=== PATIENT | male | born 1980 | race Caucasian/White ===

== ENCOUNTER 2018-05-22 15:37 | Outpatient (REF) | payer MEDICAID, SELFPAY ==
[2018-05-26 09:37] LABS: Hepatitis C Ab w Rflx HCV PCR Reactive (NEGAT)
[2018-05-26 11:26] LABS: Hepatitis B Surface Ag Negative (NEGAT)
[2018-05-26 11:28] LABS: HBs Antibody, Quant 17.9 mIU/mL; Hepatitis B Surface Ab Positive
[2018-05-26 11:29] LABS: HIV-1/2 Ag & Ab Screen Negative (NEGAT)
[2018-05-26 12:11] LABS: Syphilis Serology (RPR) Negative (Negative)
== END 2018-05-22 15:57 ==
LOC: NCHCN 15:37
PROVIDERS: PCP Internal Medicine; Visit Provider Internal Medicine
DX: Z11.3 Encounter for screening for infections with a predominantly sexual mode of transmission (principal); Z11.4 Encounter for screening for human immunodeficiency virus [HIV]; Z11.59 Encounter for screening for other viral diseases
CPT/HCPCS: 86706; 86803; 87340; 87389; 86592; 87522

== ENCOUNTER 2018-05-28 15:45 | Outpatient (REF) | payer MEDICAID, SELFPAY ==
[2018-05-28 21:27] LABS: Absolute Basophil Count 0.03 k/cumm (0.0-0.2); Absolute Eosinophil Count 0.23 k/cumm (0.0-0.7); Absolute Lymphocyte Count 2.83 k/cumm (1.2-3.4); Absolute Monocyte Count 0.58 k/cumm (0.11-0.7); Absolute Neutrophil Count 3.05 k/cumm (1.2-6.7); Basophils % 0.4; Eosinophils % 3.4; HCT 45.1 % (40.0-50.0); HGB 15.7 g/dL (13.5-17.5); Lymphocytes % 42.1; Mean Corp. HGB Concentration 34.8 g/dL (32.0-36.0); Mean Corpuscular Hemoglobin 32.4 pg (27.0-33.0); Mean Corpuscular Volume 93.2 fL (80-95); Mean Platelet Volume 12.6 fL (8.0-11.0); Monocytes % 8.6; Neutrophils % 45.5; Platelet Count 242 x1000/uL (130-400); RBC 4.84 m/cumm (4.50-6.00); RBC Distribution Width 12.4 % (11.8-14.1); White Blood Cell Count 6.72 k/cumm (4.4-10.8)
[2018-05-28 21:36] LABS: ALT 37 U/L (12-78); AST 26 U/L (15-37); Albumin 4.2 g/dL (3.4-5.0); Alkaline Phosphatase 53 U/L (46-116); Anion Gap 12.2 mmol/L (3-11); BUN 10 mg/dL (7-18); Bilirubin, Total 0.3 mg/dL (0.2-1.0); CO2 27.8 mmol/L (21.0-32.0); Calcium 9.8 mg/dL (8.5-10.1); Chloride 93 mmol/L (98-107); Glucose 71 mg/dL (70-100); Potassium 3.8 mmol/L (3.5-5.1); Sodium 133 mmol/L (136-145); Total Protein 7.6 g/dL (6.4-8.2)
[2018-05-30 18:52] LABS: HCV Genotype 1a (Undetected)
== END 2018-05-28 16:05 ==
LOC: NCHCN 15:45
PROVIDERS: PCP Internal Medicine; Visit Provider Internal Medicine
DX: I10 Essential (primary) hypertension (principal); B19.20 Unspecified viral hepatitis C without hepatic coma
CPT/HCPCS: 80053; 85025; 87521

== ENCOUNTER 2018-05-30 14:03 | Outpatient (REF) | payer MEDICAID, SELFPAY ==
[2018-06-02 15:02] LABS: Chlamydia Result Negative; GC Result Negative; Specimen Description URINE
== END 2018-05-30 14:23 ==
LOC: NCHCN 14:03
PROVIDERS: PCP Internal Medicine; Visit Provider Internal Medicine
DX: Z11.3 Encounter for screening for infections with a predominantly sexual mode of transmission (principal)
CPT/HCPCS: 87491; 87591

== ENCOUNTER 2018-06-13 13:34 | Outpatient (REF) | payer MEDICAID, SELFPAY ==
[2018-06-16 11:20] LABS: Hep B Core Antibody Negative (NEGAT)
== END 2018-06-13 13:54 ==
LOC: NCHCN 13:34
PROVIDERS: PCP Internal Medicine; Visit Provider Internal Medicine
DX: B19.20 Unspecified viral hepatitis C without hepatic coma (principal)
CPT/HCPCS: 86704

== ENCOUNTER 2018-06-17 16:06 | Outpatient (REF) | payer MEDICAID, SELFPAY | END 2018-06-17 16:26 | LOC: NCHCN 16:06 | PROVIDERS: PCP Internal Medicine; Visit Provider Family Medicine | DX: B19.20 Unspecified viral hepatitis C without hepatic coma (principal) | CPT/HCPCS: 87522 ==

== ENCOUNTER 2018-08-29 15:51 | Outpatient (REF) | payer MEDICAID, SELFPAY ==
[2018-08-29 21:01] LABS: Abs Immature Grans 0.01 k/cumm (0.0-0.09); Absolute Basophil Count 0.02 k/cumm (0.0-0.2); Absolute Eosinophil Count 0.33 k/cumm (0.0-0.7); Absolute Lymphocyte Count 2.65 k/cumm (1.2-3.4); Absolute Monocyte Count 0.49 k/cumm (0.11-0.7); Basophils % 0.3; HCT 41.3 % (40.0-50.0); HGB 13.8 g/dL (13.5-17.5); Immature Grans % 0.2; Lymphocytes % 40.2; Mean Corp. HGB Concentration 33.4 g/dL (32.0-36.0); Mean Corpuscular Hemoglobin 32.3 pg (27.0-33.0); Mean Corpuscular Volume 96.7 fL (80-95); Mean Platelet Volume 13.2 fL (8.0-11.0); Monocytes % 7.4; Neutrophils % 46.9; Platelet Count 160 x1000/uL (130-400); RBC 4.27 m/cumm (4.50-6.00); RBC Distribution Width 12.2 % (11.8-14.1)
[2018-09-01 09:33] LABS: ALT 20 U/L (12-78); AST 16 U/L (15-37); Albumin 3.7 g/dL (3.4-5.0); Alkaline Phosphatase 47 U/L (46-116); Anion Gap 6.5 mmol/L (3-11); BUN 16 mg/dL (7-18); Bilirubin, Total 0.1 mg/dL (0.2-1.0); CO2 28.5 mmol/L (21.0-32.0); CREATININE 0.96 mg/dL (0.70-1.30); Calcium 9.2 mg/dL (8.5-10.1); Chloride 104 mmol/L (98-107); Glucose 108 mg/dL (70-100); Potassium 4.7 mmol/L (3.5-5.1); Sodium 139 mmol/L (136-145)
[2018-09-02 14:38] LABS: HCV RNA Detection Quantitative Detected (UNDECT)
== END 2018-08-29 16:11 ==
LOC: NCHCN 15:51
PROVIDERS: PCP Internal Medicine; Visit Provider Family Medicine
DX: B19.20 Unspecified viral hepatitis C without hepatic coma (principal)
CPT/HCPCS: 80053; 85025; 87522

== ENCOUNTER 2018-09-22 15:00 | Outpatient (REF) | payer MEDICAID, SELFPAY ==
[2018-09-22 22:16] LABS: ALT 26 U/L (12-78); AST 22 U/L (15-37); Alkaline Phosphatase 51 U/L (46-116); Anion Gap 6.3 mmol/L (3-11); BUN 14 mg/dL (7-18); Bilirubin, Total 0.1 mg/dL (0.2-1.0); CO2 31.7 mmol/L (21.0-32.0); CREATININE 0.94 mg/dL (0.70-1.30); Calcium 9.3 mg/dL (8.5-10.1); Chloride 105 mmol/L (98-107); Glucose 77 mg/dL (70-100); Potassium 4.9 mmol/L (3.5-5.1); Sodium 143 mmol/L (136-145)
[2018-09-24 15:17] LABS: HCV RNA Detection Quantitative Undetected IU/mL (UNDECT)
== END 2018-09-22 15:20 ==
LOC: NCHCN 15:00
PROVIDERS: PCP Internal Medicine; Visit Provider Internal Medicine
DX: F11.20 Opioid dependence, uncomplicated (principal); F41.8 Other specified anxiety disorders; I10 Essential (primary) hypertension; B19.20 Unspecified viral hepatitis C without hepatic coma
CPT/HCPCS: 80053; 87522

== ENCOUNTER 2019-01-19 13:28 | Outpatient (REF) | payer MEDICAID, SELFPAY ==
[2019-01-24 07:06] LABS: Amphetamine 1515 ng/mL (Cutoff: 25); Amphetamines Interpretation Positive.; MDA (Ecstasy Metabolite) Negative ng/mL (Cutoff: 25); MDMA (Ecstasy) Negative ng/mL (Cutoff: 25); Methamphetamine 13966 ng/mL (Cutoff: 25); Phentermine Negative ng/mL (Cutoff: 25); Pseudoephedrine/Ephedrine Negative ng/mL (Cutoff: 25)
== END 2019-01-19 13:48 ==
LOC: NCHCN 13:28
PROVIDERS: PCP Internal Medicine; Visit Provider Internal Medicine
DX: F11.20 Opioid dependence, uncomplicated (principal)
CPT/HCPCS: 80324

== ENCOUNTER 2019-05-14 15:48 | Outpatient (REF) | payer MEDICAID, SELFPAY ==
[2019-05-18 16:34] LABS: 2-OH-Ethyl-Flurazepam Negative ng/mL (Cutoff: 100); 7-NH-Clonazepam Negative ng/mL (Cutoff: 100); 7-NH-Flunitrazepam Negative ng/mL (Cutoff: 50); Alpha OH-Alprazolam Negative ng/mL (Cutoff: 100); Alpha-OH-Triazolam Negative ng/mL (Cutoff: 100); Benzodiazepines Interpretation Negative.; Lorazepam Negative ng/mL (Cutoff: 100); Temazepam Negative ng/mL (Cutoff: 100)
[2019-05-19 05:13] LABS: Carboxy-THC Interpretation Positive.; Delta-9 CarboxyThc by LC-MS/MS 550 ng/mL (Cutoff:<3)
[2019-05-19 11:40] LABS: Amphetamine 9286 ng/mL (Cutoff: 25); Amphetamines Interpretation Positive.; MDA (Ecstasy Metabolite) Negative ng/mL (Cutoff: 25); MDMA (Ecstasy) Negative ng/mL (Cutoff: 25); Phentermine Negative ng/mL (Cutoff: 25); Pseudoephedrine/Ephedrine Negative ng/mL (Cutoff: 25)
[2019-05-23 20:26] LABS: Buprenorphine 289.4 ng/mL; Norbuprenorphine 657.1 ng/mL
== END 2019-05-14 16:08 ==
LOC: NCHCN 15:48
PROVIDERS: PCP Internal Medicine; Visit Provider Internal Medicine
DX: F11.20 Opioid dependence, uncomplicated (principal); F15.10 Other stimulant abuse, uncomplicated; F41.8 Other specified anxiety disorders; L98.8 Other specified disorders of the skin and subcutaneous tissue
CPT/HCPCS: 80307; 80324; 80349; 80346

== ENCOUNTER 2020-03-01 17:15 | Outpatient (REF) | payer MEDICAID, SELFPAY ==
[2020-03-05 04:11] LABS: Benzoylecgonine 1305 ng/mL (Cutoff: 50); Cocaine Negative ng/mL (Cutoff: 50); Cocaine Interpretation Positive.
[2020-03-05 13:50] LABS: Amphetamine 8281 ng/mL (Cutoff: 25); Amphetamines Interpretation Positive.; MDA (Ecstasy Metabolite) Negative ng/mL (Cutoff: 25); MDMA (Ecstasy) Negative ng/mL (Cutoff: 25); Phentermine Negative ng/mL (Cutoff: 25); Pseudoephedrine/Ephedrine Negative ng/mL (Cutoff: 25)
== END 2020-03-01 17:35 ==
LOC: NCHCN 17:15
PROVIDERS: PCP Internal Medicine; Visit Provider Internal Medicine
DX: K21.9 Gastro-esophageal reflux disease without esophagitis (principal); F41.8 Other specified anxiety disorders; F11.20 Opioid dependence, uncomplicated
CPT/HCPCS: 80324; 80353

== ENCOUNTER 2020-07-11 16:46 | Outpatient (REF) | payer MEDICAID, SELFPAY ==
[2020-07-15 11:49] LABS: Amphetamine 3923 ng/mL (Cutoff: 25); Amphetamines Interpretation Positive.; MDA (Ecstasy Metabolite) Negative ng/mL (Cutoff: 25); MDMA (Ecstasy) Negative ng/mL (Cutoff: 25); Phentermine Negative ng/mL (Cutoff: 25); Pseudoephedrine/Ephedrine Negative ng/mL (Cutoff: 25)
== END 2020-07-11 17:06 ==
LOC: NCHCN 16:46
PROVIDERS: PCP Internal Medicine; Visit Provider Internal Medicine
DX: F11.20 Opioid dependence, uncomplicated (principal); F15.10 Other stimulant abuse, uncomplicated
CPT/HCPCS: 80324

== ENCOUNTER 2020-11-10 16:08 | Outpatient (REF) | payer MEDICAID, SELFPAY ==
[2020-11-15 16:38] LABS: EDDP-by GC-MS Negative ng/mL (Cutoff: 100); Methadone Interpretation Negative.; Methadone-by GC-MS Negative ng/mL (Cutoff: 100)
[2020-11-16 23:45] LABS: Amphetamine 9457 ng/mL (Cutoff: 25); Amphetamines Interpretation Positive.; MDA (Ecstasy Metabolite) Negative ng/mL (Cutoff: 25); MDMA (Ecstasy) Negative ng/mL (Cutoff: 25); Phentermine Negative ng/mL (Cutoff: 25); Pseudoephedrine/Ephedrine Negative ng/mL (Cutoff: 25)
== END 2020-11-10 16:09 | disposition home or self-care (01) ==
LOC: NCHCN 16:08
PROVIDERS: PCP Internal Medicine; Visit Provider Internal Medicine
DX: F90.0 Attention-deficit hyperactivity disorder, predominantly inattentive type (principal); F41.8 Other specified anxiety disorders; F11.20 Opioid dependence, uncomplicated
CPT/HCPCS: 80324; 80358

== ENCOUNTER 2021-02-14 16:19 | Outpatient (REF) | payer MEDICAID, SELFPAY ==
[2021-02-14 21:56] LABS: HCT 43.1 % (40.0-50.0); MCHC 32.5 % (32.0-36.0); MCV 95.4 fL (80-95); MPV 12.7 fL (8.0-11.0); Platelet Count 202 10^3/uL (130-400); RBC 4.52 10^6/uL (4.36-5.78); RDW 11.9 % (11.8-14.1); RDW-SD 42.1 fL; WBC 4.36 10^3/uL (4.4-10.8)
[2021-02-14 21:59] LABS: ESR 5 mm/hr (0-15)
[2021-02-15 16:19] LABS: Rheumatoid Factor <8.6 IU/mL (<12.0)
[2021-02-16 09:22] LABS: Cyclic Citrullinated Peptide <2.5 U/mL (<5.0)
[2021-02-16 10:21] LABS: Lyme Ab w Rflx to Lyme Confirm Negative (Negative)
[2021-02-18 12:45] LABS: Amphetamine 24781 ng/mL (Cutoff: 25); Amphetamines Interpretation Positive.; MDA (Ecstasy Metabolite) Negative ng/mL (Cutoff: 25); MDMA (Ecstasy) Negative ng/mL (Cutoff: 25); Phentermine Negative ng/mL (Cutoff: 25); Pseudoephedrine/Ephedrine Negative ng/mL (Cutoff: 25)
== END 2021-02-14 16:20 | disposition home or self-care (01) ==
LOC: NCHCN 16:19
PROVIDERS: PCP Internal Medicine; Visit Provider Internal Medicine
DX: M25.551 Pain in right hip (principal); F11.20 Opioid dependence, uncomplicated; M25.552 Pain in left hip; M25.59 Pain in other specified joint; S80.862A Insect bite (nonvenomous), left lower leg, initial encounter; M25.48 Effusion, other site; Z82.61 Family history of arthritis
CPT/HCPCS: 80324; 85027; 85652; 86200; 86431; 86618

== ENCOUNTER 2021-05-02 16:02 | Outpatient (REF) | payer MEDICAID, SELFPAY ==
[2021-05-02 22:18] LABS: *AMPHETAMINES SCREEN URINE Positive (Negative); *BARBITURATES SCREEN URINE Negative (Negative); *BENZODIAZEPINES SCREEN URINE Negative (Negative); Cannabinoids THC Positive (Negative); Cocaine Screen,Urine Negative (Negative); METHADONE URINE SCREEN Negative (Negative); OPIATES URINE SCREEN Negative (Negative); Tricyclic Antidepressants Negative (Negative)
== END 2021-05-02 16:03 | disposition home or self-care (01) ==
LOC: NCHCN 16:02
PROVIDERS: PCP Internal Medicine; Visit Provider Internal Medicine
DX: F90.0 Attention-deficit hyperactivity disorder, predominantly inattentive type (principal); F11.20 Opioid dependence, uncomplicated; F15.21 Other stimulant dependence, in remission
CPT/HCPCS: 80307

== ENCOUNTER 2022-10-30 15:24 | Outpatient (REF) | payer MEDICAID, SELFPAY ==
[2022-10-30 20:27] LABS: HCT 42.8 % (40.0-50.0); HGB 14.3 g/dL (13.5-17.5); MCH 30.4 pg (27.0-33.0); MCHC 33.4 % (32.0-36.0); MCV 91 fL (80-95); MPV 12.9 fL (8.0-11.0); Platelet Count 185 10^3/uL (130-400); RDW 11.9 % (11.8-14.1); RDW-SD 40.2 fL; WBC 4.99 10^3/uL (4.4-10.8)
[2022-10-30 20:54] LABS: ALT 29 U/L (16-63); AST 21 U/L (15-37); Albumin 3.8 g/dL (3.4-5.0); Alkaline Phosphatase 55 U/L (46-116); Anion Gap 6.2 mmol/L (3-11); BUN 18 mg/dL (7-18); Bilirubin, Total 0.3 mg/dL (0.2-1.0); CO2 31.8 mmol/L (21.0-32.0); CREATININE 0.9 mg/dL (0.70-1.30); Calcium 9.3 mg/dL (8.5-10.1); Chloride 103 mmol/L (98-107); Estimated GFR 110.73 (mL/min/1.73m2); Glucose 86 mg/dL (74-106); Potassium 4.4 mmol/L (3.5-5.1); Sodium 141 mmol/L (136-145)
[2022-11-02 13:09] LABS: Buprenorphine 305.8 ng/mL (Cutoff: 5.0); Norbuprenorphine 368.5 ng/mL (Cutoff: 2.5)
[2022-11-03 14:09] LABS: Carboxy-THC Interpretation Positive.; Delta-8 CarboxyThc by LC-MS/MS Not Detected ng/mL (Cutoff: 5); Delta-9 CarboxyThc by LC-MS/MS 251 ng/mL (Cutoff: 5)
[2022-11-04 04:21] LABS: Amphetamine 16830 ng/mL (Cutoff: 25); Amphetamines Interpretation Positive.; MDA (Ecstasy Metabolite) Negative ng/mL (Cutoff: 25); MDMA (Ecstasy) Negative ng/mL (Cutoff: 25); Phentermine Negative ng/mL (Cutoff: 25); Pseudoephedrine/Ephedrine Negative ng/mL (Cutoff: 25)
== END 2022-10-30 15:25 | disposition home or self-care (01) ==
LOC: NCHCN 15:24
PROVIDERS: PCP Internal Medicine; Visit Provider Internal Medicine
DX: R55 Syncope and collapse (principal); F11.20 Opioid dependence, uncomplicated; F32.A Depression, unspecified; F90.0 Attention-deficit hyperactivity disorder, predominantly inattentive type
CPT/HCPCS: 80053; 80324; 80348; 80349; 85027

== ENCOUNTER 2023-05-07 17:04 | Outpatient (REF) | payer MEDICAID, SELFPAY ==
[2023-05-12 03:29] LABS: Amphetamine 11027 ng/mL (Cutoff: 25); Amphetamines Interpretation Positive.; MDA (Ecstasy Metabolite) Negative ng/mL (Cutoff: 25); MDMA (Ecstasy) Negative ng/mL (Cutoff: 25); Phentermine Negative ng/mL (Cutoff: 25); Pseudoephedrine/Ephedrine Negative ng/mL (Cutoff: 25)
[2023-05-13 10:43] LABS: 2-OH-Ethyl-Flurazepam Negative ng/mL (Cutoff: 10); 7-NH-Clonazepam Negative ng/mL (Cutoff: 10); 7-NH-Flunitrazepam Negative ng/mL (Cutoff: 10); Alpha OH-Alprazolam Negative ng/mL (Cutoff: 10); Alpha-OH Midazolam Negative ng/mL (Cutoff: 10); Alpha-OH-Triazolam Negative ng/mL (Cutoff: 10); Alprazolam Negative ng/mL (Cutoff: 10); Benzodiazepines Interpretation Negative.; Chlordiazepoxide Negative ng/mL (Cutoff: 10); Clobazam Negative ng/mL (Cutoff: 10); Clonazepam Negative ng/mL (Cutoff: 10); Diazepam Negative ng/mL (Cutoff: 10); Flurazepam Negative ng/mL (Cutoff: 10); Lorazepam Negative ng/mL (Cutoff: 10); Midazolam Negative ng/mL (Cutoff: 10); N-Desmethylclobazam Negative ng/mL (Cutoff: 10); Prazepam Negative ng/mL (Cutoff: 10); Temazepam Negative ng/mL (Cutoff: 10); Triazolam Negative ng/mL (Cutoff: 10); Zolpidem Carboxylic acid Negative ng/mL (Cutoff: 10)
== END 2023-05-07 17:05 | disposition home or self-care (01) ==
LOC: NCHCN 17:04
PROVIDERS: PCP Internal Medicine; Visit Provider Internal Medicine
DX: F11.20 Opioid dependence, uncomplicated (principal); F32.89 Other specified depressive episodes; F90.0 Attention-deficit hyperactivity disorder, predominantly inattentive type; Z79.899 Other long term (current) drug therapy
CPT/HCPCS: 80324; 80346

== ENCOUNTER 2024-01-16 16:18 | Outpatient (REF) | payer MEDICAID, SELFPAY ==
[2024-01-20 11:21] LABS: Alcohol Negative mg/dL (Cutoff: 10); Amphetamines Presumptive Positive ng/mL; Barbiturates Negative; Benzodiazepines Negative; Cocaine Presumptive Positive ng/mL; Opiates Presumptive Positive ng/mL; Phencyclidine Negative ng/mL (Cutoff: 25); Tetrahydrocannabinol Presumptive Positive ng/mL (Cutoff: 50)
[2024-01-21 07:17] LABS: Carboxy-THC Interpretation Positive.; Delta-8 CarboxyThc by LC-MS/MS Not Detected ng/mL (Cutoff: 5); Delta-9 CarboxyThc by LC-MS/MS 108 ng/mL (Cutoff: 5)
[2024-01-22 12:04] LABS: Codeine Negative ng/mL (Cutoff: 25); Dihydrocodeine Negative ng/mL (Cutoff: 25); Hydrocodone Negative ng/mL (Cutoff: 25); Hydromorphone Negative ng/mL (Cutoff: 25); Morphine Negative ng/mL (Cutoff: 25); Naloxone 573 ng/mL (Cutoff: 25); Norhydrocodone Negative ng/mL (Cutoff: 25); Noroxycodone Negative ng/mL (Cutoff: 25); Noroxymorphone 42 ng/mL (Cutoff: 25); Opiates Interpretation Positive.
[2024-01-23 14:34] LABS: Amphetamine 4145 ng/mL (Cutoff: 25); Amphetamines Interpretation Positive.; MDA (Ecstasy Metabolite) Negative ng/mL (Cutoff: 25); MDMA (Ecstasy) Negative ng/mL (Cutoff: 25); Phentermine Negative ng/mL (Cutoff: 25); Pseudoephedrine/Ephedrine Negative ng/mL (Cutoff: 25)
[2024-01-23 15:11] LABS: Benzoylecgonine >250000 ng/mL (Cutoff: 50); Cocaine 34013 ng/mL (Cutoff: 50); Cocaine Interpretation Positive.
== END 2024-01-16 16:19 | disposition home or self-care (01) ==
LOC: NCHCN 16:18
PROVIDERS: PCP Internal Medicine; Visit Provider Family Medicine
DX: F11.20 Opioid dependence, uncomplicated (principal); R82.5 Elevated urine levels of drugs, medicaments and biological substances
CPT/HCPCS: 80307; 80324; 80349; 80361; 80362; 80365; 80353

== ENCOUNTER 2024-04-26 04:00 | Emergency (ER) | payer MEDICAID, SELFPAY ==
[2024-04-26] VITALS (15 sets, daily range): BP systolic 99–169; BP diastolic 64–133; PULSE 58–149; RESP 12–24; O2SAT 83–100
[2024-04-26] MEDS: Lactated Ringers 1,000 ML 1000 ML IV (04:00)
[2024-04-26] MEDS: Etomidate 20 MG/10 ML VIAL (04:05)
[2024-04-26] MEDS: ceFAZolin 2 GM/50 ML BAG 400 GM (04:07)
[2024-04-26] MEDS: TRANEXAMIC ACID/SOD. CHL. 1,000 MG/100 ML BAG 12.5 MG (04:17)
[2024-04-26 04:18] LABS: Abs Immature Grans 0.06 10^3/uL (0.0-0.06); Absolute Basophil Count 0.06 10^3/uL (0.0-0.2); Absolute Eosinophil Count 0.65 10^3/uL (0.0-0.7); Absolute Lymphocyte Count 2.69 10^3/uL (1.2-3.4); Absolute Monocyte Count 0.69 10^3/uL (0.1-0.8); Basophils % 0.5 %; Eosinophils % 5.2 %; HCT 35.5 % (40.0-50.0); HGB 11.4 g/dL (13.5-17.5); Immature Grans % 0.5 %; Lactate 2.3 mmol/L (0.6-1.4); Lymphocytes % 21.4 %; MCH 29.5 pg (27.0-33.0); MCHC 32.1 % (32.0-36.0); MCV 92 fL (80-95); MPV 11.7 fL (8.0-11.0); Monocytes % 5.5 %; Neutrophils % 66.9 %; Platelet Count 213 10^3/uL (130-400); RBC 3.87 10^6/uL (4.36-5.78); RDW 13.2 % (11.8-14.1); RDW-SD 44.4 fL; WBC 12.55 10^3/uL (4.4-10.8)
[2024-04-26] MEDS: PROPOFOL 1,000 MG/100 ML BTL 20 MG (04:18)
[2024-04-26 04:36] LABS: Prothrombin Time 9.8 sec (9.1-11.1)
[2024-04-26] MEDS: Normal Saline - Diluent 50 ML VIAL IJ (04:40)
[2024-04-26] MEDS: Omnipaque 350 MG/ML 100 ML BTL IJ (04:41)
[2024-04-26 04:42] LABS: ALT 13 U/L (16-63); AST 27 U/L (15-37); Albumin 2.5 g/dL (3.4-5.0); Alkaline Phosphatase 47 U/L (46-116); Anion Gap 5.9 mmol/L (3-11); BUN 16 mg/dL (7-18); Bilirubin, Total 0.43 mg/dL (0.2-1.0); CO2 26.1 mmol/L (21.0-32.0); CREATININE 0.9 mg/dL (0.70-1.30); Calcium 8.4 mg/dL (8.5-10.1); Chloride 107 mmol/L (98-107); Estimated GFR 110.04 (mL/min/1.73m2); Glucose 128 mg/dL (74-106); Magnesium 2.1 mg/dL (1.8-2.4); Potassium 4.5 mmol/L (3.5-5.1); Sodium 139 mmol/L (136-145); Total Protein 5.6 g/dL (6.4-8.2); Troponin I 8 ng/L (<or=76)
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
[2024-04-26 04:50] LABS: ALT 11 U/L (16-63); AST 30 U/L (15-37); Albumin 2.5 g/dL (3.4-5.0); Alkaline Phosphatase 46 U/L (46-116); Anion Gap 6.5 mmol/L (3-11); BUN 15 mg/dL (7-18); Bilirubin, Total 0.46 mg/dL (0.2-1.0); CO2 27.5 mmol/L (21.0-32.0); CREATININE 0.9 mg/dL (0.70-1.30); Calcium 8.5 mg/dL (8.5-10.1); Chloride 106 mmol/L (98-107); Estimated GFR 110.04 (mL/min/1.73m2); Glucose 127 mg/dL (74-106); Potassium 4.6 mmol/L (3.5-5.1); Sodium 140 mmol/L (136-145); Total Protein 5.6 g/dL (6.4-8.2)
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
--- OUTSIDE RECORDS SUMMARY | 2024-04-26 04:55 | XMS_ITS | Clinical Summary ---
Author Organization [facility] [address] Care Team Providers Care Geriatric Social Work Professor Name Role Phone Elfego Davidson MD Primary Care Provider Allergies Active Allergy Reactions Criticality Noted Date Comments Penicillin V Encounters Date Type Department Care Team Description 04/26/2024 [place] [id number] 02/06/2024 Transcribe Orders eDH Incoming Referrals [phone] Holli Lucero MD Depression, unspecified depression type from Last 3 Months Social History Tobacco Use Types Packs/Day Years Used Date Smoking Tobacco: Never Assessed Sex and Gender Information Value Date Recorded Sex Assigned at Not on file Gender Identity Not on file Sexual Orientation Not on file Plan of Treatment Health Maintenance Due Date Last Done Comments HIV screen 2000 Hepatitis C Screening 2000 Lipid Screening 2000 Hepatitis B vaccine (0-59 yrs) (1) 2001 Tetanus/Diphtheria/Pertussis Vaccines (1 - Tdap) 07/27 Covid-19 Vaccine (1 - season) 2024 Influenza (Flu) vaccine (1 o f 1 - Influenza standard series) 03/22/2024 Care Teams Geriatric Social Work Professor Relationship Specialty Start Date End Date Elfego Davidson MD [address] [address] PCP - General Internal Medicine 05/18/19
--- OUTSIDE RECORDS SUMMARY | 2024-04-26 04:55 | XMS_ITS | Encounter Summary ---
[place] [address] Care Team Providers Care C.O.D. Clerk Name Role Phone Elfego Davidson MD Primary Care Provider [phone] Encounter Details Date Type Department Care Team (Late st Contact Info) Description 04/26/2024 Emergency [place] [id number] Social History Tobacco Use Types Packs/Day Years Used Date Smoking Tobacco: Never Assessed Sex and Gender Information Value Date Recorded Sex Assigned at Not on file Gender Identity Not on file Sexual Orientation Not on file documented as of this encounter Plan of Treatment Not on file documented as of this encounter Visit Diagnoses Not on filedocumented in this encounter Care Teams C.O.D. Clerk Relationship Specialty Start Date End Date Elfego Davidson MD [address] [place] [address] PCP - General Internal Medicine 05/18/19 documented as of this encounter
--- OUTSIDE RECORDS SUMMARY | 2024-04-26 04:55 | XMS_ITS | Encounter Summary ---
[place] [address] Care Team Providers Care Chief Growth Officer Name Role Phone Elfego Davidson MD Primary Care Provider [phone] Reason for Referral * Psychiatric (Routine) - Closed Specialty Diagnoses / Procedures Referred By Contac t Referred To Contact Psychiatry Diagnoses Depression, unspecified depression type Procedures Profoundly depressed and has not responded to meds thus far. ECT helpful? Other treatment options Holli Lucero MD [address] [place] [address] [facility] [place] [address] Referral ID Status Reason Start Date Expiration Date V isits Requested Visits Authorized [id number] Closed Consult, Test & Treat PCP Updated and/or Approved 01/16/2024 07/17/2024 6 6 Encounter Details Date Type Department Care Team (Latest Contact Info) Description 02/06/2024 Transcribe Orders eDH Incoming Referrals [phone] Holli Lucero MD [address] [place] [address] Depression, unspecified depression type Social History Tobacco Use Types Packs/Day Years Used Date Smoking Tobacco: Never Assessed Sex and Gender Information Value Date Recorded Sex Assigned at Not on file Gender Identity Not on file Sexual Orientation Not on file documented as of this encounter Plan of Treatment Scheduled Referrals Name Type Priority Associated Diagnoses Orde r Schedule Referral to Adult Psychiatry Outpatient Referral Routine Depression, unspecified depression type Ordered: 02/06/2024 documented as of this encounter Visit Diagnoses Diagnosis Depression, unspecified depression type documented in this encounter Care Teams Chief Growth Officer Relationship Specialty Start Date End Date Elfego Davidson MD [address] [place] [address] PCP - General Internal Medicine 05/18/19 documented as of this encounter
[2024-04-26] MEDS: fentaNYL 100 MCG/2 ML VIAL (05:02)
[2024-04-26 05:03] LABS: ETHANOL BLOOD < 3.0 mg/dL (<10)
[2024-04-26 05:24] LABS: Lipase 45 U/L (16-77)
[2024-04-26] MEDS: Normal Saline 100 ML (05:35)
[2024-04-26] MEDS: fentaNYL 1,000 MCG/20 ML VIAL 1000 MCG (05:35)
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
--- NOTE | 2024-04-26 06:55 | NUR.NOTE ---
Nursing Note: See paper chart for trauma documentation.
--- NOTE | 2024-04-26 07:32 | NUR.NOTE ---
Accessed Pt chart to print discharge summary for [facility]. Surgical note was not complete at this time, I will check back this afternoon.
--- NOTE | 2024-04-26 13:39 | NUR.NOTE ---
Accessed Pt chart to see if Dr Slaughter's note was completed. It is not at this time. When the note from Dr Slaughter is complete, it needs to be faxed to [phone]
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
== END 2024-04-26 06:00 | disposition short-term general hospital (02) ==
PROVIDERS: Emergency Provider Student in an Organized Health Care Education/Training Program; PCP Family Medicine
DX: R57.8 Other shock; S24.102A Unspecified injury at T2-T6 level of thoracic spinal cord, initial encounter; S22.029 Unspecified fracture of second thoracic vertebra; J93.9 Pneumothorax, unspecified; J94.2 Hemothorax; X95.9XXA Assault by unspecified firearm discharge, initial encounter; Z23 Encounter for immunization; S21.132A Puncture wound without foreign body of left front wall of thorax without penetration into thoracic cavity, initial encounter
CPT/HCPCS: 31500; 32551; 51702; 74177; 76604; 76705; 76857; 80053; 83690; 86850; 86900; 86901; 86920; 90471; 90715; 96361; 96374; 96376; 99291; 71045; 71260; 80320; 83605; 83735; 84484; 85025; 85610; 85730; J0690; J2704; J3010; J3490; P9016

== ENCOUNTER 2024-09-01 17:05 | Outpatient (REF) | payer MEDICAID, SELFPAY ==
--- OUTSIDE RECORDS SUMMARY | 2024-09-01 17:07 | XMS_ITS | Clinical Summary ---
Author Organization [facility] Address [address] [place] [address] Care Team Providers Care Video Game Repair Technician Name Role Phone Elfego Davidson MD Primary Care Provider [phone] Social History Tobacco Use Types Packs/Day Years Used Date Smoking Tobacco: Never Assessed Interpersonal Safety Answer Date Record ed Physically Hurt Never 02/21/2020 Verbally Threaten Not on file 02/21/2020 Sex and Gender Information Value Date Recorded Sex Assigned at Not on file Legal Sex Male 18:41 EST Gender Identity Not on file Sexual Orientation Not on file Plan of Treatment Health Maintenance Due Date Last Done Comments Hepatitis B Vaccine (1 of 3 - 19+ 3-dose series) 07/27 COVID-19 Vaccine (2023- season) 2024 Hepatitis C Screen Completed 06/02/2007 Procedures Procedure Name Priority Date/Time Associated Diagnosis Comments HEPATITIS C AB W REFLEX TO HCV RNA BY PCR Routine 06/02/2007 20:00 EST from Last 3 Months or Most Recently Relevant to Health Maintenance Results * HEPATITIS C ANTIBODY (06/02/2007 20:00 EST) Hepatitis C Ab Neg [facility] 06/02/2007 20:0 0 EST 06/03/2007 18:17 EST Nolberto Nino MD CHEMISTRY & BLOOD GAS ORDERABLES Final Result [facility] [address] [place] [address] from Last 3 Months or Most Recently Relevant to Health Maintenance Insurance MEDICAID [place] Care Teams Video Game Repair Technician Relationship Specialty Start Date End Date Elfego Davidson MD [address] [place] [address] PCP - General 11/05/12
--- OUTSIDE RECORDS SUMMARY | 2024-09-01 17:07 | XMS_ITS | Continuity of Care Document ---
Author Organization [facility] Address Unknown Care Team Providers Care Car Wash Attendant Name Role Phone Elfego Davidson Primary Care Physician Unavail able Encounter [facility] [id number] Date(s): 08/18/24 - 08/18/24 [facility] [address], [place] [address] Discharge Disposition: Other Allergies, Adverse Reactions, Alerts No Known Allergies Assessment and Plan Future Appointments Immunizations Given and Recorded Vaccine Date Status Refusal Reason SARS-COV-2 (COVID-19) vaccine, unspecifi 07/22/22 Recorded Medications acetaminophen 325 mg oral tablet 650 mg = 2 tab(s), Oral, q4hr, PRN PRN Pain, 0 Refill(s) Start Date: 08/18/24 Status: Ordered apixaban 5 mg oral tablet 5 mg = 1 tab(s), Oral, BID, # 60 tab(s), 0 Refill(s), Pharmacy: [facility], 1 tab(s) Oral BID, 180, cm, 08/14/24 13:36:00 EST, Height, 103.8, kg, 07/24/24 14:38:00 EST, Weight Dosing Start Date: 08/18/24 Status: Ordered baclofen 10 mg oral tablet 15 mg = 1.5 tab(s), Oral, TID, # 135 tab(s), 0 Refill(s), Pharmacy: [facility], 1.5 tab(s) Oral TID, 180, cm, 08/14/24 13:36:00 EST, Height, 103.8, kg, 07/24/24 14:38:00 EST, Weight Dosing Start Date: 08/18/24 Status: Ordered bisacodyl 10 mg rectal suppository 10 mg = 1 supp, Rectal, qPM, 0 Refill(s) Start Date: 08/18/24 Status: Ordered buprenorphine-naloxone 8 mg-2 mg sublingual film Sublingual, TID, 0 Refill(s) Start Date: 08/18/24 Status: Ordered Colace 100 mg oral capsule 100 mg = 1 cap(s), Oral, BID, 0 Refill(s) Start Date: 08/18/24 Status: Ordered Cymbalta 60 mg oral delayed release capsule 120 mg = 2 cap(s), Oral, Daily, # 60 cap(s), 0 Refill(s), Pharmacy: [facility], 2 cap(s) OralDaily, 180, cm, 08/14/24 13:36:00 EST, Height, 103.8, kg, 07/24/24 14:38:00 EST, Weight Dosing Start Date: 08/18/24 Status: Ordered hydrOXYzine hydrochloride 25 mg oral tablet 25 mg = 1 tab(s), Oral, TID, PRN PRN Anxiety, # 90 tab(s), 0 Refill(s), Pharmacy: [facility],1 tab(s) Oral TID,PRN:Anxiety, 180, cm, 08/14/24 13:36:00 EST, Height, 103.8, kg, 07/24/24 14:38:00EST, Weight Dosing Start Date: 08/18/24 Status: Ordered Lasix 20 mg oral tablet = 1 cap(s), Oral, Daily, PRN PRN Edema, 1-2 tabs daily prn as needed for worsening edema/weight gain >2kg, # 20 tab(s), 0 Refill(s), Pharmacy: [facility], 1 cap(s) Oral Daily,PRN:Edema,Instr:1-2 tabs daily prn as needed for worsening edema/weight gain >2kg, 180, cm, 08/14/24 13:36:00 EST, Height, 103.8, kg, 07/24/24 14:38:00 EST, Weight Dosing Start Date: 08/18/24 Status: Ordered Lyrica 100 mg oral capsule 100 mg, Oral, TID, # 90 cap(s), 0 Refill(s), Pharmacy: [facility], 100 mg Oral TID, 180, cm, 08/14/24 13:36:00 EST, Height, 103.8, kg, 07/24/24 14:38:00 EST, Weight Dosing Start Date: 08/18/24 Status: Ordered melatonin 3 mg oral tablet 6 mg = 2 tab(s), Oral, HS, 0 Refill(s) Start Date: 08/18/24 Status: Ordered Metamucil 3.4 gm = 1 packet(s), Oral, Daily, 0 Refill(s) Start Date: 08/18/24 Status: Ordered MiraLax 17 gm = 1 packet(s), Oral, Daily, PRN PRN Constipation, 0 Refill(s) Start Date: 08/18/24 Status: Ordered mirtazapine 15 mg oral tablet 15 mg = 1 tab(s), Oral, HS, # 30 tab(s), 0 Refill(s), Pharmacy: [facility], 1 tab(s) Oral HS,180, cm, 08/14/24 13:36:00 EST, Height, 103.8, kg, 07/24/24 14:38:00 EST, Weight Dosing Start Date: 08/18/24 Status: Ordered nitroglycerin 2% transdermal ointment = 1 in, Topical, Daily, PRN PRN Other (see comment), for autonomic dysreflexia, apply 1 inch ribbonto shoulder if persistent BPs >150 associaed with HUBER flushing and sweating. Check BPs q5min. Wipe off as BP normalizes to <150, # 3 gm, 1 Refill(s), Pharmacy: [facility], 1 in Topical Daily,PRN:Other (see comment),Instr:for autonomic dysreflexia, apply 1 inch ribbon to shoulder if persistent BPs >150 associaed with HUBER flushing and sweating. Check BPs q5min. Wipe off as BP normalizes to <150, 180, cm, 08/14/24 13:36:00 EST, Height, 103.8, kg, 07/24/24 14:38:00 EST, Weight Dosing Start Date: 08/18/24 Status: Ordered senna 8.6 mg oral tablet 34.4 mg = 4 tab(s), Oral, Daily, 0 Refill(s) Start Date: 08/18/24 Status: Ordered Vitamin D2 1.25 mg (50,000 intl units) oral capsule 50,000 IntUnit = 1 cap(s), Oral, qWeek, # 4 cap(s), 0 Refill(s), Pharmacy: [facility] #[facility], 1 cap(s) Oral qWeek, 180, cm, 08/14/24 13:36:00 EST, Height, 103.8, kg, 07/24/24 14:38:00 EST, Weight Dosing Start Date: 08/18/24 Status: Ordered Problem List Condition Confirmation Course Effective Dates Status Health St [facility] Informant Substance abuse Confirmed Active Social History Social History Type Response Tobacco Former tobacco user Tobacco Use:. Sex Sex Representation Male (finding) Patient Care team information Care Team Personnel Name: Elfego Davidson Position: [facility] No Access Member Role: Informed Provider Care Team Related Persons Name: LIZ SUN Name: BRIT NGUYEN Insurance Providers Guarantor name: KIERAN CARUSO Health Plan Information #: 1 Payer: [place]ICA[place] Member Number: [id number] Policy Number: NA Health Plan Information #: 2 Payer: [place]ICA[place] Member Number: [id number] Policy Number: NA
--- OUTSIDE RECORDS SUMMARY | 2024-09-01 17:07 | XMS_ITS | Encounter Summary ---
Author Organization [facility] Address [address] [place] [address] Care Team Providers Care Wallpaper Printer Name Role Phone Unavailable Primary Care Provider Unavailabl e Encounter Details Date Type Department Care Team (Late st Contact Info) Description 06/02/2007 Results Only [facility] Psychiatry [address] [place] [address] Nolberto Nino MD Social History Tobacco Use Types Packs/Day Years Used Date Smoking Tobacco: Never Assessed Sex and Gender Information Value Date Recorded Sex Assigned at Not on file Legal Sex Male 18:41 EST Gender Identity Not on file Sexual Orientation Not on file documented as of this encounter Plan of Treatment Not on file documented as of this encounter Procedures Procedure Name Priority Date/Time Associated Diagnosis Comments HEPATITIS C AB W REFLEX TO HCV RNA BY PCR Routine 06/02/2007 20:00 EST HEPATITIS B SURFACE ANTIGEN Routine 06/02/2007 20:00 EST COMPLETE BLOOD COUNT AND DIFFERENTIAL Routine 06/02/2007 20:00 EST HIV 1/2 ANTIGEN AND ANTIBODY, 4TH GENERATION Routine 06/02/2007 20:00 EST COMPREHENSIVE METABOLIC PANEL (CMP) Routine 06/02/2007 20:00 EST documented in this encounter Results * HIV ANTIBODY (06/02/2007 20:00 EST) HIV 1/2 Antibody NONREACT. NR [facility] 06/02/2007 20:0 0 EST 06/03/2007 18:17 EST us Nolberto Nino MD IMMUNOLOGY AND SEROLOGY ORDERABL ES Final Result Performing Organization Address [facility] de Phone Number [facility] [address] [place] [address] * HEPATITIS C ANTIBODY (06/02/2007 20:00 EST) [facility] Hepatitis C Ab Neg [facility] 06/02/2007 20:0 0 EST 06/03/2007 18:17 EST Nolberto Nino MD CHEMISTRY & BLOOD GAS ORDERABLES Final Result Performing Organization Address [facility] de Phone Number [facility] [address] [place] [address] * HEPATITIS B SURFACE ANTIGEN (06/02/2007 20:00 EST) [facility] Hepatitis B Surface Ag Neg [facility] 06/02/2007 20:0 0 EST 06/03/2007 18:17 EST Nolberto Nino MD CHEMISTRY & BLOOD GAS ORDERABLES Final Result Performing Organization Address [facility] de Phone Number [facility] [address] [place] [address] * (ABNORMAL) COMPREHENSIVE METABOLIC PANEL (06/02/2007 20:00 EST) [facility] Potassium 4.4 3.5 - 5.0 mEq/L [facility] Comment:Slightly lipemic Sodium 140 136 - 145 mEq/L [facility] Comment:Slightly lipemic Chloride 100 96 - 110 mEq/L [facility] Comment:Slightly lipemic CO2 31 24 - 32 mEq/L [facility] Comment:Slightly lipemic Total Alkaline Phosphatase 54 38 - 126 U/L [facility] Comment:Slightly lipemic Bilirubin, Total <0.5 0.2 - 1.3 mg/dl [facility] Comment:Slightly lipemic AST 52(H) 15 - 46 U/L [facility] Comment:Slightly lipemic ALT 70 21 - 72 U/L [facility] Comment:Slightly lipemic Albumin 4.5 3.4 - 4.9 g/dl [facility] Comment:Slightly lipemic Total Protein 7.4 6.5 - 8.3 g/dl [facility] Comment:Slightly lipemic Creatinine 1.12 0.7 - 1.5 mg/dl [facility] Comment:Slightly lipemic GFR, Calculated >60 ml/min/1.7 3m2 [facility] Comment:Slightly lipemic BUN 20 10 - 26 mg/dl [facility] Comment:Slightly lipemic Calcium 9.9 8.5 - 10.5 mg/dl [facility] Comment:Slightly lipemic Calculated Calcium 9.8 8.5 - 10.5 mg/dl [facility] Comment:Slightly lipemic Glucose, Serum 61(L) 70 - 100 mg/dl [facility] Comment:Slightly lipemic Fasting? Unknown [facility] 06/02/2007 20:0 0 EST 06/03/2007 18:17 EST Nolberto Nino MD CHEMISTRY & BLOOD GAS ORDERABLES Final Result Performing Organization Address City/State/[facility] Co de Phone Number [facility] [address] [place] [address] * (ABNORMAL) HEMAGRAM AND DIFFERENTIAL (06/02/2007 20:00 EST) WBC 6.08 4.0 - 10.4 K/cmm [facility] RBC 4.45 4.36 - 5.78 M/cmm [facility] Hemoglobin 14.5 13.8 - 17.3 gm/dl [facility] HCT 42.1 39.5 - 50.2 % [facility] MCV 94 81 - 95 fl [facility] MCH 32.6 27.6 - 33.0 pg [facility] MCHC 34.5 32.8 - 36.4 gm/dl [facility] PLT 147 141 - 320 K/cmm [facility] RDW-CV 13.3 11.8 - 14.1 % [facility] % Neutrophils 39.4(L) 45.5 - 79.7 % [facility] % Lymphocytes 43.4 15.0 - 46.8 % [facility] % Monocytes 13.8(H) 1.8 - 12.0 % [facility] % Eosinophils 3.1 0.6 - 6.9 % [facility] % Basophils 0.3 0.2 - 1.4 % [facility] ABS Neutrophils 2.40 2.20 - 8.85 K/cmm [facility] ABS Lymphs 2.64 1.09 - 3.30 K/cmm [facility] ABS Monocytes 0.84(H) 0.1 - 0.8 K/cmm [facility] ABS Eosinophils 0.19 0.03 - 0.61 K/cmm [facility] ABS Basophils 0.02 0.01 - 0.11 K/cmm [facility] Type of Diff: Automated [facility] 06/02/2007 20:0 0 EST 06/03/2007 18:17 EST us Nolberto Nino MD PACKAGES & DNA PROBE ORDERABLES Final Result [facility] [address] [place] [address] documented in this encounter Visit Diagnoses Not on filedocumented in this encounter
--- OUTSIDE RECORDS SUMMARY | 2024-09-01 17:07 | XMS_ITS | Encounter Summary ---
Author Organization [facility] Address [address] [place] [address] Care Team Providers Care Bending Machine Set Up Operator Name Role Phone Unavailable Primary Care Provider Unavailabl e Encounter Details Date Type Department Care Team (Latest Contact Info) Description 06/03/2007 7:00 EST - 06/03/2007 11:59 EST Hospital Encounter [facility] - Other [address] [place] [address] Nolberto Nino MD Discharge Disposition: Home or Self Care Social History Tobacco Use Types Packs/Day Years Used Date Smoking Tobacco: Never Assessed Sex and Gender Information Value Date Recorded Sex Assigned at Not on file Legal Sex Male 18:41 EST Gender Identity Not on file Sexual Orientation Not on file documented as of this encounter Discharge Disposition Disposition Code Departure Means Destination Home or Self Care documented in this encounter Plan of Treatment Not on file documented as of this encounter Visit Diagnoses Not on filedocumented in this encounter
--- OUTSIDE RECORDS SUMMARY | 2024-09-01 17:07 | XMS_ITS | Referral Summary ---
Author Organization [facility] Address [address] [place] [address] Care Team Providers Care Butter Grader Name Role Phone Elfego Davidson MD Primary Care Provider [phone] Social History Tobacco Use Types Packs/Day Years Used Date Smoking Tobacco: Never Assessed Interpersonal Safety Answer Date Record ed Physically Hurt Never 02/21/2020 Verbally Threaten Not on file 02/21/2020 Sex and Gender Information Value Date Recorded Sex Assigned at Not on file Legal Sex Male 18:41 EST Gender Identity Not on file Sexual Orientation Not on file Plan of Treatment Not on file Procedures Procedure Name Priority Date/Time Associated Diagnosis [...] ORDERABLES Final Result [facility] [address] [place] [address] from Last 3 Months or Most Recently Relevant to Health Maintenance Insurance MEDICAID [employer] [place] Care Teams Butter Grader Relationship Specialty Start Date End Date Elfego Davidson MD [address] [place] [id number] PCP - General 11/05/12
--- OUTSIDE RECORDS SUMMARY | 2024-09-01 17:07 | XMS_ITS | Encounter Summary ---
Author Organization [facility] Address [address] [place] [address] Care Team Providers Care Regulatory Affairs Intern Name Role Phone Unavailable Primary Care Provider Unavailabl e Encounter Details Date Type Department Care Team (Late st Contact Info) Description 04/12/[address] [facility] Laboratory Services - [facility] [address] [place] [address] James Rae MD [address] [place] [address] Social History Tobacco Use Types Packs/Day Years [...] Procedure Name Priority Date/Time Associated Diagnosis Comments SURGICAL PATHOLOGY Routine 04/12/2010 0:00 EDT documented in this encounter Results * SURGICAL PATHOLOGY (04/12/2010 0:00 EDT) Pathology Report: SURGICAL PATHOLOGY REPORT ? Reports generated via electronic interface contain original data; ? however they are lacking the format of the original report. ? Caution should be taken when reading/interpreti ng unformatted reports. ? Name: ? ZULY, KIERAN ? Accession #: ? [id number] ? : ? 1980 (Age: 29) ??M ? Collect Date: ? 04/12/2010 ? Location: ? [facility] ? Receive Date: ? 04/13/2010 ? Provider: JAMES WALKO MD ? Copy to: WILL TEJEDA MD ? Final Pathologic Diagnosis: ? Appendix, appendectomy: ? 1. ??Suppurative appendicitis and serositis. ? 2. ??Resection margin viable. ? Document reviewed and electronically signed by: ? Alban Mesampa, MD ? Report ??Date: 04/17/2010 15:04 ? By the signature above, the attending physician certifies that he/she has ? personally conducted a gross and/or microscopic examination of the described ? specimens and rendered or confirmed the above diagnosis. ? Specimen(s) Received: ? Appendix ? Clinical History: ? Appendicitis ? Gross Description: ? Received in formalin labelled Kieran Carter and appendix is a 6.5 cm in length by 1.0 cm in diameter vermiform appendix received with the proximal margin stapled closed (proximal margin is black inked), and includes a moderate amount of attached mesoappendix, which has numerous alena coursing along the ?? junction of the mesoappendix to the serosa of the appendix. ??The serosa of the ?? appendix is markedly dusky, foreman-brown, and hemorrhagic. ??Sections of the ? appendix reveal a normal caliber lumen with no fecaliths. ??The mucosa is ? diffusely hyperemic, and the wall is also focally moderately hemorrhagic. ??The ?? wall ranges in thickness from 0.1 cm to 0.5 cm and there are no discernible ? perforations. ??A section taken adjacent to the black inked stapled proximal ? margin, one-half of the longitudinally bisected distal tip of the appendix, as ?? well as community health representative cross sections from the distal, middle, and proximal ? appendix are submitted in one cassette. ??(Afshin Sanchez/ivana ? End of Report ? [facility] 04/12/2010 04/13/2010 17: 29 EDT us James Rae MD PATHOLOGY ORDERABLES Final Resul t [facility] [address] [place] [address] documented in this encounter Visit Diagnoses Not on filedocumented in this encounter
--- OUTSIDE RECORDS SUMMARY | 2024-09-01 17:07 | XMS_ITS | Encounter Summary ---
Author Organization [facility] Address [address] [place] [address] Care Team Providers Care Roller Coaster Designer Name Role Phone Unavailable Primary Care Provider Unavailabl e Encounter Details Date Type Department Care Team (Latest Contact Info) Description 10/30/2012 12:57 EDT - 10/30/2012 12:[address] [facility] - [address] [address] Lenin Dutta, [address] [place], [place] [id number] Discharge Disposition: Home or Self Care Social [...]
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
--- OUTSIDE RECORDS SUMMARY | 2024-09-01 17:07 | XMS_ITS | Encounter Summary ---
Author Organization [facility] Address [address] [place] [address] Care Team Providers Care Clearing House Clerk Name Role Phone Elfego Davidson MD Primary Care Provider [phone] Encounter Details Date Type Department Care Team (Late st Contact Info) Description 02/15/2021 Lab Requisition [facility] Pathology & Laboratory Medicine - [facility] [address] [place] [address] Outr Resulting Lab, Provider Social History Tobacco Use Types Packs/Day Years [...] Procedure Name Priority Date/Time Associated Diagnosis Comments CCP ANTIBODIES Routine 02/14/2021 15:13 EDT LYME AB Routine 02/14/2021 15:13 EDT RHEUMATOID FACTOR Routine 02/14/2021 15: 13 EDT documented in this encounter Results * LYME AB (02/14/2021 15:13 EDT) Lyme Ab Negative Negative 02/16/2021 10:16 EDT [facility] Blood VENOUS BLOOD / Unknown 02/14/2021 15:13 EDT 02/15/2021 15:50 EDT us Provider Outr Resulting Lab IMMUNOLOGY AND SEROL OGY ORDERABLES Final Result [facility] [address] [place] [address] * RHEUMATOID FACTOR (02/14/2021 15:13 EDT) Rheumatoid Factor <8.6 <12.0 IU/mL 02/15/2021 16:14 EDT [facility] Blood VENOUS BLOOD / Unknown 02/14/2021 15:13 EDT 02/15/2021 15:50 EDT us Provider Outr Resulting Lab CHEMISTRY & BLOOD GA S ORDERABLES Final Result Performing Organization Address [facility]/ZIP Co de Phone Number [facility] [address] [place] [address] * CCP ANTIBODIES (02/14/2021 15:13 EDT) Pathologist [facility] CCP Antibodies <2.5 <5.0 U/mL 02/16/2021 9:17 EDT [facility] Blood VENOUS BLOOD / Unknown 02/14/2021 15:13 EDT 02/15/2021 15:50 EDT us Provider Outr Resulting Lab IMMUNOLOGY AND SEROL OGY ORDERABLES Final Result Performing Organization Address City/[facility] Co de Phone Number [facility] [address] [place] [address] documented in this encounter Visit Diagnoses Not on filedocumented in this encounter Care Teams Clearing House Clerk Relationship Specialty Start Date End Date Elfego Davidson MD [address] [place] [address] PCP - General 11/05/12 documented as of this encounter
--- OUTSIDE RECORDS SUMMARY | 2024-09-01 17:07 | XMS_ITS | Encounter Summary ---
Author Organization [facility] Address [address] [place] [address] Care Team Providers Care Hydraulic Tester Name Role Phone Unavailable Primary Care Provider Unavailabl e Encounter Details Date Type Department Care Team (Late st Contact Info) Description 10/30/2012 Results Only [facility] [phone] Marisol Morales, [address] [place], [place] [id number] Social History Tobacco Use Types Packs/Day Years [...] Date/Time Associated Diagnosis Comments SURGICAL PATHOLOGY Routine 10/30/2012 8:41 EDT FLOW CYTOMETRY Routine 10/30/2012 0:00 EDT documented in this encounter Results * SURGICAL PATHOLOGY (10/30/2012 8:41 EDT) Pathology Report: SURGICAL PATHOLOGY REPORT Reports generated via electronic interface contain original data; however they are lacking the format of the original report. Caution should be taken when reading/interpretin g unformatted reports. Name: ? KIERAN CARTER ? Accession #: ? [id number] ? : ? 1980 (Age: 32) ??M ? Collect Date: ? 10/30/2012 ? Location: ? [facility] ? Receive Date: ? 10/31/2012 ? Provider: MARISOL MORALES DO Copy to: WILL TEJEDA MD ? Final Pathologic Diagnosis: ? Nasopharynx, mass, biopsy: - Respiratory mucosa with focal squamous metaplasia and associated lymphoid tissue. ??See comment. Comment: ? Deeper sections have been examined. The lymphoid tissue shows a few small germinal centers but is otherwise quiescent appearing. Please refer to the concurrent flow cytometry report ([id number]) which shows no immunophenotypic evidence of a clonal population of lymphocytes. There is no evidence of squamous dysplasia. Clinical correlation is recommended. ??(Dr. Bower)/formerly [facility] Document reviewed and electronically signed by: HERO BLANCA MD Report ??Date: 11/03/2012 16:33 By the signature above, the attending physician certifies that he/she has personally conducted a gross and/or microscopic examination of the described specimens and rendered or confirmed the above diagnosis. Specimen(s) Received: ? Nasopharyngeal mass Clinical History: ? Heavy tobacco usage; R/O lymphoma vs other; clinical diagnosis codes: 381.89, 239.2, 381.3 Gross Description: ? Received in formalin labelled EmmaKennethew and nasopharyngeal mass is a 0.9 x 0.5 x 0.2 cm, foreman-pink to red, focally hyperemic soft tissue fragment. ??The specimen is entirely submitted in one cassette as (1). (Mg Leahy)/[facility] End of Report EVELIO VICK 10/30/2012 8:41 EDT 10/31/2012 8:41 EDT us Marisol Morales DO PATHOLOGY ORDERABLES Fi nal Result [facility] [address] [address] * FLOW CYTOMETRY (10/30/2012 0:00 EDT) Pathology Report: FLOW CYTOMETRY REPORT Reports generated via electronic interface contain original data; however they are lacking the format of the original report. Caution should be taken when reading/interpreting unformatted reports. Name: ? KIERAN CARTER ? Accession #: ? [id number] : ? 1980 (Age: 32) ??M ?Collect Date: ? 10/30/2012 00:00 Location: ? [facility] ? Receive Date: ? 10/31/2012 08:00 Provider: ?MARISOL MORALES DO Copy to: ?WILL TEJEDA MD ? FINAL IMMUNOPHENOTYPIC INTERPRETATION: ? Nasopharyngeal lesion, flow cytometric analysis: ??- No immunophenotypic evidence of a clonal lymphoid population. ??See comment. ? COMMENT: ? The results of flow cytometry show no immunophenotypic evidence of involvement by a clonal lymphoproliferative disorder. ??Selective cell loss may occur and may reduce sensitivity for the detection of large cell lymphoma. ??Flow cytometry is not sensitive for the detection of Hodgkin lymphoma. ??Correlation of these findings with morphologic and clinical data is essential; please refer to surgical pathology report [id number] for morphologic details. ? Document reviewed and electronically signed by: ? ROCKY PUILDO MD Report Date: ??11/03/2012 16:36 By the signature above, the attending physician certifies that he/she has personally conducted an evaluation of the described specimen and rendered or confirmed the above diagnosis. CLINICAL HISTORY: ? The patient is a 32-year-old man with a nasopharyngeal mass. DESCRIPTION: ? The specimen consists of soft tissue from which a single cell suspension is prepared. ??Gating is performed using CD45 fluorescence and side scatter. Cellular viability (assessed by propidium iodide exclusion) is excellent (98%) among cells with CD45 and side scatter properties typical of lymphocytes and excellent (95%) among CD45+ events overall. ??Expression of the following markers is tested: CD2, CD3, CD4, CD5, CD7, CD8, CD10, CD11c, CD14, CD16, CD19, CD20, CD23, CD38, CD45, CD56, CD57, FMC-7, HLA-DR, kappa light chain, lambda light chain. ?? A majority of the lymphoid cells are T-lymphocytes (CD2+CD3+CD5+CD7+) with CD4+ and CD8+ subsets represented. ??The remaining lymphocytes are B-lymphocytes (CD19+CD20+) with both kappa+ and lambda+ subsets represented. ? This test was developed and its performance characteristics determined by the Department of Pathology and Laboratory Medicine, [place], [place] ??It has not been cleared or approved by the U.S. Food and Drug Administration. ?? End of Report ?? [facility] 10/30/2012 10/31/2012 8:0 0 EDT us Marisol Morales DO PATHOLOGY ORDERABLES Fi nal Result Performing Organization Address City/State/[facility] Co de Phone Number [facility] [address] [place] [address] documented in this encounter Visit Diagnoses Not on filedocumented in this encounter
--- OUTSIDE RECORDS SUMMARY | 2024-09-01 17:07 | XMS_ITS | Encounter Summary ---
Author Organization [facility] Address [address] [place] [address] Care Team Providers Care Barking Machine Feeder Name Role Phone Unavailable Primary Care Provider Unavailabl e Encounter Details Date Type Department Care Team (Latest Contact Info) Description 06/02/2007 16:12 EST Hospital Encounter [facility] - Other [address] [place] [address] Al Zaldivar MD [address] [place] [id number] Nolberto Nino MD Discharge Disposition: Home or [...]
== END 2024-09-01 17:06 | disposition home or self-care (01) ==
LOC: NCHCN 17:05
PROVIDERS: PCP Family Medicine; Visit Provider Family Medicine
DX: N39.0 Urinary tract infection, site not specified (principal)
CPT/HCPCS: 87077; 87086; 87186

== ENCOUNTER 2024-09-18 10:05 | Inpatient (IN) | payer MEDICAID, SELFPAY ==
[2024-09-18] VITALS (76 sets, daily range): BP systolic 75–128; BP diastolic 32–95; PULSE 49–114; RESP 10–27; TEMP 35.4–37.7; O2SAT 93–100
--- NOTE | 2024-09-18 09:45 | RT.EKG_ITS ---
APPROVED REPORT Exam: Resting ECG Reason for Exam: Dyspnea Patient Location: E HR:87 bpm ECG Measurements Heart Rate 87 AXIS VA 153 P 26 QRSd 80 QRS 8 QT 340 T 17 QTc 409 Conclusion Sinus rhythm...normal P axis, V-rate 60- 99 I have reviewed and interpreted ECG and agree with software generated interpretation.
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
--- NOTE | 2024-09-18 10:45 | DI.RAD_ITS ---
Exam(s) XR CHEST 2V PA LATERAL EXAM: XR CHEST 2V PA LATERAL CLINICAL HISTORY: sepsis, unable to ambulate TECHNIQUE: 2D digital imaging was performed. Two views. COMPARISON: CR,XR XR PORTABLE CHEST AP from 04/26/[address] CHEST/ABD/PEL W from 04/26/2024 FINDINGS: HEART: Normal size. Aorta: Not dilated. PULMONARY VASCULATURE: Normal. MEDIASTINUM: Unremarkable. LUNGS: The right lung is clear. Left basilar atelectasis adjacent to effusion. PLEURAL SPACE: Small to moderate-sized left pleural effusion. No right pleural effusion. No pneumot horax. BONE:Unremarkable for age. SOFT TISSUES: Unremarkable. IMPRESSION: Small to moderate-sized left pleural effusion. DATA REPOSITORY: RADIATION DOSE DELIVERED:
[2024-09-18 10:49] LABS: Bilirubin Negative (Negative); Blood Large (Negative); Clarity Turbid (Clear); Glucose Negative (Negative); Ketones Negative (Negative); Leukocyte Esterase Moderate (Negative); Nitrite Negative (Negative); Specific Gravity 1.025 (1.005-1.025); Urobilinogen 0.2 mg/dL (Up to 0.2)
[2024-09-18 10:58] LABS: WBC >50 HPF (0-5)
[2024-09-18 10:59] LABS: C & S Indicated? Yes
[2024-09-18] MEDS: cefTRIAXone 2 GM/50 ML BAG IVPB (11:11)
[2024-09-18 11:16] LABS: Abs Immature Grans 0.14 10^3/uL (0.0-0.06); Absolute Lymphocyte Count 1.52 10^3/uL (1.2-3.4); BE (Venous) 6 mmol/L (-2-3); Basophils % 0.4 %; Eosinophils % 0.1 %; HCO3 (Venous) 32 mmol/L (23-28); HGB 13.8 g/dL (13.5-17.5); Immature Grans % 0.7 %; MCH 25.6 pg (27.0-33.0); MCHC 31.4 % (32.0-36.0); MCV 82 fL (80-95); MPV 11.6 fL (8.0-11.0); Monocytes % 6.3 %; Neutrophils % 84.5 %; O2 Sat (Venous) 60 %; Platelet Count 397 10^3/uL (130-400); RBC 5.39 10^6/uL (4.36-5.78); RDW 14.9 % (11.8-14.1); RDW-SD 43.8 fL; TCO2 (Venous) 29 mmol/L (24-29); WBC 18.97 10^3/uL (4.4-10.8); pCO2 (Venous) 59 mmHg (41-51); pH (Venous) 7.34 (7.31-7.41); pO2 (Venous) 36 mmHg
[2024-09-18 11:21] LABS: Absolute Basophil Count 0.08 10^3/uL (0.0-0.2); Absolute Eosinophil Count 0.02 10^3/uL (0.0-0.7); Absolute Neutrophil Count 16.03 10^3/uL (1.2-6.7)
[2024-09-18 11:33] LABS: ESR 36 mm/hr (0-15)
[2024-09-18 11:43] LABS: C-Reactive Protein 5.36 mg/dL (<or=0.5)
[2024-09-18 11:45] LABS: ALT 24 U/L (16-63); AST 13 U/L (15-37); Albumin 3.2 g/dL (3.4-5.0); Alkaline Phosphatase 83 U/L (46-116); BUN 24 mg/dL (7-18); Bilirubin, Total 0.35 mg/dL (0.2-1.0); Calcium 10.4 mg/dL (8.5-10.1); Chloride 101 mmol/L (98-107); Estimated GFR 96.37 (mL/min/1.73m2); Glucose 139 mg/dL (74-106); Potassium 5.3 mmol/L (3.5-5.1); Sodium 141 mmol/L (136-145); Total Protein 7.7 g/dL (6.4-8.2)
[2024-09-18 11:50] LABS: Troponin I 59 ng/L (<or=76)
[2024-09-18] MEDS: Normal Saline 500 ML IV (12:00)
[2024-09-18 12:06] LABS: Lactate 3.1 mmol/L (<or=2.0)
[2024-09-18 12:23] LABS: Troponin I 46 ng/L (<or=76)
[2024-09-18] MEDS: VANCOMYCIN 2,000 MG in Normal Saline 500 ML 250 MG IVPB (12:27)
--- NOTE | 2024-09-18 13:06 | NUR.NOTE ---
Pt arrived by ambulance for report of 12 autonomic dysreflexia events per janitor caretaker. Car Varnisher states pt has been having periods where he turns white, eyes roll in the back of his head, and goes unresponsive. Pt reports SOB just before this event. EMS state he had one of these events with them, went unresponsive and heart rate dropped to the 30s. Car Varnisher indicated pt usually self caths, has recent hx of UTI, and has sores in his sacrum with debridement performed a week ago. On physical exam, unstageable pressure injury present on coccyx with foul odor and serosanguinous drainage. Pt is a quadriplegic below nipple line. Car Varnisher indicates he spends most hours in the day in his wheelchair and does not rotate. Pressure injury education provided. Pt also has more recent ulcer to right lateral foot by 5th toe, and another (healing) injury on left lateral foot. PA placed photograph of sacral wound in chart and sent consult to wound nurse. Clear mepilex placed, but was removed by provider. Will follow up whether they would like a wet to dry dressing. No additional wound care orders at this time. Pt typically self caths. In and out cath for UA and urine culture placed, was pink, cloudy and foul smelling. Pt now has temp sensing blunt in place. Urine cloudy but yellow/straw colored. Pt had one event where he went unresponsive, bradycardic, pale while IV being placed. He did recover, but required oxygen, as he went apneic. He did recover with no medications and did not require CPR/pacing/etc. Pt is hypothermic (cold and dry). Temp sensing blunt indicated initial temp of 35.4. Several warm blankets placed on pt. Reports LBM yesterday, normal. Will limit stimulation for pt in attempt to prevent further events and will continue to monitor. Pt has left US guided 18 g IV. Flowing and drawing. Has received vancomycin, ceftriacone, and a 500 cc bolus of NS. Pt has bilateral edema to feet, has not been taking lasix due to pharmacy/insurance issue. Provider aware. Pt has +3 edema bilaterally. Lee Nelson, BSN, RN Nursing Note:
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
[2024-09-18 14:22] LABS: Troponin I 37 ng/L (<or=76)
[2024-09-18] MEDS: Lactated Ringers 1,000 ML 500 ML IV (16:12)
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
[2024-09-18] MEDS: Normal Saline 1,000 ML 30 ML IV (17:37)
[2024-09-18 19:57] LABS: MRSA PCR Negative (Negative)
[2024-09-18] MEDS: Apixaban 5 MG TAB PO (20:00)
[2024-09-18] MEDS: Baclofen 10 MG TAB 15 MG PO (20:00)
[2024-09-18] MEDS: Pregabalin 100 MG CAP PO (20:00)
[2024-09-18] MEDS: Buprenorphine/Naloxone 8 mg/2 mg FILM 1 EACH SL (20:01)
[2024-09-18 20:33] LABS: Source Nasal/Nares
[2024-09-18 21:05] LABS: COVID-19 PCR Negative (Negative)
--- NOTE | 2024-09-18 21:49 | TELEP.MEDR_ITS ---
Date of service: 09/18/24 Time of Service: 21:49 Telepharmacy Home Med Rec Allergies Allergies: No Known Allergies Allergy (Unverified 09/18/24 10:13) Interview Person Interviewed: Patient by nursing staff, per staff pt cannot be interview by pharmacy at this time but okay to go off of Rx fill hx Quality Quality of Interview/Accuracy of Medication List: Good Sources Sources used to compile medication list: Open-Plug Medication List and Retail Pharmacy Changes made to Home Medication List: ADDITIONS: Abilify 2mg daily DELETIONS: Tamiflu (10 days supply dispensed 09/01) Recommended Changes Attestation: The home medication list is now updated to the best of my knowledge and is ready to be reconciled by the provider. Please contact the TelePharmacy Medication Reconciliation Pharmacist at for any questions.
[2024-09-19] VITALS (13 sets, daily range): BP systolic 81–116; BP diastolic 43–62; PULSE 80–101; RESP 12–20; TEMP 35.8–37.1; O2SAT 91–96
--- NOTE | 2024-09-19 | DI.RAD_ITS ---
Exam(s) XR PORTABLE CHEST AP EXAM: XR PORTABLE CHEST AP CLINICAL HISTORY: SOB TECHNIQUE: 2D digital imaging was performed. COMPARISON: CR XR CHEST 2V PA LATERAL from 09/18/2024 FINDINGS: Exam is limited by overlying monitoring leads. The abdomen partially obscures the lung bases. LUNGS: There is a small left pleural effusion mild basilar atelectasis. The lungs are suboptimally i nflated. The right lung appears clear. HEART: Normal size. AORTA: Normal diameter. BONES: Unremarkable for age. Soft tissues: Unremarkable. IMPRESSION: Small left pleural effusion and adjacent atelectasis versus pneumonia. DATA REPOSITORY: RADIATION DOSE DELIVERED:
--- NOTE | 2024-09-19 08:21 | NUR.NOTE ---
Nursing Note: Manual repeat blood pressure 84/56, patient denies chest pain or discomfort, patent denies any lightheadedness, patient does endorse some shortness of breath. Nurse notfied provided awaiting response
[2024-09-19] MEDS: Normal Saline 500 ML IV (08:56)
[2024-09-19] MEDS: Normal Saline Flush 10 ML SYR IVP ×2 (08:57→19:43)
[2024-09-19] MEDS: Baclofen 10 MG TAB 15 MG PO ×3 (08:59→19:42)
[2024-09-19] MEDS: DULoxetine 30 MG CAP 120 MG PO (08:59)
[2024-09-19 09:00] LABS: Lactate 1.5 mmol/L (<or=2.0)
[2024-09-19] MEDS: Mirtazapine 15 MG TAB PO (09:00)
[2024-09-19] MEDS: Pregabalin 100 MG CAP PO ×3 (09:00→19:42)
[2024-09-19] MEDS: Furosemide 20 MG TAB PO (09:00)
[2024-09-19] MEDS: Apixaban 5 MG TAB PO ×2 (09:01→19:42)
[2024-09-19] MEDS: Buprenorphine/Naloxone 8 mg/2 mg FILM 1 EACH SL ×3 (09:01→19:42)
[2024-09-19] MEDS: Normal Saline 1,000 ML 125 ML IV (09:57)
--- NOTE | 2024-09-19 12:48 | DI.VRAD_ITS ---
PROCEDURE INFORMATION: Exam: XR Chest Exam date and time: 09/19/2024 12:29 PM Age: 44 years old Clinical indication: Shortness of breath TECHNIQUE: Imaging protocol: Radiologic exam of the chest. Views: 1 view. COMPARISON: CR XR CHEST 2V PA LATERAL 09/18/2024 11:36 AM FINDINGS: Lungs: Bilateral apical fibrotic changes. There is a left lower lung zone consolidation. Pleural spaces: Small left pleural effusion. Heart/Mediastinum: Unremarkable. No cardiomegaly. Bones/joints: Mild degenerative disease of bilateral acromioclavicular joints. IMPRESSION: Small left pleural effusion with left lower lung zone consolidation. Dictated and Authenticated by: Franck Mckeon MD. Orderin Maisha Gil MD
[2024-09-19] MEDS: cefTRIAXone 1 GM/50 ML BAG IVPB (13:40)
--- NOTE | 2024-09-19 14:17 | W.PM.PROGNOT ---
Date of Service Date of service: 09/19/24 Time of Service: 14:17 Assessment and Plan Assessment and plan (1) Severe sepsis: Status: Acute Assessment and plan: - meets criteria for severe sepsis with leukocytosis and hypothermia, identified source of infection and apparent metabolic encephalopathy - patient's BP low normal, will hold further IVF for now and monitor - trend LA (2.3 ---> 3.1 ----> 1.5 this AM) - rewarming with arm blankets - treatment of urine as noted below (2) Urinary tract infection: Status: Acute Assessment and plan: - previous started on IV abx with CTX and vanco - MRSA negative, will d/c vanco - follow blood and urine cultures ---> prelim report shows urine growing 100k cfu GNR and < 10k cfu gpc - continue blunt for now (3) SOB (shortness of breath): Status: Acute Assessment and plan: - per CXR, question of LLL consolidation with small effusion. ? CAP - already on CTX, can add azithromycin - MRSA negative in nares as previously noted (4) Paraplegia: Status: Acute Assessment and plan: - supportive care as ordered - continue outpatient medication regimen (5) Sacral decubitus ulcer: Status: Acute Assessment and plan: - noted by ER staff during their survey - i did see photo of wound, appears deep but no evidence of infection - nursing to continue to manage, consider wound care consultation when they are available Subjective Subjective Interval history since last seen: Seen and examined. Patient asleep but much more arousable today and is able to answer questions. Tells me he feels a little SOB like he's not geting enough air. O2 sat reported at 96% on RA. Has been a bit hypotensive but this is how he is at baseline with his autonomic dysfunction. Afebrile. Exam Const Other: asleep, opened eyes to name, nodded to 1-2 questions and fell back asleep. no acute distress Chest Chest: normal inspection of the chest Resp Effort & Inspection: normal respiratory effort Auscultation: no rales, no rhonchi and no wheezes Cardio Rate: regular rate Rhythm: regular rhythm Heart Sounds: S1 normal and S2 normal Other: Blunt in place,urine still seems a bit cloudy, no blood noted Extrem General: no pedal edema Objective Last Vital Signs Temp 35.8 C L 03/01/25 11:36 Pulse 98 H 09/19/24 13:41 Resp 12 09/19/24 11:36 BP 97/56 L 09/19/24 13:41 Pulse Ox 96 09/19/24 11:36 Laboratory Results - last 24 hr 09/18/24 09/18/24 09/18/24 13:55 16:28 20:10 VBG Lactate Troponin I 37 COVID-19 Source Nasal/Nares SARS-CoV-2 (PCR) Negative MRSA (TEM-PCR) Negative 09/19/24 08:52 VBG Lactate 1.5 Troponin I COVID-19 Source SARS-CoV-2 (PCR) MRSA (TEM-PCR) PAWSS Have you Been Recently Intoxicated or Drunk Within the Last 30 days?: No Have you Ever Experienced Previous Episodes of Alcohol Withdrawal?: No Have you ever Experienced Withdrawal Seizures?: No Have you ever Experienced Delirium Tremens(DT)s?: No Have you ever undergone Alcohol Rehabilitation Treatment (i.e, inpt ot outpatient treatment programs)?: No Have you ever Experienced Blackouts?: No Have you ever Combined Alcohol with other Downers within the last 90 days?: No Have you ever Combined Alcohol with any other Substance of Abuse during the last 90 days?: No Positive Blood Alcohol level on Presentation? [PCS.BAL]: No Evidence of Increased Autonomic Activity (i.e. HR>120, tremor, sweating, agitation, nausea)?: No Result: 0 Time Spent with Patient Time Spent with Patient: <25 minutes Time was spent: referring, communicating with other health care transport nurse, indepentently interpreting results and counseling the patient
--- NOTE | 2024-09-19 16:09 | NUR.NOTE ---
Nursing Note: Spoke with family and patient at length covering multiple topics. Provided education on clean technique when performing self catheterization, provided education on wound healing and diet, per patient he is being followed by [facility] wound care clinic in [place] and is followed by [facility]. Patient also expressed wished to complete advanced directives and receive more information about code status decisions. Nurse updated provider and hospital social worker.
[2024-09-19] MEDS: AZITHROMYCIN 500 MG in Normal Saline 250 ML 250 MG IVPB (17:08)
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
[2024-09-20 03:48] VITALS: BP 98/58; PULSE 79; RESP 15; TEMP 36.6; O2SAT 95
[2024-09-20 06:54] LABS: Abs Immature Grans 0.03 10^3/uL (0.0-0.06); Absolute Basophil Count 0.03 10^3/uL (0.0-0.2); Absolute Eosinophil Count 0.29 10^3/uL (0.0-0.7); Absolute Lymphocyte Count 1.86 10^3/uL (1.2-3.4); Absolute Neutrophil Count 4.44 10^3/uL (1.2-6.7); Basophils % 0.4 %; Eosinophils % 3.9 %; HCT 34.5 % (40.0-50.0); Immature Grans % 0.4 %; Lymphocytes % 25.3 %; MCHC 31.9 % (32.0-36.0); MCV 82 fL (80-95); MPV 11.5 fL (8.0-11.0); Monocytes % 9.5 %; Neutrophils % 60.5 %; Platelet Count 240 10^3/uL (130-400); RBC 4.23 10^6/uL (4.36-5.78); RDW 15.1 % (11.8-14.1); RDW-SD 44.7 fL; WBC 7.35 10^3/uL (4.4-10.8)
[2024-09-20 07:06] LABS: Anion Gap 2.3 mmol/L (3-11); BUN 20 mg/dL (7-18); CO2 32.7 mmol/L (21.0-32.0); CREATININE 0.6 mg/dL (0.70-1.30); Calcium 9.4 mg/dL (8.5-10.1); Chloride 103 mmol/L (98-107); Glucose 85 mg/dL (74-106); Magnesium 2.1 mg/dL (1.8-2.4); Potassium 4.1 mmol/L (3.5-5.1); Sodium 138 mmol/L (136-145)
[2024-09-20 07:50] VITALS: BP 104/60; PULSE 81; RESP 18; TEMP 37; O2SAT 92
[2024-09-20] MEDS: DULoxetine 30 MG CAP 120 MG PO (07:54)
[2024-09-20] MEDS: Baclofen 10 MG TAB 15 MG PO (07:54)
[2024-09-20] MEDS: Apixaban 5 MG TAB PO (07:55)
[2024-09-20] MEDS: Furosemide 20 MG TAB PO (07:55)
[2024-09-20] MEDS: Pregabalin 100 MG CAP PO (07:55)
[2024-09-20] MEDS: Buprenorphine/Naloxone 8 mg/2 mg FILM 1 EACH SL (07:56)
[2024-09-20] MEDS: Mirtazapine 15 MG TAB PO (07:56)
[2024-09-20] MEDS: Normal Saline Flush 10 ML SYR IVP (07:59)
[2024-09-20] MEDS: cefTRIAXone 1 GM/50 ML BAG IVPB (10:27)
[2024-09-20 11:07] VITALS: BP 117/69; PULSE 90; RESP 18; TEMP 36.5; O2SAT 96
[2024-09-20 12:13] VITALS: PULSE 82
--- NOTE | 2024-09-20 13:09 | PDOC.CMDIS ---
Date of service: 09/20/24 Time of Service: 13:09 LACE Index Scoring Tool Questions: Length of Stay (in days): 2 Was the patient admitted via the E.D.?: Yes E.D. Visits: 1 Answers: Total Score: 6 Risk of Readmission: Low Risk Care Management Discharge Plan Reason for Hospitalization: Sepsis Discharge Plan: Shawn returned home today with a resumption of HH RN, PT, and the addition of BUNGHOLE BORER. CM coordinated EMS transport home via [facility]. He stated that he has a family caregiver in the home who can garbage pick up man his prescriptions. He will follow up with his PCP and discharge plan of care. He is happy to be going home. Patient/Family Education Needs: Review discharge instructions and limitations, discussion of self care needs including ask me three. Services Needed at Discharge: Home Health Care Services (resume HH RN, PT; add BUNGHOLE BORER) and Transportation ([facility]) SDOH Health Related Social Needs: Health related social needs transportation insecurity (Z59.82), feeling lonely/isolated (Z60.8), education (Z55.6)
--- NOTE | 2024-09-20 13:54 | W.PM.DS.N ---
Date of service: 09/20/24 Time of Service: 10:25 DS: Diagnosis Discharge Diagnosis (1) Severe sepsis: Status: Acute (2) Urinary tract infection: Status: Acute (3) SOB (shortness of breath): Status: Acute (4) Paraplegia: Status: Acute (5) Sacral decubitus ulcer: Status: Acute Discharge Plan Disposition Patient Disposition: Home W/Home Health Services Condition: Good Discharge Details Reason For Visit: Sepsis Admit Date/Time: 09/18/24 16:59 Admit Provider: Jeffery Ferrera Attending Provider: Jeffery Ferrera Primary Care Provider: Holli Lucero Hospital Course Hospital Course: 44 yo M with paraplegia and neurogenic bladder who presented feeling unwell and somnolent. He typically self-catheterizes, but that morning the volume was larger, brown, and sedimented. Initial evaluation was consistent with sepsis from a urinary source. He was started on ceftriaxone and Vancomycin. There was initially some concern of a lung infection as well, but he never had cough or sputum and was not short of breath on the day of discharge. Vancomycin was stopped after MRSA swab negative 09/19. He was given azithromycin but this was not continued at discharge. His urine grew enterobacter resistant to cefazolin and nitrofurantoin. He was given a third dose of ceftriaxone prior to discharge and sent home with 5 more days of TMP/SMX DS. Blood cultures were NGTD at time of discharge. He has a sacral and heel pressure wounds but these did not appear infected. Resumption of home health nursing and PT and addition of social work were recommended at discharge. Home Meds and New Rx's Prescriptions: New sulfamethoxazole-trimethoprim [Bactrim DS] 800-160 mg tablet 1 tab PO BID 5 Days Qty: 10 0RF Rx Instructions: start 09/21 Continued apixaban 5 mg tablet 5 mg PO BID baclofen 10 mg tablet 15 mg PO TID bisacodyl 10 mg suppository 10 mg [place] ONCE docusate sodium 100 mg capsule 100 mg PO DAILY duloxetine 60 mg capsule,delayed release(DR/EC) 120 mg PO BID ergocalciferol (vitamin D2) 1,250 mcg (50,000 unit) capsule 1,250 mcg PO DAILY Patient Comments: per referral take 1 capsule every day by oral route furosemide 20 mg tablet 20 mg PO DAILY hydroxyzine HCl 25 mg tablet 25 mg PO QID PRN melatonin 3 mg capsule 6 mg PO HS PRN mirtazapine 15 mg tablet 15 mg PO DAILY Nitro-Bid 2 % ointment 1 inch transdermal BID PRN Rx Instructions: allow nitrate-free interval of approx. 10-12 hrs per 24-hour period polyethylene glycol 3350 17 gram/dose powder 17 g PO DAILY pregabalin 100 mg capsule 100 mg PO TID psyllium husk (aspartame) 3.4 gram powder in packet 1 packet PO DAILY senna 8.6 mg capsule 34.4 mg PO DAILY buprenorphine-naloxone [Suboxone] 1 EACH film 1 ea Sublingual TID aripiprazole 2 mg tablet 2 mg PO DAILY Patient Comments: TAKE ONE TABLET BY MOUTH EVERY DAY Discharge Instructions Instructions: Urinary tract infection - Discharge instructions Stand Alone Forms: Nursing Discharge Form Referrals: Holli Lucero [Primary Care Provider] - (I have called your PCP office and left voicemail for them to call you back to set up a follow up appointment for within 1 to 2 weeks. ) Activity:: Activity as Tolerated Equipment/Supplies:: No Equipment Needed Diet:: As Tolerated Discharge Orders Discharge Orders: Discharge Order (Routine); Ordered 09/20/24 Ordered By: Nolberto Boss Discharge Data Discharge Date/Time-TO BE ENTERED AT DEPARTURE: 09/20/24 12:01 DS: Summary Time Spent with Patient providing and/or coordinating discharge services: Greater than 30 minutes Status at Discharge Functional status at discharge: wheelchair bound Overall status at discharge: patient is back to baseline Mental Status: mental status grossly normal Speech and Movement: speech and movement normal Mood: congruent mood Affect: normal affect Quality:SDOH Health Related Social Needs: Health related social needs transportation insecurity (Z59.82), feeling lonely/isolated (Z60.8), education (Z55.6) Exam Narrative Exam Narrative: Alert and oriented, NAD. Lungs CTAB, normal effort. CV RRR, no m/g/r. ABD: soft, NT/ND extremities warm, no edema, sores dressed. Psych Mental Status: mental status grossly normal Speech and Movement: speech and movement normal Mood: congruent mood Affect: normal affect DS: Data Vitals/I&O Vitals and I&O: Vital Signs Temperature 36.5 C 09/20/24 11:07 Temperature Source Temporal Artery Scan 09/20/24 11:07 Pulse 82 09/20/24 12:13 Pulse 91 H 09/18/24 16:50 Respiratory Rate 18 09/20/24 11:07 Respiratory Effort Normal 09/18/24 17:39 Respiratory Depth Normal 09/18/24 17:39 Respiratory Pattern Normal 09/18/24 17:39 Blood Pressure 117/69 09/20/24 11:07 Blood Pressure Mean 57 09/18/24 16:46 Blood Pressure Position Sitting 09/18/24 10:15 Pulse Oximetry 96 09/20/24 11:07 Oxygen Delivery Method Room Air 09/20/24 11:07 Oxygen Flow Rate 0 09/20/24 11:07 Pain Level 0 09/19/24 19:43 Comment RN notified of vitals 09/19/24 15:47 Intake & Output 09/19/24 09/20/24 09/20/24 23:59 11:59 23:59 Intake Total 1300 / 2290 280 / 500 220 / 500 Output Total 1350 / 2525 1275 / 1275 Balance -50 / -235 -995 / -775 220 / -775 Intake: IV 1300 / 2290 60 / 60 Oral 220 / 440 220 / 440 Output: Urine 1350 / 2525 1275 / 1275 Other: Urine Color Yellow Pale Urine Appearance Cloudy Cloudy Comment slightly cloudy Data Completed and Pending Labs on day of discharge: Labs from last 24 hours 09/20/24 06:27 WBC 7.35 RBC 4.23 L Hgb 11.0 L D Hct 34.5 L MCV 82 MCH 26.0 L MCHC 31.9 L RDW 15.1 H Plt Count 240 MPV 11.5 H Immature Gran % 0.4 Neutrophils % 60.5 Lymphocytes % 25.3 Monocytes % 9.5 Eosinophils % 3.9 Basophils % 0.4 Nucleated RBC % 0.0 Absolute Neutrophils 4.44 Absolute Lymphocytes 1.86 Absolute Monocytes 0.70 Absolute Eosinophils 0.29 Absolute Basophils 0.03 Sodium 138 Potassium 4.1 D Chloride 103 Carbon Dioxide 32.7 H Anion Gap 2.3 L BUN 20 H Creatinine 0.6 L Est GFR (CKD-EPI 2020) 123.60 Glucose 85 Calcium 9.4 Magnesium 2.1 Preliminary micro results at discharge 09/18/24 10:55 Blood Culture - Preliminary Blood NO GROWTH 48 HOURS 09/18/24 10:55 Blood Culture - Preliminary Blood NO GROWTH 48 HOURS PFSH All Active Problems (Updated 09/20/24 @ 10:55 by Nolberto Boss) SOB (shortness of breath) (Acute) Wound of foot (Acute) Autonomic dysfunction (Acute) Acute UTI (Acute) Sepsis (Acute) Sacral decubitus ulcer (Acute) Paraplegia (Acute) Urinary tract infection (Acute) Severe sepsis (Acute) Hemopneumothorax on left (Acute) Social History (System 04/27/24 @ 08:26 by Lawanda Sanders) Smoking/Tobacco Use Status: Current every day Smoking risk assessment performed?: Yes Alcohol Intake: current Drug use: Current Sobriety Substance use type: IV drugs Housing: house Time Spent with Patient Time Spent with Patient: 45-69 minutes Time was spent: preparing to see the patient(eg.review tests), obtaining and/or reviewing separately otained hiistory, ordering medications,tests, procedures, referring, communicating with other health career technology teacher, indepentently interpreting results, counseling the patient and care coordination
== END 2024-09-20 12:01 | disposition home health service (06) | DRG 871 ==
LOC: ER 16:29 → MS 17:17
PROVIDERS: Admitting Provider Hospitalist; Emergency Provider Physician Assistant; PCP Family Medicine; Responsible Provider Family Medicine; Visit Provider Hospitalist
DX: A41.9 Sepsis, unspecified organism (principal); G93.41 Metabolic encephalopathy; N39.0 Urinary tract infection, site not specified; G82.20 Paraplegia, unspecified; Z16.19 Resistance to other specified beta lactam antibiotics; R65.20 Severe sepsis without septic shock; R06.02 Shortness of breath; G90.89 Other disorders of autonomic nervous system; S24.102S Unspecified injury at T2-T6 level of thoracic spinal cord, sequela; W34.09XS Accidental discharge from other specified firearms, sequela; F17.210 Nicotine dependence, cigarettes, uncomplicated; R68.0 Hypothermia, not associated with low environmental temperature; B96.89 Other specified bacterial agents as the cause of diseases classified elsewhere; L89.159 Pressure ulcer of sacral region, unspecified stage; L89.899 Pressure ulcer of other site, unspecified stage
CPT/HCPCS: 00123; 36415; 36416; 51702; 80048; 80053; 82805; 82962; 85652; 87040; 87077; 87635; 87641; 93005; 96366; 96367; 99285; 71045; 71046; 81003; 81015; 83605; 83735; 84484; 85025; 86140; 87086; 87186; 93010; 99223; 99232; 99239; J0456; J0696; J3370; J3490

== ENCOUNTER 2024-09-25 15:35 | Outpatient (REF) | payer MEDICAID, SELFPAY ==
[2024-09-25 15:57] LABS: Bilirubin Negative (Negative); Blood Negative (Negative); Clarity Clear (Clear); Glucose Negative (Negative); Ketones Negative (Negative); Leukocyte Esterase Trace (Negative); Nitrite Negative (Negative); Urobilinogen 0.2 mg/dL (Up to 0.2)
[2024-09-25 16:05] LABS: Bacteria Negative HPF (Negative); C & S Indicated? C&S Done As Ordered; Casts Negative LPF (Negative); Crystals Negative HPF (Negative); Epithelial Cells Negative HPF (Negative); Mucus Negative (Negative); RBC Negative HPF (0-2); WBC 0-2 HPF (0-5)
== END 2024-09-25 15:36 | disposition home or self-care (01) ==
LOC: LBN 15:35
PROVIDERS: PCP Family Medicine; Visit Provider Family Medicine
DX: N31.9 Neuromuscular dysfunction of bladder, unspecified (principal); N39.0 Urinary tract infection, site not specified; R65.20 Severe sepsis without septic shock
CPT/HCPCS: 81003; 81015; 87086

== ENCOUNTER 2024-10-12 21:52 | Outpatient (REF) | payer MEDICAID, SELFPAY ==
[2024-10-12 22:16] LABS: Bilirubin Negative (Negative); Blood Negative (Negative); Clarity Clear (Clear); Glucose Negative (Negative); Ketones Negative (Negative); Leukocyte Esterase Small (Negative); Nitrite Negative (Negative); Urobilinogen 0.2 mg/dL (Up to 0.2)
[2024-10-12 22:17] LABS: Bacteria Few HPF (Negative); C & S Indicated? C&S Done As Ordered; Casts Negative LPF (Negative); Crystals Negative HPF (Negative); Epithelial Cells Rare HPF (Negative); Mucus Trace (Negative); RBC 0-2 HPF (0-2)
== END 2024-10-12 21:53 | disposition home or self-care (01) ==
LOC: NCHCN 21:52
PROVIDERS: PCP Family Medicine; Visit Provider Family Medicine
DX: N39.0 Urinary tract infection, site not specified (principal); R82.89 Other abnormal findings on cytological and histological examination of urine
CPT/HCPCS: 87077; 81003; 81015; 87086; 87186

== ENCOUNTER 2024-10-14 15:28 | Outpatient (CLI) | payer MEDICAID, SELFPAY ==
[2024-10-14 15:07] LABS: Abs Immature Grans 0.05 10^3/uL (0.0-0.06); Absolute Basophil Count 0.03 10^3/uL (0.0-0.2); Absolute Eosinophil Count 0.27 10^3/uL (0.0-0.7); Absolute Lymphocyte Count 1.82 10^3/uL (1.2-3.4); Absolute Monocyte Count 0.71 10^3/uL (0.1-0.8); Absolute Neutrophil Count 5.82 10^3/uL (1.2-6.7); Basophils % 0.3 %; Eosinophils % 3.1 %; HCT 39.7 % (40.0-50.0); HGB 12.1 g/dL (13.5-17.5); Immature Grans % 0.6 %; Lymphocytes % 20.9 %; MCH 24.9 pg (27.0-33.0); MCHC 30.5 % (32.0-36.0); MCV 82 fL (80-95); MPV 10.9 fL (8.0-11.0); Monocytes % 8.2 %; Neutrophils % 66.9 %; Platelet Count 323 10^3/uL (130-400); RBC 4.86 10^6/uL (4.36-5.78); RDW 14.6 % (11.8-14.1); RDW-SD 43.1 fL
[2024-10-14 15:12] LABS: ESR 76 mm/hr (0-15)
[2024-10-14 15:42] LABS: Anion Gap 6.8 mmol/L (3-11); BUN 21 mg/dL (7-18); C-Reactive Protein 3.39 mg/dL (<or=0.5); CO2 32.2 mmol/L (21.0-32.0); CREATININE 0.9 mg/dL (0.70-1.30); Chloride 102 mmol/L (98-107); Estimated GFR 109.36 (mL/min/1.73m2); Glucose 93 mg/dL (74-106); Potassium 4.3 mmol/L (3.5-5.1); Sodium 141 mmol/L (136-145)
== END 2024-10-14 15:29 | disposition home or self-care (01) ==
LOC: LBO 15:28
PROVIDERS: PCP Family Medicine
DX: L89.153 Pressure ulcer of sacral region, stage 3 (principal); G82.20 Paraplegia, unspecified; S24.102A Unspecified injury at T2-T6 level of thoracic spinal cord, initial encounter
CPT/HCPCS: 36415; 80048; 85652; 85025; 86140

== ENCOUNTER 2024-10-23 13:15 | Outpatient (REF) | payer MEDICAID, SELFPAY ==
[2024-10-23 15:36] LABS: Bilirubin Negative (Negative); Blood Negative (Negative); Clarity Clear (Clear); Glucose Negative (Negative); Ketones Negative (Negative); Leukocyte Esterase Negative (Negative); Nitrite Negative (Negative); Urobilinogen 0.2 mg/dL (Up to 0.2)
== END 2024-10-23 13:16 | disposition home or self-care (01) ==
LOC: NCHCN 13:15
PROVIDERS: PCP Family Medicine; Visit Provider Family Medicine
DX: N39.0 Urinary tract infection, site not specified (principal)
CPT/HCPCS: 81003; 87086

== ENCOUNTER 2024-11-01 13:10 | Outpatient (REF) | payer MEDICAID, SELFPAY ==
[2024-11-01 14:56] LABS: Bilirubin Negative (Negative); Blood Large (Negative); Clarity Cloudy (Clear); Glucose Negative (Negative); Ketones Negative (Negative); Leukocyte Esterase Moderate (Negative); Nitrite Negative (Negative); Specific Gravity 1.025 (1.005-1.025); Urobilinogen 0.2 mg/dL (Up to 0.2)
[2024-11-01 15:09] LABS: C & S Indicated? C&S Done As Ordered; WBC >50 HPF (0-5)
== END 2024-11-01 13:11 | disposition home or self-care (01) ==
LOC: LBN 13:10
PROVIDERS: PCP Family Medicine; Visit Provider Nurse Practitioner
DX: N39.0 Urinary tract infection, site not specified (principal)
CPT/HCPCS: 87077; 81003; 81015; 87086; 87186

== ENCOUNTER 2024-11-06 00:13 | Outpatient (CLI) | payer MEDICAID, SELFPAY ==
--- NOTE | 2024-11-06 | DI.MRI_ITS ---
Exam(s) MR PELVIS WO EXAM: MR PELVIS WO CLINICAL HISTORY: PRESSURE ULCER SACRAL REGION,[id number] TECHNIQUE: Multiplanar multisequence MRI of Pelvis was performed. CONTRAST MATERIAL: None. No IV access was able to be obtained. COMPARISON: CT CT THORACIC LUMBAR SPINE REC from 04/26/[address] CHEST/ABD/PEL W from 04/26/2024 FINDINGS: Bones: There is abnormal edema within the 1st coccygeal segment, consistent with osteomyelitis. The 2nd and 3rd coccygeal segments, which were present on prior CT, are not visualized currently. This could be secondary to previous surgery or completely eroded due to osteomyelitis. Small area of increased cyst signal in the marrow of the left inferior ischium without overlying soft tissue abnormality. There is no fracture or contusion pattern. Bilateral hip joint effusions. The SI joints and symphysi s pubis are well maintained. Musculotendinous structures: Diffuse symmetric bilateral muscle edema and atrophy. Intrapelvic structures demonstrate no significant abnormality. Soft tissues: Posterior decubitus ulcer at the level of the coccyx measuring 6 cm in length by 3.7 cm in depth by 2 cm in with. Some packing material in place. Gas collection seen inferior to the coccy x measuring 2 cm in length by 8 by 16 millimeters in AP and transverse dimensions which communicates with the decubitus ulcer. Soft tissue inflammation extending to the level of the coccyx. No visible drainable fluid collection or abscess. IMPRESSION: Large decubitus ulcer posterior to the coccyx. Abnormal signal in the marrow of the 1st coccygeal s egment is consistent with osteomyelitis. The 2nd and 3rd coccygeal segments are not visible. This c ould be secondary to previous surgical resection or represent erosion secondary to osteomyelitis. DATA REPOSITORY:
== END 2024-11-06 00:33 ==
LOC: DI 00:13
PROVIDERS: PCP Family Medicine
DX: L89.153 Pressure ulcer of sacral region, stage 3 (principal); S24.102A Unspecified injury at T2-T6 level of thoracic spinal cord, initial encounter; G82.20 Paraplegia, unspecified; X58.XXXA Exposure to other specified factors, initial encounter
CPT/HCPCS: 72195

== ENCOUNTER 2024-11-11 16:05 | Outpatient (REF) | payer MEDICAID, SELFPAY ==
[2024-11-11 16:20] LABS: Bilirubin Negative (Negative); Blood Negative (Negative); Clarity Clear (Clear); Glucose Negative (Negative); Ketones Negative (Negative); Leukocyte Esterase Trace (Negative); Nitrite Negative (Negative); Urobilinogen 0.2 mg/dL (Up to 0.2)
[2024-11-11 16:44] LABS: Bacteria Rare HPF (Negative); C & S Indicated? C&S Done As Ordered; Crystals Negative HPF (Negative); Epithelial Cells Rare HPF (Negative); Mucus Negative (Negative); RBC Negative HPF (0-2)
== END 2024-11-11 16:06 | disposition home or self-care (01) ==
LOC: LBN 16:05
PROVIDERS: PCP Family Medicine; Visit Provider Family Medicine
DX: N39.0 Urinary tract infection, site not specified (principal); R65.20 Severe sepsis without septic shock; N31.9 Neuromuscular dysfunction of bladder, unspecified; R82.89 Other abnormal findings on cytological and histological examination of urine
CPT/HCPCS: 81003; 81015; 87086

== ENCOUNTER 2024-11-19 13:32 | Emergency (ER) | payer MEDICAID, SELFPAY ==
[2024-11-19] VITALS (13 sets, daily range): BP systolic 118–157; BP diastolic 76–93; PULSE 73–86; RESP 8–14; TEMP 37; O2SAT 95–99
--- NOTE | 2024-11-19 14:37 | W.ORTHOCONSU ---
Date of service: 11/19/24 Time of Service: 14:37 Assessment and Plan Assessment and plan (1) Sacral decubitus ulcer: Status: Acute Assessment and plan: 44-year-old male paraplegic with worsening of chronic sacral decubitus wound to the emergency room for evaluation concern for osteomyelitis Called by Dr. Casillas to discuss this case. MRI done 2 weeks ago 11/06/24 shows sacral decubitus wound with communication and edema abnormal signal about the end of the coccyx likely consistent with soft tissue and bone infection. Recommend local wound care, antibiotics, and referral to wound care or tertiary care for management of complex wound in this setting. Could consider admission for IV antibiotics if the patient is unwell or septic. I do not typically do any spine or coccyx surgery. Osteomyelitis should be treated medically with antibiotics. The wound should be optimized and cared for by wound care or other specialists like general surgery, vascular surgery, or plastic surgery. PFSH All Active Problems (Updated 11/19/24 @ 15:07 by You Casillas MD) Osteomyelitis of coccyx (Acute) Wound of foot (Acute) Autonomic dysfunction (Acute) Acute UTI (Acute) Sacral decubitus ulcer (Acute) Paraplegia (Acute) Hemopneumothorax on left (Acute) Medical History (Updated 11/19/24 @ 15:07 by You Casillas MD) Severe sepsis Social History (System 04/27/24 @ 08:26 by Lawanda Sanders) Smoking/Tobacco Use Status: Former Tobacco Use Smoking risk assessment performed?: Yes Alcohol Intake: current Drug use: Current Sobriety Substance use type: IV drugs Housing: house Results Last Vital Signs Temp 98.6 F 11/19/24 13:43 Pulse 76 11/19/24 13:43 Resp 8 L 11/19/24 13:43 BP 157/87 H 11/19/24 13:43 Pulse Ox 98 11/19/24 13:43
--- NOTE | 2024-11-19 15:05 | ED.GENADUL_ITS ---
Discharge Plan Disposition Patient Disposition: Home Condition: Stable Discharge Details Clinical Impression: Sacral decubitus ulcer, Osteomyelitis of coccyx Primary Care Provider: Holli Lucero ED Provider: You Casillas Home Meds and New Rx's Prescriptions: Continued apixaban 5 mg tablet 5 mg PO BID baclofen 10 mg tablet 15 mg PO TID bisacodyl 10 mg suppository 10 mg [place] ONCE docusate sodium 100 mg capsule 100 mg PO DAILY duloxetine 60 mg capsule,delayed release(DR/EC) 120 mg PO BID ergocalciferol (vitamin D2) 1,250 mcg (50,000 unit) capsule 1,250 mcg PO .Qweekly Patient Comments: per referral take 1 capsule every day by oral route furosemide 20 mg tablet 20 mg PO DAILY hydroxyzine HCl 25 mg tablet 25 mg PO QID PRN melatonin 3 mg capsule 6 mg PO HS PRN mirtazapine 15 mg tablet 15 mg PO DAILY Nitro-Bid 2 % ointment 1 inch transdermal BID PRN Rx Instructions: allow nitrate-free interval of approx. 10-12 hrs per 24-hour period polyethylene glycol 3350 17 gram/dose powder 17 g PO DAILY pregabalin 100 mg capsule 100 mg PO TID psyllium husk 3.4 gram powder in packet 1 packet PO DAILY senna 8.6 mg capsule 34.4 mg PO DAILY buprenorphine-naloxone [Suboxone] 1 EACH film 1 ea Sublingual TID aripiprazole 2 mg tablet 2 mg PO DAILY Patient Comments: TAKE ONE TABLET BY MOUTH EVERY DAY Discharge Instructions Additional Instructions: Please follow-up with your customer experience specialist at [facility]. Please discuss debridement options with the wound care team. If you would prefer to follow-up with general surgery and [facility], they will be happy to see you for evaluation. Please follow-up with your primary care physician. Return to the emergency department immediately for any worsening or new concerning symptoms. Referrals: [facility] [Provider Group] Holli Lucero [Primary Care Provider] - Discharge Data Discharge Date/Time-TO BE ENTERED AT DEPARTURE: 11/19/24 15:19 HPI General Mode of arrival: ambulatory . Date/Time Provider Initiated Documentation: 11/19/24 14:00 . Limitations to Documentation: no limitations . Information obtained by: patient . HPI Narrative: HISTORY OF PRESENT ILLNESS 44-year-old male with paraplegia and sacral decubitus ulcer presents for osteomyelitis evaluation. Referred by home health due to osteomyelitis diagnosis confirmed by imaging 2-3 weeks ago. Infection originated from a bedsore acquired during a prolonged hospital stay. Under wound clinic care for the ulcer, which prompted imaging. Not on antibiotics for osteomyelitis but intermittently on antibiotics for UTIs. Retains sensation and mobility from nipple line superiorly, including full arm function. Unable to discern pain in tailbone region. No febrile episodes. Care regimen includes home health visits thrice weekly and aide assistance. No history of infections other than bladder infections. Significant edema up to hips is chronic. Wound centrally located, managed by home health and caretakers with daily cleaning twice. Wound has reduced in size. Uses wheelchair for mobility and has undergone debridement once at [facility] where he currently receives wound care. Related Data Home Medications ?Medication ?Instructions ?Recorded ?Confirmed buprenorphine 8 mg-naloxone 2 mg 1 ea sublingual TID 01/10/13 11/19/24 sublingual film (Suboxone) apixaban 5 mg tablet 5 mg PO BID 09/04/24 11/19/24 baclofen 10 mg tablet 15 mg PO TID 09/04/24 11/19/24 bisacodyl 10 mg rectal suppository 10 mg TN ONCE 09/04/24 11/19/24 docusate sodium 100 mg capsule 100 mg PO DAILY 09/04/24 11/19/24 duloxetine 60 mg capsule,delayed 120 mg PO BID 09/04/24 11/19/24 release ergocalciferol (vitamin D2) 1,250 1,250 mcg PO .Qweekly 09/04/24 11/19/24 mcg (50,000 unit) capsule furosemide 20 mg tablet 20 mg PO DAILY 09/04/24 11/19/24 hydroxyzine HCl 25 mg tablet 25 mg PO QID PRN 09/04/24 11/19/24 melatonin 3 mg capsule 6 mg PO HS PRN 09/04/24 11/19/24 mirtazapine 15 mg tablet 15 mg PO DAILY 09/04/24 11/19/24 nitroglycerin 2 % transdermal 1 inch transdermal BID PRN 09/04/24 11/19/24 ointment (Nitro-Bid) polyethylene glycol 3350 17 17 g PO DAILY 09/04/24 11/19/24 gram/dose oral powder pregabalin 100 mg capsule 100 mg PO TID 09/04/24 11/19/24 psyllium husk 3.4 gram oral powder 1 packet PO DAILY 09/04/24 11/19/24 packet sennosides 8.6 mg capsule (senna) 34.4 mg PO DAILY 09/04/24 11/19/24 aripiprazole 2 mg tablet 2 mg PO DAILY 09/18/24 11/19/24 Allergies Allergy/AdvReac Type Severity Reaction Status Date / Time No Known Allergies Allergy Unverified 11/19/24 13:44 General Stated Complaint: Cellulitis ARASELI: 3 Review of Systems All systems reviewed & are unremarkable except as noted in HPI and below Constitutional Constitutional: Denies fever(s) Exam Narrative Exam Narrative: PHYSICAL EXAM General Appearance: Normal. Vital signs: Within normal limits. HEENT: Within normal limits. Respiratory: Lungs clear. Cardiovascular: Heart regular rate and rhythm, no murmurs. Extremities: 2+ pitting edema in bilateral lower extremities. Skin: Warm and dry, no rash. Neurological: Normal. Back: Deep sacral decubitus ulcer with no discharge, clean wound dressings Course Vital Signs Vital signs: Vital Signs Temperature 37.0 C 11/19/24 13:39 Pulse 76 11/19/24 13:39 Respiratory Rate 8 L 11/19/24 13:39 Blood Pressure 157/87 H 11/19/24 13:39 Pulse Oximetry 98 11/19/24 13:39 Temperature 37.0 C 11/19/24 13:43 Temperature Source Temporal Artery Scan 11/19/24 13:43 Pulse 75 11/19/24 14:50 Pulse 81 11/19/24 14:20 Respiratory Rate 14 11/19/24 14:20 Blood Pressure 121/76 11/19/24 14:47 Blood Pressure Mean 89 11/19/24 14:47 Blood Pressure Position Sitting 11/19/24 13:43 Pulse Oximetry 97 11/19/24 14:50 Oxygen Delivery Method Room Air 11/19/24 13:43 Oxygen Flow Rate 0 11/19/24 13:43 Pain Level 0 11/19/24 13:43 Medical Decision Making ASSESSMENT AND PLAN Initial Assessment: 44-year-old male with history of paraplegia and chronic stage IV sacral decubitus ulcer, presenting with concern for osteomyelitis on imaging. Per aptient, wound care team at [facility] managing ulcer, showing significant improvement. ED Course: - MRI of the pelvis 11/06/24 reviewed, as interpreted by radiology: Large decubitus ulcer posterior to the coccyx. Abnormal signal in the marrow of the 1st coccygeal segment is consistent with osteomyelitis. The 2nd and 3rd coccygeal segments are not visible. This could be secondary to previous surgical resection or represent erosion secondary to osteomyelitis. - Consulted orthopedic (Dr. Skinner) - he recommends discussion with general surgery and potential outpatient referral to tertiary care for flap revision. - I consulted and spoke with with general surgeon (Dr. Guaman); discussed ED presentation and prior MRI, he recommends not initiating antibiotics at this time and no need for emergent debridement. He recommends outpatient follow-up. - I spoke with the patient's primary care physician and discussed recommendations from surgery. She does relay concern that patient has been noncompliant with treatment planning and that that the patient has had significant difficulty maintaining appointments. - I had a lengthy conversation with the patient and his caretakers and discussed recommendations. I encouraged him to follow-up with surgical team at [facility] for specialty care not available at [facility]. If he is not able to arrange for care at [facility], I recommended he follow-up with [place] general surgery and wound care team or our general surgical team here at [facility]. Patient verbalized understanding of need for timely follow-up. He was encouraged to return immediately for any worsening or new concerning symptoms including fever. Usual and customary discharge instructions were reviewed. Final Assessment: MRI findings consistent with osteomyelitis. Current wound care regimen showing improvement. No emergent intervention required. Clinical Impression: - Osteomyelitis - Chronic stage IV sacral decubitus ulcer Disposition: - Discharge - Follow-Up: As above This document was written with the assistance of ERIN Villatoro. The patient consented to its use. Quality:[facility] Health Related Social Needs: Health related social needs transportation insecurity (Z59.82), feeling l onely/isolated (Z60.8), education (Z55.6) PFSH All Active Problems (Updated 11/19/24 @ 15:07 by You Casillas MD) Osteomyelitis of coccyx (Acute) Wound of foot (Acute) Autonomic dysfunction (Acute) Acute UTI (Acute) Sacral decubitus ulcer (Acute) Paraplegia (Acute) Hemopneumothorax on left (Acute) Medical History (Updated 11/19/24 @ 15:07 by You Casillas MD) Severe sepsis Social History (System 04/27/24 @ 08:26 by Lawanda Sanders) Smoking/Tobacco Use Status: Former Tobacco Use Smoking risk assessment performed?: Yes Alcohol Intake: current Drug use: Current Sobriety Substance use type: IV drugs Housing: house [facility] Have you Been Recently Intoxicated or Drunk Within the Last 30 days?: No Have you Ever Experienced Previous Episodes of Alcohol Withdrawal?: No Have you ever Experienced Withdrawal Seizures?: No Have you ever Experienced Delirium Tremens(DT)s?: No Have you ever undergone Alcohol Rehabilitation Treatment (i.e, inpt ot outpatient treatment programs)?: No Have you ever Experienced Blackouts?: No Have you ever Combined Alcohol with other Downers within the last 90 days?: No Have you ever Combined Alcohol with any other Substance of Abuse during the last 90 days?: No Result: 0
== END 2024-11-19 15:19 | disposition home or self-care (01) ==
PROVIDERS: Emergency Provider Student in an Organized Health Care Education/Training Program; PCP Family Medicine
DX: L89.154 Pressure ulcer of sacral region, stage 4 (principal); M46.28 Osteomyelitis of vertebra, sacral and sacrococcygeal region; Z79.01 Long term (current) use of anticoagulants; Z87.891 Personal history of nicotine dependence
CPT/HCPCS: 36415; 99283

== ENCOUNTER 2024-12-30 13:46 | Outpatient (REF) | payer MEDICAID, SELFPAY ==
[2024-12-30 14:18] LABS: Bilirubin Negative (Negative); Blood Small (Negative); Clarity Cloudy (Clear); Glucose Negative (Negative); Ketones Negative (Negative); Leukocyte Esterase Moderate (Negative); Nitrite Positive (Negative); Specific Gravity >= 1.030 (1.005-1.025); Urobilinogen 0.2 mg/dL (Up to 0.2); pH 5.5 (5-8)
[2024-12-30 14:32] LABS: Bacteria Moderate HPF (Negative); C & S Indicated? C&S Done As Ordered; Casts 0-2 Hyaline LPF (Negative); Crystals Negative HPF (Negative); Epithelial Cells Few HPF (Negative); Mucus Trace (Negative); WBC >50 HPF (0-5)
[2024-12-31 09:51] LABS: *AMPHETAMINES SCREEN URINE Negative (Negative); *BARBITURATES SCREEN URINE Negative (Negative); *BENZODIAZEPINES SCREEN URINE Negative (Negative); Cannabinoids THC Negative (Negative); Cocaine Screen,Urine Negative (Negative); METHADONE URINE SCREEN Negative (Negative); OPIATES URINE SCREEN Negative (Negative)
[2024-12-31 10:00] LABS: Tricyclic Antidepressants Negative (Negative)
== END 2024-12-30 13:47 | disposition home or self-care (01) ==
LOC: NCHCN 13:46
PROVIDERS: PCP Family Medicine; Visit Provider Family Medicine
DX: N31.9 Neuromuscular dysfunction of bladder, unspecified (principal); N39.0 Urinary tract infection, site not specified; F11.20 Opioid dependence, uncomplicated
CPT/HCPCS: 80307; 87077; 81003; 81015; 87086; 87186

== ENCOUNTER 2025-01-13 19:39 | Outpatient (REF) | payer MEDICAID, SELFPAY ==
[2025-01-13 13:37] LABS: Bilirubin Negative (Negative); Blood Small (Negative); Clarity Cloudy (Clear); Glucose Negative (Negative); Ketones Negative (Negative); Leukocyte Esterase Large (Negative); Nitrite Positive (Negative); Specific Gravity 1.015 (1.005-1.025); Urobilinogen 0.2 mg/dL (Up to 0.2); pH 5.5 (5-8)
[2025-01-13 14:05] LABS: Bacteria Few HPF (Negative); C & S Indicated? C&S Done As Ordered; Casts Negative LPF (Negative); Crystals Moderate Amorphous HPF (Negative); Epithelial Cells Negative HPF (Negative); Mucus Negative (Negative); Other Cells Negative (Negative); RBC 0-2 HPF (0-2); WBC >50 HPF (0-5)
== END 2025-01-13 19:40 | disposition home or self-care (01) ==
LOC: LBN 19:39
PROVIDERS: PCP Family Medicine; Visit Provider Family Medicine
DX: N31.9 Neuromuscular dysfunction of bladder, unspecified (principal)
CPT/HCPCS: 87077; 81003; 81015; 87086; 87186

== ENCOUNTER 2025-02-18 22:00 | Outpatient (REF) | payer MEDICAID, SELFPAY ==
[2025-02-18 21:27] LABS: HCT 36.6 % (40.0-50.0); HGB 11.3 g/dL (13.5-17.5); MCH 24.9 pg (27.0-33.0); MCHC 30.9 % (32.0-36.0); MCV 81 fL (80-95); RBC 4.54 10^6/uL (4.36-5.78); RDW 17.3 % (11.8-14.1); RDW-SD 50.9 fL; WBC 7.29 10^3/uL (4.4-10.8)
[2025-02-18 21:34] LABS: Iron 47 ug/dL (65-175); Total Iron Binding Capacity 324 ug/dL (250-450); Transferrin Sat 15 % (20-55)
[2025-02-18 21:41] LABS: Platelet Count 184 10^3/uL (130-400)
[2025-02-18 21:48] LABS: ALT 23 U/L (16-63); AST 18 U/L (15-37); Albumin 2.8 g/dL (3.4-5.0); Alkaline Phosphatase 67 U/L (46-116); Anion Gap 7.7 mmol/L (3-11); BUN 17 mg/dL (7-18); Bilirubin, Total 0.1 mg/dL (0.2-1.0); CO2 31.3 mmol/L (21.0-32.0); Calcium 8.7 mg/dL (8.5-10.1); Chloride 102 mmol/L (98-107); Estimated GFR 113.32 (mL/min/1.73m2); Ferritin 40 ng/mL (26-388); Glucose 88 mg/dL (74-106); Magnesium 2.2 mg/dL (1.8-2.4); Potassium 4.1 mmol/L (3.5-5.1); Sodium 141 mmol/L (136-145); Total Protein 6.1 g/dL (6.4-8.2)
== END 2025-02-18 22:01 | disposition home or self-care (01) ==
LOC: NCHCN 22:00
PROVIDERS: PCP Family Medicine; Visit Provider Family Medicine
DX: R60.0 Localized edema (principal); R45.1 Restlessness and agitation
CPT/HCPCS: 80053; 85027; 82728; 83540; 83550; 83735

== ENCOUNTER 2025-02-22 16:54 | Outpatient (REF) | payer MEDICAID, SELFPAY ==
[2025-02-22 20:57] LABS: Glucose Negative (Negative)
[2025-02-22 21:23] LABS: RBC 0-2 HPF (0-2)
== END 2025-02-22 16:55 | disposition home or self-care (01) ==
LOC: NCHCN 16:54
PROVIDERS: PCP Family Medicine; Visit Provider Family Medicine
DX: N39.46 Mixed incontinence (principal); N31.9 Neuromuscular dysfunction of bladder, unspecified; S24.102D Unspecified injury at T2-T6 level of thoracic spinal cord, subsequent encounter; X58.XXXD Exposure to other specified factors, subsequent encounter; R82.89 Other abnormal findings on cytological and histological examination of urine
CPT/HCPCS: 81003; 81015; 87086

== ENCOUNTER 2025-03-21 02:56 | Inpatient (IN) | payer MEDICAID, SELFPAY ==
[2025-03-21] VITALS (92 sets, daily range): BP systolic 66–175; BP diastolic 36–140; PULSE 42–144; RESP 4–33; TEMP 35.5–36.8; O2SAT 87–100
--- NOTE | 2025-03-21 02:45 | RT.EKG_ITS ---
APPROVED REPORT Exam: Resting ECG Reason for Exam: [facility] Patient Location: E HR:73 bpm ECG Measurements Heart Rate 73 AXIS LA 167 P 27 QRSd 94 QRS 9 QT 387 T 29 QTc 426 Conclusion Sinus rhythm...normal P axis, V-rate 60- 99 ST elev, probable normal early repol pattern...ST elevation, age<55 Normal [place] There are no significant changes compared to prior EKG performed on 09/18/2024 at 10:10.
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
[2025-03-21 03:49] LABS: BE (Venous) 4 mmol/L (-2-3); HCO3 (Venous) 30 mmol/L (23-28); O2 Sat (Venous) 45 %; TCO2 (Venous) 28 mmol/L (24-29); pCO2 (Venous) 55 mmHg (41-51); pO2 (Venous) 29 mmHg
[2025-03-21 04:01] LABS: Abs Immature Grans 0.04 10^3/uL (0.0-0.06); HCT 34.0 % (40.0-50.0); HGB 10.3 g/dL (13.5-17.5); Immature Grans % 0.8 %; MCH 24.6 pg (27.0-33.0); MCHC 30.3 % (32.0-36.0); MCV 81 fL (80-95); MPV 12.6 fL (8.0-11.0); Platelet Count 208 10^3/uL (130-400); RBC 4.18 10^6/uL (4.36-5.78); RDW 18.0 % (11.8-14.1); RDW-SD 54.3 fL; WBC 5.05 10^3/uL (4.4-10.8)
[2025-03-21 04:09] LABS: ALT 28 U/L (16-63); AST 16 U/L (15-37); Albumin 2.4 g/dL (3.4-5.0); Alkaline Phosphatase 72 U/L (46-116); Anion Gap 7.5 mmol/L (3-11); BUN 34 mg/dL (7-18); Bilirubin, Total 0.1 mg/dL (0.2-1.0); CO2 31.5 mmol/L (21.0-32.0); Calcium 9.2 mg/dL (8.5-10.1); Chloride 105 mmol/L (98-107); Estimated GFR 59.24 (mL/min/1.73m2); Glucose 125 mg/dL (74-106); Magnesium 2.0 mg/dL (1.8-2.4); Potassium 4.1 mmol/L (3.5-5.1); Sodium 144 mmol/L (136-145); Total Protein 6.4 g/dL (6.4-8.2); Troponin I 8 ng/L (<or=76)
[2025-03-21 04:13] LABS: Glucose Negative (Negative)
[2025-03-21 04:17] LABS: C & S Indicated? No; RBC 20-50 HPF (0-2); WBC Negative HPF (0-5)
--- NOTE | 2025-03-21 04:38 | DI.RAD_ITS ---
Exam(s) XR CHEST 1V IN DI DEPT EXAM: XR CHEST 1V IN DI DEPT CLINICAL HISTORY: AMS TECHNIQUE: 2D digital imaging was performed of the chest. One image was obtained. An AP view was obtained. COMPARISON: CR,XR XR PORTABLE CHEST AP from 04/26/2024 CR XR CHEST 2V PA LATERAL from 09/18/2024 CR,XR XR PORTABLE CHEST AP from 09/19/2024 FINDINGS: MEDIASTINUM: Normal. HEART: Normal. PULMONARY VASCULATURE: Normal. LUNGS: Clear. PLEURAL SPACE: There is again seen blunting of the left costophrenic angle suggesting a small pleural effusion. There is no right pleural effusion. No pneumothorax is present. BONE:Within normal limits for the patient's age. OTHER FINDINGS:There is again seen elevation of the left hemidiaphragm. IMPRESSION: 1. Persistent blunting of the left costophrenic angle suggesting a stable left small pleural effusion. 2. No focal consolidation. 3. The preliminary [facility] report was reviewed. DATA REPOSITORY: RADIATION DOSE DELIVERED:
--- NOTE | 2025-03-21 04:38 | DI.CT_ITS ---
Exam(s) CT HEAD CERVICAL SPINE WO EXAM: CT HEAD CERVICAL SPINE WO CLINICAL HISTORY: paraplegic, fell out of bed, altered mental status. TECHNIQUE: Imaging Protocol: Axial computed tomography images with coronal and sagittal reformatted images were created and reviewed COMPARISON: CT CT CHEST/ABD/PEL W from 04/26/2024 FINDINGS: CT Head: Ventricles and Extra axial spaces: Normal in size and morphology for the patient's age. Hemorrhage: None. Cerebral parenchyma: There is normal perez-white matter differentiation. Midline shift: None. Brainstem/Cerebellum: Normal. Calvarium: Normal. Visualized Paranasal sinuses/Mastoids: Small fluid levels are seen in the maxillary sinuses bilaterally. There is also opacification of several ethmoid air cells. There is mild mucosal thickening in the sphenoid sinuses. Soft Tissues: Unremarkable. CT Cervical Spine: Bones: No acute fracture or subluxation. There is reversal of the normal cervical lordosis. This may be due to muscle spasm or patient positioning. Age-appropriate degenerative changes are seen in the cervical spine. There is an old fracture deformity involving the T2 vertebra on the left. This was discussed on the CT scan from 04/26/2024. Soft Tissues: Unremarkable. Lung Apices: No focal infiltrates are present. There is scarring in the left lung apex. IMPRESSION: 1. No acute intracranial process. 2. Multifocal paranasal sinus disease with fluid levels in the maxillary sinuses suggesting active sinusitis. Please correlate clinically. 3. No acute fracture or subluxation in the cervical spine. 4. The preliminary [facility] report was reviewed. RADIATION DOSE DELIVERED: 1,446.96mGy.cm Total DLP DATA REPOSITORY: All CT scans at this facility are submitted to the National Radiology Data Registry (NRDR) Dose Index Registry (DIR) with the [employer] (ACR). RADIATION OPTIMIZATION: All CT scans at this facility use at least one of these dose optimization techniques: automated exposure control; mA and/or kV adjustment per patient size (includes targeted exams where dose is matched to clinical indication); or iterative reconstruction.
--- NOTE | 2025-03-21 05:00 | DI.[facility]_ITS ---
PROCEDURE INFORMATION: Exam: XR Chest Exam date and time: 03/21/2025 4:35 AM Age: 44 years old Clinical indication: Other: AMS TECHNIQUE: Imaging protocol: Radiologic exam of the chest. Views: 1 view. COMPARISON: CR XR PORTABLE CHEST AP 09/19/2024 12:29 PM FINDINGS: Lungs: No focal consolidation seen. Pleural spaces: Possible left pleural effusion. Left costophrenic angle incompletely imaged. Heart/Mediastinum: No cardiomegaly. Diaphragm: Elevated left hemidiaphragm. Bones/joints: No acute abnormality. IMPRESSION: Possible left pleural effusion. Left costophrenic angle incompletely imaged. Dictated and Authenticated by: Therese Nicolas MD. Orderin Alcides Evangelista MD
--- NOTE | 2025-03-21 05:01 | DI.[facility]_ITS ---
PROCEDURE INFORMATION: Exam: CT Head Without Contrast Exam date and time: 03/21/2025 4:22 AM Age: 44 years old Clinical indication: Other: Paraplegic, fell out of bed, altered mental status TECHNIQUE: Imaging protocol: Computed tomography of the head without contrast. COMPARISON: No relevant prior studies available. FINDINGS: Brain: No acute intracranial hemorrhage, mass-effect, midline shift, or extra-axial collection is seen. The perez white matter differentiation appears preserved. Cerebral ventricles: The ventricular system and basilar cisterns appear appropriate in size and configuration. Paranasal sinuses: There is mucoperiosteal thickening and fluid in the paranasal sinuses with an appearance suspicious for active sinusitis. Clinical correlation is recommended. Mastoid air cells: There is partial opacification of the right mastoid air cells. The left mastoid air cells appear clear. Auditory system: The middle ear cavities appear clear. Orbital cavities: The globes and intraorbital structures appear grossly intact. Bones: The bony calvarium appears intact. No depressed skull fracture is seen. Soft tissues: No gross focal scalp hematoma is seen. IMPRESSION: 1. No acute intracranial hemorrhage or depressed skull fracture. 2. Mucoperiosteal thickening and fluid in the paranasal sinuses with an appearance suspicious for active sinusitis. Clinical correlation recommended. 3. Partial opacification of the right mastoid air cells. A mastoid effusion or mastoiditis could have this appearance. Clinical correlation is recommended. PROCEDURE INFORMATION: Exam: CT Cervical Spine Without Contrast Exam date and time: 03/21/2025 4:22 AM Age: 44 years old Clinical indication: Other: Paraplegic, fell out of bed, altered mental status TECHNIQUE: Imaging protocol: Computed tomography of the cervical spine without contrast. COMPARISON: CT CHEST/ABD/PEL W 04/26/2024 4:35 AM FINDINGS: Bones/joints: No acute cervical fracture or gross vertebral malalignment is seen. C2-C3: Disc height preserved. No central canal narrowing or significant neural foraminal narrowing. C3-C4: Mild loss of anterior disc height. Anterior osteophytic ridging. Bilateral uncovertebral hypertrophy. No significant cervical stenosis. Moderate bilateral foraminal narrowing. C4-C5: Disc height preserved. Posterior osteophytic ridging with bilateral uncovertebral hypertrophy. No central canal narrowing. Moderate bilateral foraminal narrowing. C5-C6: Extensive technical artifact partially obscuring this level. Mild loss of disc height. Anterior osteophytes. Posterior osteophytic ridging with bilateral uncovertebral hypertrophy. Mild central canal narrowing. Moderate bilateral foraminal narrowing. C6-C7: Extensive technical artifact partially obscuring this level. Loss of disc height with posterior osteophytic ridging. No central canal narrowing. Mild bilateral foraminal narrowing. C7-T1: Extensive technical artifact partially obscuring this level. Disc height preserved. No central canal narrowing or neural foraminal narrowing. Lungs: There are emphysematous changes at the lung apices and apparent apical scarring on the left. Soft tissues: Within the limits of the exam, no gross soft tissue fluid collection is seen in the neck. IMPRESSION: No acute cervical fracture or malalignment is seen. Dictated and Authenticated by: Romulo Lambert MD. Orderin Alcides Evangelista MD
[2025-03-21 05:22] LABS: Cannabinoids THC Negative (Negative); METHADONE URINE SCREEN Negative (Negative)
[2025-03-21 05:41] LABS: Troponin I 9 ng/L (<or=76)
[2025-03-21] MEDS: Normal Saline 1,000 ML 1000 ML IV (06:30)
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
[2025-03-21 07:14] LABS: Lab Add On Test DONE
[2025-03-21 07:35] LABS: Salicylate < 2.8 mg/dL (<2.8)
[2025-03-21 07:39] LABS: Acetaminophen < 2 ug/mL (10-30)
--- NOTE | 2025-03-21 07:50 | ED.PROG_ITS ---
Date of service: 03/24/25 Time of Service: 07:50 Medical Decision Making This patient was in the emergency department at the start of my shift. In brief this is a 44-year-old male who had removed his catheter and subsequently had bleeding. Given confusion and concern for possible polypharmacy patient was to be hospitalized. He was pulling at his IV site so I ordered soft restraints. Quality:SDOH Health Related Social Needs: Health related social needs transpo insecurity lonely/ isolated education Discharge Plan Disposition Patient Disposition: Admit to [facility] Condition: Poor Discharge Details Clinical Impression: Dislodged Chester catheter, Altered mental status, CANDACE (acute kidney injury) Admit Date/Time: 03/21/25 06:35 Admit Provider: Nolberto Boss Attending Provider: Nolberto Boss Primary Care Provider: Holli Lucero ED Provider: Jean Carlos Mcgrath Restraint Face to Face Time of Face to Face Face to Face: Time of Face to Face: 07:51 Patient's Immediate Situation Requiring Restraints/Seclusion: Harm to Patient (Pulling out IV lines) Patient Response to Restraints: Tolerating without Problems Patient's Medical & Behavioral Condition: Agitation Need for Continuation of Restraints Has Been Assessed: Restraints Continued
[2025-03-21 07:58] LABS: COVID-19 PCR Negative (Negative); RSV PCR Negative (Negative)
[2025-03-21] MEDS: ARIPiprazole 5 MG TAB 10 MG PO (09:41)
[2025-03-21] MEDS: DULoxetine 30 MG CAP 120 MG PO (09:41)
[2025-03-21] MEDS: Senna TAB 2 TAB PO (09:41)
[2025-03-21] MEDS: Baclofen 10 MG TAB 20 MG PO (09:41)
[2025-03-21] MEDS: Buprenorphine/Naloxone 8 mg/2 mg FILM 1 EACH SL ×2 (09:56→16:35)
--- NOTE | 2025-03-21 12:14 | PHA.REVIEW2 ---
Pharmacy Admission Review Admission Clinical Review Admission Pharmacy Review: Seborrhea-like dermatitis with psoriasiform elements (Acute) Encephalopathy acute (Acute) CANDACE (acute kidney injury) (Acute) Altered mental status (Acute) Dislodged Chester catheter (Acute) Paraplegia at T4 level (Acute) Sacral decubitus ulcer (Acute) No Known Allergies Allergy (Unverified 11/19/24 13:44) Resuscitation Status Full Code Height 5 ft 9 in Weight 116.8 kg Pharmacy Admission Review Renal Dosing Renal Dosing: BUN 34 mg/dL (7-18) H 03/21/25 03:45 Creatinine 1.5 mg/dL (0.70-1.30) H 03/21/25 03:45 Medications needing adjustments: Reviewed (CrCl 80.8 mL/min) List of meds needing interventions: Current medications are okay Anticoagulation Anticoagulation: Hgb 10.3 g/dL (13.5-17.5) L 03/21/25 03:45 Hct 34.0 % (40.0-50.0) L 03/21/25 03:45 Plt Count 208 10^3/uL (130-400) 03/21/25 03:45 Creatinine 1.5 mg/dL (0.70-1.30) H 03/21/25 03:45 DVT Prophylaxis: Reviewed (SCDs - takes Eliquis at home, on hold due to fall) Relevant Labs Relevant Labs: Sodium 144 mmol/L (136-145) 03/21/25 03:45 Potassium 4.1 mmol/L (3.5-5.1) 03/21/25 03:45 Chloride 105 mmol/L (98-107) 03/21/25 03:45 Magnesium 2.0 mg/dL (1.8-2.4) 03/21/25 03:45 Electrolytes, C-Reactive P, ESR: Reviewed Cardiac Review Cardiac Review: Troponin I 9 ng/L (<or=76) 03/21/25 05:10 Blood Pressure [Left Arm] 121/97 0945 Blood Pressure 107/61 0901 Blood Pressure 96/61 0846 Blood Pressure 95/55 0831 Blood Pressure 98/50 0826 Blood Pressure 117/56 0746 Blood Pressure 158/104 0731 Blood Pressure 128/96 0716 Blood Pressure 141/77 0701 Blood Pressure 128/77 0645 Blood Pressure 118/80 0631 BP, HR, EF%: Reviewed (HR 107) QTc Review QTc: Reviewed (426 from 03/21/25) IV to PO Switch IV Medications: Reviewed Home Meds Home Med List reviewed: Intervened Relevent Home Meds Not ordered & why?: Eliquis (on hold per H+P), santyl ointment, vitamin D2 (weekly), nitroglycerin ointment (PRN), pregabalin and torsemide Reached out to provider regarding pregabalin and torsemide. Provider is looking into it. Current Meds Current Medication Order Review: Reviewed
[2025-03-21 12:25] LABS: HCT 29.5 % (40.0-50.0); HGB 9.1 g/dL (13.5-17.5); MCH 24.9 pg (27.0-33.0); MCHC 30.8 % (32.0-36.0); MCV 81 fL (80-95); MPV 12.9 fL (8.0-11.0); Platelet Count 183 10^3/uL (130-400); RBC 3.66 10^6/uL (4.36-5.78); RDW 18.0 % (11.8-14.1); RDW-SD 53.1 fL; WBC 4.27 10^3/uL (4.4-10.8)
[2025-03-21 12:28] LABS: Anion Gap 6.0 mmol/L (3-11); BUN 28 mg/dL (7-18); CO2 31.0 mmol/L (21.0-32.0); Calcium 8.7 mg/dL (8.5-10.1); Chloride 108 mmol/L (98-107); Estimated GFR 85.95 (mL/min/1.73m2); Glucose 94 mg/dL (74-106); Potassium 3.4 mmol/L (3.5-5.1); Sodium 145 mmol/L (136-145)
--- NOTE | 2025-03-21 14:32 | W.EVENT ---
Date of service: 03/21/25 Time of Service: 14:32 Event Note: NS called with concerns for hypotension and somnolence. Ordered IVF LR bolus 500cc, blood cultures, urine cultrue, esr, crp, NH3. PE rrr no mrg ctab no amu perrla bilat If pt does not respond, will start levophed (autonomic dysfunction?) CT this am did not show any bleeds Time Spent with Patient Time spent in critical care(minutes): 10 Time Spent Included: Chart review, Time at immediate bedside and Discussing critically ill care with other medical staff
[2025-03-21] MEDS: Lactated Ringers 500 ML IV (14:45)
[2025-03-21] MEDS: Triamcinolone 0.1% CR 80 GM TUBE TP (15:05)
[2025-03-21] MEDS: Ketoconazole 2% CREAM 15 GM TUBE TP (15:05)
[2025-03-21 15:18] LABS: Ammonia 10 umol/L (11-32)
[2025-03-21 15:19] LABS: C-Reactive Protein 5.32 mg/dL (<or=0.5)
[2025-03-21 15:25] LABS: ESR 38 mm/hr (0-15)
[2025-03-21 15:39] LABS: Procalcitonin < 0.10 ng/mL
[2025-03-21] MEDS: Normal Saline Flush 10 ML SYR IVP (19:37)
[2025-03-21 20:14] LABS: EPI 027-NAP1-B1 PRESUMPTIVE NEGATIVE
--- NOTE | 2025-03-21 20:15 | RT.EKG_ITS ---
APPROVED REPORT Exam: Resting ECG Reason for Exam: chest pain Patient Location: I HR:92 bpm ECG Measurements Heart Rate 92 AXIS AK 207 P 44 QRSd 110 QRS 23 QT 354 T 37 QTc 438 Conclusion Sinus rhythm...normal P axis, V-rate 50- 99 Artifact Probably normal
[2025-03-21 20:55] LABS: Troponin I 6 ng/L (<or=76)
[2025-03-21] MEDS: Pregabalin 150 MG CAP PO (21:13)
[2025-03-21] MEDS: diphenhydrAMINE 50 MG/ML VIAL 25 MG IVP (21:28)
[2025-03-21] MEDS: Lactated Ringers 1,000 ML 150 ML IV (21:54)
[2025-03-22] VITALS (13 sets, daily range): BP systolic 82–122; BP diastolic 37–86; PULSE 50–117; RESP 13–28; TEMP 36.5–36.7; O2SAT 91–99
[2025-03-22] MEDS: Melatonin 3 MG TAB 6 MG PO (02:05)
[2025-03-22] MEDS: diphenhydrAMINE 50 MG/ML VIAL 25 MG IVP (02:19)
[2025-03-22] MEDS: Baclofen 10 MG TAB 20 MG PO ×4 (02:59→20:59)
[2025-03-22] MEDS: Acetaminophen 325 MG TAB 650 MG PO (03:06)
[2025-03-22] MEDS: Butalbital/Acetaminophen/Caffeine 50/325/40 TAB PO (03:46)
[2025-03-22] MEDS: Lactated Ringers 1,000 ML 150 ML IV ×3 (04:58→20:58)
[2025-03-22 06:30] LABS: Abs Immature Grans 0.02 10^3/uL (0.0-0.06); HCT 27.5 % (40.0-50.0); HGB 8.5 g/dL (13.5-17.5); Immature Grans % 0.4 %; MCH 25.3 pg (27.0-33.0); MCHC 30.9 % (32.0-36.0); MCV 82 fL (80-95); Platelet Count 162 10^3/uL (130-400); RBC 3.36 10^6/uL (4.36-5.78); RDW 18.2 % (11.8-14.1); RDW-SD 54.4 fL; WBC 4.88 10^3/uL (4.4-10.8)
[2025-03-22 06:49] LABS: ALT 23 U/L (16-63); AST 20 U/L (15-37); Albumin 2.2 g/dL (3.4-5.0); Alkaline Phosphatase 63 U/L (46-116); Anion Gap 6.3 mmol/L (3-11); BUN 21 mg/dL (7-18); Bilirubin, Total 0.2 mg/dL (0.2-1.0); CO2 31.7 mmol/L (21.0-32.0); Calcium 8.7 mg/dL (8.5-10.1); Chloride 108 mmol/L (98-107); Estimated GFR 109.36 (mL/min/1.73m2); Glucose 80 mg/dL (74-106); Potassium 3.5 mmol/L (3.5-5.1); Sodium 146 mmol/L (136-145); Total Protein 5.7 g/dL (6.4-8.2)
[2025-03-22] MEDS: Polyethylene Glycol 3350 17 GM PACKET PO (08:24)
[2025-03-22] MEDS: Psyllium PKT 1 EACH PO (08:24)
[2025-03-22] MEDS: Docusate Sodium 100 MG CAP PO (08:25)
[2025-03-22] MEDS: DULoxetine 30 MG CAP 120 MG PO (08:25)
[2025-03-22] MEDS: Apixaban 5 MG TAB PO ×2 (08:25→20:59)
[2025-03-22] MEDS: Buprenorphine/Naloxone 8 mg/2 mg FILM 1 EACH SL ×3 (08:26→20:58)
[2025-03-22] MEDS: Senna TAB 2 TAB PO (08:27)
[2025-03-22] MEDS: Normal Saline Flush 10 ML SYR IVP ×2 (08:30→20:59)
[2025-03-22] MEDS: ARIPiprazole 5 MG TAB 10 MG PO (08:30)
[2025-03-22] MEDS: Triamcinolone 0.1% CR 80 GM TUBE TP (09:20)
[2025-03-22] MEDS: Ketoconazole 2% CREAM 15 GM TUBE TP (09:25)
[2025-03-22] MEDS: Zolpidem 10 MG TAB PO (09:34)
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
[2025-03-22] MEDS: Fidaxomicin 200 MG TAB PO (20:59)
[2025-03-22] MEDS: Mirtazapine 15 MG TAB PO (20:59)
[2025-03-23] MEDS: Lactated Ringers 1,000 ML 150 ML IV (04:07)
[2025-03-23 06:50] LABS: Abs Immature Grans 0.20 10^3/uL (0.0-0.06); HCT 26.8 % (40.0-50.0); HGB 8.4 g/dL (13.5-17.5); Immature Grans % 3.6 %; MCH 25.1 pg (27.0-33.0); MCHC 31.3 % (32.0-36.0); MCV 80 fL (80-95); Platelet Count 155 10^3/uL (130-400); RBC 3.35 10^6/uL (4.36-5.78); RDW 18.3 % (11.8-14.1); RDW-SD 53.8 fL; WBC 5.56 10^3/uL (4.4-10.8)
[2025-03-23 07:23] LABS: MPV 12.5 fL (8.0-11.0)
[2025-03-23 07:42] VITALS: BP 150/80; PULSE 101; RESP 20; TEMP 37.2; O2SAT 94
[2025-03-23 07:48] LABS: Hypochromasia 1+; Microcytosis 1+
[2025-03-23 07:54] LABS: ALT 29 U/L (16-63); AST 30 U/L (15-37); Albumin 2.3 g/dL (3.4-5.0); Alkaline Phosphatase 63 U/L (46-116); Anion Gap 7.3 mmol/L (3-11); BUN 12 mg/dL (7-18); Bilirubin, Total 0.2 mg/dL (0.2-1.0); CO2 30.7 mmol/L (21.0-32.0); Calcium 8.6 mg/dL (8.5-10.1); Chloride 106 mmol/L (98-107); Estimated GFR 117.98 (mL/min/1.73m2); Glucose 82 mg/dL (74-106); Sodium 144 mmol/L (136-145); Total Protein 6.1 g/dL (6.4-8.2)
[2025-03-23 07:57] LABS: Potassium 2.9 mmol/L (3.5-5.1)
[2025-03-23] MEDS: Buprenorphine/Naloxone 8 mg/2 mg FILM 1 EACH SL ×3 (08:45→20:19)
[2025-03-23] MEDS: Baclofen 10 MG TAB 20 MG PO ×3 (08:45→20:19)
[2025-03-23] MEDS: DULoxetine 30 MG CAP 120 MG PO (08:45)
[2025-03-23] MEDS: Apixaban 5 MG TAB PO ×3 (08:45→20:34)
[2025-03-23] MEDS: ARIPiprazole 5 MG TAB 10 MG PO (08:46)
[2025-03-23] MEDS: Fidaxomicin 200 MG TAB PO ×2 (08:46→20:20)
[2025-03-23] MEDS: Senna TAB 2 TAB PO (08:46)
[2025-03-23] MEDS: Docusate Sodium 100 MG CAP PO (08:46)
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
[2025-03-23] MEDS: Normal Saline Flush 10 ML SYR IVP ×2 (08:56→20:20)
[2025-03-23 12:13] VITALS: BP 140/80; PULSE 94; RESP 18; TEMP 37.3; O2SAT 93
[2025-03-23] MEDS: LORazepam 1 MG TAB 2 MG PO ×2 (14:59→20:19)
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
[2025-03-23 19:24] VITALS: BP 154/79; PULSE 74; RESP 17; TEMP 36.8; O2SAT 95
[2025-03-23] MEDS: Potassium Chloride 20 MEQ TABCR 40 MEQ PO (20:19)
[2025-03-23] MEDS: Mirtazapine 15 MG TAB PO (20:20)
[2025-03-23] MEDS: Triamcinolone 0.1% CR 80 GM TUBE TP (20:34)
[2025-03-24] MEDS: LORazepam 1 MG TAB 2 MG PO ×3 (01:24→19:51)
[2025-03-24 06:52] LABS: Abs Immature Grans 0.22 10^3/uL (0.0-0.06); HCT 30.9 % (40.0-50.0); HGB 9.6 g/dL (13.5-17.5); Immature Grans % 3.5 %; MCH 24.8 pg (27.0-33.0); MCHC 31.1 % (32.0-36.0); MCV 80 fL (80-95); MPV 12.0 fL (8.0-11.0); Platelet Count 196 10^3/uL (130-400); RBC 3.87 10^6/uL (4.36-5.78); RDW 17.9 % (11.8-14.1); RDW-SD 52.2 fL; WBC 6.22 10^3/uL (4.4-10.8)
[2025-03-24 07:13] LABS: ALT 30 U/L (16-63); AST 25 U/L (15-37); Albumin 2.8 g/dL (3.4-5.0); Alkaline Phosphatase 71 U/L (46-116); Anion Gap 7.8 mmol/L (3-11); BUN 11 mg/dL (7-18); Bilirubin, Total 0.3 mg/dL (0.2-1.0); CO2 29.2 mmol/L (21.0-32.0); Calcium 9.1 mg/dL (8.5-10.1); Chloride 104 mmol/L (98-107); Estimated GFR 117.98 (mL/min/1.73m2); Glucose 72 mg/dL (74-106); Potassium 3.4 mmol/L (3.5-5.1); Sodium 141 mmol/L (136-145); Total Protein 7.0 g/dL (6.4-8.2)
[2025-03-24 07:37] VITALS: BP 116/47; PULSE 81; RESP 20; TEMP 36.7; O2SAT 93
[2025-03-24] MEDS: Fidaxomicin 200 MG TAB PO ×2 (08:18→19:52)
[2025-03-24] MEDS: Docusate Sodium 100 MG CAP PO (08:18)
[2025-03-24] MEDS: Senna TAB 2 TAB PO (08:18)
[2025-03-24] MEDS: Apixaban 5 MG TAB PO ×2 (08:18→19:52)
[2025-03-24] MEDS: ARIPiprazole 5 MG TAB 10 MG PO (08:19)
[2025-03-24] MEDS: DULoxetine 30 MG CAP 120 MG PO (08:19)
[2025-03-24] MEDS: Potassium Chloride 20 MEQ TABCR 40 MEQ PO ×2 (08:19→19:52)
[2025-03-24] MEDS: Baclofen 10 MG TAB 20 MG PO ×3 (08:19→19:52)
[2025-03-24] MEDS: Buprenorphine/Naloxone 8 mg/2 mg FILM 1 EACH SL ×3 (08:22→19:51)
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
[2025-03-24] MEDS: Acetaminophen 325 MG TAB 650 MG PO ×2 (11:09→23:42)
--- NOTE | 2025-03-24 11:40 | PT.INNT ---
PT Notes Visit Reasons: CANDACE, Encephalopathy Patient was given Ativan 20 minutes for wound consult at noon today. He now is sedated. Will do another attempt at PT evaluation this afternoon.
--- NOTE | 2025-03-24 12:03 | NUR.NOTE ---
Nursing Note: Pt was asked if nursing staff can assess and change the patient's wounds. The patient verbalized his disinterest in this, stating I don't want you to look at them. I told you this the other day. [facility] is the one taking care of me. (pt referring to his wound care) Pt was educated on the importance of keeping the wounds clean and dry as well as the importance of changing the dressings on the wounds, but patient still declined. Wound nurse (Tanika) also attempted to assess the patient's wounds but the patient refused her as well. Dr. Forrest was notified of this. Plan of care ongoing regarding patient's wound care assessment/dressing changes.
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
[2025-03-24 15:33] VITALS: BP 133/89; PULSE 88; RESP 20; TEMP 36.6; O2SAT 99
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
[2025-03-24 19:30] VITALS: BP 167/87; PULSE 97; RESP 20; TEMP 36.8; O2SAT 96
[2025-03-24] MEDS: Mirtazapine 15 MG TAB PO (19:52)
[2025-03-24] MEDS: guaiFENesin 600 MG TABCR PO (19:52)
[2025-03-24] MEDS: Triamcinolone 0.1% CR 80 GM TUBE TP (20:00)
[2025-03-24 20:03] VITALS: BP 145/85; PULSE 98; RESP 18; TEMP 36.8; O2SAT 91
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
[2025-03-24] MEDS: Melatonin 3 MG TAB 6 MG PO (23:41)
[2025-03-25] MEDS: LORazepam 1 MG TAB 2 MG PO (05:33)
[2025-03-25 08:39] VITALS: BP 140/92; PULSE 84; RESP 16; TEMP 36.1; O2SAT 97
[2025-03-25] MEDS: ARIPiprazole 5 MG TAB 10 MG PO (08:48)
[2025-03-25] MEDS: Baclofen 10 MG TAB 20 MG PO ×2 (08:48→21:10)
[2025-03-25] MEDS: Buprenorphine/Naloxone 8 mg/2 mg FILM 1 EACH SL ×2 (08:49→21:11)
[2025-03-25] MEDS: Apixaban 5 MG TAB PO ×2 (08:49→21:11)
[2025-03-25] MEDS: guaiFENesin 600 MG TABCR PO ×2 (08:49→21:11)
[2025-03-25] MEDS: Fidaxomicin 200 MG TAB PO ×2 (08:49→21:11)
[2025-03-25] MEDS: DULoxetine 30 MG CAP 120 MG PO (08:49)
[2025-03-25] MEDS: Potassium Chloride 20 MEQ TABCR 40 MEQ PO ×2 (08:49→21:11)
[2025-03-25] MEDS: Polyethylene Glycol 3350 17 GM PACKET PO (08:50)
[2025-03-25] MEDS: Psyllium PKT 1 EACH PO (08:50)
--- NOTE | 2025-03-25 09:22 | PDOC.CMPRO ---
Date of service: 03/25/25 Time of Service: 09:22 Care Management Progress Note Progress Note Text Progress Note Text: Clifton was lying in bed when CM met with him. He remains somnolent and struggles to stay awake during conversations. He has been getting PRN Ativan several times a day which may be contributing to his sleepiness. PT was able to complete an evaluation today while getting Clifton out of bed into a chair. He was able to assist with repositioning using his arms. When the evaluation has been written up qand signed the SNF referrals can be sent. Discharge Potential Discharge Needs: PCP F/U Appt Anticipated Barriers to Discharge: None Identified Patient/Family Education Needs: Review discharge instructions, discuss Ask Me Three Transportation: Private vehicle Plan: Clifton's discharge plan is unclear at this time. He has informed CM that he cannot return home as his cousin doesn't want him and he does not want to return there. Reportedly, his [facility] case management associate is working on AFC placement. In the meantime referrals will be sent to several SNFs (see above) for STR once the PT evaluation has been completeds. Clifton will follow up with his PCP and plan of care. Transportation to be determined by disposition. CM will follow and continue to assess for discharge needs. Social Determinants of Health Screening Will the Patient Participate in the Screening?: Unable to obtain
--- NOTE | 2025-03-25 10:40 | PT.INNT ---
PT Notes Visit Reasons: CANDACE, Encephalopathy Patient still sedated, was given Ativan diagnostic assistant today. Unable to perform PT evaluation. Sought out CM Kelly who agreed on approaching patient around 1:30 PM today to encourage participation in PT for functioanl mobility training and strength progression.
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
[2025-03-25] MEDS: Triamcinolone 0.1% CR 80 GM TUBE TP ×2 (13:53→21:14)
[2025-03-25] MEDS: Ketoconazole 2% CREAM 15 GM TUBE TP (13:55)
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
[2025-03-25 15:23] VITALS: BP 140/92; PULSE 84
[2025-03-25 15:48] LABS: Cannabinoids THC Negative (Negative); METHADONE URINE SCREEN Negative (Negative)
[2025-03-25] MEDS: Acetaminophen 325 MG TAB 650 MG PO (17:05)
[2025-03-25] MEDS: Mirtazapine 15 MG TAB PO (21:11)
[2025-03-25] MEDS: Normal Saline Flush 10 ML SYR IVP (21:12)
[2025-03-25 21:15] VITALS: BP 144/75; PULSE 100; RESP 16; TEMP 36.6; O2SAT 95
[2025-03-26] MEDS: LORazepam 1 MG TAB 2 MG PO (04:31)
[2025-03-26 07:22] LABS: Abs Immature Grans 0.25 10^3/uL (0.0-0.06); HCT 34.1 % (40.0-50.0); HGB 10.3 g/dL (13.5-17.5); Immature Grans % 3.7 %; MCH 24.9 pg (27.0-33.0); MCHC 30.2 % (32.0-36.0); MCV 83 fL (80-95); MPV 12.0 fL (8.0-11.0); Platelet Count 157 10^3/uL (130-400); RBC 4.13 10^6/uL (4.36-5.78); RDW 18.6 % (11.8-14.1); RDW-SD 53.5 fL; WBC 6.70 10^3/uL (4.4-10.8)
[2025-03-26 07:59] LABS: ALT 22 U/L (16-63); AST 15 U/L (15-37); Albumin 2.8 g/dL (3.4-5.0); Alkaline Phosphatase 68 U/L (46-116); Anion Gap 8.7 mmol/L (3-11); BUN 13 mg/dL (7-18); Bilirubin, Total 0.3 mg/dL (0.2-1.0); CO2 29.3 mmol/L (21.0-32.0); Calcium 9.1 mg/dL (8.5-10.1); Chloride 106 mmol/L (98-107); Estimated GFR 117.98 (mL/min/1.73m2); Glucose 68 mg/dL (74-106); Potassium 4.4 mmol/L (3.5-5.1); Sodium 144 mmol/L (136-145); Total Protein 6.8 g/dL (6.4-8.2)
[2025-03-26 08:25] VITALS: BP 123/68; PULSE 95; RESP 16; TEMP 36.2; O2SAT 92
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
[2025-03-26] MEDS: Psyllium PKT 1 EACH PO (09:12)
[2025-03-26] MEDS: DULoxetine 30 MG CAP 120 MG PO (09:13)
[2025-03-26] MEDS: Buprenorphine/Naloxone 8 mg/2 mg FILM 1 EACH SL ×2 (09:13→21:42)
[2025-03-26] MEDS: Polyethylene Glycol 3350 17 GM PACKET PO (09:13)
[2025-03-26] MEDS: Senna TAB 2 TAB PO (09:13)
[2025-03-26] MEDS: Potassium Chloride 20 MEQ TABCR 40 MEQ PO ×2 (09:13→21:40)
[2025-03-26] MEDS: Baclofen 10 MG TAB 20 MG PO ×2 (09:13→21:41)
[2025-03-26] MEDS: ARIPiprazole 5 MG TAB 7.5 MG PO (09:13)
[2025-03-26] MEDS: guaiFENesin 600 MG TABCR PO ×2 (09:14→21:41)
[2025-03-26] MEDS: Triamcinolone 0.1% CR 80 GM TUBE TP (09:14)
[2025-03-26] MEDS: Fidaxomicin 200 MG TAB PO ×2 (09:14→21:40)
[2025-03-26] MEDS: Docusate Sodium 100 MG CAP PO (09:14)
[2025-03-26] MEDS: Ketoconazole 2% CREAM 15 GM TUBE TP (09:14)
[2025-03-26] MEDS: Apixaban 5 MG TAB PO ×2 (09:14→21:41)
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
--- NOTE | 2025-03-26 14:51 | CHAPLAIN ---
Staff mentioned at morning meeting (10:30 am) that Clifton was more alert and responsive today. I went to see him just after morning meeting, around 11 a.m. and his eyes remained closed and the interacted minimally with me. I explained my role quickly, and offered support and will try to visit another time when he is more alert.
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
[2025-03-26 15:07] VITALS: BP 111/62; PULSE 93; RESP 16; TEMP 36.4; O2SAT 96
--- NOTE | 2025-03-26 16:02 | PT.INNT ---
PT Notes Visit Reasons: CANDACE, Encephalopathy Pt approached 5x during the course of the afternoon but was somnolent at all occasions, pt on Soboxone and Ativan as per nurse.
[2025-03-26 20:38] VITALS: BP 112/65; PULSE 110; RESP 24; TEMP 36.2; O2SAT 89
[2025-03-26 21:14] VITALS: O2SAT 94
[2025-03-26] MEDS: Mirtazapine 15 MG TAB PO (21:50)
[2025-03-27] VITALS (8 sets, daily range): BP systolic 95–101; BP diastolic 55–64; PULSE 79–101; RESP 16–24; TEMP 36–36.9; O2SAT 87–96
[2025-03-27] MEDS: LORazepam 1 MG TAB 2 MG PO (01:35)
[2025-03-27] MEDS: Psyllium PKT 1 EACH PO (09:29)
[2025-03-27] MEDS: guaiFENesin 600 MG TABCR PO ×2 (09:29→19:39)
[2025-03-27] MEDS: DULoxetine 30 MG CAP 120 MG PO (09:29)
[2025-03-27] MEDS: Buprenorphine/Naloxone 8 mg/2 mg FILM 1 EACH SL ×2 (09:29→15:16)
[2025-03-27] MEDS: Senna TAB 2 TAB PO (09:29)
[2025-03-27] MEDS: Baclofen 10 MG TAB 20 MG PO ×3 (09:29→19:40)
[2025-03-27] MEDS: Docusate Sodium 100 MG CAP PO (09:29)
[2025-03-27] MEDS: Apixaban 5 MG TAB PO ×2 (09:29→19:41)
[2025-03-27] MEDS: Fidaxomicin 200 MG TAB PO ×2 (09:29→19:43)
[2025-03-27] MEDS: Potassium Chloride 20 MEQ TABCR 40 MEQ PO ×2 (09:29→19:40)
[2025-03-27] MEDS: Polyethylene Glycol 3350 17 GM PACKET PO (09:30)
[2025-03-27] MEDS: ARIPiprazole 5 MG TAB 7.5 MG PO (09:30)
[2025-03-27] MEDS: Ketoconazole 2% CREAM 15 GM TUBE TP (09:31)
[2025-03-27] MEDS: Triamcinolone 0.1% CR 80 GM TUBE TP (09:32)
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
--- NOTE | 2025-03-27 14:48 | PTTR_ITS ---
PT Notes Visit Reasons: CANDACE, Encephalopathy Inpatient Physical Therapy Treatment Note [facility] Date: 03/27/25 PRECAUTIONS: T4 paraplegia SUBJECTIVE: If you get a wheelchair and a slide board in here, I'll show you how I normally do it. OBJECTIVE: ? PAIN: no pain complaints today VITALS: during rolling activities with patient's head down, signs of AD were observed so patient required his head elevated and his symptoms lessened, spO2 monitored and was hovering at 90% so nursing applied supplemental O2 via NC, this was discontinued following activities Therapeutic Activities (22834l8): Direct one-on-one instruction in dynamic activities to improve functional performance. ? BED MOBILITY/TRANSFERS? Rolling L/R: Max assist of 2 Supine-sit: Max assist of 2 ? Sit-supine: Max assist of 2? Seated posture - requiring min assist with BILAT UE SUPPORT to maintain seated position at EOB x3 min?Bed- Chair: Lis (not performed today) ? Chair-bed: Lis (not performed today) Provided skilled cues and instruction on performance and technique throughout. ASSESSMENT:? Pt was unable to sit at the EOB without bilat UE support today, indicating a slide board transfer would not be safe at this time. He will need to at least be able to support himself with only 1 UE assist for a slide board transfer to be attempted. He was made aware of this today and understands. He required max assist of 2 to go from supine to seated today. He will continue to benefit greatly from PT services to help optimize his functional status and progress further to his ultimate goal of performing a slide board transfer. PLAN: UE strengthening progressions, transfer training as appropriate and safely TREATMENT CODE/TIME: Ther Act x2 (96018) - 30 min DISCHARGE RECOMMENDATION: SNF for continued rehabilitation
[2025-03-27] MEDS: Mirtazapine 15 MG TAB PO (19:40)
[2025-03-28 04:47] VITALS: BP 110/46; PULSE 86; RESP 18; TEMP 36.5; O2SAT 94
[2025-03-28 07:20] VITALS: BP 124/71; PULSE 83; RESP 16; TEMP 36.6; O2SAT 92
[2025-03-28 08:51] VITALS: O2SAT 94
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
[2025-03-28 09:17] VITALS: BP 106/72; PULSE 92; RESP 18; TEMP 36; O2SAT 92
[2025-03-28] MEDS: DULoxetine 30 MG CAP 120 MG PO (09:20)
[2025-03-28] MEDS: Apixaban 5 MG TAB PO ×2 (09:29→20:42)
[2025-03-28] MEDS: Baclofen 10 MG TAB 20 MG PO ×3 (09:30→20:44)
[2025-03-28] MEDS: ARIPiprazole 5 MG TAB 7.5 MG PO (09:30)
[2025-03-28] MEDS: Fidaxomicin 200 MG TAB PO ×2 (09:30→20:42)
[2025-03-28] MEDS: Buprenorphine/Naloxone 8 mg/2 mg FILM 1 EACH SL ×2 (09:30→13:51)
[2025-03-28] MEDS: guaiFENesin 600 MG TABCR PO ×2 (09:30→20:42)
[2025-03-28] MEDS: Potassium Chloride 20 MEQ TABCR 40 MEQ PO ×2 (09:31→20:42)
[2025-03-28] MEDS: Ketoconazole 2% CREAM 15 GM TUBE TP (10:55)
[2025-03-28] MEDS: Triamcinolone 0.1% CR 80 GM TUBE TP (10:55)
--- NOTE | 2025-03-28 12:48 | PTTR_ITS ---
PT Notes Visit Reasons: CANDACE, Encephalopathy Inpatient Physical Therapy Treatment Note [facility] Date: 03/28/25 PRECAUTIONS: wounds on bilat ischial tuberosity's - being heavily monitored by nursing SUBJECTIVE: I think I'd like to sit up OBJECTIVE: ? PAIN: no pain complaints VITALS: monitored by nursing Therapeutic Activities (97337j6): Direct one-on-one instruction in dynamic activities to improve functional performance. ? BED MOBILITY/TRANSFERS? Rolling L/R: max assist of 2 - nursing performed dressing changes on his wounds which required multiple rolls from side to side Supine-sit: max assist of 2 ? Sit-supine: max assist of 2 ? Exercises: semi-supine active shoulder flex x10 bilat, seated weight shifts x10, seated high fives x5 bilat ASSESSMENT:? Pt is becoming more agreeable to work with PT. He remains not nancy ropriate for a slide board transfer at this time but he was able to perform seated at the EOB with only 1 UE for support today, showing progress. He will continue to benefit from PT services to progress him towards his functional goals. PLAN: seated at EOB progressing to transfer training as appropriate TREATMENT CODE/TIME: Ther Act (33111) x2 - 30 min DISCHARGE RECOMMENDATION: SNF for continued rehabilitation
[2025-03-28 20:28] VITALS: BP 145/57; PULSE 76; RESP 20; TEMP 36.1; O2SAT 81
[2025-03-28 20:41] VITALS: O2SAT 95
[2025-03-28] MEDS: Mirtazapine 15 MG TAB PO (20:42)
[2025-03-29 08:20] VITALS: BP 112/63; PULSE 87; RESP 17; TEMP 36.7; O2SAT 95
[2025-03-29 08:55] VITALS: O2SAT 95
[2025-03-29] MEDS: Senna TAB 2 TAB PO (09:15)
[2025-03-29] MEDS: Polyethylene Glycol 3350 17 GM PACKET PO (09:15)
[2025-03-29] MEDS: Buprenorphine/Naloxone 8 mg/2 mg FILM 1 EACH SL ×3 (09:15→20:38)
[2025-03-29] MEDS: guaiFENesin 600 MG TABCR PO ×2 (09:15→20:37)
[2025-03-29] MEDS: Baclofen 10 MG TAB 20 MG PO ×3 (09:16→20:36)
[2025-03-29] MEDS: Apixaban 5 MG TAB PO (09:16)
[2025-03-29] MEDS: Potassium Chloride 20 MEQ TABCR 40 MEQ PO ×2 (09:16→20:37)
[2025-03-29] MEDS: Docusate Sodium 100 MG CAP PO (09:16)
[2025-03-29] MEDS: DULoxetine 30 MG CAP 120 MG PO (09:16)
[2025-03-29] MEDS: Fidaxomicin 200 MG TAB PO ×2 (09:16→20:37)
[2025-03-29] MEDS: Ketoconazole 2% CREAM 15 GM TUBE TP (09:17)
[2025-03-29] MEDS: Triamcinolone 0.1% CR 80 GM TUBE TP (09:17)
[2025-03-29] MEDS: ARIPiprazole 5 MG TAB 7.5 MG PO (09:59)
[2025-03-29 11:05] VITALS: RESP 18; O2SAT 86
[2025-03-29 11:07] VITALS: BP 111/83; PULSE 61; RESP 18; O2SAT 96
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
[2025-03-29 19:26] VITALS: BP 100/58; PULSE 98; RESP 18; TEMP 36.4; O2SAT 94
--- NOTE | 2025-03-29 20:26 | OTTR_ITS ---
Occupational Therapy Notes Occupational Therapy Inpatient Treatment Note Date: 03/29/25 PRECAUTIONS: Fall, Contact, Full SUBJECTIVE: Pt states that he is tired, he notes that he is unsure of what is going to happen next which makes him slightly uneasy. He is nervous and anxious about what is going to happen next. OBJECTIVE: PAIN:s/o pain in buttock area BATHING: Max (A) set up/clean up (I) washing face and (B) UE but requires max (A) with (B) LE DRESSING: Pt denies but does indicate that he can perform UE with mod (A) GROOMING: NT ASSESSMENT: Pts demeanor seems very nervous and anxious at this time. He is receptive to performance of his ADLs but would still continue to benefit from SNF vs. LTC facility when medically cleared per MD. TREATMENT CODES/TIME: 69118, 15 minutes Aruna Navarro OTR/L [facility] [place], [place]
[2025-03-29] MEDS: Mirtazapine 15 MG TAB PO (20:36)
[2025-03-30 03:12] VITALS: BP 115/71; PULSE 93; RESP 19; TEMP 36.3; O2SAT 95
[2025-03-30 06:53] LABS: HCT 32.8 % (40.0-50.0); HGB 9.6 g/dL (13.5-17.5); MCH 24.7 pg (27.0-33.0); MCHC 29.3 % (32.0-36.0); MCV 84 fL (80-95); MPV 13.0 fL (8.0-11.0); Platelet Count 227 10^3/uL (130-400); RBC 3.89 10^6/uL (4.36-5.78); RDW 19.0 % (11.8-14.1); RDW-SD 57.7 fL; WBC 7.02 10^3/uL (4.4-10.8)
[2025-03-30 07:02] LABS: Anion Gap 4.6 mmol/L (3-11); BUN 17 mg/dL (7-18); CO2 35.4 mmol/L (21.0-32.0); Calcium 9.5 mg/dL (8.5-10.1); Chloride 105 mmol/L (98-107); Estimated GFR 113.32 (mL/min/1.73m2); Glucose 86 mg/dL (74-106); Potassium 4.5 mmol/L (3.5-5.1); Sodium 145 mmol/L (136-145)
[2025-03-30 08:30] VITALS: O2SAT 94
[2025-03-30] MEDS: ARIPiprazole 5 MG TAB 7.5 MG PO (08:58)
[2025-03-30] MEDS: Buprenorphine/Naloxone 8 mg/2 mg FILM 1 EACH SL ×3 (08:58→20:22)
[2025-03-30] MEDS: Baclofen 10 MG TAB 20 MG PO ×3 (08:58→20:21)
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
[2025-03-30 09:19] VITALS: BMI 37.0
[2025-03-30 09:27] VITALS: BP 97/57; PULSE 108; RESP 16; TEMP 36.6; O2SAT 94
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
[2025-03-30 12:30] VITALS: BP 135/75; PULSE 75; RESP 17; TEMP 36.9; O2SAT 92
--- NOTE | 2025-03-30 12:57 | W.PM.OP ---
Operative Note Operative Note PRE-OP DIAGNOSIS: Bilateral ischial decubitus wounds POST-OP DIAGNOSIS: same PROCEDURE: Debridement of bilateral ischial decubitus wounds SURGEON: Jose Harrell INORGANIC CHEMICAL TECHNICIAN: Leatha Ching Refer to Anesthesia Record ESTIMATED BLOOD LOSS: 10 PATHOLOGY: none sent COMPLICATIONS: None Patient was transported to: floor Patient's condition: stable Indications: Shawn is a 44-year-old male with bilateral ischial decubitus wounds secondary to complications of paraplegia. Procedure Description: I reviewed the plan for debridement, and washout of wounds with Shawn, he was able to provide informed consent. We then moved down to the operating room. He remained on his stretcher, and we assisted him to the left lateral decubitus position. All the old dressings were removed. The area was prepped and draped. Next, using a Versajet debridement system set at a pressure of 3, I debrided the bed of the right ischial wound. There was a large amount of old eschar, wound slough off, and contamination. There was some tissue at the base of the wound that was sharply debrided with Doe scissors. The debridement was taken back to healthy bleeding tissue. This was easily controlled with a gauze sponge. The wound on the right ischium measures 8 cm x 6 cm x 4 cm deep. This wound was gently packed with gauze, and I turned my attention to the left wound. Generally, this was a little bit freight car cleaner delta system, but there was still a significant amount of slough covering the granulation tissue towards the base. Again, using the Versajet set at 3, I debrided all of this back to healthy bleeding granulation tissue. This wound measures 6.5 cm x 3 cm x 2.5 cm deep, although there is some tissue that extends down along the lateral aspect of the ischium which is difficult to measure. This wound was also gently packed with a sponge I turned my attention back to the right side. All of the packing was removed, and the wound bed was examined. It was all clean and healthy. The base of the wound is ischium, but the bone feels soft, and there is a little bit of granulation tissue covering this. I packed this wound with 1 inch iodoform packing. I remove the dressing on the left ischium, and this also appeared hemostatic. This was also packed with iodoform gauze. Bandages were then applied, and Shawn was rolled back to the supine position and transferred back to the floor. Date of Procedure: 03/30/25
[2025-03-30] MEDS: DULoxetine 30 MG CAP 120 MG PO (13:31)
[2025-03-30] MEDS: Triamcinolone 0.1% CR 80 GM TUBE TP (13:32)
[2025-03-30] MEDS: Ketoconazole 2% CREAM 15 GM TUBE TP (13:32)
[2025-03-30] MEDS: Fidaxomicin 200 MG TAB PO ×2 (13:32→20:22)
[2025-03-30] MEDS: Docusate Sodium 100 MG CAP PO (13:32)
[2025-03-30] MEDS: guaiFENesin 600 MG TABCR PO ×2 (13:32→20:21)
[2025-03-30] MEDS: Potassium Chloride 20 MEQ TABCR 40 MEQ PO ×2 (13:36→20:21)
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
[2025-03-30 15:19] VITALS: BP 98/53; PULSE 95; RESP 16; TEMP 36.2; O2SAT 94
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
[2025-03-30 19:51] VITALS: BP 97/59; PULSE 97; RESP 16; TEMP 36.7; O2SAT 93
[2025-03-30] MEDS: Mirtazapine 15 MG TAB PO (20:21)
[2025-03-30] MEDS: Apixaban 5 MG TAB PO (20:21)
[2025-03-31 01:32] VITALS: BP 120/65; PULSE 85; RESP 16; TEMP 36.7; O2SAT 96
[2025-03-31 07:21] VITALS: BP 106/58; PULSE 89; RESP 16; TEMP 36.1; O2SAT 96
[2025-03-31] MEDS: Senna TAB 2 TAB PO (09:34)
[2025-03-31] MEDS: Potassium Chloride 20 MEQ TABCR 40 MEQ PO ×2 (09:35→20:36)
[2025-03-31] MEDS: DULoxetine 30 MG CAP 120 MG PO (09:35)
[2025-03-31] MEDS: Fidaxomicin 200 MG TAB PO ×2 (09:36→20:36)
[2025-03-31] MEDS: Buprenorphine/Naloxone 8 mg/2 mg FILM 1 EACH SL ×3 (09:36→20:35)
[2025-03-31] MEDS: ARIPiprazole 5 MG TAB 7.5 MG PO (09:36)
[2025-03-31] MEDS: Baclofen 10 MG TAB 20 MG PO ×3 (09:37→20:36)
[2025-03-31] MEDS: guaiFENesin 600 MG TABCR PO ×2 (09:37→20:36)
[2025-03-31] MEDS: Apixaban 5 MG TAB PO ×2 (09:37→20:36)
[2025-03-31] MEDS: Ketoconazole 2% CREAM 15 GM TUBE TP (09:42)
[2025-03-31] MEDS: Triamcinolone 0.1% CR 80 GM TUBE TP ×2 (09:42→20:37)
[2025-03-31 11:03] VITALS: BP 119/62; PULSE 66; RESP 16; TEMP 36.3; O2SAT 98
--- NOTE | 2025-03-31 14:15 | OT.INNT ---
Occupational Therapy Notes 03/31/25 OT attempted to work with pt who was undergoing wound care management at this time. Aruna Navarro OTR/L
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
[2025-03-31 15:11] VITALS: BP 130/51; PULSE 65; RESP 16; TEMP 36.9; O2SAT 93
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
--- NOTE | 2025-03-31 18:17 | PGE_ITS ---
Date of Service Date of service: 03/31/25 Time of Service: 18:17 Assessment and Plan Assessment and plan (1) Decubitus ulcer of ischium, stage 3: Status: Acute Assessment and plan: paraplegia with ischial pressure ulcers bilaterally. Op note reviewed, no evidence of acute infection on inspection yesterday at time of debridement. Would emphasize offloading to help with wound healing. He needs regular debridements and would benefit from reconnecting with the wound center at [facility] again, he has not seen them in about 2 months. Offloading is difficult with paraplegia. Nutritionla optimization also may help, he feels he gets plenty of protein intake at home and that his lower intake of meals here is due to poor appetite for hospital food. No further surgical needs at this time. Dressing and packing change orders placed for acute care setting. He should resume all prior outpt wound care orders and schedule as previously arranged through [facility]. Call if needs arise. Subjective Subjective Interval history since last seen: no complaints. No sensation in his pelvis so no pain since debridement. He does not have any concerns expressed. Exam Narrative Exam Narrative: awake, NAD eomi, MMM normal resp effort nondistended abdomen Objective Last Vital Signs Temp 98.4 F 03/31/25 15:11 Pulse 65 03/31/25 15:11 Resp 16 03/31/25 15:11 BP 130/51 L 03/31/25 15:11 Pulse Ox 93 03/31/25 15:11 Time Spent with Patient Time Spent with Patient: <25 minutes Time was spent: preparing to see the patient(eg.review tests), ordering medications,tests, procedures and counseling the patient
[2025-03-31 19:38] VITALS: BP 120/70; PULSE 103; RESP 20; TEMP 36.4; O2SAT 98
[2025-03-31] MEDS: Mirtazapine 15 MG TAB PO (20:36)
[2025-04-01] VITALS (11 sets, daily range): BP systolic 99–156; BP diastolic 59–77; PULSE 59–122; RESP 16–20; TEMP 35.9–37.1; O2SAT 94–100
[2025-04-01] MEDS: Apixaban 5 MG TAB PO ×2 (07:58→21:29)
[2025-04-01] MEDS: guaiFENesin 600 MG TABCR PO ×2 (07:58→21:28)
[2025-04-01] MEDS: DULoxetine 30 MG CAP 120 MG PO (07:58)
[2025-04-01] MEDS: ARIPiprazole 5 MG TAB 7.5 MG PO (07:58)
[2025-04-01] MEDS: Baclofen 10 MG TAB 20 MG PO ×3 (07:59→21:28)
[2025-04-01] MEDS: Potassium Chloride 20 MEQ TABCR 40 MEQ PO (07:59)
[2025-04-01] MEDS: Fidaxomicin 200 MG TAB PO (07:59)
[2025-04-01] MEDS: Buprenorphine/Naloxone 8 mg/2 mg FILM 1 EACH SL ×3 (07:59→21:29)
[2025-04-01] MEDS: Ketoconazole 2% CREAM 15 GM TUBE TP (08:00)
[2025-04-01] MEDS: Triamcinolone 0.1% CR 80 GM TUBE TP (08:00)
[2025-04-01] MEDS: LORazepam 1 MG TAB 2 MG PO (11:22)
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
--- NOTE | 2025-04-01 17:23 | PDOC.CMPRO ---
Date of service: 04/01/25 Time of Service: 17:23 Care Management Progress Note Progress Note Text Progress Note Text: Clifton was sitting up in bed when CM met with him. CM shared his community arts worker's phone number with him, and encouraged him to contact her, as she has stated that she has been trying to reach him (Peg Ortiz, ). CM followed up on referrals sent to SNF; [facility], [facility] has declined, and CM has not heard back from [facility] or [facility]. CM suggested to Clifton that more referrals are sent, in order to have more potential options. He stated that he does not want to go far away, and that he would think about other options. Clifton may need to enter [facility] if he does not receive any bed offers. CM will continue to follow. Discharge Potential Discharge Needs: Other (Coordinated safe discharge plan) Anticipated Barriers to Discharge: Bed availability Patient/Family Education Needs: Review discharge instructions, discuss Ask Me Three Transportation: RCT RCT Transportation: Wheel chair van Plan: Clifton's discharge plan is unclear at this time. He has informed CM that he cannot return home as it is not a safe discharge. Reportedly, his [facility] pillowcase turner is working on AFC placement. SNF referrals were sent for short term rehab, in order for him to gain strength prior to transitioning to an AFC home. Clifton will follow up with his PCP and plan of care. Transportation to be determined by disposition. CM will follow and continue to assess for discharge needs. Social Determinants of Health Screening Will the Patient Participate in the Screening?: Unable to obtain
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
[2025-04-01] MEDS: Mirtazapine 15 MG TAB PO (21:29)
[2025-04-02] MEDS: Buprenorphine/Naloxone 8 mg/2 mg FILM 1 EACH SL ×3 (08:20→20:34)
[2025-04-02] MEDS: DULoxetine 30 MG CAP 120 MG PO (08:21)
[2025-04-02] MEDS: Baclofen 10 MG TAB 20 MG PO ×3 (08:22→20:34)
[2025-04-02] MEDS: Apixaban 5 MG TAB PO ×2 (08:22→20:34)
[2025-04-02] MEDS: ARIPiprazole 5 MG TAB 7.5 MG PO (08:22)
[2025-04-02] MEDS: Potassium Chloride 20 MEQ TABCR 40 MEQ PO (08:22)
[2025-04-02] MEDS: guaiFENesin 600 MG TABCR PO ×2 (08:22→20:34)
[2025-04-02] MEDS: Ketoconazole 2% CREAM 15 GM TUBE TP (08:23)
[2025-04-02] MEDS: Triamcinolone 0.1% CR 80 GM TUBE TP (08:23)
[2025-04-02 08:25] VITALS: BP 121/49; PULSE 76; RESP 16; TEMP 36.4; O2SAT 95
--- NOTE | 2025-04-02 08:55 | CMPROGNOTE_ITS ---
Date of service: 04/02/25 Time of Service: 08:55 Care Management Progress Note Progress Note Text Progress Note Text: Shawn was sleeping each time CM attempted to meet with him. He is awaiting a safe dispo and has SNF referrals pending at [facility], currently the [facility] does not have any available male beds and he has been declined by [facility]. CM will continue to encourage patient to allow additional referrals to increased potential placement options. Anticipate Shawn will transition to SWB1 status Saturday if no bed offers are received. CM will continue to encourage that he outreach to his community CM Peg Ortiz, as she previously reported difficulty reaching him. CM will follow. Discharge Anticipated Barriers to Discharge: None Identified Patient/Family Education Needs: Review discharge instructions, discuss Ask Me Three Transportation: RCT RCT Transportation: Wheel chair van Plan: Clifton's discharge plan is unclear at this time. He has informed CM that he cannot return home as it is not a safe discharge. Reportedly, his [employer] pillowcase sewer is working on AFC placement. SNF referrals were sent for short term rehab, in order for him to gain strength prior to transitioning to an AFC home. Clifton will follow up with his PCP and plan of care. Transportation to be determined by disposition. CM will follow and continue to assess for discharge needs. Social Determinants of Health Screening Will the Patient Participate in the Screening?: Unable to obtain
--- NOTE | 2025-04-02 11:01 | NUR.NOTE ---
this nurse offered bed bath to this patient, he refused, also change position was offered, he mentioned I change my position myself, I observed he can roll position when he was working with PT yesterday, wound care offered he agrees with do it today after lunch
[2025-04-02 16:42] VITALS: BP 100/75; PULSE 87; RESP 19; TEMP 36; O2SAT 93
[2025-04-02] MEDS: LORazepam 1 MG TAB 2 MG PO (16:49)
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
[2025-04-02 19:13] VITALS: BP 99/60; PULSE 110; RESP 15; TEMP 36.7; O2SAT 94
[2025-04-02] MEDS: Mirtazapine 15 MG TAB PO (20:34)
[2025-04-02 23:43] VITALS: BP 99/63; PULSE 97; RESP 16; TEMP 36.8; O2SAT 96
[2025-04-03 06:48] LABS: Abs Immature Grans 0.04 10^3/uL (0.0-0.06); HCT 30.2 % (40.0-50.0); HGB 8.9 g/dL (13.5-17.5); Immature Grans % 0.6 %; MCH 24.3 pg (27.0-33.0); MCHC 29.5 % (32.0-36.0); MCV 83 fL (80-95); MPV 12.4 fL (8.0-11.0); Platelet Count 302 10^3/uL (130-400); RBC 3.66 10^6/uL (4.36-5.78); RDW 18.5 % (11.8-14.1); RDW-SD 55.1 fL; WBC 6.40 10^3/uL (4.4-10.8)
[2025-04-03 07:15] LABS: ALT 15 U/L (16-63); AST 12 U/L (15-37); Albumin 2.5 g/dL (3.4-5.0); Alkaline Phosphatase 58 U/L (46-116); Anion Gap 4.4 mmol/L (3-11); BUN 16 mg/dL (7-18); Bilirubin, Total 0.2 mg/dL (0.2-1.0); CO2 31.6 mmol/L (21.0-32.0); Calcium 9.2 mg/dL (8.5-10.1); Chloride 106 mmol/L (98-107); Estimated GFR 123.60 (mL/min/1.73m2); Glucose 104 mg/dL (74-106); Magnesium 2.0 mg/dL (1.8-2.4); Potassium 3.9 mmol/L (3.5-5.1); Sodium 142 mmol/L (136-145); Total Protein 6.4 g/dL (6.4-8.2)
[2025-04-03 07:19] VITALS: BP 105/50; PULSE 76; RESP 16; TEMP 36.4; O2SAT 96
[2025-04-03] MEDS: guaiFENesin 600 MG TABCR PO ×2 (08:50→20:10)
[2025-04-03] MEDS: ARIPiprazole 5 MG TAB 7.5 MG PO (08:50)
[2025-04-03] MEDS: Baclofen 10 MG TAB 20 MG PO ×3 (08:50→20:10)
[2025-04-03] MEDS: DULoxetine 30 MG CAP 120 MG PO (08:50)
[2025-04-03] MEDS: Ketoconazole 2% CREAM 15 GM TUBE TP (08:51)
[2025-04-03] MEDS: Triamcinolone 0.1% CR 80 GM TUBE TP ×2 (08:51→20:10)
[2025-04-03] MEDS: Buprenorphine/Naloxone 8 mg/2 mg FILM 1 EACH SL ×3 (08:51→20:10)
[2025-04-03] MEDS: Apixaban 5 MG TAB PO ×2 (08:51→20:10)
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
--- NOTE | 2025-04-03 14:38 | PTTR_ITS ---
PT Notes Visit Reasons: CANDACE, Encephalopathy Precautions: Fall. Contact precautions in place. At risk for further skin breakdown, hold tra nsfer to wheelchair and or bedside recliner without optimal pressure relife capability. Nursing may use mechanical lift for all transfers. Subjective: Attempts were made in a.m. for PT. Patient had experienced a seizure. He states he gets these often. Also has episodes of autonomic dysreflexia. States that this is very frustrating. Once again needed encouragement to participate in PT today. Agreeable to working with PT on some upper extremity strengthening. Objective: General Observation: Resting on bed with pressure-relieving mattress Mental Status: Alert and oriented x 4 Pain: None reporetd Vital Signs: Monitored via nursing. THERA EX: Reviewed pressure-relieving strategies with patient now that overhead trapeze has been attached to alternating pressure mattress: With HOB at 20 degrees. Pull ups from low jones's position x 5. 3 pound bilateral bicep curls 2 x 10, 1 x 10 horizontal abduction at 70 degrees of flexion glenohumeral joint with green Thera-Band. Then transition to attempt green Thera-Band tricep in Jones position. After fourth repetition on left upper extremity patient states he was going to have a seizure. Nursing was immediately notified. Kitty CORBIN promptly attended to patient applying 2 L oxygen supplemental. Following 1 minute O2 saturation was 99% and a good respiration rate. At this point physical therapy was discontinued. Gait: Deferred. T4 paraplegia. Stairs: Deferred. T4 paraplegia. Balance: Static Sitting: Poor Dynamic Sitting: Poor Assessment: S/P debridement of bilateral ischial decubitus wounds on 03/30/2025. Certainly challenging case with multiple medical complications. Patient really needs some positive reencouragement for participation. He did voice independence in his semilogroll for decubiti pressure relief. Nursing staff may use mechanical lift for all essential transfers. Will coordinate with nurse/charge nurse so that PT can be done before these medications are given to ensure that awareness is presentto optimize participation. Plan of Care/Treatment Plan: 1-2x/day, 7 days/week x 1 week. Plan of care has been reviewed with the PASSENGER CAR INSPECTOR providing the service under Physical Therapy direction. Initiate Physical Therapy intervention for pain management as needed, strengthening, bed mobility, transfers, gait, stairs, balance training, and use of assistive device. --Treatment focus: Strengthen triceps and latissimus dorsi for pressure relief and facilitated scooting for forward-backward transfer HEP/REP given to patient today: --Use overhead trapeze for pressure relief every two hours x 5 --Partial trunk roll to R x 5 --Partial trunk roll to L x 5 DISCHARGE RECOMMENDATIONS: SNF for strengthening, functional mobility training, and balance training in sitting. Charges: Therapeutic exercise 02307 X1?12 minutes
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
[2025-04-03] MEDS: LORazepam 1 MG TAB 2 MG PO (19:15)
[2025-04-03 19:19] VITALS: BP 103/68; PULSE 93; RESP 16; TEMP 36.5; O2SAT 94
[2025-04-03] MEDS: Mirtazapine 15 MG TAB PO (20:10)
[2025-04-03 23:13] VITALS: BP 150/76; PULSE 78; RESP 16; TEMP 36.4; O2SAT 91
[2025-04-04 09:28] VITALS: BP 120/59; PULSE 80; RESP 16; TEMP 36.6; O2SAT 95
[2025-04-04] MEDS: ARIPiprazole 5 MG TAB 7.5 MG PO (09:29)
[2025-04-04] MEDS: DULoxetine 30 MG CAP 120 MG PO (09:29)
[2025-04-04] MEDS: Buprenorphine/Naloxone 8 mg/2 mg FILM 1 EACH SL ×3 (09:30→20:53)
[2025-04-04] MEDS: Apixaban 5 MG TAB PO ×2 (09:30→20:54)
[2025-04-04] MEDS: guaiFENesin 600 MG TABCR PO ×2 (09:30→20:54)
[2025-04-04] MEDS: Baclofen 10 MG TAB 20 MG PO ×3 (09:30→20:53)
[2025-04-04] MEDS: Triamcinolone 0.1% CR 80 GM TUBE TP ×2 (09:34→20:56)
[2025-04-04] MEDS: Ketoconazole 2% CREAM 15 GM TUBE TP (09:34)
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
[2025-04-04] MEDS: LORazepam 1 MG TAB 2 MG PO (18:15)
[2025-04-04] MEDS: Mirtazapine 15 MG TAB PO (20:54)
--- NOTE | 2025-04-04 21:31 | W.PM.PROGNOT ---
Date of Service Date of service: 04/04/25 Time of Service: 21:29 Assessment and Plan Assessment and plan (1) Encephalopathy acute: Status: Resolved Assessment and plan: Patient is back to baseline (2) Sacral decubitus ulcer: Status: Acute Assessment and plan: - Not infected - Wound cx completed - 2 different stage IV wounds present on admission - Continue dsg changes per wound consult. - patient not cooperative with dressing changes and care, self sabbataging behaviors while hospitalized (3) Anxiety and depression: Status: Chronic Assessment and plan: -worsening depression on treatment. defer to primary care provider (4) Seborrhea-like dermatitis with psoriasiform elements: Status: Acute Assessment and plan: Continue ketoconazole. (5) Paraplegia at T4 level: Status: Acute Assessment and plan: -with neurogenic bladder and bowel. -continue baclofen. (6) Housing instability, housed, with risk of homelessness: Status: Acute Assessment and plan: -Pt is concerned about returning to his prior living situation. - Care mgrs working on discharge plan discussed with Dr Guillen Subjective Subjective Patient reports: no new complaints, no flatus and no bowel movement Interval history since last seen: continues to refuse med, treatment, uncooperative with plan of care. no BM since 03/27, refusing bowel meds. no reports of abd pain, nausea or vomiting. Exam Narrative Exam Narrative: no acute distress, head atraumatic, awake and alert, skin pink warm and dry, resp even and unlabored. wounds not assessed. Objective Last Vital Signs Temp 36.6 C 04/04/25 09:28 Pulse 80 04/04/25 09:28 Resp 16 04/04/25 09:28 BP 120/59 L 04/04/25 09:28 Pulse Ox 95 04/04/25 09:28 Time Spent with Patient Time Spent with Patient: 25-34 minutes Time was spent: preparing to see the patient(eg.review tests) and obtaining and/or [facility]
[2025-04-04 23:00] VITALS: BP 92/73; PULSE 101; RESP 22; TEMP 36.5; O2SAT 97
[2025-04-04] MEDS: Acetaminophen 325 MG TAB 650 MG PO (23:05)
[2025-04-05] MEDS: Senna TAB 2 TAB PO (08:34)
[2025-04-05] MEDS: DULoxetine 30 MG CAP 120 MG PO (08:34)
[2025-04-05] MEDS: Baclofen 10 MG TAB 20 MG PO ×3 (08:34→20:53)
[2025-04-05] MEDS: ARIPiprazole 5 MG TAB 7.5 MG PO (08:34)
[2025-04-05] MEDS: Polyethylene Glycol 3350 17 GM PACKET PO (08:34)
[2025-04-05] MEDS: Apixaban 5 MG TAB PO ×2 (08:35→20:54)
[2025-04-05] MEDS: Buprenorphine/Naloxone 8 mg/2 mg FILM 1 EACH SL ×3 (08:35→20:54)
[2025-04-05] MEDS: Potassium Chloride 20 MEQ TABCR 40 MEQ PO (08:35)
[2025-04-05] MEDS: Docusate Sodium 100 MG CAP PO (08:35)
[2025-04-05] MEDS: guaiFENesin 600 MG TABCR PO ×2 (08:35→20:53)
[2025-04-05] MEDS: Ketoconazole 2% CREAM 15 GM TUBE TP (08:36)
--- NOTE | 2025-04-05 09:48 | CMPROGNOTE_ITS ---
Date of service: 04/05/25 Time of Service: 09:48 Care Management Progress Note Progress Note Text Progress Note Text: Clifton was sitting up in bed when CM met with him. He was awake and engaged easily with CM. Clifton informed CM that he is very concerned about his electric wheelchair which remains at his cousin's home (paid caregiver). Unfortunately Sukhdev (caregiver) just got a new phone and Clifton does not have the number. He does not have his cousin Kelley's number either. CM contacted Clifton Negrete's pillowcase sewer at [facility], to see if she had any additional contact information and she was able to provide Clifton's sister's information Heather hCang ). Clifton gave CM permission to call her to try to get more information. CM also received a call from Megan [facility] who is trying to reach Clifton to discuss AFC placement. CM will assist Clifton with the call in the morning. Discharge Potential Discharge Needs: PCP F/U Appt Anticipated Barriers to Discharge: Bed availability Patient/Family Education Needs: Review discharge instructions, discuss Ask Me Three Transportation: Other (to be determined by disposition) Plan: Clifton's discharge plan is unclear at this time. He has informed CM that he cannot return home as it is not a safe discharge. Reportedly, his [facility] pillowcase sewer is working on AFC placement. SNF referrals were sent for short term rehab, in order for him to gain strength prior to transitioning to an AFC home. Clifton will follow up with his PCP and plan of care. Transportation to be determined by disposition. CM will follow and continue to assess for discharge needs. Social De Social Determinants of Health Screening Will the Patient Participate in the Screening?: Unable to obtain
[2025-04-05 10:10] VITALS: BP 128/74; PULSE 80; RESP 18; TEMP 36.5; O2SAT 97
[2025-04-05] MEDS: Triamcinolone 0.1% CR 80 GM TUBE TP ×2 (10:13→23:24)
--- NOTE | 2025-04-05 10:34 | W.PM.PROGNOT ---
Date of Service Date of service: 04/05/25 Time of Service: 10:45 Assessment and Plan Assessment and plan (1) Encephalopathy acute: Status: Resolved Assessment and plan: Patient is back to baseline (2) Sacral decubitus ulcer: Status: Acute Assessment and plan: - Not infected, no fever no foul odor reported - Wound cx completed - 2 different stage IV wounds present on admission - change dressing as per wound consult. - patient is labile and only t cooperative at times with dressing changes and care (3) Anxiety and depression: Status: Chronic Assessment and plan: -Psych consult for worsening depression on treatment. Please read notes Treatment to be continued outpatient (4) Seborrhea-like dermatitis with psoriasiform elements: Status: Acute Assessment and plan: on ketoconazole daily (5) Paraplegia at T4 level: Status: Acute Assessment and plan: -ongoing neurogenic bladder and bowel. - On baclofen. (6) Housing instability, housed, with risk of homelessness: Status: Acute Assessment and plan: -Concerns verbalized by patient about returning to his prior living situation. - CM following for working on discharge plan discussed with Dr Boss Subjective Subjective Interval history since last seen: No report of acute distress, refusing PT AM and PM, no vomiting, nausea, fever , no report of uncontrolled pain reported Exam Narrative Exam Narrative: Exam deferred: Patient appears to be sleeping appeared in no acute distress , unlabored breathing appears well, perfuse, urinary catheter patent-VSS Objective Last Vital Signs Temp 36.5 C 04/05/25 10:10 Pulse 80 04/05/25 10:10 Resp 18 04/05/25 10:10 BP 128/74 04/05/25 10:10 Pulse Ox 97 04/05/25 10:10 Time Spent with Patient Time Spent with Patient: >50 minutes Time was spent: preparing to see the patient(eg.review tests), obtaining and/or reviewing separately otained hiistory, ordering medications,tests, procedures, referring, communicating with other health acute care nursing assistant, indepentently interpreting results, counseling the patient, care coordination and other
[2025-04-05 12:39] VITALS: BP 180/104; PULSE 52; RESP 15; TEMP 36.8; O2SAT 81
[2025-04-05 12:41] VITALS: O2SAT 96
[2025-04-05 12:44] VITALS: BP 121/67; PULSE 89; RESP 16; O2SAT 96
[2025-04-05 15:31] VITALS: BP 113/63; PULSE 81; RESP 17; TEMP 36.6; O2SAT 96
--- NOTE | 2025-04-05 16:45 | PT.INNT ---
PT Notes Visit Reasons: CANDACE, Encephalopathy pt refused therapy session, expressed that PT is really not in his priorities right now and would rather not do anything since he had a very long day. pt also verbalized that if he could be taken out of PT for the time being. pt's sentiments brought to supervising PT's attention.
[2025-04-05] MEDS: LORazepam 1 MG TAB 2 MG PO (18:56)
[2025-04-05 19:15] VITALS: BP 108/63; PULSE 81; RESP 18; TEMP 36.4; O2SAT 98
[2025-04-05] MEDS: Mirtazapine 15 MG TAB PO (20:54)
[2025-04-05] MEDS: Melatonin 3 MG TAB 6 MG PO (21:00)
[2025-04-05] MEDS: Acetaminophen 325 MG TAB 650 MG PO (21:00)
[2025-04-06 03:06] VITALS: BP 115/68; PULSE 77; RESP 18; TEMP 36.8; O2SAT 94
[2025-04-06] MEDS: LORazepam 1 MG TAB 2 MG PO ×3 (03:36→21:36)
[2025-04-06 07:11] VITALS: BP 102/65; PULSE 80; RESP 16; TEMP 36.4; O2SAT 97
[2025-04-06] MEDS: guaiFENesin 600 MG TABCR PO ×2 (09:12→20:34)
[2025-04-06] MEDS: Psyllium PKT 1 EACH PO (09:12)
[2025-04-06] MEDS: Polyethylene Glycol 3350 17 GM PACKET PO (09:12)
[2025-04-06] MEDS: ARIPiprazole 5 MG TAB 7.5 MG PO (09:12)
[2025-04-06] MEDS: DULoxetine 30 MG CAP 120 MG PO (09:13)
[2025-04-06] MEDS: Potassium Chloride 20 MEQ TABCR 40 MEQ PO ×2 (09:13→20:33)
[2025-04-06] MEDS: Baclofen 10 MG TAB 20 MG PO ×3 (09:13→20:34)
[2025-04-06] MEDS: Buprenorphine/Naloxone 8 mg/2 mg FILM 1 EACH SL ×3 (09:13→20:33)
[2025-04-06] MEDS: Apixaban 5 MG TAB PO ×2 (09:13→20:34)
[2025-04-06] MEDS: Ketoconazole 2% CREAM 15 GM TUBE TP (09:15)
[2025-04-06] MEDS: Triamcinolone 0.1% CR 80 GM TUBE TP (09:15)
[2025-04-06] MEDS: Docusate Sodium 100 MG CAP PO (09:15)
[2025-04-06] MEDS: Senna TAB 2 TAB PO (09:16)
--- NOTE | 2025-04-06 09:54 | PDOC.CMPRO ---
Date of service: 04/06/25 Time of Service: 09:54 Care Management Progress Note Progress Note Text Progress Note Text: Clifton was sitting up in bed when CM met with him. He stated that he is feeling anxious. He stated he does not feel like things are getting resolved such as retrieving his wheelchair from his caregiver's home. Clifton does not have phone contact information for his caregiver/cousin Kandace or her partner Sukhdev. CM did reach out to Clifton's sister Heather for the contact informastion but had to leave a message. Clifton did indicate that he and his sister are not on the best of terms so is not sure how much assistance she can or will provide. CM spoke with Megan from [facility], who informed CM that Clifton's application for an AFC home cannot proceed until/unless his social security income is adjusted. Apparently Clifton had a reduction in his monthly allotment which does not leave enough money to pay his portion of the AFC expense. It is not clear who, if anyone, is addressing that issue. CM left a message for Clifton's top case assembler at the [employer], Penelope, to follow up. Discharge Potential Discharge Needs: Other (housing and a care setting) Anticipated Barriers to Discharge: SDOH (no current housing or care setting) Patient/Family Education Needs: Review discharge instructions, discuss Ask Me Three Transportation: [facility] Plan: Clifton's discharge plan is unclear at this time. He has informed CM that he cannot return home as it is not a safe discharge. Reportedly, his [facility] top case assembler is working on AFC placement. SNF referrals were sent for short term rehab, in order for him to gain strength prior to transitioning to an AFC home. Clifton will follow up with his PCP and plan of care. Transportation to be determined by disposition. CM will follow and continue to assess for discharge needs. Social Determinants of Health Screening Will the Patient Participate in the Screening?: Unable to obtain
--- NOTE | 2025-04-06 13:17 | OT.INNT ---
Occupational Therapy Notes 04/06/25 Pt would like to hold on services he notes that he is tired. OT will attempt to resume services tomorrow. Aruna Navarro, OTR/L
[2025-04-06 15:22] VITALS: BP 95/70; PULSE 85; RESP 16; TEMP 36.5; O2SAT 97
--- NOTE | 2025-04-06 16:04 | PT.INNT ---
PT Notes Visit Reasons: CANDACE, Encephalopathy Pt approached for PT session x 2 . Pt declined to participate despite encouragement. RN and REFINISH TECHNICIAN aware. Will attempt to establish a specific time of Shawn's choice for next session. He was not able to give me a time for next session on this date. will approach him in AM on 04/07/25 to set time for session.
[2025-04-06 19:33] VITALS: BP 129/77; PULSE 77; RESP 18; TEMP 36.8; O2SAT 94
[2025-04-06] MEDS: Acetaminophen 325 MG TAB 650 MG PO (19:35)
[2025-04-06] MEDS: Mirtazapine 15 MG TAB PO (20:34)
[2025-04-06] MEDS: Melatonin 3 MG TAB 6 MG PO (21:36)
[2025-04-07 04:09] VITALS: BP 122/67; PULSE 84; TEMP 36.5; O2SAT 97
[2025-04-07] MEDS: Bisacodyl 10 MG SUPP PR (04:40)
[2025-04-07] MEDS: Acetaminophen 325 MG TAB 650 MG PO ×3 (06:03→20:19)
[2025-04-07] MEDS: LORazepam 1 MG TAB 2 MG PO ×2 (06:04→12:20)
--- NOTE | 2025-04-07 08:52 | PDOC.CMPRO ---
Date of service: 04/07/25 Time of Service: 08:52 Care Management Progress Note Progress Note Text Progress Note Text: Clifton was sitting up in bed when CM met with him. He was tearful and shared that he is really discouraged. He is still worried about his new electric wheelchair that remains at his AFC home. CM has not been able to contact his care givers (no contact information) and his AFC application process has stalled. Clifton stated that he just wishes he could have everything he needs in one place. CM explained that it will be necessary to transition him to SB-2 tomorrow as he has no medical need to be in the hospital and is not participating with PT. Tomorrow CM will send Clifton's SNF referral to all of the SNFs in [place] in anticipation of appealing to Sheryl Alvarez from [facility] for assistance and support. Discharge Potential Discharge Needs: PCP F/U Appt Anticipated Barriers to Discharge: SDOH Patient/Family Education Needs: Review discharge instructions, discuss Ask Me Three Transportation: Other (to be determined by disposition) Plan: Clifton's discharge plan is unclear at this time. Reportedly, his [employer] [employer] family preservation caseworker is working on AFC placement. SNF referrals were sent for short term rehab, in order for him to gain strength prior to transitioning to an AFC home. Clifton will follow up with his PCP and plan of care. Transportation to be determined by disposition. CM will follow and continue to assess for discharge needs. Social Determinants of Health Screening Will the Patient Participate in the Screening?: Unable to obtain
--- NOTE | 2025-04-07 10:16 | W.PM.PROGNOT ---
Date of Service Date of service: 04/06/25 Time of Service: 13:00 Assessment and Plan Assessment and plan (1) Encephalopathy acute: Status: Resolved Assessment and plan: Resolved - (2) Sacral decubitus ulcer: Status: Acute Assessment and plan: - no current signs of infection- will watch for leukocytosis - Wound cx completed - 2 different stage IV wounds present on admission - Dressing changes per wound consult. - Not always cooperative with dressing changes and care and PT (3) Anxiety and depression: Status: Chronic Assessment and plan: -Noted to have worsening depression on treatment-. Read psych consult notes defer to primary care provider (4) Seborrhea-like dermatitis with psoriasiform elements: Status: Acute Assessment and plan: Ongoing ketoconazole. (5) Paraplegia at T4 level: Status: Acute Assessment and plan: -with neurogenic bladder and bowel. -continue baclofen. (6) Housing instability, housed, with risk of homelessness: Status: Acute Assessment and plan: -Pt is concerned about returning to his prior living situation. - Care mgrs working on discharge plan discussed with Dr Boss Subjective Subjective Interval history since last seen: No report of acute distress, still refusing PT AM and PM, no vomiting, nausea, fever , uncontrolled pain reported Exam Narrative Exam Narrative: Exam deferred: Patient sleeping appeared in no acute distress , unlabored breathing appears well, perfuse, urinary catheter patent- stable VS Objective Last Vital Signs Temp 36.5 C 04/07/25 04:09 Pulse 84 04/07/25 04:09 Resp 18 04/06/25 19:33 BP 122/67 04/07/25 04:09 Pulse Ox 97 04/07/25 04:09 Time Spent with Patient Time Spent with Patient: >50 minutes Time was spent: preparing to see the patient(eg.review tests), obtaining and/or reviewing separately otained hiistory, ordering medications,tests, procedures, referring, communicating with other health hospice care transitions coordinator, indepentently interpreting results, counseling the patient, care coordination and other
--- NOTE | 2025-04-07 10:16 | W.PM.PROGNOT ---
Date of Service Date of service: 04/07/25 Time of Service: 10:16 Assessment and Plan Assessment and plan (1) Encephalopathy acute: Status: Resolved Assessment and plan: Patient is back to baseline and remains with clear mentation (2) Sacral decubitus ulcer: Status: Acute Assessment and plan: - No reported s&S of acute infection - Wound cx completed - 2 different stage IV wounds present on admission - Dressing change as per wound consult. - The patient refusing wound care at times (3) Anxiety and depression: Status: Chronic Assessment and plan: -Ongoing worsening depression on treatment. Crying today : not feeling well , any place better than here Increased depression can increase pain perception as the patient is experiencing neck pain today , continue to offer PRN pain meds - will schedule APAP X 24 hours -Already on cymbalta 120 mg daily, Abilify decreased as per psychiatry consultation -Encourage participation in PT On ongoing buprenorphine/ Naloxone Lorazepam PRN for anxiety defer to primary care provider (4) Seborrhea-like dermatitis with psoriasiform elements: Status: Acute Assessment and plan: On ketoconazole. (5) Paraplegia at T4 level: Status: Acute Assessment and plan: -with neurogenic bladder and bowel. SAM Blunt today -continue baclofen. (6) On apixaban therapy: Status: Acute Assessment and plan: Ongoing for PE (7) Housing instability, housed, with risk of homelessness: Status: Acute Assessment and plan: -Patient expressed concerns about returning to his prior living situation. - CM working on a safe discharge plan - Might need to be SB status discussed with Dr Boss Subjective Subjective Patient reports: still having pain, tolerating liquids well, tolerating a regular diet, voiding w/o difficulty (blunt), bowel movement, afebrile and other (neck pain - repositioning seems to help); denies blood in stool, nausea, vomiting or shortness of breath Exam Narrative Exam Narrative: Alert and oriented X3 ,neck ROM intact no meningeal signs, non-icteric sclera, neurologically stable, clear lungs S1, S2 , no murmur, abdomen is non-distended , soft non-tender, equal strenght to bilat upper ext, ongoing paralysis to LEs Objective Last Vital Signs Temp 36.5 C 04/07/25 04:09 Pulse 84 04/07/25 04:09 Resp 18 04/06/25 19:33 BP 122/67 04/07/25 04:09 Pulse Ox 97 04/07/25 04:09 Time Spent with Patient Time Spent with Patient: >50 minutes Time was spent: preparing to see the patient(eg.review tests), obtaining and/or reviewing separately otained hiistory, ordering medications,tests, procedures, referring, communicating with other health home child care provider, indepentently interpreting results, counseling the patient, care coordination and other
[2025-04-07] MEDS: Senna TAB 2 TAB PO (10:17)
[2025-04-07] MEDS: DULoxetine 30 MG CAP 120 MG PO (10:18)
[2025-04-07] MEDS: guaiFENesin 600 MG TABCR PO ×2 (10:18→20:18)
[2025-04-07] MEDS: Apixaban 5 MG TAB PO ×2 (10:19→20:19)
[2025-04-07] MEDS: Potassium Chloride 20 MEQ TABCR 40 MEQ PO ×2 (10:19→20:18)
[2025-04-07] MEDS: Docusate Sodium 100 MG CAP PO (10:19)
[2025-04-07] MEDS: Baclofen 10 MG TAB 20 MG PO ×3 (10:19→20:18)
[2025-04-07] MEDS: ARIPiprazole 5 MG TAB 7.5 MG PO (10:20)
[2025-04-07] MEDS: Polyethylene Glycol 3350 17 GM PACKET PO (10:20)
[2025-04-07] MEDS: Buprenorphine/Naloxone 8 mg/2 mg FILM 1 EACH SL ×3 (10:23→20:18)
--- NOTE | 2025-04-07 10:34 | PT.INNT ---
PT Notes Visit Reasons: CANDACE, Encephalopathy This therapist tried to engage pt by asking pt at what time would you prefer to be seen by PT for your therapy session? from which pt replied not this again, let me rest , I am so tired of this. pt refusal brought to supervising PT's attention.
[2025-04-07 11:07] LABS: Abs Immature Grans 0.02 10^3/uL (0.0-0.06); HCT 30.1 % (40.0-50.0); HGB 9.2 g/dL (13.5-17.5); Immature Grans % 0.4 %; MCH 24.7 pg (27.0-33.0); MCHC 30.6 % (32.0-36.0); MCV 81 fL (80-95); MPV 11.5 fL (8.0-11.0); Platelet Count 302 10^3/uL (130-400); RBC 3.72 10^6/uL (4.36-5.78); RDW 17.3 % (11.8-14.1); RDW-SD 51.4 fL; WBC 5.69 10^3/uL (4.4-10.8)
[2025-04-07 11:16] LABS: Anion Gap 6.5 mmol/L (3-11); BUN 14 mg/dL (7-18); CO2 29.5 mmol/L (21.0-32.0); Calcium 9.3 mg/dL (8.5-10.1); Chloride 104 mmol/L (98-107); Estimated GFR 123.60 (mL/min/1.73m2); Glucose 153 mg/dL (74-106); Potassium 4.2 mmol/L (3.5-5.1); Sodium 140 mmol/L (136-145)
[2025-04-07 12:19] VITALS: BP 100/65; PULSE 101; RESP 10; TEMP 37.3; O2SAT 98
[2025-04-07 12:20] VITALS: TEMP 37.3
--- NOTE | 2025-04-07 14:12 | OT.INNT ---
Occupational Therapy Notes 04/07/25 Pt refuses skilled OT services at this time, he notes that he is not interested. Aruna Navarro, OTR/L
[2025-04-07] MEDS: Mirtazapine 15 MG TAB PO (20:18)
[2025-04-08] MEDS: LORazepam 1 MG TAB 2 MG PO ×3 (00:27→16:59)
[2025-04-08 07:45] VITALS: BP 128/92; PULSE 92; RESP 20; TEMP 36.6; O2SAT 94
[2025-04-08] MEDS: DULoxetine 30 MG CAP 120 MG PO (08:20)
[2025-04-08] MEDS: guaiFENesin 600 MG TABCR PO ×2 (08:20→20:14)
[2025-04-08] MEDS: Apixaban 5 MG TAB PO ×2 (08:21→20:14)
[2025-04-08] MEDS: ARIPiprazole 5 MG TAB 7.5 MG PO (08:22)
[2025-04-08] MEDS: Baclofen 10 MG TAB 20 MG PO ×3 (08:23→20:13)
[2025-04-08] MEDS: Senna TAB 2 TAB PO (08:23)
[2025-04-08] MEDS: Potassium Chloride 20 MEQ TABCR 40 MEQ PO ×2 (08:23→20:14)
[2025-04-08] MEDS: Buprenorphine/Naloxone 8 mg/2 mg FILM 1 EACH SL ×3 (08:24→20:14)
[2025-04-08] MEDS: Docusate Sodium 100 MG CAP PO (08:28)
[2025-04-08] MEDS: Acetaminophen 325 MG TAB 650 MG PO ×4 (08:30→20:14)
--- NOTE | 2025-04-08 09:36 | PDOC.CMPRO ---
Date of service: 04/08/25 Time of Service: 09:36 Care Management Progress Note Progress Note Text Progress Note Text: Clifton was sitting up visiting with a friend when CM met with him. He was smiling and seemed to be in better spirits. Clifton will transition to SB-2 today. He has been unwilling to work with PT and does not have a skilled need for rehab otherwise. CM did have a long discussion with Clifton and his friend. He is beginning to understand that a great deal of his future housing and care prospects hinge on his ability and willingness to participate in his care. He had a potential AFC home placement, however, because he is no longer able to transfer independently, that provider will be unable to care for him. Just a couple on months ago Clifton was able to transfer himself from bed to chair and back. Today ZANE was able to contact his former caregiver Sukhdev by phone. He has Clifton's wheelchairs and is more than willing to schedule a time for them to be picked up. While this is not a normal acute care hospital care management function or responsibility, Clifton's continued rehabilitation is dependent on having his own equipment. CM placed a call to [facility] and will brainstorm ideas for transport with them tomorrow. It is possible that [employer] or [facility] can assist but there will likely be a fee which will not be cvered by insurance. Discharge Potential Discharge Needs: PCP F/U Appt Anticipated Barriers to Discharge: SDOH Patient/Family Education Needs: Review discharge instructions, discuss Ask Me Three Transportation: Other (to be determined by disposition) Plan: Clifton's discharge plan is unclear at this time. Reportedly, his [employer] family caseworker is working on AFC placement. SNF referrals were sent for short term rehab, in order for him to gain strength prior to transitioning to an AFC home. Clifton will follow up with his PCP and plan of care. Transportation to be determined by disposition. CM will follow and continue to assess for discharge needs. Social Determinants of Health Screening Will the Patient Participate in the Screening?: Unable to obtain
--- NOTE | 2025-04-08 09:54 | W.PM.PROGNOT ---
Date of Service Date of service: 04/08/25 Time of Service: 09:54 Assessment and Plan Assessment and plan (1) Encephalopathy acute: Status: Resolved Assessment and plan: Patient is back to baseline and remains with clear mentation (2) Neck pain: Status: Acute Assessment and plan: Scheduled APAP - cantake up to 24 H to evaluate effectiveness Ketorolac X1 this AM Already on Buprenorphine (3) Sacral decubitus ulcer: Status: Acute Assessment and plan: - No reported s&S of acute infection - Wound cx completed - 2 different stage IV wounds present on admission - Dressing change as per wound consult. - The patient refusing wound care at times (4) Anxiety and depression: Status: Chronic Assessment and plan: -Ongoing worsening depression on treatment. Crying today : not feeling well , any place better than here Increased depression can increase pain perception as the patient is experiencing neck pain today , continue to offer PRN pain meds - will schedule APAP X 24 hours -Already on cymbalta 120 mg daily, Abilify decreased as per psychiatry consultation -Encourage participation in PT On ongoing buprenorphine/ Naloxone Lorazepam PRN for anxiety defer to primary care provider -Pregabalin: currently on 150 mg TID for restless arms. Likely contributing to sedation and blahness. Suggest gradual dose reduction. Could continue to take at an established evening/night bedtime if needed. Use exercise and HEP for reduction of restless arm sxs during the day. (5) Seborrhea-like dermatitis with psoriasiform elements: Status: Acute Assessment and plan: On ketoconazole. (6) Paraplegia at T4 level: Status: Acute Assessment and plan: -with neurogenic bladder and bowel. SAM Blunt today -continue baclofen. (7) On apixaban therapy: Status: Acute Assessment and plan: Ongoing for PE (8) Housing instability, housed, with risk of homelessness: Status: Acute Assessment and plan: -Patient expressed concerns about returning to his prior living situation. - CM working on a safe discharge plan - Might need to be SB status discussed with Dr Boss Subjective Subjective Patient reports: still having pain, tolerating liquids well, tolerating a regular diet, voiding w/o difficulty (blunt), bowel movement, afebrile and other (neck pain - repositioning seems to help); denies blood in stool, nausea, vomiting or shortness of breath Exam Narrative Exam Narrative: Alert and oriented X3 ,neck ROM intact no meningeal signs, non-icteric sclera, neurologically stable, clear lungs S1, S2 , no murmur, abdomen is non-distended , soft non-tender, equal strenght to bilat upper ext, ongoing paralysis to LEs Objective Last Vital Signs Temp 36.6 C 04/08/25 07:45 Pulse 92 H 04/08/25 07:45 Resp 20 04/08/25 07:45 BP 128/92 H 04/08/25 07:45 Pulse Ox 94 04/08/25 07:45 Laboratory Results - last 24 hr 04/07/25 10:56 WBC 5.69 RBC 3.72 L Hgb 9.2 L Hct 30.1 L MCV 81 MCH 24.7 L MCHC 30.6 L RDW 17.3 H Plt Count 302 MPV 11.5 H Immature Gran % 0.4 Neutrophils % 69.0 Lymphocytes % 18.6 Monocytes % 8.3 Eosinophils % 3.2 Basophils % 0.5 Nucleated RBC % 0.0 Absolute Neutrophils 3.93 Absolute Lymphocytes 1.06 L Absolute Monocytes 0.47 Absolute Eosinophils 0.18 Absolute Basophils 0.03 Sodium 140 Potassium 4.2 Chloride 104 Carbon Dioxide 29.5 Anion Gap 6.5 BUN 14 Creatinine 0.6 L Est GFR (CKD-EPI 2020) 123.60 Glucose 153 H Calcium 9.3
[2025-04-08] MEDS: Lidocaine 5% Patch 1 PATCH TP (10:25)
[2025-04-08] MEDS: Naproxen 250 MG TAB PO (11:24)
[2025-04-08] MEDS: Pantoprazole 40 MG TABCR PO (11:24)
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
--- NOTE | 2025-04-08 15:41 | INDS_ITS ---
PT Notes Visit Reasons: CANDACE, Encephalopathy
--- NOTE | 2025-04-08 15:41 | NT_ITS ---
PT Notes Visit Reasons: CANDACE, Encephalopathy Pt approached for PT session . He declined to participate stating I told him yesterday I am not doing this. Pt was educated on the benefits of participating in PT as well as the risk for further decline in his BUE strength, and functional ability. Nursing instructed to utilize mechanical lift/Lis with 2 assist for transfer to Recliner if and when pt. is willing to be out of bed. Slide board and posterior scoot transfers are not appropriate at this time d/t shear forces to his wounds. He has been issued theraband for UE and use of trapeze for pressure relief as well as rolling with bed rails for pressure relief. Pt has been non-compliant with care and has refused PT for 4 days theref ore skilled PT is being discontinued at this time. , Nursing and CM aware.
--- NOTE | 2025-04-08 15:41 | PT.INDS ---
PT Notes Visit Reasons: CANDACE, Encephalopathy
[2025-04-08] MEDS: Triamcinolone 0.1% CR 80 GM TUBE TP (20:12)
[2025-04-08] MEDS: Melatonin 3 MG TAB 9 MG PO (20:13)
[2025-04-08] MEDS: Mirtazapine 15 MG TAB PO (20:14)
[2025-04-08 20:28] VITALS: BP 101/52; PULSE 116; RESP 16; TEMP 36.7; O2SAT 94
[2025-04-08] MEDS: Patch Removal 1 EACH TP (23:44)
[2025-04-09] MEDS: LORazepam 1 MG TAB 2 MG PO ×2 (00:36→08:42)
[2025-04-09 07:15] VITALS: BP 106/55; PULSE 100; RESP 17; TEMP 36.5; O2SAT 98
[2025-04-09] MEDS: guaiFENesin 600 MG TABCR PO (07:39)
[2025-04-09] MEDS: Polyethylene Glycol 3350 17 GM PACKET PO (07:39)
[2025-04-09] MEDS: Senna TAB 2 TAB PO (07:39)
[2025-04-09] MEDS: Potassium Chloride 20 MEQ TABCR 40 MEQ PO (07:39)
[2025-04-09] MEDS: Psyllium PKT 1 EACH PO (07:39)
[2025-04-09] MEDS: Baclofen 10 MG TAB 20 MG PO (07:39)
[2025-04-09] MEDS: Docusate Sodium 100 MG CAP PO (07:40)
[2025-04-09] MEDS: Nicotine 2 MG GUM CH (07:40)
[2025-04-09] MEDS: Acetaminophen 325 MG TAB 650 MG PO (07:40)
[2025-04-09] MEDS: ARIPiprazole 5 MG TAB 7.5 MG PO (07:40)
[2025-04-09] MEDS: DULoxetine 30 MG CAP 120 MG PO (07:40)
[2025-04-09] MEDS: Apixaban 5 MG TAB PO (07:40)
[2025-04-09] MEDS: Buprenorphine/Naloxone 8 mg/2 mg FILM 1 EACH SL (07:40)
[2025-04-09] MEDS: Triamcinolone 0.1% CR 80 GM TUBE TP (07:43)
[2025-04-09] MEDS: Ketoconazole 2% CREAM 15 GM TUBE TP (07:44)
--- NOTE | 2025-04-09 08:06 | OT.INDS ---
Occupational Therapy Notes Occupational Therapy Inpatient Discharge Summary Date: 04/09/25 Dates of Service: 03/26/25-04/09/25 PRECAUTIONS: Fall, Contact, Full ASSESSMENT: Pt has only been seen 3x since his initial evaluation. He continues to refuse care and notes that he would like to not have services. At this time d/t his refusals he has not made progress towards his goals. The plan is to discharge him from skilled OT services at this time. GOALS- Not met with no progress 1. Eating seated in bed pt will be (I) with hand to mouth with ideal use of silverware 2. Dressing seated in chair (I) UE with modified techniques to the LE 3. Bathing seated in chair (I) UE, mod (A) LE TREATMENT CODES/TIME: No skilled OT services provided for pt. Pt will be considered discharged from skilled OT services at this time. Aruna Navarro OTR/[facility] [place], [place]
== END 2025-04-09 09:37 | disposition intermediate care facility (04) | DRG 40 ==
LOC: ER 07:01 → ICU 09:27 → MS 03-23 17:07
PROVIDERS: Family Medicine; Hospitalist; Nurse Practitioner Family; Surgery; Admitting Provider Family Medicine; Emergency Provider Emergency Medicine; PCP Family Medicine; Responsible Provider Nurse Practitioner Acute Care; Visit Provider Family Medicine
PROC: 0JB70ZZ Excision of Back Subcutaneous Tissue and Fascia, Open Approach (ICD-10-PCS; CPT 11042; principal; 2025-03-30 10:00)
DX: G93.40 Encephalopathy, unspecified (principal); L89.154 Pressure ulcer of sacral region, stage 4; F11.20 Opioid dependence, uncomplicated; M86.68 Other chronic osteomyelitis, other site; Z59.811 Housing instability, housed, with risk of homelessness; N17.9 Acute kidney failure, unspecified; K59.2 Neurogenic bowel, not elsewhere classified; T76.01XA Adult neglect or abandonment, suspected, initial encounter; F33.2 Major depressive disorder, recurrent severe without psychotic features; G82.20 Paraplegia, unspecified; S24.102S Unspecified injury at T2-T6 level of thoracic spinal cord, sequela; W34.00XS Accidental discharge from unspecified firearms or gun, sequela; W31.89XA Contact with other specified machinery, initial encounter; Y92.232 Corridor of hospital as the place of occurrence of the external cause; I89.0 Lymphedema, not elsewhere classified; Z86.711 Personal history of pulmonary embolism; L21.8 Other seborrheic dermatitis; G90.4 Autonomic dysreflexia; Z79.899 Other long term (current) drug therapy; W06.XXXA Fall from bed, initial encounter; T83.021A Displacement of indwelling urethral catheter, initial encounter; Z87.440 Personal history of urinary (tract) infections; Z78.1 Physical restraint status; N31.9 Neuromuscular dysfunction of bladder, unspecified; M54.2 Cervicalgia; F41.9 Anxiety disorder, unspecified
CPT/HCPCS: 11042; 11045 ×2; 97597; 97598; 00123; 36415; 36416; 51702; 80048; 80053; 80307; 82805; 82962; 84145; 85027; 85652; 87040; 87637; 93005; 96361; 96374; 96376; 97110; 97163; 97167; 97530; 97535; 99222; 99231; 99285; J3490; 36410; 70450; 71045; 72125; 80320; 80329; 81003; 81015; 82140; 82270; 83605; 83735; 84484; 85025; 86140; 87086; 93010; 94667; 94668; 94760; 99232; 99233; 99239; J1200; J1920; J2404

== ENCOUNTER 2025-04-09 11:28 | Inpatient (IN) | payer MEDICAID, SELFPAY ==
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
--- NOTE | 2025-04-09 08:58 | CMSCP_ITS ---
Date of service: 04/09/25 Time of Service: 08:58 Swingbed Plan of Care Activites/Discharge Plan of care: SWING BED PROGRAM ACTIVITIES/DISCHARGE PLAN OF CARE ACTIVITIES PLAN Date:04/08/25 Identified Need:individualized activity plan Intervention/Plan:Clifton is a paraplegic and is limited to bed and his wheelchair. He enjoys being outdoors and once his wheelchair is brought to the hospital. he will enjoy going outside with staff. Clifton also loves all animals and looks forward to Pet therapy when available. He likes to play cards and cribbage and staff will encourage him to engage as time is available. Clifton also likes all music except for country so would like music therapy. Initials [facility] DISCHARGE PLAN Date:04/08/25 Identified Need:Discharge Plan Intervention/Plan:Clifton currently has no caregiver or home/setting in which to receive care. Referrals have been sent to all SNFs in [place]. Work on AFC placement is on hold as there are issues with his social security payments. His employment evaluator/case manager at the [employer] is working on that. Initials [facility]
[2025-04-09 11:35] VITALS: BP 91/53; PULSE 112; RESP 17; TEMP 36; O2SAT 97
[2025-04-09] MEDS: Acetaminophen 325 MG TAB 650 MG PO ×3 (12:47→20:05)
[2025-04-09] MEDS: Buprenorphine/Naloxone 8 mg/2 mg FILM 1 EACH SL ×2 (13:42→20:06)
[2025-04-09] MEDS: Baclofen 10 MG TAB 20 MG PO ×2 (13:42→20:05)
[2025-04-09] MEDS: LORazepam 1 MG TAB 2 MG PO (15:29)
--- NOTE | 2025-04-09 16:06 | CMPROGNOTE_ITS ---
Date of service: 04/09/25 Time of Service: 16:06 Care Management Progress Note Progress Note Text Progress Note Text: Clifton was transitioned to SB-2 yesterday. CM was able to make arrangements with the staff from Maintenance at [facility] to retrieve his wheelchair on Saturday. CM contacted Clifton's caregiver to determine the best time, but had to leave a message. Shortly thereafter the wheelchair was brought to the hospital. Clifton is very happy and has been up in his wheelchait touring the halls and smiling broadly since. Discharge Potential Discharge Needs: PCP F/U Appt Anticipated Barriers to Discharge: Bed availability Patient/Family Education Needs: Review discharge instructions, discuss Ask Me Three Transportation: Other (to be determined) Plan: Clifton's discharge plan is unclear at this time. Reportedly, his [facility] case work aide is working on AFC placement. SNF referrals were sent for short term rehab, in order for him to gain strength prior to transitioning to an AFC home. Clifton will follow up with his PCP and plan of care. Transportation to be determined by disposition. CM will follow and continue to assess for discharge needs. Social Determinants of Health Screening Social Determinants of health last assessed in clinic: 04/09/25 Will the Patient Participate in the Screening?: Yes Do you worry about having a steady place to live?: yes What is your living situation today?: I do not have steady housing Problems where you live: no known problems In the past 12 months, have you had to go without electric, gas, oil or water in your home?: no 1. Within the past 12 months, we worried whether our food would run out before we got money to buy more.: Never true 2. Within the past 12 months, the food we bought just didn't last and we didn't have money to get more.: Never true Has lack of transportation kept you from medical appointments or from doing things needed for daily living?: yes Has anyone in your life made you feel unsafe or unsupported?: yes How often does anyone, including family and friends, physically hurt you?: Never How often does anyone, including family and friends, insult or talk down to you?: Sometimes How often does anyone, including family and friends, threaten you with harm?: Never How often does anyone, including family and friends, scream or curse at you?: Sometimes HRSN Safety total score: 8 How hard is it for you to pay for the very basics like food, housing, medical care, and heating? Would you say it is:: Somewhat hard Do you want help finding or keeping work or a job?: I do not need or want help If for any reason you need help with day-to-day activities such as bathing, preparing meals, shopping, managing finances, etc., do you get the help you need?: I don?t need any help How often do you feel lonely or isolated from those around you?: Often Do you speak a language other than Tongan at home?: No Health Related Social Needs Health related social needs: housing instability, housed, with risk of homelessness (Z59.811), transportation insecurity (Z59.82), problems related to housing/economic circumstances (Z59.89) and feeling lonely/isolated (Z60.8) Health related social needs details: needs new placement
[2025-04-09] MEDS: guaiFENesin 600 MG TABCR PO (20:05)
[2025-04-09] MEDS: Potassium Chloride 20 MEQ TABCR 40 MEQ PO (20:05)
[2025-04-09] MEDS: Melatonin 3 MG TAB 9 MG PO (20:05)
[2025-04-09] MEDS: Apixaban 5 MG TAB PO (20:06)
[2025-04-09] MEDS: Mirtazapine 15 MG TAB PO (20:06)
[2025-04-09 20:14] VITALS: BP 114/73; PULSE 104; RESP 16; TEMP 36.7; O2SAT 93
[2025-04-10] MEDS: LORazepam 1 MG TAB 2 MG PO ×4 (01:09→21:25)
[2025-04-10] MEDS: Polyethylene Glycol 3350 17 GM PACKET PO (08:39)
[2025-04-10] MEDS: Potassium Chloride 20 MEQ TABCR 40 MEQ PO ×2 (08:39→20:34)
[2025-04-10] MEDS: DULoxetine 30 MG CAP 120 MG PO (08:39)
[2025-04-10] MEDS: Baclofen 10 MG TAB 20 MG PO ×3 (08:39→20:34)
[2025-04-10] MEDS: Ketoconazole 2% CREAM 15 GM TUBE TP (08:40)
[2025-04-10] MEDS: Apixaban 5 MG TAB PO ×2 (08:40→20:34)
[2025-04-10] MEDS: guaiFENesin 600 MG TABCR PO ×2 (08:40→20:35)
[2025-04-10] MEDS: Acetaminophen 325 MG TAB 650 MG PO ×3 (08:40→18:02)
[2025-04-10] MEDS: Senna TAB 2 TAB PO (08:40)
[2025-04-10] MEDS: Docusate Sodium 100 MG CAP PO (08:40)
[2025-04-10] MEDS: Buprenorphine/Naloxone 8 mg/2 mg FILM 1 EACH SL ×3 (08:40→20:35)
[2025-04-10] MEDS: Triamcinolone 0.1% CR 80 GM TUBE TP (08:41)
[2025-04-10] MEDS: Psyllium PKT 1 EACH PO (08:41)
[2025-04-10] MEDS: ARIPiprazole 5 MG TAB 7.5 MG PO (08:42)
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
--- NOTE | 2025-04-10 18:50 | DI.RAD_ITS ---
Exam(s) XR FOOT RT COMPLETE EXAM: XR FOOT RT COMPLETE CLINICAL HISTORY: toes 2-4 lacerated, rule out fracture/dislocation. TECHNIQUE: 2D digital imaging was performed of the right foot. Three images were obtained. AP, oblique and lateral views were obtained. COMPARISON: No exams were available for comparison FINDINGS: BONES: No acute fracture is present. No bony destructive lesion is seen. There is diffuse osteopenia. JOINTS: No dislocation present. SOFT TISSUE: There is marked soft tissue swelling of the foot. No soft tissue gas is identified. IMPRESSION: 1. There is no acute fracture or dislocation. 2. There is diffuse soft tissue swelling of the foot, particularly the midfoot. No soft tissue gas is present. 3. Views osteopenia. 4. The preliminary [facility] report was reviewed. DATA REPOSITORY: RADIATION DOSE DELIVERED:
--- NOTE | 2025-04-10 19:48 | DI.[facility]_ITS ---
PROCEDURE INFORMATION: Exam: XR Right Foot Exam date and time: 04/10/2025 6:41 PM Age: 44 years old Clinical indication: Other: Toes 2-4 lacerated, rule out fracture/dislocation; Additional info: Paraplegic PT. Best images possible. TECHNIQUE: Imaging protocol: Radiologic exam of the right foot. Views: 3 or more views. COMPARISON: No relevant prior studies available. FINDINGS: Bones/joints: Periarticular osteopenia. No acute fracture. No acute erosive changes identified. Soft tissues: Significant soft tissue edema identified in the midfoot. IMPRESSION: 1. Severe periarticular osteopenia. 2. Severe soft tissue edema in the midfoot. Dictated and Authenticated by: Rafael Coffey MD. Orderin Sophia Olivo MD
[2025-04-10 20:30] VITALS: BP 106/67; PULSE 114; RESP 18; TEMP 36.5; O2SAT 94
[2025-04-10] MEDS: Melatonin 3 MG TAB 9 MG PO (20:34)
[2025-04-10] MEDS: Mirtazapine 15 MG TAB PO (20:35)
[2025-04-11] MEDS: LORazepam 1 MG TAB 2 MG PO ×2 (03:35→19:43)
[2025-04-11 07:10] VITALS: BP 102/55; PULSE 110; RESP 18; TEMP 36.4; O2SAT 98
[2025-04-11] MEDS: ARIPiprazole 5 MG TAB 7.5 MG PO (11:21)
[2025-04-11] MEDS: Baclofen 10 MG TAB 20 MG PO ×3 (11:21→19:50)
[2025-04-11] MEDS: Triamcinolone 0.1% CR 80 GM TUBE TP ×2 (11:22→19:47)
[2025-04-11] MEDS: Senna TAB 2 TAB PO (11:22)
[2025-04-11] MEDS: guaiFENesin 600 MG TABCR PO ×2 (11:22→19:44)
[2025-04-11] MEDS: DULoxetine 30 MG CAP 120 MG PO (11:22)
[2025-04-11] MEDS: Potassium Chloride 20 MEQ TABCR 40 MEQ PO ×2 (11:22→19:43)
[2025-04-11] MEDS: Apixaban 5 MG TAB PO ×2 (11:22→19:44)
[2025-04-11] MEDS: Ketoconazole 2% CREAM 15 GM TUBE TP (11:23)
[2025-04-11] MEDS: Acetaminophen 325 MG TAB 650 MG PO ×2 (11:25→19:43)
[2025-04-11] MEDS: Buprenorphine/Naloxone 8 mg/2 mg FILM 1 EACH SL ×2 (12:30→19:43)
[2025-04-11 13:15] LABS: Abs Immature Grans 0.02 10^3/uL (0.0-0.06); HCT 27.4 % (40.0-50.0); HGB 8.1 g/dL (13.5-17.5); Immature Grans % 0.3 %; MCH 23.5 pg (27.0-33.0); MCHC 29.6 % (32.0-36.0); MCV 80 fL (80-95); MPV 12.2 fL (8.0-11.0); Platelet Count 316 10^3/uL (130-400); RBC 3.44 10^6/uL (4.36-5.78); RDW 17.2 % (11.8-14.1); RDW-SD 50.2 fL; WBC 6.07 10^3/uL (4.4-10.8)
[2025-04-11 13:28] LABS: ALT 19 U/L (16-63); AST 13 U/L (15-37); Albumin 2.9 g/dL (3.4-5.0); Alkaline Phosphatase 72 U/L (46-116); Anion Gap 5.8 mmol/L (3-11); BUN 15 mg/dL (7-18); Bilirubin, Total 0.3 mg/dL (0.2-1.0); CO2 27.2 mmol/L (21.0-32.0); Calcium 9.1 mg/dL (8.5-10.1); Chloride 104 mmol/L (98-107); Estimated GFR 123.60 (mL/min/1.73m2); Glucose 123 mg/dL (74-106); Potassium 4.6 mmol/L (3.5-5.1); Sodium 137 mmol/L (136-145); Total Protein 6.9 g/dL (6.4-8.2)
[2025-04-11 14:27] LABS: Hypochromasia 2+
[2025-04-11 16:59] LABS: Glucose Negative (Negative)
[2025-04-11 17:04] LABS: C & S Indicated? Yes; RBC >50 HPF (0-2)
[2025-04-11] MEDS: Docusate Sodium 100 MG CAP PO (18:22)
[2025-04-11 19:23] VITALS: BP 108/53; PULSE 108; RESP 16; TEMP 36.5; O2SAT 97
[2025-04-11] MEDS: Mirtazapine 15 MG TAB PO (19:43)
[2025-04-11] MEDS: Melatonin 3 MG TAB 9 MG PO (19:44)
[2025-04-11 23:50] VITALS: BP 123/90; PULSE 115; RESP 18; TEMP 36.2; O2SAT 97
[2025-04-12 00:01] VITALS: BP 123/90; PULSE 115; RESP 18; TEMP 36.2; O2SAT 97
[2025-04-12 00:41] VITALS: BP 103/49; PULSE 113; RESP 16; TEMP 36.6; O2SAT 98
[2025-04-12 01:29] VITALS: BP 144/73; PULSE 110; RESP 16; TEMP 36.6; O2SAT 95
[2025-04-12] MEDS: LORazepam 1 MG TAB 2 MG PO (02:07)
[2025-04-12] MEDS: Buprenorphine/Naloxone 8 mg/2 mg FILM 1 EACH SL ×3 (09:15→20:02)
[2025-04-12] MEDS: Psyllium PKT 1 EACH PO (09:15)
[2025-04-12] MEDS: Acetaminophen 325 MG TAB 650 MG PO ×4 (09:16→20:03)
[2025-04-12] MEDS: DULoxetine 30 MG CAP 120 MG PO (09:16)
[2025-04-12] MEDS: Potassium Chloride 20 MEQ TABCR 40 MEQ PO ×2 (09:16→20:03)
[2025-04-12] MEDS: guaiFENesin 600 MG TABCR PO ×2 (09:16→20:03)
[2025-04-12] MEDS: Apixaban 5 MG TAB PO ×2 (09:17→20:03)
[2025-04-12] MEDS: Ketoconazole 2% CREAM 15 GM TUBE TP (09:17)
[2025-04-12] MEDS: Baclofen 10 MG TAB 20 MG PO ×3 (09:17→20:03)
[2025-04-12] MEDS: ARIPiprazole 5 MG TAB 7.5 MG PO (09:17)
[2025-04-12] MEDS: Triamcinolone 0.1% CR 80 GM TUBE TP ×2 (09:18→20:03)
[2025-04-12 10:31] VITALS: BP 106/61; PULSE 93; TEMP 36.4; O2SAT 97
--- NOTE | 2025-04-12 15:47 | PGE_ITS ---
Date of Service Date of service: 04/12/25 Time of Service: 15:47 Assessment and Plan Assessment and plan (1) Injury of right foot including toes: Status: Acute Assessment and plan: 44-year-old man who had a traumatic injury to the right foot resulting in some soft tissue lacerations. Everything appears to be healing up adequately at this time. Surgery signing off. Does not need follow-up. Nursing can continue dressing changes as currently planned. Subjective Subjective Interval history since last seen: No issues with the dressings. Toes are not bleeding anymore. Exam Narrative Exam Narrative: Patient's right foot examined. Dressing is dry and clean. Not even stained. Toes all completely viable. No evidence of infection visually. Appear to be healing nicely. Objective Last Vital Signs Temp 97.5 F L 04/12/25 10:31 Pulse 93 H 04/12/25 10:31 Resp 16 04/12/25 01:29 BP 106/61 04/12/25 10:31 Pulse Ox 97 04/12/25 10:31 Laboratory Results - last 24 hr 04/11/25 16:35 Urine Color Yellow Urine Clarity Sl Cloudy Urine pH 5.5 Ur Specific [place] 1.020 Urine Protein 30 H Urine Ketones Negative Urine Blood Large H Urine Nitrite Negative Urine Bilirubin Negative Urine Urobilinogen 0.2 Ur Leukocyte Esterase Moderate H Urine RBC >50 H Urine WBC 10-20 H Ur Epithelial Cells Rare Urine Crystals Negative Urine Bacteria Negative Urine Mucus Trace Urine Other Few Yeast Ur Culture Indicated? Yes Urine Glucose Negative Time Spent with Patient Time Spent with Patient: <25 minutes Time was spent: preparing to see the patient(eg.review tests), obtaining and/or reviewing separately otained hiistory and indepentently interpreting results
[2025-04-12] MEDS: Mirtazapine 15 MG TAB PO (20:03)
[2025-04-12] MEDS: Melatonin 3 MG TAB 9 MG PO (20:03)
[2025-04-12 20:14] VITALS: BP 101/61; PULSE 78; RESP 16; TEMP 36.3; O2SAT 94
[2025-04-13] MEDS: LORazepam 1 MG TAB 2 MG PO (01:52)
[2025-04-13 07:10] VITALS: BP 106/46; PULSE 91; RESP 16; TEMP 35.8; O2SAT 96
[2025-04-13] MEDS: DULoxetine 30 MG CAP 120 MG PO (07:51)
[2025-04-13] MEDS: Acetaminophen 325 MG TAB 650 MG PO ×4 (07:52→21:03)
[2025-04-13] MEDS: guaiFENesin 600 MG TABCR PO ×2 (07:52→21:03)
[2025-04-13] MEDS: Senna TAB 2 TAB PO (07:52)
[2025-04-13] MEDS: ARIPiprazole 5 MG TAB 7.5 MG PO (07:52)
[2025-04-13] MEDS: Potassium Chloride 20 MEQ TABCR 40 MEQ PO ×2 (07:52→21:03)
[2025-04-13] MEDS: Baclofen 10 MG TAB 20 MG PO ×3 (07:53→21:03)
[2025-04-13] MEDS: Buprenorphine/Naloxone 8 mg/2 mg FILM 1 EACH SL ×3 (07:53→21:04)
[2025-04-13] MEDS: Docusate Sodium 100 MG CAP PO (07:53)
[2025-04-13] MEDS: Apixaban 5 MG TAB PO ×2 (07:53→21:04)
[2025-04-13] MEDS: Triamcinolone 0.1% CR 80 GM TUBE TP (07:54)
[2025-04-13] MEDS: Ketoconazole 2% CREAM 15 GM TUBE TP (07:54)
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
--- NOTE | 2025-04-13 16:55 | PGE_ITS ---
Date of Service Date of service: 04/13/25 Time of Service: 16:55 Assessment and Plan Assessment and plan (1) Injury of right foot including toes: Status: Acute Assessment and plan: Continue dressing changes (2) Neck pain: Assessment and plan: Scheduled APAP - can take up to 24 H to evaluate effectiveness Continue Buprenorphine (3) On apixaban therapy: Status: Acute Assessment and plan: Ongoing for PE proph (4) Decubitus ulcer of ischium, stage 3: Status: Acute Assessment and plan: Surgical debridment completed for bilateral ischial decubitus wounds on 03/30/25 and as per [facility] Wound care as per order (5) Anxiety and depression: Status: Chronic Assessment and plan: Psych reconsulted: * Patient continues to report feeling ?blah,? with flat affect, occasional tearfulness, poor motivation, and difficulty describing emotions. * Mood remains depressed; sleep is poor, appetite fair. * No suicidal or homicidal ideation, no psychosis, contracts for safety, future oriented. * Minimal engagement during interview, but cooperative. * Risk of harm assessed as negligible; does not meet criteria for inpatient psychiatric hospitalization. * Concerns about medication-related emotional flattening; previous antidepressants (Paxil, Prozac, Cymbalta) have been ineffective. Mental Status Exam: * Well groomed, normal speech, oriented x4, average cognition. * Mood: depressed; affect: constricted. * Thought process linear, no hallucinations, delusions, or paranoia. * Insight and judgment appropriate. Medication Plan: * Increase Mirtazapine to 30 mg nightly (for depression and sleep). * Decrease Duloxetine to 60 mg daily with plan to taper/discontinue. * Continue Abilify 7.5 mg daily (well tolerated, no change noted). * Consider trial of Wellbutrin in future. * Pregabalin remains held (concern for sedation). Disposition & Plan: * No psychiatric admission required. * Safe for discharge when medically appropriate; placement planning ongoing (rehab v [facility]). * Follow-up psych check-ins every 48?72h while inpatient. * Outpatient psychiatry recommended for continued med management. (6) Seborrhea-like dermatitis with psoriasiform elements: Status: Acute Assessment and plan: On ketoconazole. (7) Encephalopathy acute: Status: Resolved Assessment and plan: Patient is back to baseline and remains with clear mentation (8) Paraplegia at T4 level: Status: Acute Assessment and plan: -with neurogenic bladder and bowel. [place] Bowel medicines On baclofen. 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 - CM working on a safe discharge plan discussed with Dr Meraz Objective Last Vital Signs Temp 35.8 C L 04/13/25 07:10 Pulse 91 H 04/13/25 07:10 Resp 16 04/13/25 07:10 BP 106/46 L 04/13/25 07:10 Pulse Ox 96 04/13/25 07:10 Time Spent with Patient Time Spent with Patient: 25-34 minutes Time was spent: preparing to see the patient(eg.review tests), ordering medications,tests, procedures, referring, communicating with other health healthcare economics manager, indepentently interpreting results, counseling the patient and care coordination
[2025-04-13] MEDS: Mirtazapine 15 MG TAB 30 MG PO (21:01)
[2025-04-13] MEDS: Melatonin 3 MG TAB 9 MG PO (21:03)
[2025-04-14] MEDS: DULoxetine 30 MG CAP 60 MG PO (08:57)
[2025-04-14] MEDS: Acetaminophen 325 MG TAB 650 MG PO ×3 (08:57→21:29)
[2025-04-14] MEDS: Apixaban 5 MG TAB PO ×2 (08:57→21:29)
[2025-04-14] MEDS: ARIPiprazole 5 MG TAB 7.5 MG PO (08:57)
[2025-04-14] MEDS: Buprenorphine/Naloxone 8 mg/2 mg FILM 1 EACH SL ×3 (08:58→21:30)
[2025-04-14] MEDS: guaiFENesin 600 MG TABCR PO ×2 (08:58→21:28)
[2025-04-14] MEDS: Baclofen 10 MG TAB 20 MG PO ×3 (08:58→21:30)
[2025-04-14 10:08] VITALS: BP 118/72; PULSE 81; RESP 16; TEMP 36.2; O2SAT 95
--- NOTE | 2025-04-14 12:23 | NUR.NOTE ---
Nursing Note: Nursing staff asked the patient if we can clean and change the wounds/dressings on his buttocks. The patient declined stating, I really dont want to. I then bargained with the patient if we can attempt to clean/change the dressings later this afternoon, to which the patient agreed. The patient did allow me to clean the wound on his R toes.
[2025-04-14] MEDS: LORazepam 1 MG TAB 2 MG PO (12:32)
[2025-04-14 12:34] VITALS: BP 123/64; PULSE 48; RESP 12; O2SAT 93
--- NOTE | 2025-04-14 14:33 | PHA.REVIEW2 ---
Pharmacy Admission Review Admission Clinical Review Admission Pharmacy Review: Edema of both lower extremities (Acute) Injury of right foot including toes (Acute) Laceration of toe of right foot without foreign body present (Acute) On apixaban therapy (Acute) Decubitus ulcer of ischium, stage 3 (Acute) Housing instability, housed, with risk of homelessness (Acute) Seborrhea-like dermatitis with psoriasiform elements (Acute) Paraplegia at T4 level (Acute) Neurogenic bowel (Acute) No Known Allergies Allergy (Unverified 11/19/24 13:44) Resuscitation Status Full Code Height 5 ft 9 in Weight 115.5 kg Comments Comments/Follow Ups: SB2 - CM working on safe discharge plan per H+P Pharmacy Admission Review Renal Dosing Renal Dosing: BUN 15 mg/dL (7-18) 04/11/25 13:00 Creatinine 0.6 mg/dL (0.70-1.30) L 04/11/25 13:00 Medications needing adjustments: Reviewed (CrCl 201 mL/min) List of meds needing interventions: Current medications are okay Anticoagulation Anticoagulation: Hgb 8.1 g/dL (13.5-17.5) L 04/11/25 13:00 Hct 27.4 % (40.0-50.0) L 04/11/25 13:00 Plt Count 316 10^3/uL (130-400) 04/11/25 13:00 Creatinine 0.6 mg/dL (0.70-1.30) L 04/11/25 13:00 DVT Prophylaxis: Reviewed Medications: Apixaban (5mg PO BID) Relevant Labs Relevant Labs: Sodium 137 mmol/L (136-145) 04/11/25 13:00 Potassium 4.6 mmol/L (3.5-5.1) 04/11/25 13:00 Chloride 104 mmol/L (98-107) 04/11/25 13:00 Electrolytes, C-Reactive P, ESR: Reviewed (No new labs) Cardiac Review BP, HR, EF%: Reviewed (BP WNL, HR 48) QTc Review QTc: Reviewed (438 from 03/21/25) IV to PO Switch IV Medications: Reviewed Home Meds Home Med List reviewed: Reviewed Relevent Home Meds Not ordered & why?: Lyrica (on hold per H+P), vitamin D2, nitroglycerin ointment (order was canceled) and torsemide (on hold) Current Meds Current Medication Order Review: Reviewed Comments Comments/Follow Ups: SB2 - CM working on safe discharge plan per H+P
--- NOTE | 2025-04-14 15:22 | NUR.NOTE ---
Nursing Note: @2871 pt was transferred from bed to motorized chair via eliot lift. Once patient was settled in his chair, he had an AD episode. Pt had apneic breathing for 30 seconds during this event. Pt stated he has these attacks all of the time, but provider was made aware.
[2025-04-14 20:00] VITALS: BP 116/70; PULSE 78; RESP 16; TEMP 36.5; O2SAT 95
[2025-04-14] MEDS: Melatonin 3 MG TAB 9 MG PO (21:29)
[2025-04-14] MEDS: Potassium Chloride 20 MEQ TABCR 40 MEQ PO (21:29)
[2025-04-14] MEDS: Mirtazapine 15 MG TAB 30 MG PO (21:29)
[2025-04-15 07:27] VITALS: BP 98/59; PULSE 85; RESP 16; TEMP 36.3; O2SAT 94
--- NOTE | 2025-04-15 08:53 | CMACTNOTE_ITS ---
Date of service: 04/15/25 Time of Service: 08:53 Care Management Activity Note Activity Note Text Activity Note Text: ZANE was able to have Clifton's electric wheelchair delivered from his [facility] home at the end of last week. Clifton enjoys getting into his wheelchair and driving through the hallways. He has been a bit sleepy due to medication so he is only allowed to drive his chair in the hallways or outside if staff accompany him. He has been outside for fresh air and has commented on how much he is enjoying the freedom to move around. When unaccompanied, he is free to use his chair in his room. Clifton loves animals and benefits from pet therapy when available. He also spends time on his phone on Facebook and enjoys television.
[2025-04-15] MEDS: Baclofen 10 MG TAB 20 MG PO ×3 (09:00→20:30)
[2025-04-15] MEDS: guaiFENesin 600 MG TABCR PO ×2 (09:00→20:31)
[2025-04-15] MEDS: Buprenorphine/Naloxone 8 mg/2 mg FILM 1 EACH SL ×3 (09:00→20:30)
[2025-04-15] MEDS: DULoxetine 30 MG CAP 60 MG PO (09:01)
[2025-04-15] MEDS: ARIPiprazole 5 MG TAB 7.5 MG PO (09:01)
[2025-04-15] MEDS: Acetaminophen 325 MG TAB 650 MG PO ×2 (09:01→20:30)
[2025-04-15] MEDS: Triamcinolone 0.1% CR 80 GM TUBE TP ×2 (09:02→20:31)
[2025-04-15] MEDS: Ketoconazole 2% CREAM 15 GM TUBE TP (09:02)
[2025-04-15] MEDS: Apixaban 5 MG TAB PO ×2 (09:18→20:31)
[2025-04-15] MEDS: Mirtazapine 15 MG TAB 30 MG PO (20:30)
[2025-04-15] MEDS: Melatonin 3 MG TAB 9 MG PO (20:31)
[2025-04-16 07:39] VITALS: BP 102/56; PULSE 82; RESP 17; TEMP 36.1; O2SAT 93
[2025-04-16] MEDS: Buprenorphine/Naloxone 8 mg/2 mg FILM 1 EACH SL ×3 (08:14→21:45)
[2025-04-16] MEDS: DULoxetine 30 MG CAP 60 MG PO (08:14)
[2025-04-16] MEDS: ARIPiprazole 5 MG TAB 7.5 MG PO (08:14)
[2025-04-16] MEDS: Apixaban 5 MG TAB PO ×2 (08:15→21:45)
[2025-04-16] MEDS: Triamcinolone 0.1% CR 80 GM TUBE TP ×2 (08:15→21:48)
[2025-04-16] MEDS: Ketoconazole 2% CREAM 15 GM TUBE TP (08:15)
[2025-04-16] MEDS: Baclofen 10 MG TAB 20 MG PO ×3 (08:15→21:46)
[2025-04-16] MEDS: Ferrous Sulfate 325 MG TAB PO (08:15)
[2025-04-16] MEDS: guaiFENesin 600 MG TABCR PO ×2 (08:15→21:46)
[2025-04-16] MEDS: Acetaminophen 325 MG TAB 650 MG PO ×3 (08:15→21:46)
[2025-04-16] MEDS: Melatonin 3 MG TAB 9 MG PO (21:46)
[2025-04-16] MEDS: Mirtazapine 15 MG TAB 30 MG PO (21:46)
[2025-04-17 08:35] VITALS: BP 101/52; PULSE 88; RESP 18; TEMP 36.3; O2SAT 95
[2025-04-17] MEDS: Baclofen 10 MG TAB 20 MG PO ×3 (08:35→21:28)
[2025-04-17] MEDS: Acetaminophen 325 MG TAB 650 MG PO ×3 (08:35→21:28)
[2025-04-17] MEDS: guaiFENesin 600 MG TABCR PO ×2 (08:35→21:28)
[2025-04-17] MEDS: DULoxetine 30 MG CAP 60 MG PO (08:36)
[2025-04-17] MEDS: Apixaban 5 MG TAB PO ×2 (08:36→21:28)
[2025-04-17] MEDS: ARIPiprazole 5 MG TAB 7.5 MG PO (08:36)
[2025-04-17] MEDS: Ferrous Sulfate 325 MG TAB PO (08:36)
[2025-04-17] MEDS: Buprenorphine/Naloxone 8 mg/2 mg FILM 1 EACH SL ×3 (08:36→21:29)
[2025-04-17] MEDS: Ketoconazole 2% CREAM 15 GM TUBE TP (08:37)
[2025-04-17] MEDS: Melatonin 3 MG TAB 9 MG PO (21:28)
[2025-04-17] MEDS: Mirtazapine 15 MG TAB 30 MG PO (21:28)
[2025-04-17] MEDS: Docusate Sodium 100 MG CAP PO (21:32)
[2025-04-18] MEDS: LORazepam 1 MG TAB 2 MG PO ×2 (03:30→21:35)
[2025-04-18 07:02] VITALS: BP 110/55; PULSE 90; RESP 18; TEMP 36.6; O2SAT 98
[2025-04-18] MEDS: guaiFENesin 600 MG TABCR PO ×2 (09:21→21:02)
[2025-04-18] MEDS: Ferrous Sulfate 325 MG TAB PO (09:21)
[2025-04-18] MEDS: Docusate Sodium 100 MG CAP PO ×3 (09:21→21:02)
[2025-04-18] MEDS: Acetaminophen 325 MG TAB 650 MG PO ×3 (09:21→21:02)
[2025-04-18] MEDS: Potassium Chloride 20 MEQ TABCR 40 MEQ PO (09:21)
[2025-04-18] MEDS: Apixaban 5 MG TAB PO ×2 (09:21→21:02)
[2025-04-18] MEDS: ARIPiprazole 5 MG TAB 7.5 MG PO (09:22)
[2025-04-18] MEDS: Baclofen 10 MG TAB 20 MG PO ×3 (09:22→21:03)
[2025-04-18] MEDS: Buprenorphine/Naloxone 8 mg/2 mg FILM 1 EACH SL ×3 (09:22→21:02)
[2025-04-18] MEDS: DULoxetine 30 MG CAP 60 MG PO (09:22)
[2025-04-18] MEDS: Triamcinolone 0.1% CR 80 GM TUBE TP (10:05)
[2025-04-18] MEDS: Ketoconazole 2% CREAM 15 GM TUBE TP (10:05)
[2025-04-18] MEDS: Melatonin 3 MG TAB 9 MG PO (21:02)
[2025-04-18] MEDS: Mirtazapine 15 MG TAB 30 MG PO (21:03)
[2025-04-18] MEDS: traMADol 50 MG TAB PO (21:35)
[2025-04-19] MEDS: Acetaminophen 500 MG TAB 1000 MG PO ×3 (01:18→17:16)
[2025-04-19 07:57] VITALS: BP 95/51; PULSE 77; RESP 17; TEMP 36.3; O2SAT 98
[2025-04-19] MEDS: guaiFENesin 600 MG TABCR PO ×2 (08:23→21:15)
[2025-04-19] MEDS: Baclofen 10 MG TAB 20 MG PO ×3 (08:25→21:15)
[2025-04-19] MEDS: Apixaban 5 MG TAB PO ×2 (08:26→21:16)
[2025-04-19] MEDS: Ferrous Sulfate 325 MG TAB PO (08:26)
[2025-04-19] MEDS: ARIPiprazole 5 MG TAB 7.5 MG PO (08:28)
[2025-04-19] MEDS: DULoxetine 30 MG CAP 60 MG PO (08:28)
[2025-04-19] MEDS: Buprenorphine/Naloxone 8 mg/2 mg FILM 1 EACH SL ×3 (08:33→21:16)
[2025-04-19] MEDS: Ketoconazole 2% CREAM 15 GM TUBE TP (09:07)
--- NOTE | 2025-04-19 12:28 | NUR.NOTE ---
Nursing Note: Documentation by ORI Escobedo student reviewed.
[2025-04-19 12:59] VITALS: BP 117/55; PULSE 73; RESP 17; TEMP 36.4; O2SAT 92
--- NOTE | 2025-04-19 13:00 | NUR.NOTE ---
Nursing Note: At approx 12:59, pt had an AD episode. Pt rang his call beltran to alert staff of this. Pt was apneic for approx 30 seconds. A set of vital signs were taken, all which were stable. Pt returned to his baseline once the episode had ended. Will continue to monitor pt for any AD episodes.
[2025-04-19] MEDS: Docusate Sodium 100 MG CAP PO ×2 (13:41→21:15)
[2025-04-19] MEDS: Mirtazapine 15 MG TAB 30 MG PO (21:15)
[2025-04-19] MEDS: Melatonin 3 MG TAB 9 MG PO (21:15)
[2025-04-19 21:28] VITALS: BP 99/53; PULSE 85; RESP 22; TEMP 36.4; O2SAT 95
[2025-04-19] MEDS: Triamcinolone 0.1% CR 80 GM TUBE TP (22:06)
[2025-04-20] MEDS: Acetaminophen 500 MG TAB 1000 MG PO ×3 (01:27→18:14)
[2025-04-20] MEDS: ARIPiprazole 5 MG TAB 7.5 MG PO (08:28)
[2025-04-20] MEDS: Docusate Sodium 100 MG CAP PO ×3 (08:28→20:24)
[2025-04-20] MEDS: Senna TAB 2 TAB PO (08:28)
[2025-04-20] MEDS: DULoxetine 30 MG CAP 60 MG PO (08:28)
[2025-04-20] MEDS: guaiFENesin 600 MG TABCR PO ×2 (08:28→20:24)
[2025-04-20] MEDS: Baclofen 10 MG TAB 20 MG PO ×3 (08:28→20:24)
[2025-04-20] MEDS: Apixaban 5 MG TAB PO ×2 (08:29→20:24)
[2025-04-20] MEDS: Ferrous Sulfate 325 MG TAB PO (08:29)
[2025-04-20] MEDS: Buprenorphine/Naloxone 8 mg/2 mg FILM 1 EACH SL ×3 (08:29→20:24)
[2025-04-20] MEDS: Polyethylene Glycol 3350 17 GM PACKET PO (08:29)
[2025-04-20] MEDS: Triamcinolone 0.1% CR 80 GM TUBE TP ×2 (08:30→20:30)
[2025-04-20] MEDS: Ketoconazole 2% CREAM 15 GM TUBE TP (08:30)
[2025-04-20 08:36] VITALS: BP 128/90; PULSE 96; RESP 20; TEMP 36.5; O2SAT 96
--- NOTE | 2025-04-20 16:39 | CMACTNOTE_ITS ---
Date of service: 04/20/25 Time of Service: 16:39 Care Management Activity Note Activity Note Text Activity Note Text: Clifton continues to enjoy being in his wheelchair. When he feels well enough to get up in his chair, ZANE has been accompanying him outside. The weather has been yesenia and Clifton really seems to enjoy it. He appears more relaxed outside and tends to share more. ZANE was able to reach Sukhdev, his former caregiver today. He has agreed to meet someone from [facility]'s [employer] to retrieve Clifton's other wheelchair and some clothes. It is tentatively scheduled for tomorrow morning. While the wheelchair Clifton has at [facility] works, it is not very comfortable and is well worn. Calls have been placed to Heather, Clifton's sister and Sarah, his telephonic case manager at [facility]. ZANE will follow up at the end of the week.
[2025-04-20] MEDS: Melatonin 3 MG TAB 9 MG PO (20:24)
[2025-04-20] MEDS: Mirtazapine 15 MG TAB 30 MG PO (20:24)
[2025-04-21] MEDS: Acetaminophen 500 MG TAB 1000 MG PO ×3 (01:56→17:25)
[2025-04-21 07:49] VITALS: BP 128/74; PULSE 81; RESP 16; TEMP 36.3; O2SAT 97
[2025-04-21] MEDS: DULoxetine 30 MG CAP 60 MG PO (08:34)
[2025-04-21] MEDS: Buprenorphine/Naloxone 8 mg/2 mg FILM 1 EACH SL ×3 (08:34→20:20)
[2025-04-21] MEDS: Ferrous Sulfate 325 MG TAB PO (08:35)
[2025-04-21] MEDS: Apixaban 5 MG TAB PO ×2 (08:35→20:20)
[2025-04-21] MEDS: guaiFENesin 600 MG TABCR PO ×2 (08:35→20:20)
[2025-04-21] MEDS: Baclofen 10 MG TAB 20 MG PO ×3 (08:35→20:21)
[2025-04-21] MEDS: ARIPiprazole 5 MG TAB 7.5 MG PO (08:35)
[2025-04-21] MEDS: Docusate Sodium 100 MG CAP PO ×3 (08:36→20:20)
[2025-04-21] MEDS: Ketoconazole 2% CREAM 15 GM TUBE TP (08:36)
[2025-04-21] MEDS: Triamcinolone 0.1% CR 80 GM TUBE TP ×2 (08:36→20:21)
[2025-04-21] MEDS: Senna TAB 2 TAB PO (08:36)
[2025-04-21 08:52] VITALS: BP 133/77; PULSE 70; RESP 16; O2SAT 93
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
[2025-04-21 10:50] LABS: Abs Immature Grans 0.04 10^3/uL (0.0-0.06); HCT 26.4 % (40.0-50.0); HGB 7.8 g/dL (13.5-17.5); Immature Grans % 0.5 %; MCH 23.4 pg (27.0-33.0); MCHC 29.5 % (32.0-36.0); MCV 79 fL (80-95); MPV 11.6 fL (8.0-11.0); Platelet Count 231 10^3/uL (130-400); RBC 3.34 10^6/uL (4.36-5.78); RDW 16.7 % (11.8-14.1); RDW-SD 47.9 fL; WBC 7.54 10^3/uL (4.4-10.8)
[2025-04-21] MEDS: Fluconazole 100 MG TAB 400 MG PO (10:57)
[2025-04-21 11:09] LABS: ALT 8 U/L (16-63); AST 6 U/L (15-37); Albumin 2.4 g/dL (3.4-5.0); Alkaline Phosphatase 68 U/L (46-116); Anion Gap 6.0 mmol/L (3-11); BUN 17 mg/dL (7-18); Bilirubin, Total 0.3 mg/dL (0.2-1.0); CO2 30.0 mmol/L (21.0-32.0); Calcium 8.8 mg/dL (8.5-10.1); Chloride 104 mmol/L (98-107); Glucose 129 mg/dL (74-106); Potassium 3.8 mmol/L (3.5-5.1); Sodium 140 mmol/L (136-145); Total Protein 6.8 g/dL (6.4-8.2)
--- NOTE | 2025-04-21 11:30 | PDOC.CMPRO ---
Date of service: 04/21/25 Time of Service: 11:30 Care Management Progress Note Progress Note Text Progress Note Text: Clifton had his wheelchair delivered today. This is his newer wheelchair that he was requesting. He is very pleased that it is here. The chair was picked up by Maintenance, along with a couple of belonging bags. There is also a ramp that goes with the wheelchair that Maintenance is storing in the garage. CM witnessed RN tell Clifton that she would help him get to the chair shortly. He declined. Clifton also met with Palliative care today. A COLST was signed as well as a health care agent form. Social Determinants of Health Screening Social Determinants of health last assessed in clinic: 04/21/25 Will the Patient Participate in the Screening?: Yes Do you worry about having a steady place to live?: yes What is your living situation today?: I do not have steady housing Problems where you live: no known problems In the past 12 months, have you had to go without electric, gas, oil or water in your home?: no 1. Within the past 12 months, we worried whether our food would run out before we got money to buy more.: Don't know/refused 2. Within the past 12 months, the food we bought just didn't last and we didn't have money to get more.: Don't know/refused Has lack of transportation kept you from medical appointments or from doing things needed for daily living?: yes Has anyone in your life made you feel unsafe or unsupported?: yes How often does anyone, including family and friends, physically hurt you?: Never How often does anyone, including family and friends, insult or talk down to you?: Sometimes How often does anyone, including family and friends, threaten you with harm?: Never How often does anyone, including family and friends, scream or curse at you?: Sometimes HRSN Safety total score: 8 How hard is it for you to pay for the very basics like food, housing, medical care, and heating? Would you say it is:: Somewhat hard Do you want help finding or keeping work or a job?: I do not need or want help If for any reason you need help with day-to-day activities such as bathing, preparing meals, shopping, managing finances, etc., do you get the help you need?: I don?t need any help How often do you feel lonely or isolated from those around you?: Often Do you speak a language other than [place]er at home?: No Health Related Social Needs Health related social needs: housing instability, housed, with risk of homelessness (Z59.811), transportation insecurity (Z59.82), problems related to housing/economic circumstances (Z59.89) and feeling lonely/isolated (Z60.8) Health related social needs details: needs new placement
--- NOTE | 2025-04-21 14:23 | PT.INNT ---
PT Notes Visit Reasons: Encephalopathy, CANDACE Pt approached for PT assessment. Clifton declines to participate x 2 today. Clifton is currently swing bed2 . He does want to get up to his new motorized wheelchair however he can not give me a day in which he wants to do this. Clifton will need adjustment to his head rest once he is in the wheelchair as it is not set in a fixed position at this time. Discussion held with SHAQUILLE strange. Clifton is a eliot lift transfer at this time. Will continue to encourage Clifton to get out of bed to his chair at which time he would benefit from PT for training on his new motorized chair components and controls to perform pressure relief utilizing tilt and recline mechanisms.
[2025-04-21] MEDS: Methylnaltrexone 12 MG/0.6 ML VIAL 17 MG SC (14:28)
[2025-04-21 20:18] VITALS: BP 114/82; PULSE 71; RESP 16; TEMP 36.2; O2SAT 97
[2025-04-21] MEDS: Melatonin 3 MG TAB 9 MG PO (20:20)
[2025-04-21] MEDS: Mirtazapine 15 MG TAB 30 MG PO (20:21)
[2025-04-22] MEDS: Acetaminophen 500 MG TAB 1000 MG PO ×2 (02:04→08:29)
[2025-04-22 07:21] VITALS: BP 117/71; PULSE 84; RESP 16; TEMP 36.3; O2SAT 93
[2025-04-22] MEDS: ARIPiprazole 5 MG TAB 7.5 MG PO (08:28)
[2025-04-22] MEDS: Buprenorphine/Naloxone 8 mg/2 mg FILM 1 EACH SL ×3 (08:28→20:44)
[2025-04-22] MEDS: DULoxetine 30 MG CAP 60 MG PO (08:28)
[2025-04-22] MEDS: Baclofen 10 MG TAB 20 MG PO ×3 (08:28→20:43)
[2025-04-22] MEDS: Apixaban 5 MG TAB PO ×2 (08:29→20:43)
[2025-04-22] MEDS: Senna TAB 2 TAB PO (08:29)
[2025-04-22] MEDS: Ferrous Sulfate 325 MG TAB PO (08:29)
[2025-04-22] MEDS: Fluconazole 100 MG TAB 200 MG PO (08:29)
[2025-04-22] MEDS: guaiFENesin 600 MG TABCR PO ×2 (08:29→20:43)
[2025-04-22] MEDS: Docusate Sodium 100 MG CAP PO ×3 (08:29→20:43)
[2025-04-22] MEDS: Triamcinolone 0.1% CR 80 GM TUBE TP ×2 (08:30→20:43)
[2025-04-22] MEDS: Ketoconazole 2% CREAM 15 GM TUBE TP (08:35)
--- NOTE | 2025-04-22 16:36 | PT.INNT ---
PT Notes Visit Reasons: Encephalopathy, CANDACE patient approached x 2 to participate in PT evaluation. Patient again declined at this time stating he is not ready to get out of bed and would let the nurse know when he wanted to. PT consult therefore discontinued at this time pending patient's willingness to be out of bed.
[2025-04-22] MEDS: Mirtazapine 15 MG TAB 30 MG PO (20:43)
[2025-04-22] MEDS: Melatonin 3 MG TAB 9 MG PO (20:43)
[2025-04-23] MEDS: Acetaminophen 500 MG TAB 1000 MG PO ×3 (01:22→16:53)
[2025-04-23] MEDS: Bisacodyl 10 MG SUPP PR (01:24)
[2025-04-23 07:12] VITALS: BP 98/60; PULSE 118; RESP 16; TEMP 36.1; O2SAT 97
--- NOTE | 2025-04-23 08:34 | TELEFU_ITS ---
Date of service: 04/23/25 Time of Service: 08:34 Nutrition Note NOTE: Have visited on multiple occasions with Shawn during his admission. He has had an erratic intake, often refusing. Have attempted ONS offerings of different products to help increase his intake, especially protein. He has declined or tried and then refused what has been offered. He consistently has flat affect when visiting and I have noticed instances of lack of motivation for self care - have walked in after he has eaten to find he has crumbs all over him and is unphased/unconcerned about having his food all over him. Weight not taken daily due to swing bed status but a recent weight would help identify suspected weight loss. Estimated energy needs: 2045kcals (REEx1.2AF), 132g-149 protein (1.5-1.7g/kg for wound healing), 2045mL fluid. Nutrition Dx: inadequate intake possibly related to depression, as evidenced by multiple refusals of meals (nursing documentation reveals refusal of meals from breakfast yesterday to breakfast today), with rare documentation of intake over 50% of meal. Pt acknowledges the lack of intake/appetite but does not elaborate in conversation. -Constipation related to pt indicating he does not want to move his bowels - last BM on 04/13. Intervention: Pt already ordered for mirtazpine 30mg HS. ordered for senna,psyllium, PEG, docusate sodium, and looks like he was given bisacodyl suppository this AM. Pt COLST filled out 04/21/25 indicates refusal of artificial nutrition - will continue to verbally encourage oral intake and continue to offer oral nutrition supplement options high in protein. -will ask nursing for updated weight to further assess weight loss. Monitoring. Will continue to monitor PO intake, acceptance of ONS, nutrition- related labs. Time Spent in Nutritional Counseling and Treatment: 10 min
[2025-04-23] MEDS: Fluconazole 100 MG TAB 200 MG PO (08:53)
[2025-04-23] MEDS: Apixaban 5 MG TAB PO ×2 (08:53→21:31)
[2025-04-23] MEDS: Senna TAB 2 TAB PO (08:54)
[2025-04-23] MEDS: Baclofen 10 MG TAB 20 MG PO ×3 (08:55→21:30)
[2025-04-23] MEDS: ARIPiprazole 5 MG TAB 7.5 MG PO (08:55)
[2025-04-23] MEDS: guaiFENesin 600 MG TABCR PO ×2 (08:57→21:31)
[2025-04-23] MEDS: Docusate Sodium 100 MG CAP PO ×3 (08:57→21:31)
[2025-04-23] MEDS: DULoxetine 30 MG CAP 60 MG PO (08:57)
[2025-04-23] MEDS: Ferrous Sulfate 325 MG TAB PO (08:58)
[2025-04-23] MEDS: Buprenorphine/Naloxone 8 mg/2 mg FILM 1 EACH SL ×3 (08:59→21:28)
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
--- NOTE | 2025-04-23 15:47 | PDOC.CMPRO ---
Date of service: 04/23/25 Time of Service: 15:47 Care Management Progress Note Progress Note Text Progress Note Text: Clifton was sitting up in his wheelchair, which was delivered on Saturday, when CM met with him. CM accompanied Clifton outside and discovered that his sister and aunt had come to see him for the first time in months. They had a nice visit outside but when Clifton was getting ready to come back into the hospital, he had a spell. He informed CM that he was going to have a spell and began hyperventilating. Shortly thereafter he became briefly unresponsive. CM requested that a rapid response be called, however a code blue was called instead. Clifton became responsive shortly thereafter and was returned to his room. His blood sugar and bvital signs were checked and were within normal limits. Discharge Anticipated Barriers to Discharge: Bed availability Patient/Family Education Needs: Review discharge instructions, discuss Ask Me Three Social Determinants of Health Screening Social Determinants of health last assessed in clinic: 05/05/25 Will the Patient Participate in the Screening?: Yes Do you worry about having a steady place to live?: yes What is your living situation today?: I do not have steady housing Problems where you live: no known problems In the past 12 months, have you had to go without electric, gas, oil or water in your home?: no 1. Within the past 12 months, we worried whether our food would run out before we got money to buy more.: Never true 2. Within the past 12 months, the food we bought just didn't last and we didn't have money to get more.: Never true Has lack of transportation kept you from medical appointments or from doing things needed for daily living?: yes Has anyone in your life made you feel unsafe or unsupported?: yes How often does anyone, including family and friends, physically hurt you?: Never How often does anyone, including family and friends, insult or talk down to you?: Sometimes How often does anyone, including family and friends, threaten you with harm?: Never How often does anyone, including family and friends, scream or curse at you?: Sometimes HRSN Safety total score: 8 How hard is it for you to pay for the very basics like food, housing, medical care, and heating? Would you say it is:: Somewhat hard Do you want help finding or keeping work or a job?: I do not need or want help If for any reason you need help with day-to-day activities such as bathing, preparing meals, shopping, managing finances, etc., do you get the help you need?: I don?t need any help How often do you feel lonely or isolated from those around you?: Often Do you speak a language other than Armenian at home?: No Health Related Social Needs Health related social needs: housing instability, housed, with risk of homelessness (Z59.811), transportation insecurity (Z59.82), problems related to housing/economic circumstances (Z59.89) and feeling lonely/isolated (Z60.8) Health related social needs details: needs new placement
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
[2025-04-23] MEDS: Melatonin 3 MG TAB 9 MG PO (21:30)
[2025-04-23] MEDS: Mirtazapine 15 MG TAB 45 MG PO (21:30)
[2025-04-24] MEDS: guaiFENesin 600 MG TABCR PO ×2 (08:47→21:24)
[2025-04-24] MEDS: Ferrous Sulfate 325 MG TAB PO (08:47)
[2025-04-24] MEDS: Fluconazole 100 MG TAB 200 MG PO (08:47)
[2025-04-24] MEDS: Senna TAB 2 TAB PO (08:47)
[2025-04-24] MEDS: Docusate Sodium 100 MG CAP PO ×3 (08:47→21:24)
[2025-04-24] MEDS: Apixaban 5 MG TAB PO ×2 (08:47→21:25)
[2025-04-24] MEDS: DULoxetine 30 MG CAP 60 MG PO (08:47)
[2025-04-24] MEDS: ARIPiprazole 5 MG TAB 7.5 MG PO (08:48)
[2025-04-24] MEDS: Baclofen 10 MG TAB 20 MG PO ×3 (08:48→21:25)
[2025-04-24] MEDS: Buprenorphine/Naloxone 8 mg/2 mg FILM 1 EACH SL ×3 (08:48→21:23)
[2025-04-24] MEDS: Triamcinolone 0.1% CR 80 GM TUBE TP (08:48)
[2025-04-24] MEDS: Ketoconazole 2% CREAM 15 GM TUBE TP (08:48)
[2025-04-24] MEDS: Acetaminophen 500 MG TAB 1000 MG PO ×2 (10:43→16:36)
[2025-04-24] MEDS: Mirtazapine 15 MG TAB 45 MG PO (21:24)
[2025-04-24] MEDS: Melatonin 3 MG TAB 9 MG PO (21:25)
[2025-04-25 07:24] VITALS: BP 127/68; PULSE 95; RESP 16; TEMP 36.2; O2SAT 99
[2025-04-25] MEDS: Apixaban 5 MG TAB PO ×2 (09:36→20:13)
[2025-04-25] MEDS: Docusate Sodium 100 MG CAP PO ×3 (09:36→20:14)
[2025-04-25] MEDS: Senna TAB 2 TAB PO (09:36)
[2025-04-25] MEDS: guaiFENesin 600 MG TABCR PO ×2 (09:36→20:14)
[2025-04-25] MEDS: Ferrous Sulfate 325 MG TAB PO (09:36)
[2025-04-25] MEDS: Fluconazole 100 MG TAB 200 MG PO (09:36)
[2025-04-25] MEDS: DULoxetine 30 MG CAP 60 MG PO (09:36)
[2025-04-25] MEDS: Baclofen 10 MG TAB 20 MG PO ×3 (09:36→20:13)
[2025-04-25] MEDS: ARIPiprazole 5 MG TAB 7.5 MG PO (09:37)
[2025-04-25] MEDS: Acetaminophen 500 MG TAB 1000 MG PO ×2 (09:37→18:04)
[2025-04-25] MEDS: Ketoconazole 2% CREAM 15 GM TUBE TP (09:38)
[2025-04-25] MEDS: Triamcinolone 0.1% CR 80 GM TUBE TP ×2 (09:38→20:14)
[2025-04-25] MEDS: Buprenorphine/Naloxone 8 mg/2 mg FILM 1 EACH SL ×3 (09:38→20:12)
[2025-04-25] MEDS: Melatonin 3 MG TAB 9 MG PO (20:12)
[2025-04-25] MEDS: Mirtazapine 15 MG TAB 45 MG PO (20:13)
[2025-04-26] MEDS: Acetaminophen 500 MG TAB 1000 MG PO ×3 (02:43→16:53)
[2025-04-26 07:37] VITALS: BP 107/59; PULSE 98; RESP 17; TEMP 37.6; O2SAT 87
[2025-04-26] MEDS: Baclofen 10 MG TAB 20 MG PO ×3 (08:03→20:24)
[2025-04-26] MEDS: DULoxetine 30 MG CAP 60 MG PO (08:04)
[2025-04-26] MEDS: Fluconazole 100 MG TAB 200 MG PO (08:04)
[2025-04-26] MEDS: guaiFENesin 600 MG TABCR PO ×2 (08:05→20:25)
[2025-04-26] MEDS: Ferrous Sulfate 325 MG TAB PO (08:07)
[2025-04-26] MEDS: Docusate Sodium 100 MG CAP PO ×3 (08:08→22:49)
[2025-04-26] MEDS: Apixaban 5 MG TAB PO ×2 (08:08→20:25)
[2025-04-26] MEDS: ARIPiprazole 5 MG TAB 7.5 MG PO (08:09)
[2025-04-26] MEDS: Buprenorphine/Naloxone 8 mg/2 mg FILM 1 EACH SL ×3 (08:12→20:25)
[2025-04-26 09:23] VITALS: O2SAT 94
--- NOTE | 2025-04-26 11:12 | W.NUTRFU ---
Date of service: 04/26/25 Time of Service: 11:12 Nutrition Note NOTE: Brief follow up with Shawn due to low intake, low acceptance of ONS offered. Bed scale used to update weight - 116.5kg today which is an increase but suspect inaccurate due to blanket/pillow changes/addons Intake continues to be erratic, with suspect that he sometimes refuses, not wanting to have BM. Provider ordered Boost ONS TID - these have been offered already without much success -will continue to offer. Provided encouragement to eat and meet protein needs for wound healing support. Time Spent in Nutritional Counseling and Treatment: 5 min
--- NOTE | 2025-04-26 12:55 | NUR.NOTE ---
Nursing Note: Documentation by ORI Escobedo student reviewed.
--- NOTE | 2025-04-26 16:03 | PT.INNT ---
PT Notes Visit Reasons: Encephalopathy, CANDACE Patient declined out of bed in a.m. but stated he would be agreeable to do it at 3 PM. However when approached at 3 PM, patient declined again
--- NOTE | 2025-04-26 16:17 | W.PALPGNOTE ---
Date of service: 04/26/25 Time of Service: 15:45 Assessment and Plan Assessment and plan (1) Decubitus ulcer of ischium, stage 3: Status: Acute Assessment and plan: Surgical debridment completed for bilateral ischial decubitus wounds on 03/30/25 high risk for worsening/progression/slow healing (2) Housing instability, housed, with risk of homelessness: Status: Acute Assessment and plan: no safe discharge plan at this time remains on swing bed status CM working on discharge plan recommend team meeting w/[facility], Clifton, CM and potentially PC to review his preferred plan on discharge (3) Seborrhea-like dermatitis with psoriasiform elements: Status: Acute Assessment and plan: improved today;showering every couple days, accepting bedside clean up w/assistance (4) Recurrent UTI (urinary tract infection): Status: Acute Assessment and plan: would potentially consider not treating infection if were to recur - need to review at time of presenting infection (5) Anxiety and depression: Status: Chronic Assessment and plan: f/b psych; most recent consult 04/13 - there has been no further psych consult, despite plan being q48-72h f/u - increase mirtazapine to 30mg - decrease duloxetine to 60mg w/plan for taper to d/c - continue abilify 7.5mg qd (6) Paraplegia at T4 level: Status: Acute Assessment and plan: approximately for 1 year dependent on others for ADL care, wound care, IADLS, etc (7) Chronic osteomyelitis of sacrum: Status: Acute Assessment and plan: now accepting of wound care; see wound care consult f/b outpatient may consider not treating if osteomyelitis were to recurr (8) Constipation: Status: Acute Assessment and plan: last BM on Monday 04/23 he does not feel constipative symptoms, leading him to not be concerned w/lack of BM while he is having limited oral intake, his body is still making stool, continue Colace, consider XR if s/sxs of obstruction did not review today (9) Palliative care encounter: Assessment and plan: PC will continue to follow and support Clifton during this hospitalization and outpatient pending discharge location - Clifton to invite Heather to join visit w/PC on Sat to review his POC/GOC has she is his HCA - ongoing work to help with question of how do I go about proving that mental health is not contributing to desire to hasten ? and more of a QoL desire today reports loss of independence, bodily function/autonomy as reasons for preference w/no LST - consider COLST w/updates for antibiotics, fluids and overall goals of care sections as appropriate reviewed case w/PC MD previously; in order to be eligible for MAID would need to have infection progress prior to hospice eligible, then consider MAID however may not need and could provide supportive interventions vs pursue MAID at that time, however this is a 2 wk process and may not be appropriate for him given infection source/progression (10) Advanced care planning/counseling discussion: Status: Acute Assessment and plan: reviewed lack of appetite/hunger, offered to get his favorite foods brought into him if he would prefer, open invitation, please contact PC office if he indicates he would like to have food ordered, we will pay for this reviewed LST, previous conversations regarding preference to not treat recurrent infection w/abx reviewed not treating infection will lead to spread to full body infection and ultimately ; he would want to participate in MAID/hospice once eligible in this scenario, would want to make sure there is a plan for his [facility] to be supportive during this time - would need plan for increased seizure like activities, recommend lorazepam instructions clearly outlined in this case reviewed recommendation for POC review w/[facility] and [facility], may include PC to help facilitate these conversations Subjective Subjective Interval history since last seen: Clifton remains hospitalized on swing bed pending safe discharge plan PO Intake: Clifton has continued w/reduced oral intake, some meals refusing entirely, other days will snack or drink some Boost; for lunch today had 1/2 a Boost, breakfast this morning he had come carrero; - Clifton reports he is not finding enjoyment in food, not liking the food in the hospital, is not able to identify his favorite foods or preferred foods; this is not a new symptom for him BM: he moved his bowels on Saturday, right before he was going to have an XR of abd w/concerns for obstuction; he is accepting Colace at this time Activity: he did get his new WC, he has been intermittenly using this; he went outside on Saturday w/CM in WC, unforunately he had one of his seizure like episodes and a rapid response was called, he recovered appropriately; remains largely in bed, intermittently refusing care but overall accepting of hygiene and wound care, preferring it on his timeline Seizures: since his injury he has been suffering from these seizure like activities, occurring a couple times daily w/no post-ictal state; there are some triggers: urinary catheter not draining, fast movements/activity/transfers; during these episodes he goes unresponsive, apnic and some cyanosis, he recovers spontaneously; - he is able to ID and verbalize these episodes prior to their occurrence; reports they occur more when he is sick, like w/an infection Social: his sister Heather and Aunt Phuong have been visiting intermittently ACP: continues w/preference to not pursue life sustaining interventions, this is not a/w his lack of appetite/reduce PO intake; he views his QoL changed drastically d/t a loss of independence and autonomy w/bodily function, loss of family members; - d/c plan still pending, CM working on this actively, potentially to a new [facility] as available Exam Narrative Exam Narrative: General: 46y/o male, lying in hospital bed w/HOB elevated; makes appropriate eye contact, engages readily and easily throughout visit; HEENT: normocephalic, atraumatic; hearing grossly WNL, MMM Resp: even and unlabored at rest; speaks full sentences w/o SOB; no resp distress; no audible wheeze or cough Skin: face w/scaling typical of seborrhea-like dermatitis, reduced compared to previous visit Psych: MS WNL, answers questions appropriately, affect slightly flat, mood cooperative; thought process normal; insight/judgment fair/limited Objective Last Vital Signs Temp 99.7 F H 04/26/25 07:37 Pulse 98 H 04/26/25 07:37 Resp 17 04/26/25 07:37 BP 107/59 L 04/26/25 07:37 Pulse Ox 94 04/26/25 09:23
--- NOTE | 2025-04-26 17:52 | NUR.NOTE ---
Nursing Note: Patient declined wound dressing changes this morning and asked to do it around 1400. When approached at 1400 the patient declined nursing staff to change dressings and asked again to reschedule for 1700. However, when approached around 1700 the patient declined dressing changes once again. Charge nurse made aware.
[2025-04-26 19:36] VITALS: BP 97/63; PULSE 88; RESP 17; TEMP 35.9; O2SAT 92
[2025-04-26] MEDS: Mirtazapine 15 MG TAB 45 MG PO (20:24)
[2025-04-26] MEDS: Melatonin 3 MG TAB 9 MG PO (20:25)
[2025-04-27] VITALS (7 sets, daily range): BP systolic 112–160; BP diastolic 62–107; PULSE 34–87; RESP 8–16; TEMP 36.5–36.6; O2SAT 71–100
--- NOTE | 2025-04-27 | DI.RAD_ITS ---
Exam(s) XR ABDOMEN FLAT UPRIGHT EXAM: XR ABDOMEN FLAT UPRIGHT CLINICAL HISTORY: Abd pain/ ? constipation. TECHNIQUE: 2D digital imaging was performed. COMPARISON: CT CT CHEST/ABD/PEL W from 04/26/2024 FINDINGS: 3 views Incidentally noted is infiltrate in the left lung base and left pleural effusion. Visualized right lung bases clear. The bowel gas pattern appears nonspecific. No obvious free air. Intraluminal air-fluid levels noted within bowel loops in the right-side of the abdomen. Bowel loops do not appear over distended. IMPRESSION: No specific radiographic findings in the abdomen. Left lower lobe infiltrate and pleural effusion. DATA REPOSITORY: RADIATION DOSE DELIVERED:
--- NOTE | 2025-04-27 | DI.RAD_ITS ---
Exam(s) XR PORTABLE CHEST AP EXAM: XR PORTABLE CHEST AP CLINICAL HISTORY: pleural effusion. TECHNIQUE: 2D digital imaging was performed. COMPARISON: CR,XR XR CHEST 1V IN DI DEPT from 03/21/2025 FINDINGS: Single AP portable view. Heart size is upper normal. The mediastinum is not widened. Right lung is clear. There is mild elevation left hemidiaphragm. Mild infiltrate in the left lung base and the small-moderate sized left pleural effusion or pleural thickening, given that these left lung base findings are unchanged from 03/21/2025. IMPRESSION: Left lung base infiltrate and pleural thickening and elevated left hemidiaphragm, these findings unchanged from 03/21/2025. The opposite-right lung is clear. DATA REPOSITORY: RADIATION DOSE DELIVERED:
[2025-04-27] MEDS: Bisacodyl 5 MG TABEC PO (08:23)
[2025-04-27] MEDS: Apixaban 5 MG TAB PO ×2 (08:23→21:08)
[2025-04-27] MEDS: Fluconazole 100 MG TAB 200 MG PO (08:24)
[2025-04-27] MEDS: DULoxetine 30 MG CAP 60 MG PO (08:24)
[2025-04-27] MEDS: Ferrous Sulfate 325 MG TAB PO (08:24)
[2025-04-27] MEDS: Baclofen 10 MG TAB 20 MG PO ×3 (08:24→21:09)
[2025-04-27] MEDS: guaiFENesin 600 MG TABCR PO ×2 (08:24→21:08)
[2025-04-27] MEDS: Senna TAB 2 TAB PO (08:24)
[2025-04-27] MEDS: ARIPiprazole 5 MG TAB 7.5 MG PO (08:24)
[2025-04-27] MEDS: Buprenorphine/Naloxone 8 mg/2 mg FILM 1 EACH SL ×3 (08:25→21:10)
[2025-04-27] MEDS: Docusate Sodium 100 MG CAP PO ×3 (09:22→21:11)
[2025-04-27] MEDS: Acetaminophen 500 MG TAB 1000 MG PO ×2 (09:48→17:45)
[2025-04-27] MEDS: Normal Saline Flush 10 ML SYR (10:32)
[2025-04-27] MEDS: Bisacodyl 10 MG SUPP PR (12:34)
[2025-04-27 13:14] LABS: Glucose Negative (Negative)
[2025-04-27 13:23] LABS: WBC >50 HPF (0-5)
[2025-04-27 13:24] LABS: C & S Indicated? Yes
[2025-04-27 20:40] LABS: Abs Immature Grans 0.06 10^3/uL (0.0-0.06); HCT 28.7 % (40.0-50.0); HGB 8.4 g/dL (13.5-17.5); Immature Grans % 0.7 %; MCH 22.9 pg (27.0-33.0); MCHC 29.3 % (32.0-36.0); MCV 78 fL (80-95); MPV 12.0 fL (8.0-11.0); Platelet Count 353 10^3/uL (130-400); RBC 3.67 10^6/uL (4.36-5.78); RDW 17.0 % (11.8-14.1); RDW-SD 48.4 fL; WBC 8.75 10^3/uL (4.4-10.8)
[2025-04-27 20:41] LABS: ESR 78 mm/hr (0-15)
--- NOTE | 2025-04-27 20:43 | DI.VRAD_ITS ---
PROCEDURE INFORMATION: Exam: XR Chest Exam date and time: 04/27/2025 7:35 PM Age: 44 years old Clinical indication: Other: Pleural effusion TECHNIQUE: Imaging protocol: Radiologic exam of the chest. Views: 1 view. COMPARISON: CR XR CHEST 1V IN DI DEPT 03/21/2025 4:35 AM FINDINGS: Lungs: Consolidative radiopacities are present at the left lung base, similar to the prior study. The right lung is clear. Pleural spaces: There is likely a small left pleural effusion. Heart/Mediastinum: The heart is normal size. Diaphragm: There is elevation of the left hemidiaphragm unchanged from the study dated 03/21/2025. Bones/joints: Unremarkable. IMPRESSION: Persistent elevation of the left hemidiaphragm, consolidative radiopacities at the left lung base and small effusion. Dictated and Authenticated by: Guillermina Arnett MD. Orderin Lon Evangelista MD
[2025-04-27] MEDS: Melatonin 3 MG TAB 9 MG PO (21:09)
[2025-04-27] MEDS: Mirtazapine 15 MG TAB 45 MG PO (21:09)
[2025-04-27 21:18] LABS: Procalcitonin 0.25 ng/mL
[2025-04-27 21:36] LABS: ALT 13 U/L (16-63); AST 18 U/L (15-37); Albumin 2.3 g/dL (3.4-5.0); Alkaline Phosphatase 90 U/L (46-116); Anion Gap 6.8 mmol/L (3-11); BUN 11 mg/dL (7-18); Bilirubin, Total 0.2 mg/dL (0.2-1.0); CO2 33.2 mmol/L (21.0-32.0); Calcium 9.1 mg/dL (8.5-10.1); Chloride 99 mmol/L (98-107); Glucose 106 mg/dL (74-106); Potassium 3.3 mmol/L (3.5-5.1); Sodium 139 mmol/L (136-145); Total Protein 7.2 g/dL (6.4-8.2)
[2025-04-28] MEDS: Acetaminophen 500 MG TAB 1000 MG PO ×3 (03:13→18:30)
[2025-04-28] MEDS: Buprenorphine/Naloxone 8 mg/2 mg FILM 1 EACH SL ×3 (08:26→20:51)
[2025-04-28] MEDS: Bisacodyl 5 MG TABEC PO (08:27)
[2025-04-28] MEDS: Senna TAB 2 TAB PO (08:27)
[2025-04-28] MEDS: Apixaban 5 MG TAB PO ×2 (08:27→20:52)
[2025-04-28] MEDS: Baclofen 10 MG TAB 20 MG PO ×3 (08:27→20:52)
[2025-04-28] MEDS: Docusate Sodium 100 MG CAP PO ×3 (08:27→20:52)
[2025-04-28] MEDS: Fluconazole 100 MG TAB 200 MG PO (08:27)
[2025-04-28] MEDS: guaiFENesin 600 MG TABCR PO ×2 (08:27→20:52)
[2025-04-28] MEDS: ARIPiprazole 5 MG TAB 7.5 MG PO (08:27)
[2025-04-28] MEDS: Ferrous Sulfate 325 MG TAB PO (08:27)
[2025-04-28] MEDS: Triamcinolone 0.1% CR 80 GM TUBE TP (08:28)
[2025-04-28] MEDS: DULoxetine 30 MG CAP 60 MG PO (08:28)
[2025-04-28] MEDS: Ketoconazole 2% CREAM 15 GM TUBE TP (08:28)
--- NOTE | 2025-04-28 15:45 | CMPROGNOTE_ITS ---
Date of service: 04/28/25 Time of Service: 15:45 Care Management Progress Note Progress Note Text Progress Note Text: ZANE has popped in on Clifton a few times today. He did not get out of bed again today, although he had many offers. ZANE offered to take him outside, or even just walk the halls, but he refused. He ate well at lunch today, and this has left him feeling bloated and a bit uncomfortable. CM let Clifton know that we can try again tomorrow. Palliative care asked ZANE to call Clifton's sister to let her know that they would like to speak to her. They next step for palliative with Clifton would include his sister, whom he has named his health care agent. Message was left with Heather, Clifton's sister, stating my name and role and asking her to call Palliative care at [phone]. Discharge Anticipated Barriers to Discharge: Bed availability Social Determinants of Health Screening Social Determinants of health last assessed in clinic: 04/28/25 Will the Patient Participate in the Screening?: Yes Do you worry about having a steady place to live?: yes What is your living s ituation today?: I do not have steady housing Problems where you live: no known problems In the past 12 months, have you had to go without electric, gas, oil or water in your home?: no 1. Within the past 12 months, we worried whether our food would run out before we got money to buy more.: Don't know/refused 2. Within the past 12 months, the food we bought just didn't last and we didn't have money to get more.: Don't know/refused Has lack of transportation kept you from medical appointments or from doing things needed for daily living?: yes Has anyone in your life made you feel unsafe or unsupported?: yes How often does anyone, including family and friends, physically hurt you?: Never How often does anyone, including family and friends, insult or talk down to you?: Sometimes How often does anyone, including family and friends, threaten you with harm?: Never How often does anyone, including family and friends, scream or curse at you?: Sometimes HRSN Safety total score: 8 How hard is it for you to pay for the very basics like food, housing, medical care, and heating? Would you say it is:: Somewhat hard Do you want help finding or keeping work or a job?: I do not need or want help If for any reason you need help with day-to-day activities such as bathing, preparing meals, shopping, managing finances, etc., do you get the help you need?: I don?t need any help How often do you feel lonely or isolated from those around you?: Often Do you speak a language other than Persian at home?: No Health Related Social Needs Health related social needs: housing instability, housed, with risk of homelessness (Z59.811), transportation insecurity (Z59.82), problems related to housing/economic circumstances (Z59.89) and feeling lonely/isolated (Z60.8) Health related social needs details: needs new placement
[2025-04-28 18:09] VITALS: BP 167/76; PULSE 67; O2SAT 83
[2025-04-28 18:10] VITALS: BP 138/109; PULSE 90; O2SAT 98
[2025-04-28 18:51] LABS: CRP, High Sensitivity >15.00 mg/L (See Note)
[2025-04-28 19:28] VITALS: BP 98/54; PULSE 81; RESP 18; TEMP 36.1; O2SAT 87
[2025-04-28] MEDS: Melatonin 3 MG TAB 9 MG PO (20:51)
[2025-04-28] MEDS: Mirtazapine 15 MG TAB 45 MG PO (20:52)
[2025-04-29] MEDS: LORazepam 1 MG TAB 2 MG PO (00:23)
[2025-04-29] MEDS: Milk of Magnesia 30 ML CUP PO (00:23)
[2025-04-29] MEDS: Bisacodyl 10 MG SUPP PR ×2 (00:23→13:31)
[2025-04-29 01:26] VITALS: BP 115/78; PULSE 86; RESP 18; TEMP 36; O2SAT 99
[2025-04-29] MEDS: Acetaminophen 500 MG TAB 1000 MG PO ×2 (02:22→09:02)
[2025-04-29] MEDS: Buprenorphine/Naloxone 8 mg/2 mg FILM 1 EACH SL ×3 (09:00→20:15)
[2025-04-29] MEDS: Polyethylene Glycol 3350 17 GM PACKET PO (09:01)
[2025-04-29] MEDS: Apixaban 5 MG TAB PO ×2 (09:02→20:13)
[2025-04-29] MEDS: Docusate Sodium 100 MG CAP PO ×3 (09:02→20:15)
[2025-04-29] MEDS: Senna TAB 2 TAB PO (09:02)
[2025-04-29] MEDS: ARIPiprazole 5 MG TAB 7.5 MG PO (09:02)
[2025-04-29] MEDS: Ferrous Sulfate 325 MG TAB PO (09:02)
[2025-04-29] MEDS: Fluconazole 100 MG TAB 200 MG PO (09:03)
[2025-04-29] MEDS: buPROPion-XL 150 MG TABCR PO (09:03)
[2025-04-29] MEDS: guaiFENesin 600 MG TABCR PO ×2 (09:03→20:15)
[2025-04-29] MEDS: DULoxetine 30 MG CAP 60 MG PO (09:03)
[2025-04-29] MEDS: Baclofen 10 MG TAB 20 MG PO ×3 (09:03→20:14)
--- NOTE | 2025-04-29 10:04 | PT.INNT ---
Date of service: 04/28/25 PT Notes Visit Reasons: Encephalopathy, CANDACE Clifton was approached for PT treatment in the morning. He declined to participate at that time. He was asked what time he would be agreeable to participate and he stated 2pm. When approached at 2pm, he stated he was not going to do anything because he was too bloated from eating a bigger meal at lunch time. Pt has now declined to participate 3 days in a row. Will attempt on 04/29/2025. If pt is not agreeable then skilled PT will again be discontinued. Pt will remain a eliot/ mechanical lift of 2 assist for all transfers to maintain skin integrity and reduce shear forces on wounds.Clifton lacks initiation and motivation to be more independent with his care/ mobility. When he is agreeable he is able to sit in his power wheelchair and safely manage controls.
--- NOTE | 2025-04-29 10:56 | PGE_ITS ---
Date of Service Date of service: 04/29/25 Time of Service: 10:56 Assessment and Plan Assessment and plan (1) Encephalopathy acute: Status: Resolved Assessment and plan: On itintial admssion. This has resolved Patient is back to baseline and remains with clear mentation Will continue to monitor (2) Hypokalemia: Status: Acute Assessment and plan: 04/27 K 3.3- supplemented today Labs in AM with Mg level (3) Anxiety: Status: Chronic Assessment and plan: Ongoing PRN lorazepam , Ongoing decreased duloxetine to 60 mg daily from 150 mg daily on 04/13- Planing to taper for discontinuation (4) Depression: Status: Chronic Assessment and plan: Psych consult from 04/13/25: * Patient continues to report feeling ?blah,? with flat affect, occasional tearfulness, poor motivation, and difficulty describing emotions. * Mood remains depressed; sleep is poor, appetite fair. * No suicidal or homicidal ideation, no psychosis, contracts for safety, future oriented. * Minimal engagement during interview, but cooperative. * Risk of harm assessed as negligible; does not meet criteria for inpatient psychiatric hospitalization. * Concerns about medication-related emotional flattening; previous antidepressants (Paxil, Prozac, Cymbalta) have been ineffective. Mental Status Exam: * Well groomed, normal speech, oriented x4, average cognition. * Mood: depressed; affect: constricted. * Thought process linear, no hallucinations, delusions, or paranoia. * Insight and judgment appropriate. Medication Plan: * Increase Mirtazapine to 30 mg nightly (for depression and sleep). * Decrease Duloxetine to 60 mg daily with plan to taper/discontinue. * Continue Abilify 7.5 mg daily (well tolerated, no change noted). * Consider trial of Wellbutrin in future. * Pregabalin remains held (concern for sedation). Psych consultation ordered for 04/29/25- Refused today - will reorder for AM Mirtazapine increased to 45 mg PO HS on 04/23 d/t decreased oral intake d/t to poor appetite and depression symptoms Wellbutrin XL 150 mg PO daily added on 04/29 Cymbalta 30 mg PO daily starting 04/30/25 (5) Neurogenic bowel: Status: Acute Assessment and plan: Ongoing in the setting of T4 trauma (6) Constipation: Status: Acute Assessment and plan: In the setting of point 4 last BM 04/23- smear 04/27 -04/27/25 ABD XR :The bowel gas pattern appears nonspecific. No obvious free air. Intraluminal air-fluid levels noted within bowel loops in the right-side of the abdomen. Bowel loops do not appear over distended. Incidental findings: infiltrate in the left lung base and left pleural effusion. Visualized right lung bases clear.Left lung base findings are unchanged from 03/21/2025 as per CXR report. On bowel management regimen including Dulcolax TN suppository daily Methylnaltrexone SC today- had received in the past Consider golytely as discussed with Dr. Guillen - entered PRN if methylnaltrexone not effective (7) Autonomic dysreflexia: Assessment and plan: Hx of s/t neurological history with labile BP's Will continue to monitor - VS as ordered but refused at times (8) Yeast UTI: Status: Acute Assessment and plan: Fluconazole oral for 2 weeks until 05/05/25 Chronic blunt changed 04/28 Qustioning colonization inthe setting of asymptomatic infection DDx (9) Palliative care encounter: Assessment and plan: Seen on 04/26/25- Please read notes Recommendation: team meeting w/[facility], Clifton, CM and potentially PC to review his preferred plan on discharge PC will continue to follow pending discharge location - ongoing work to help with question of how do I go about proving that mental health is not contributing to desire to hasten ? and more of a QoL desire today reports loss of independence, bodily function/autonomy as reasons for preference w/no LST - consider COLST w/updates for antibiotics, fluids and overall goals of care sections as appropriate -Clear plan for increased seizure like activities and lorazepam instructions clearly outlined for POC review w/[facility] and [facility], may include PC to help facilitate these conversations (10) History of Clostridioides difficile infection: Status: Acute Assessment and plan: Treated during intitial stay no symptoms (11) Injury of right foot including toes: Status: Acute Assessment and plan: Seen by Sx on 04/10/25 Ongoig dressing change (12) Pulmonary embolism on long-term anticoagulation therapy: Status: Acute Assessment and plan: Ongoing Eliquis (13) Paraplegia at T4 level: Status: Acute Assessment and plan: PT ongoing - refused at times Reposition Q 2 when in bed Encourage for OOB daily in WC (14) Housing instability, housed, with risk of homelessness: Status: Acute Assessment and plan: CM following with the patient's community SW, PC discussed with Dr. Guillen Subjective Subjective Patient reports: tolerating liquids well (decreased oral intake ), tolerating a regular diet (decreased oral intake ), voiding w/o difficulty (blunt in place - reduced output ), no bowel movement (no c/o pain- see section on exam, last BM large hard 04/23 & soft mucoid smear 04/27), afebrile and other (Stating nothing is working When asked patient clarified , it was about bowel movement; agrees to methylnaltrexone SC trial ); denies nausea, vomiting or shortness of breath Exam Narrative Exam Narrative: Alert and oriented X 4 ,dry skin and mucous membranes , non-icteric sclera, neurologically stable, clear lungs with diminished bases ,S1, S2 , no murmur, abdomen is round slightly distended non-tympanic , soft and non-tender, equal strength to bilat upper ext, ongoing paralysis to LEs from T4 injury, chronic pressure injury X2 to sacrum acquired prior to admission with ongoing wound care - refused at times by patient Psych Mental Status: other (depressed ) Speech and Movement: speech and movement normal (normal for patient ) Mood: other (depressed ) Affect: sad Attitude: cooperative Objective Last Vital Signs Temp 36 C L 04/29/25 01:26 Pulse 86 04/29/25 01:26 Resp 18 04/29/25 01:26 BP 115/78 04/29/25 01:26 Pulse Ox 99 04/29/25 01:26 Laboratory Results - last 24 hr 04/27/25 20:27 C-React Prot High Sens >15.00 Time Spent with Patient Time Spent with Patient: >50 minutes Time was spent: preparing to see the patient(eg.review tests), obtaining and/or reviewing separately otained hiistory, ordering medications,tests, procedures, referring, communicating with other health housekeeper child care, indepentently interpreting results, counseling the patient and care coordination
[2025-04-29] MEDS: Potassium Chloride 20 MEQ TABCR 40 MEQ PO (11:36)
[2025-04-29] MEDS: Methylnaltrexone 12 MG/0.6 ML VIAL 17 MG SC (11:36)
--- NOTE | 2025-04-29 14:59 | PT.INNT ---
PT Notes Visit Reasons: Encephalopathy, CANDACE Clifton was again approached to participate in PT session. He continue to decline participation stating he does not want to do anything. He was offered OOB via mechanical lift to his power w/c. which he also declined. Clifton was educated that PT would no longer be attempting to work with him since he has been unwilling to participate or be OOB for the past 4 days. He stated he was okay with that. Due to the severity of his wounds, He is not appropriate for transfer training as the risk for shearing forces to wounds is too high. Pt cristopher has not shown willingness or initiative to be an active participant in improving his mobility. Clifton will need to show initiative to be OOB to his wheelchair prior to next attempt at skilled PT. He can ask Nursing staff to get him out of bed via eliot lift with 2 assist when he wants to be out of bed. When he shows consistency and willingness to participate in his care and improving his mobility , PT will reattempt treatment. All screws on headrest of his power wheelchair were tightened to hold headrest in position should he be willing to be out of bed. Clifton is safe with managing his power wheelchair on the unit and in his room. Care Management to continue to encourage and supervise him when going outdoors. No further skilled PT indicated at this time. Pt's status remains as of Evaluation on 04/23/2025.
[2025-04-29] MEDS: Nulytely 4000 ML BTL PO (17:10)
[2025-04-29] MEDS: Mirtazapine 15 MG TAB 45 MG PO (20:14)
[2025-04-29] MEDS: Melatonin 3 MG TAB 9 MG PO (20:15)
[2025-04-30] MEDS: Milk of Magnesia 30 ML CUP PO (02:20)
[2025-04-30] MEDS: LORazepam 1 MG TAB 2 MG PO (02:20)
[2025-04-30] MEDS: Bisacodyl 5 MG TABEC PO (02:21)
[2025-04-30 04:18] VITALS: BP 148/97; PULSE 81; RESP 14; TEMP 36.1; O2SAT 98
[2025-04-30 07:00] LABS: Anion Gap 7.9 mmol/L (3-11); BUN 17 mg/dL (7-18); CO2 33.1 mmol/L (21.0-32.0); Calcium 8.9 mg/dL (8.5-10.1); Chloride 102 mmol/L (98-107); Glucose 107 mg/dL (74-106); Magnesium 2.2 mg/dL (1.8-2.4); Potassium 3.9 mmol/L (3.5-5.1); Sodium 143 mmol/L (136-145)
[2025-04-30 07:44] VITALS: BP 112/89; PULSE 90; RESP 16; TEMP 36.8; O2SAT 98
[2025-04-30] MEDS: Apixaban 5 MG TAB PO ×2 (09:48→20:50)
[2025-04-30] MEDS: Baclofen 10 MG TAB 20 MG PO ×3 (09:48→20:50)
[2025-04-30] MEDS: DULoxetine 30 MG CAP PO (09:48)
[2025-04-30] MEDS: guaiFENesin 600 MG TABCR PO ×2 (09:49→20:51)
[2025-04-30] MEDS: Buprenorphine/Naloxone 8 mg/2 mg FILM 1 EACH SL ×3 (09:49→20:51)
[2025-04-30] MEDS: Senna TAB 2 TAB PO (09:49)
[2025-04-30] MEDS: ARIPiprazole 5 MG TAB 7.5 MG PO (09:49)
[2025-04-30] MEDS: buPROPion-XL 150 MG TABCR PO (09:49)
[2025-04-30] MEDS: Fluconazole 100 MG TAB 200 MG PO (09:49)
[2025-04-30] MEDS: Ferrous Sulfate 325 MG TAB PO (09:49)
[2025-04-30] MEDS: Docusate Sodium 100 MG CAP PO ×3 (09:49→20:50)
[2025-04-30] MEDS: Polyethylene Glycol 3350 17 GM PACKET PO (09:54)
[2025-04-30] MEDS: Bisacodyl 10 MG SUPP PR (09:54)
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
--- NOTE | 2025-04-30 15:01 | PDOC.CMPRO ---
Date of service: 04/30/25 Time of Service: 15:01 Care Management Progress Note Progress Note Text Progress Note Text: ZANE has tried to meet with Clifton many times today, but he has been sleeping a lot today. Dr. Cortes was in to see him and did some debridement at the bedside. Social Determinants of Health Screening Social Determinants of health last assessed in clinic: 04/30/25 Will the Patient Participate in the Screening?: Yes Do you worry about having a steady place to live?: yes What is your living situation today?: I do not have steady housing Problems where you live: no known problems In the past 12 months, have you had to go without electric, gas, oil or water in your home?: no 1. Within the past 12 months, we worried whether our food would run out before we got money to buy more.: Don't know/refused 2. Within the past 12 months, the food we bought just didn't last and we didn't have money to get more.: Don't know/refused Has lack of transportation kept you from medical appointments or from doing things needed for daily living?: yes Has anyone in your life made you feel unsafe or unsupported?: yes How often does anyone, including family and friends, physically hurt you?: Never How often does anyone, including family and friends, insult or talk down to you?: Sometimes How often does anyone, including family and friends, threaten you with harm?: Never How often does anyone, including family and friends, scream or curse at you?: Sometimes HRSN Safety total score: 8 How hard is it for you to pay for the very basics like food, housing, medical care, and heating? Would you say it is:: Somewhat hard Do you want help finding or keeping work or a job?: I do not need or want help If for any reason you need help with day-to-day activities such as bathing, preparing meals, shopping, managing finances, etc., do you get the help you need?: I don?t need any help How often do you feel lonely or isolated from those around you?: Often Do you speak a language other than Monegasque at home?: No Health Related Social Needs Health related social needs: housing instability, housed, with risk of homelessness (Z59.811), transportation insecurity (Z59.82), problems related to housing/economic circumstances (Z59.89) and feeling lonely/isolated (Z60.8) Health related social needs details: needs new placement
[2025-04-30] MEDS: Protein Nutritional Supplement 16 GM 1 OUNCE PACKET PO (20:49)
[2025-04-30] MEDS: Mirtazapine 15 MG TAB 45 MG PO (20:50)
[2025-04-30] MEDS: Melatonin 3 MG TAB 9 MG PO (20:51)
[2025-05-01] MEDS: LORazepam 1 MG TAB 2 MG PO (03:38)
[2025-05-01 07:38] VITALS: BP 122/63; PULSE 80; RESP 17; TEMP 36.5; O2SAT 96
[2025-05-01] MEDS: Fluconazole 100 MG TAB 200 MG PO (09:22)
[2025-05-01] MEDS: Apixaban 5 MG TAB PO ×2 (09:22→20:37)
[2025-05-01] MEDS: Docusate Sodium 100 MG CAP PO ×3 (09:23→20:36)
[2025-05-01] MEDS: Ferrous Sulfate 325 MG TAB PO (09:23)
[2025-05-01] MEDS: Senna TAB 2 TAB PO (09:23)
[2025-05-01] MEDS: guaiFENesin 600 MG TABCR PO ×2 (09:23→20:37)
[2025-05-01] MEDS: DULoxetine 30 MG CAP PO (09:23)
[2025-05-01] MEDS: ARIPiprazole 5 MG TAB 7.5 MG PO (09:23)
[2025-05-01] MEDS: buPROPion-XL 150 MG TABCR PO (09:23)
[2025-05-01] MEDS: Baclofen 10 MG TAB 20 MG PO ×3 (09:23→20:36)
[2025-05-01] MEDS: Buprenorphine/Naloxone 8 mg/2 mg FILM 1 EACH SL ×3 (09:24→20:35)
[2025-05-01] MEDS: Triamcinolone 0.1% CR 80 GM TUBE TP ×2 (09:25→20:38)
[2025-05-01] MEDS: Collagenase 30 GM TUBE TP (09:25)
[2025-05-01] MEDS: Ketoconazole 2% CREAM 15 GM TUBE TP (09:26)
[2025-05-01] MEDS: Melatonin 3 MG TAB 9 MG PO (20:35)
[2025-05-01] MEDS: Mirtazapine 15 MG TAB 45 MG PO (20:37)
[2025-05-02] MEDS: LORazepam 1 MG TAB 2 MG PO ×2 (05:26→23:01)
[2025-05-02 07:12] VITALS: BP 107/74; PULSE 100; RESP 16; TEMP 36.6; O2SAT 97
[2025-05-02] MEDS: ARIPiprazole 5 MG TAB 7.5 MG PO (09:47)
[2025-05-02] MEDS: Baclofen 10 MG TAB 20 MG PO ×3 (09:48→20:30)
[2025-05-02] MEDS: DULoxetine 30 MG CAP PO (09:48)
[2025-05-02] MEDS: Senna TAB 2 TAB PO (09:49)
[2025-05-02] MEDS: Fluconazole 100 MG TAB 200 MG PO (09:49)
[2025-05-02] MEDS: Docusate Sodium 100 MG CAP PO ×3 (09:50→20:31)
[2025-05-02] MEDS: buPROPion-XL 150 MG TABCR PO (09:50)
[2025-05-02] MEDS: Ferrous Sulfate 325 MG TAB PO (09:51)
[2025-05-02] MEDS: Apixaban 5 MG TAB PO ×2 (09:51→20:31)
[2025-05-02] MEDS: Buprenorphine/Naloxone 8 mg/2 mg FILM 1 EACH SL ×3 (09:58→20:29)
[2025-05-02] MEDS: Triamcinolone 0.1% CR 80 GM TUBE TP ×2 (09:58→21:01)
[2025-05-02] MEDS: Ketoconazole 2% CREAM 15 GM TUBE TP (09:59)
[2025-05-02] MEDS: guaiFENesin 600 MG TABCR PO ×2 (10:00→20:31)
[2025-05-02] MEDS: Mirtazapine 15 MG TAB 45 MG PO (20:30)
[2025-05-02] MEDS: Collagenase 30 GM TUBE TP (20:32)
[2025-05-02] MEDS: Melatonin 3 MG TAB 9 MG PO (20:32)
[2025-05-02] MEDS: Acetaminophen 500 MG TAB 1000 MG PO (23:01)
[2025-05-03 06:44] LABS: Abs Immature Grans 0.12 10^3/uL (0.0-0.06); HCT 28.1 % (40.0-50.0); HGB 8.2 g/dL (13.5-17.5); Immature Grans % 1.9 %; MCH 22.7 pg (27.0-33.0); MCHC 29.2 % (32.0-36.0); MCV 78 fL (80-95); MPV 11.7 fL (8.0-11.0); Platelet Count 433 10^3/uL (130-400); RBC 3.61 10^6/uL (4.36-5.78); RDW 17.7 % (11.8-14.1); RDW-SD 50.4 fL; WBC 6.31 10^3/uL (4.4-10.8)
[2025-05-03 08:13] VITALS: BP 133/86; PULSE 88; RESP 16; TEMP 36.5; O2SAT 96
[2025-05-03] MEDS: DULoxetine 30 MG CAP PO (08:50)
[2025-05-03] MEDS: buPROPion-XL 150 MG TABCR PO (08:50)
[2025-05-03] MEDS: ARIPiprazole 5 MG TAB 7.5 MG PO (08:50)
[2025-05-03] MEDS: Baclofen 10 MG TAB 20 MG PO ×3 (08:50→20:39)
[2025-05-03] MEDS: Fluconazole 100 MG TAB 200 MG PO (08:50)
[2025-05-03] MEDS: guaiFENesin 600 MG TABCR PO ×2 (08:50→20:39)
[2025-05-03] MEDS: Senna TAB 2 TAB PO (08:51)
[2025-05-03] MEDS: Ferrous Sulfate 325 MG TAB PO (08:51)
[2025-05-03] MEDS: Docusate Sodium 100 MG CAP PO ×3 (08:51→20:39)
[2025-05-03] MEDS: Apixaban 5 MG TAB PO ×2 (08:51→20:39)
[2025-05-03] MEDS: Buprenorphine/Naloxone 8 mg/2 mg FILM 1 EACH SL ×3 (08:51→20:39)
[2025-05-03] MEDS: Triamcinolone 0.1% CR 80 GM TUBE TP ×2 (08:54→21:58)
[2025-05-03] MEDS: Ketoconazole 2% CREAM 15 GM TUBE TP (08:54)
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
--- NOTE | 2025-05-03 15:29 | CMPROGNOTE_ITS ---
Date of service: 05/03/25 Time of Service: 15:29 Care Management Progress Note Progress Note Text Progress Note Text: Clifton had a telepsych visit today that recommended Clifton have regular therapist visits. CM checked in with Clifton as to wether this would be something that he was interested in. He stated that he would be interested. CM contacted [facility]. [facility] was to send some intake paperwork to Clifton via email that he will need to fill out digitally. Clifton is aware of this, but CM has not checked back in with him at this time. Clifton has an appointment with a therapist via Zoom on 05/25 at 1pm. He will be sent an email with the link about 1/2 hour prior to his meeting. He should call [facility] if no link is received by 12:50. Clifton was up in his chair most of the day today. He ate a good breakfast, and seemed like his spirits were a bit better. Clifton and his sister, Heather, who is also Clifton's HCA, were meeting with palliative care today at 3 pm. Social Determinants of Health Screening Social Determinants of health last assessed in clinic: 05/03/25 Will the Patient Participate in the Screening?: Yes Do you worry about having a steady place to live?: yes What is your living situation today?: I do not have steady housing Problems where you live: no known problems In the past 12 months, have you had to go without electric, gas, oil or water in your home?: no 1. Within the past 12 months, we worried whether our food would run out before we got money to buy more.: Don't know/refused 2. Within the past 12 months, the food we bought just didn't last and we didn't have money to get more.: Don't know/refused Has lack of transportation kept you from medical appointments or from doing things needed for daily living?: yes Has anyone in your life made you feel unsafe or unsupported?: yes How often does anyone, including family and friends, physically hurt you?: Never How often does anyone, including family and friends, insult or talk down to you?: Sometimes How often does anyone, including family and friends, threaten you with harm?: Never How often does anyone, including family and friends, scream or curse at you?: Sometimes HRSN Safety total score: 8 How hard is it for you to pay for the very basics like food, housing, medical care, and heating? Would you say it is:: Somewhat hard Do you want help finding or keeping work or a job?: I do not need or want help If for any reason you need help with day-to-day activities such as bathing, preparing meals, shopping, managing finances, etc., do you get the help you need?: I don?t need any help How often do you feel lonely or isolated from those around you?: Often Do you speak a language other than Armenian at home?: No Health Related Social Needs Health related social needs: housing instability, housed, with risk of homelessness (Z59.811), transportation insecurity (Z59.82), problems related to housing/economic circumstances (Z59.89) and feeling lonely/isolated (Z60.8) Health related social needs details: needs new placement
--- NOTE | 2025-05-03 16:23 | W.PALPGNOTE ---
Date of service: 05/03/25 Time of Service: 15:00 Assessment and Plan Assessment and plan (1) Decubitus ulcer of ischium, stage 3: Status: Acute Assessment and plan: Surgical debridment completed for bilateral ischial decubitus wounds on 04/30/25 - concern for malnutrition impact of wound healing - encourage PO intake as tolerated (2) Housing instability, housed, with risk of homelessness: Status: Acute Assessment and plan: no safe discharge plan at this time remains on swing bed status CM working on discharge plan recommend team meeting w/[facility], Clifton, CM and potentially PC to review his preferred plan on discharge (3) Anxiety and depression: Status: Chronic Assessment and plan: f/b psych; most recent consult 05/03 - Wellbutrin XL increased to 225mg qd - mirtazapine 45mg qhs - Abilify qd - d/c Cymbalta - psychotherapy 2x/wk (4) Paraplegia at T4 level: Status: Acute Assessment and plan: approximately for 1 year dependent on others for ADL care, wound care, IADLS, etc (5) Chronic osteomyelitis of sacrum: Status: Acute Assessment and plan: accepting of wound care; see wound care consult f/b outpatient may consider not treating if osteomyelitis were to recurr (6) Constipation: Status: Acute Assessment and plan: last BM on 04/30 does feel bloated, discomfort w/constipation sxs, chronic constipation agreeable to Colace - h/o Miralax and MOM w/no effect per report; would not want lactulose d/t loose/multiple BM concerns agreeable to suppository is no BM in 6 days (7) Palliative care encounter: Assessment and plan: PC will continue to follow and support Clifton during this hospitalization and outpatient pending discharge location - f/u on Saturday to check in, w/plans for next two weeks visit w/alt PC provider Dr Bowens - ongoing work to help with question of how do I go about proving that mental health is not contributing to desire to hasten ? and more of a QoL desire - previously: loss of independence, bodily function/autonomy as reasons for preference w/no LST, having control over things he can control - consider COLST w/updates for antibiotics, fluids and overall goals of care sections as appropriate (8) Advanced care planning/counseling discussion: Status: Acute Assessment and plan: reviewed malnourished concerns w/wound healing, delayed healing, progression of wound; in context of not wanting any artificial nutrition, oral intake is to be supported as much as possible, offered any food he would want, continue appetite stimulant which he agreeable to reviewed risk of untreated constipation l/t obstruction/perforation of bowel, sig pain/discomfort/suffering a/w this; would recommend avoiding this; he is agreeable to management of bowels to avoid perforation at this time; recommend continue treatment and intermittent abx XR PRN if concerns for blockage reviewed current COLST preferences of DNR/I and no artificial nutrition w/HCA; he would be agreeable to fixing a collapsed lung; reviewed antibiotic use at time of infection, previously stated preferences w/not treating an infection if it were to recur, would spread to sepsis and ; while Heather was not supportive of this, d/t concerns w/suffering and a hastened when she wouldn't want him to , but she is supportive of giving him control and choice over his decisions in care reviewed his preferences for ideally being eligible for MAID, however he likely would not be eligible for this until he is so sick that he would before completion of process; would be eligible for hospice w/infection presentation and preference for no abx treatment - would ensure COLST completed at that time for no abx, and comfort directed care, will not complete at this time reviewed recommendation for POC review w/[facility] and [facility], may include PC to help facilitate these conversations from a PC perspective and quality of life it is this provider's recommendation to allow Clifton opportunities to see his dog while hospitalized; if not in his room, could his team coordinate a visit in [facility] or other location inside hospital, as outside is too cold for him spent 50m w/ACP Subjective Subjective Interval history since last seen: Clifton remains hospitalized on swing bed pending safe discharge plan - today's visit for family meeting to include sister/HCA Heather and Aunt Phuong PO Intake: eating well today, no concerns from staff; - Clifton has no concerns, intermittently not feeling hungry, not bothered by this. does not have any foods he is craving. aware he can have anything he want if he desires - concern from surgical/wound care regarding malnutrition impacting wound healing BM: last moved 04/30, previously 04/29 and 10/3; intermittently accepting BM meds - Clifton denies pain in abdomen w/constipative sxs, does feel bloated and discomfort; chronic constipation concerns, nothing new; he is accepting of Colace; h/o Miralax and MOM w/no effect; is agreeable to considering suppositories if no bowel in 6 days or greater Wounds: agreeing to wound care; recent debridement, concerns for wound healing 2/2 malnutrition; intermittently refusing repositioning - Clifton is aware that he is malnourished which will impact his wound healing, he is agreeable to repositioning sometimes Activity: he has intermittently refused to get out of bed, some days does use WC and go outside; more accepting of wound care, repositioning some days compared to others - Clifton is up in WC today, he is aware he can go outside if he'd like, does not want to today Seizures: last activity last evening; occuring sometimes randomly, sometimes in clusters - Clifton agrees w/randomness clustering, patricia worse if sick or stressed MH: psych consult this morning; improved affect; recommend some med adjustments, see A/P - Clifton is aware that his MH does contribute to impression of his refusal to engage in care, meds, and concerns w/hastening through not following intervention recommendations or LST; he denies SI/HI, does not have thoughts of ending life, however does not want to prolong it, see below; he is agreeable to following medication adjustments and is not entirely sure he would accept counselling, but will try Social: his dog Renato is staying at [facility]; he is hopeful he could have a visit, he provides him w/sig comfort and helpful for his mood and quality of life; Heather lives in [place], [place] in 's, neither able to care for him in their homes - Heather wants him to have control over his money, wonders if getting him [employer] gift cards to give him control; - he needs to change his mailing address; to call storage unit today to consent for Heather's assistance ACP: continues w/preference to not pursue life sustaining interventions, this is not a/w his lack of appetite/reduce PO intake; most important to him is having autonomy and control; he does want to continue conversations today regarding LST, including the option to chose not having abx if infection were to present - if he had a collapsed lung again, he would be agreeable to having this corrected again Heather is concerned w/his decision to not have abx, patricia bc recurrent wound infection highly likely, does not want him to suffer w/sepsis; would want him to consider a short course of abx if reversible/curable illness Phuong is concerned that his life could get better and he would miss this opportunity if he Exam Narrative Exam Narrative: General: 46y/o male, in WC throughout visit; makes appropriate eye contact, engages readily and easily throughout visit; HEENT: normocephalic, atraumatic; hearing grossly WNL, MMM Resp: even and unlabored at rest; speaks full sentences w/o SOB; no resp distress; no audible wheeze or cough Psych: MS WNL, answers questions appropriately, affect WNL, sad w/crying intermittent at appropriate times, mood cooperative; thought process normal; insight/judgment fair/limited Objective Last Vital Signs Temp 97.7 F 05/03/25 08:13 Pulse 88 05/03/25 08:13 Resp 16 05/03/25 08:13 BP 133/86 05/03/25 08:13 Pulse Ox 96 05/03/25 08:13 Laboratory Results - last 24 hr 05/03/25 05:50 WBC 6.31 RBC 3.61 L Hgb 8.2 L Hct 28.1 L MCV 78 L MCH 22.7 L MCHC 29.2 L RDW 17.7 H Plt Count 433 H MPV 11.7 H Immature Gran % 1.9 Neutrophils % 53.7 Lymphocytes % 29.2 Monocytes % 10.8 Eosinophils % 4.1 Basophils % 0.3 Nucleated RBC % 0.0 Absolute Neutrophils 3.39 Absolute Lymphocytes 1.84 Absolute Monocytes 0.68 Absolute Eosinophils 0.26 Absolute Basophils 0.02
[2025-05-03 16:33] VITALS: BP 174/95; PULSE 72; TEMP 35.8; O2SAT 100
[2025-05-03] MEDS: LORazepam 1 MG TAB 2 MG PO ×2 (16:37→23:01)
[2025-05-03] MEDS: Collagenase 30 GM TUBE TP (20:39)
[2025-05-03] MEDS: Mirtazapine 15 MG TAB 45 MG PO (20:39)
[2025-05-03] MEDS: Melatonin 3 MG TAB 9 MG PO (20:39)
[2025-05-04] MEDS: Acetaminophen 500 MG TAB 1000 MG PO (02:01)
[2025-05-04] MEDS: LORazepam 1 MG TAB 2 MG PO ×3 (06:33→19:55)
[2025-05-04 07:23] VITALS: BP 124/70; PULSE 75; RESP 17; TEMP 36.2; O2SAT 94
[2025-05-04] MEDS: Fluconazole 100 MG TAB 200 MG PO (08:54)
[2025-05-04] MEDS: Senna TAB 2 TAB PO (08:55)
[2025-05-04] MEDS: buPROPion-XL 150 MG TABCR 225 MG PO (08:55)
[2025-05-04] MEDS: Baclofen 10 MG TAB 20 MG PO ×3 (08:55→19:55)
[2025-05-04] MEDS: guaiFENesin 600 MG TABCR PO ×2 (08:55→19:56)
[2025-05-04] MEDS: ARIPiprazole 5 MG TAB 7.5 MG PO (08:55)
[2025-05-04] MEDS: Apixaban 5 MG TAB PO ×2 (08:55→19:57)
[2025-05-04] MEDS: Buprenorphine/Naloxone 8 mg/2 mg FILM 1 EACH SL ×3 (08:56→19:57)
[2025-05-04] MEDS: Ferrous Sulfate 325 MG TAB PO (08:56)
[2025-05-04] MEDS: Bisacodyl 5 MG TABEC PO (08:57)
[2025-05-04] MEDS: Triamcinolone 0.1% CR 80 GM TUBE TP ×2 (09:01→19:57)
[2025-05-04] MEDS: Ketoconazole 2% CREAM 15 GM TUBE TP (09:02)
[2025-05-04] MEDS: Docusate Sodium 100 MG CAP PO ×3 (09:03→19:56)
[2025-05-04 19:20] VITALS: BP 110/73; PULSE 96; RESP 18; TEMP 36.7; O2SAT 96
[2025-05-04] MEDS: Mirtazapine 15 MG TAB 45 MG PO (19:56)
[2025-05-04] MEDS: Melatonin 3 MG TAB 9 MG PO (19:56)
[2025-05-04] MEDS: Collagenase 30 GM TUBE TP (19:58)
[2025-05-05] MEDS: LORazepam 1 MG TAB 2 MG PO ×3 (01:53→23:04)
[2025-05-05] MEDS: Acetaminophen 500 MG TAB 1000 MG PO ×2 (03:55→19:54)
[2025-05-05 07:35] VITALS: BP 140/67; PULSE 87; RESP 17; TEMP 36; O2SAT 96
--- NOTE | 2025-05-05 08:55 | PDOC.CMACT ---
Date of service: 05/05/25 Time of Service: 08:55 Care Management Activity Note Activity Note Text Activity Note Text: Clifton had been getting up in his wheelchair and going out into the hallway and, at times, outside for short visits. He had the opportunity to see his dog a couple of weeks ago and will be able to do so again as time and weather permit. (The canine visits are limited to outside visits.) This week Clifton has seemed more depressed and has not gotten up in his chair since Saturday. Today he asked to see a Palliative Care provider as soon as possible, however there is no coverage until next Saturday. When available, Clifton enjoys pet therapy and playong cribbage.
[2025-05-05] MEDS: ARIPiprazole 5 MG TAB 7.5 MG PO (09:36)
[2025-05-05] MEDS: buPROPion-XL 150 MG TABCR 225 MG PO (09:37)
[2025-05-05] MEDS: Buprenorphine/Naloxone 8 mg/2 mg FILM 1 EACH SL ×3 (09:37→19:45)
[2025-05-05] MEDS: Baclofen 10 MG TAB 20 MG PO ×3 (09:37→19:46)
[2025-05-05] MEDS: Fluconazole 100 MG TAB 200 MG PO (09:37)
[2025-05-05] MEDS: guaiFENesin 600 MG TABCR PO ×2 (09:37→19:47)
[2025-05-05] MEDS: Apixaban 5 MG TAB PO ×2 (09:37→19:46)
[2025-05-05] MEDS: Docusate Sodium 100 MG CAP PO ×3 (09:37→19:46)
[2025-05-05] MEDS: Ferrous Sulfate 325 MG TAB PO (09:38)
[2025-05-05] MEDS: Senna TAB 2 TAB PO (09:38)
[2025-05-05] MEDS: Bisacodyl 5 MG TABEC PO (10:37)
[2025-05-05] MEDS: Simethicone 80 MG CHEW PO (15:02)
--- NOTE | 2025-05-05 15:05 | PCPN_ITS ---
Date of service: 05/05/25 Time of Service: 15:05 Assessment and Plan Assessment and plan (1) Decubitus ulcer of ischium, stage 3: Status: Acute Assessment and plan: Surgical debridment completed for bilateral ischial decubitus wounds on 04/30/25 - concern for malnutrition impact of wound healing - encourage PO intake as tolerated - refusing repositioning today (2) Housing instability, housed, with risk of homelessness: Status: Acute Assessment and plan: no safe discharge plan at this time remains on swing bed status CM working on discharge plan recommend team meeting w/[facility], Clifton, CM and potentially PC to review his preferred plan on discharge (3) Anxiety and depression: Status: Chronic Assessment and plan: f/b psych; most recent consult 05/03 - Wellbutrin XL increased to 225mg qd - mirtazapine 45mg qhs - Abilify qd - d/c Cymbalta - psychotherapy 2x/wk (4) Paraplegia at T4 level: Status: Acute Assessment and plan: approximately for 1 year dependent on others for ADL care, wound care, IADLS, etc (5) Chronic osteomyelitis of sacrum: Status: Acute Assessment and plan: accepting of wound care; see wound care consult f/b outpatient may consider not treating if osteomyelitis were to recurr (6) Constipation: Status: Acute Assessment and plan: last BM on 04/30 does feel bloated, discomfort w/constipation sxs, chronic constipation agreeable to Colace - h/o Miralax and MOM w/no effect per report; would not want lactulose d/t loose/multiple BM concerns agreeable to suppository is no BM in 6 days; confirms today added simethicone 80-160mg qid PRN to trial (7) Sleep pattern disturbance: Status: Acute Assessment and plan: to trial trazodone 100mg justin QHS may increase to 200mg (8) Palliative care encounter: Assessment and plan: PC will continue to follow and support Clifton during this hospitalization and outpatient pending discharge location - f/u next 2 weeks w/alt PC provider Dr Dalal - ongoing work to help with question of how do I go about proving that mental health is not contributing to desire to hasten ? and more of a QoL desire - previously: loss of independence, bodily function/autonomy as reasons for preference w/no LST, having control over things he can control - consider COLST w/[employer], no LST (abx, IVF update) as appropriate on 2nd PC provider visit; - ongoing review of best plan for him, w/MAID vs hospice eligibility; when eligible for each, best way to support him (9) Advanced care planning/counseling discussion: Status: Acute Assessment and plan: reviewed PC plan for next visit w/alt provider for ongoing review and confirmation of his preferences and support of his decisions regarding his QoL and goals reviewed potential quickest way to hasten likely not treating an infection when re-occurs: local infection will spread to sepsis and ultimately ; reviewed fluids and nutrition forms of life sustainment, likely would take a long time to hasten given his age, cues for hunger/thirst, and reserves reviewed sxs management w/bloating w/simethicone and sleep w/trazodone; recommend complete COLST as appropriate for comfort directed care, reviewed goal to have alt provider to confirm/agree w/POC spent 25m w/ACP Subjective Subjective Interval history since last seen: Clifton remains hospitalized on swing bed pending safe discharge plan - per staff refusing most meds, requesting I want my comfort meds, like lorazepam, simethicone, etc PO Intake: eating well today, no concerns from staff; Clifton denies wanting any special foods brought in today; no concerns w/his eating; refusing protein drink BM: last moved 04/30, on day 4 w/o BM, accepting dulcolax, refusing MOM and enema - reporting abdomen feels bloated and gassy, requesting medication for that, uses simethicone at home; he does not want to have more bowel meds today Activity: not out of bed today, he doesn't want to; he is refusing repositioning and to get cleaned up today Seizures: last activity Saturday post PC visit w/family, controlled w/lorazepam; none reported overnight or today Sleep: did not sleep well at all last night, even w/2 doses of lorazepam overnight; extra tired today; would want med to trial helping sleep Social: nephew and his grandmother visited today - unfortunately bringing the dog inside hospital will present too many obstacles: vaccination record, bathed beforehand and other sig challenges; can visit anytime outside of hospital ACP: he is having hard time navigating when/if he could be eligible for MAID, he is hoping to do whatever he can to help himself fast track his decline/end of life; he is not trying to draw out his life, looking for the quickest way; he is wanting his medications aimed at comfort only Exam Narrative Exam Narrative: General: 46y/o male, lying in hospital bed HOB elevated; makes appropriate eye contact, engages readily and easily throughout visit; HEENT: normocephalic, atraumatic; hearing grossly WNL, MMM Resp: even and unlabored at rest; speaks full sentences w/o SOB; no resp distress; no audible wheeze or cough Psych: MS WNL, answers questions appropriately, affect WNL, sad w/crying intermittent at appropriate times, mood cooperative; thought process normal; insight/judgment fair/limited Objective Last Vital Signs Temp 96.8 F L 05/05/25 07:35 Pulse 87 05/05/25 07:35 Resp 17 05/05/25 07:35 BP 140/67 05/05/25 07:35 Pulse Ox 96 05/05/25 07:35
[2025-05-05] MEDS: Bisacodyl 10 MG SUPP PR (19:45)
[2025-05-05] MEDS: Protein Nutritional Supplement 16 GM 1 OUNCE PACKET PO (19:45)
[2025-05-05] MEDS: traZODone 100 MG TAB PO (19:46)
[2025-05-05] MEDS: Mirtazapine 15 MG TAB 45 MG PO (19:47)
[2025-05-05] MEDS: Melatonin 3 MG TAB 9 MG PO (19:47)
[2025-05-05] MEDS: Triamcinolone 0.1% CR 80 GM TUBE TP (19:50)
[2025-05-05] MEDS: Collagenase 30 GM TUBE TP (19:51)
[2025-05-05 19:52] VITALS: BP 131/60; PULSE 93; RESP 20; TEMP 36.2; O2SAT 95
[2025-05-05 22:54] VITALS: BP 148/82; PULSE 80; RESP 17; TEMP 35.2; O2SAT 99
[2025-05-06 00:55] VITALS: BP 109/68; PULSE 120; RESP 22; TEMP 36.4; O2SAT 96
[2025-05-06] MEDS: LORazepam 1 MG TAB 2 MG PO ×3 (01:11→18:28)
[2025-05-06 05:46] VITALS: BP 168/91; PULSE 67; RESP 20; TEMP 37; O2SAT 100
[2025-05-06] MEDS: Acetaminophen 500 MG TAB 1000 MG PO ×3 (06:26→18:28)
[2025-05-06 07:44] VITALS: BP 87/55; PULSE 102; RESP 12; TEMP 36.1; O2SAT 97
[2025-05-06 07:56] VITALS: BP 108/68
[2025-05-06] MEDS: ARIPiprazole 5 MG TAB 7.5 MG PO (09:04)
[2025-05-06] MEDS: Docusate Sodium 100 MG CAP PO ×3 (09:08→19:38)
[2025-05-06] MEDS: buPROPion-XL 150 MG TABCR 225 MG PO (09:08)
[2025-05-06] MEDS: guaiFENesin 600 MG TABCR PO ×2 (09:10→19:38)
[2025-05-06] MEDS: Ferrous Sulfate 325 MG TAB PO (09:10)
[2025-05-06] MEDS: Apixaban 5 MG TAB PO ×2 (09:10→19:38)
[2025-05-06] MEDS: Buprenorphine/Naloxone 8 mg/2 mg FILM 1 EACH SL ×3 (09:11→19:37)
[2025-05-06] MEDS: Baclofen 10 MG TAB 20 MG PO ×3 (09:11→19:38)
[2025-05-06] MEDS: Senna TAB 2 TAB PO (09:17)
--- NOTE | 2025-05-06 10:10 | NUR.NOTE ---
pt expressed to student nurse and primary nurse that he wanted to be on the fast track. pt notes that he doesn't want to be here anymore. pt is emotional over his condition. pt became a bit tearful. pt expressed that he got some meds last night that took a while to work but he is feeling sleepy today because of them. BALJEET LINDA
[2025-05-06] MEDS: Zolpidem 10 MG TAB PO (19:37)
[2025-05-06] MEDS: Melatonin 3 MG TAB 9 MG PO (19:38)
[2025-05-06] MEDS: Bisacodyl 10 MG SUPP PR (19:38)
[2025-05-06] MEDS: Protein Nutritional Supplement 16 GM 1 OUNCE PACKET PO (19:39)
[2025-05-06] MEDS: Triamcinolone 0.1% CR 80 GM TUBE TP (19:39)
[2025-05-06] MEDS: Collagenase 30 GM TUBE TP (19:39)
[2025-05-06] MEDS: Mirtazapine 15 MG TAB 45 MG PO (19:39)
[2025-05-06] MEDS: traZODone 100 MG TAB PO (19:39)
[2025-05-07] MEDS: LORazepam 1 MG TAB 2 MG PO ×4 (00:28→23:39)
[2025-05-07 00:29] VITALS: BP 100/73; PULSE 118; RESP 16; TEMP 36; O2SAT 93
[2025-05-07] MEDS: Acetaminophen 500 MG TAB 1000 MG PO ×4 (01:15→23:38)
[2025-05-07 06:55] LABS: Abs Immature Grans 0.05 10^3/uL (0.0-0.06); HCT 28.1 % (40.0-50.0); HGB 7.9 g/dL (13.5-17.5); Immature Grans % 0.5 %; MCH 22.1 pg (27.0-33.0); MCHC 28.1 % (32.0-36.0); MCV 79 fL (80-95); MPV 11.5 fL (8.0-11.0); Platelet Count 445 10^3/uL (130-400); RBC 3.57 10^6/uL (4.36-5.78); RDW 17.2 % (11.8-14.1); RDW-SD 49.3 fL; WBC 9.22 10^3/uL (4.4-10.8)
[2025-05-07 07:07] LABS: Anion Gap 10.9 mmol/L (3-11); BUN 12 mg/dL (7-18); CO2 28.1 mmol/L (21.0-32.0); Calcium 9.0 mg/dL (8.5-10.1); Chloride 102 mmol/L (98-107); Estimated GFR 123.60 (mL/min/1.73m2); Glucose 129 mg/dL (74-106); Potassium 4.0 mmol/L (3.5-5.1); Sodium 141 mmol/L (136-145)
[2025-05-07 07:22] LABS: Iron 19 ug/dL (65-175); Total Iron Binding Capacity 276 ug/dL (250-450); Transferrin Sat 7 % (20-55)
[2025-05-07] MEDS: ARIPiprazole 5 MG TAB 7.5 MG PO (08:05)
[2025-05-07] MEDS: guaiFENesin 600 MG TABCR PO ×2 (08:06→20:21)
[2025-05-07] MEDS: Docusate Sodium 100 MG CAP PO ×2 (08:06→20:21)
[2025-05-07] MEDS: Apixaban 5 MG TAB PO ×2 (08:06→20:21)
[2025-05-07] MEDS: Ferrous Sulfate 325 MG TAB PO (08:06)
[2025-05-07] MEDS: buPROPion-XL 150 MG TABCR 225 MG PO (08:06)
[2025-05-07] MEDS: Baclofen 10 MG TAB 20 MG PO ×3 (08:07→20:22)
[2025-05-07] MEDS: Buprenorphine/Naloxone 8 mg/2 mg FILM 1 EACH SL ×3 (08:07→20:21)
[2025-05-07] MEDS: Ketoconazole 2% CREAM 15 GM TUBE TP (08:11)
[2025-05-07] MEDS: Triamcinolone 0.1% CR 80 GM TUBE TP (08:11)
[2025-05-07 10:56] VITALS: BP 131/84; PULSE 90; RESP 18; TEMP 36.1; O2SAT 96
--- NOTE | 2025-05-07 13:16 | TELEFU_ITS ---
Date of service: 05/07/25 Time of Service: 13:16 Nutrition Note NOTE: follow up - Sina reports eating a little more - nursing also seeing improved po intake (not consistently but overall over the last week). weight taken via lift on 05/02 and shows further weight loss. Weight history shows lowest weight of 108kg since his GS wound in Aug 2023. Weight hx can be innacurate related to frequent use of bedscale and discrepencies associated with this. Regardless there is some weight loss - best estimated as at least 10kg over the last month, with typical weight all through March as 111-115kg. Being conservative, Sina appears to have lost a minimum of 9% body weight in less than 2 months time. Would assess that over the last month sina on average meets <50% of estimated energy needs. He is offered oral nutrition supplements and refuses often. Intake has recently improved as stated above, but sina is still experiencing malnutrition from his hx of refusal to eat or lack of adequate intake. NFPE - declined and cannot be completed in full related to paraplegia. But over the weeks have observed mild to moderate temporal wasting and more prominent zygomatic arch, thinning and dulling hair. Dx: inadequate intake related to depression as evidenced by sina's responses that nursing has shared as well as I have had heard regarding lack of interest in food/eating many times. Intervention: Sina declines any support from artificial nutrition. Will c ontinue to push ONS options to him and encourage po intake. discharging to a different environment may be a benefit to his desire to eat. Suggest accurate weight once per week to further help in identifying if he meets criteria for moderate malnutrition dx. Will continue to monitor intake, nutrition related labs, weight, acceptance/tolerance of ons. Time Spent in Nutritional Counseling and Treatment: 10 min
--- NOTE | 2025-05-07 15:23 | CHAPLAIN ---
Shawn was in bed when I visited this afternoon. He has been up in his wheelchair less often lately. When I asked when he looks forward to he said nothing. He did say he likes when his sister visits. She lives locally and doesn't visit regularly. Clifton said they are close. His sister is 10 years older than Clifton. He said he is looking forward to meeting with a Palliative Care again. He's met with Tanika Nielson NP most recently. He said he's interested in medical aid in dying, although he knows he is not eligible currently. When I asked if there's anything that we could be doing that would be helpful, he said he'd like to have his legs massaged. His nurse, SHAQUILLE Gupta, walked in then and we talked with him about getting an order for leg massages twice a day. Clifton said his neck and head are almost always painful. will continue to visit.
[2025-05-07 16:35] VITALS: BP 136/83; PULSE 96; RESP 16; TEMP 37.4; O2SAT 95
[2025-05-07 18:00] VITALS: TEMP 37
--- NOTE | 2025-05-07 18:13 | DI.RAD_ITS ---
Exam(s) XR PORTABLE CHEST AP EXAM: XR PORTABLE CHEST AP CLINICAL HISTORY: Fever TECHNIQUE: 2D digital imaging was performed of the chest. One image was obtained. An AP view was obtained. COMPARISON: CR,XR XR PORTABLE CHEST AP from 04/26/2024 CR XR CHEST 2V PA LATERAL from 09/18/2024 CR,XR XR PORTABLE CHEST AP from 09/19/2024 CR,XR XR CHEST 1V IN DI DEPT from 03/21/2025 CR,XR XR PORTABLE CHEST AP from 04/27/2025 FINDINGS: MEDIASTINUM: Normal. HEART: Normal. PULMONARY VASCULATURE: Normal. LUNGS: There is still a residual left basilar infiltrate though it has shown significant improvement compared to the prior examination. No new infiltrates are seen. PLEURAL SPACE: No pleural effusion or pneumothorax. BONE:Within normal limits for the patient's age. OTHER FINDINGS:Normal. IMPRESSION: Overall improvement of the lung. There is a small residual infiltrate in the left lung base. DATA REPOSITORY: RADIATION DOSE DELIVERED:
--- NOTE | 2025-05-07 18:17 | W.EVENT ---
Date of service: 05/07/25 Time of Service: 18:17 Event Note: Patient has fever, states he not feeling well. Other VS HR 96, RR 15, SPO2 95% BP 136/83. Urine, Blood cultures, CBC CMP pending and night hospitalist will follow up. Time Spent with Patient Time spent in critical care(minutes): 0 Time Spent Included: Time at immediate bedside
[2025-05-07 18:28] LABS: Glucose Negative (Negative)
[2025-05-07 18:33] LABS: C & S Indicated? Yes; WBC 20-50 HPF (0-5)
[2025-05-07 18:40] LABS: Abs Immature Grans 0.04 10^3/uL (0.0-0.06); HCT 27.8 % (40.0-50.0); HGB 7.9 g/dL (13.5-17.5); Immature Grans % 0.5 %; MCH 22.3 pg (27.0-33.0); MCHC 28.4 % (32.0-36.0); MCV 78 fL (80-95); MPV 11.2 fL (8.0-11.0); Platelet Count 422 10^3/uL (130-400); RBC 3.55 10^6/uL (4.36-5.78); RDW 17.4 % (11.8-14.1); RDW-SD 49.7 fL; WBC 8.88 10^3/uL (4.4-10.8)
[2025-05-07 18:56] LABS: ALT 17 U/L (16-63); AST 11 U/L (15-37); Albumin 2.5 g/dL (3.4-5.0); Alkaline Phosphatase 72 U/L (46-116); Anion Gap 6.1 mmol/L (3-11); BUN 12 mg/dL (7-18); Bilirubin, Total 0.1 mg/dL (0.2-1.0); CO2 32.9 mmol/L (21.0-32.0); Calcium 9.2 mg/dL (8.5-10.1); Chloride 100 mmol/L (98-107); Estimated GFR 113.32 (mL/min/1.73m2); Glucose 129 mg/dL (74-106); Potassium 4.4 mmol/L (3.5-5.1); Sodium 139 mmol/L (136-145); Total Protein 6.9 g/dL (6.4-8.2)
[2025-05-07] MEDS: Melatonin 3 MG TAB 9 MG PO (20:21)
[2025-05-07] MEDS: Mirtazapine 15 MG TAB 45 MG PO (20:21)
[2025-05-07] MEDS: traZODone 100 MG TAB PO (20:22)
[2025-05-07] MEDS: Bisacodyl 10 MG SUPP PR (20:22)
[2025-05-07] MEDS: Collagenase 30 GM TUBE TP (20:23)
[2025-05-07] MEDS: cefTRIAXone 1 GM/50 ML BAG IVPB (21:04)
[2025-05-07 23:41] VITALS: BP 104/78; PULSE 95; RESP 18; TEMP 36.1; O2SAT 98
[2025-05-08 02:25] VITALS: BP 113/71; PULSE 111; RESP 18; TEMP 36.3; O2SAT 95
[2025-05-08] MEDS: LORazepam 1 MG TAB 2 MG PO ×4 (03:10→22:50)
[2025-05-08] MEDS: Acetaminophen 500 MG TAB 1000 MG PO ×2 (07:18→16:11)
[2025-05-08] MEDS: Baclofen 10 MG TAB 20 MG PO ×4 (08:00→21:19)
[2025-05-08] MEDS: guaiFENesin 600 MG TABCR PO ×2 (08:00→19:59)
[2025-05-08] MEDS: Ferrous Sulfate 325 MG TAB PO (08:00)
[2025-05-08] MEDS: ARIPiprazole 5 MG TAB 7.5 MG PO (08:01)
[2025-05-08] MEDS: Buprenorphine/Naloxone 8 mg/2 mg FILM 1 EACH SL ×3 (08:01→20:01)
[2025-05-08] MEDS: Apixaban 5 MG TAB PO ×2 (08:01→20:00)
[2025-05-08] MEDS: buPROPion-XL 150 MG TABCR 225 MG PO (08:01)
[2025-05-08] MEDS: Triamcinolone 0.1% CR 80 GM TUBE TP ×2 (08:02→20:19)
[2025-05-08 08:09] VITALS: BP 121/78; PULSE 102; RESP 16; TEMP 35.8; O2SAT 97
--- NOTE | 2025-05-08 11:55 | PDOC.CMPRO ---
Date of service: 05/08/25 Time of Service: 11:55 Care Management Progress Note Progress Note Text Progress Note Text: Shawn Carter is currently admitted to [facility], but has developed an infection requiring IV ABX. His admission status is in the process of being updated to B1 due to skillable treatment need. Please see provider documentation. Social Determinants of Health Screening Social Determinants of health last assessed in clinic: 05/08/25 Will the Patient Participate in the Screening?: Yes Do you worry about having a steady place to live?: yes What is your living situation today?: I do not have steady housing Problems where you live: no known problems In the past 12 months, have you had to go without electric, gas, oil or water in your home?: no 1. Within the past 12 months, we worried whether our food would run out before we got money to buy more.: Never true 2. Within the past 12 months, the food we bought just didn't last and we didn't have money to get more.: Never true Has lack of transportation kept you from medical appointments or from doing things needed for daily living?: yes Has anyone in your life made you feel unsafe or unsupported?: yes How often does anyone, including family and friends, physically hurt you?: Never How often does anyone, including family and friends, insult or talk down to you?: Sometimes How often does anyone, including family and friends, threaten you with harm?: Never How often does anyone, including family and friends, scream or curse at you?: Sometimes [facility] Safety total score: 8 How hard is it for you to pay for the very basics like food, housing, medical care, and heating? Would you say it is:: Somewhat hard Do you want help finding or keeping work or a job?: I do not need or want help If for any reason you need help with day-to-day activities such as bathing, preparing meals, shopping, managing finances, etc., do you get the help you need?: I don?t need any help How often do you feel lonely or isolated from those around you?: Often Do you speak a language other than [place]ovan at home?: No Health Related Social Needs Health related social needs: housing instability, housed, with risk of homelessness (Z59.811), transportation insecurity (Z59.82), problems related to housing/economic circumstances (Z59.89) and feeling lonely/isolated (Z60.8) Health related social needs details: needs new placement
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
--- NOTE | 2025-05-08 16:28 | PGE_ITS ---
Date of Service Date of service: 05/08/25 Time of Service: 16:28 Assessment and Plan Assessment and plan (1) UTI (urinary tract infection): Status: Acute Assessment and plan: Urine Cx with GNR On ceftriaxone Wants HELPER SHEAR OPERATOR treatment -psych consul pending (2) Decubitus ulcer of ischium, stage 3: Status: Acute Assessment and plan: Surgical debridment completed for bilateral ischial decubitus wounds on 04/30/25 - concern for malnutrition impact of wound healing - encourage PO intake as tolerated- refused megace - refusing repositioning at time s -cultures growing GPR (3) Anxiety and depression: Status: Chronic Assessment and plan: f/b psych; most recent consult 05/03- pending 05/08 - Wellbutrin XL increased to 225mg qd - mirtazapine 45mg qhs - Abilify qd - d/c Cymbalta - psychotherapy 2x/wk -Trazodone PO HS - can up dose to 200 mg if no effectiveness to treat insomnia (4) Paraplegia at T4 level: Status: Acute Assessment and plan: Ongoing approximately for 1 year dependent on others for ADL care, wound care, IADLS, etc Electric WC (5) Chronic osteomyelitis of sacrum: Status: Acute Assessment and plan: accepting of wound care; see wound care consult PRN surgical consult : follow recommendations Wound Cx growing GPR - w/o furhter results- now on ceftriaxone for UTI [place]ound [place] [facility] consider not treating if reoccurence of osteomyelitis (6) Constipation: Status: Acute Assessment and plan: last BM on 05/07 does feel bloated, discomfort w/constipation sxs, chronic constipation agreeable to Colace - h/o Miralax and MOM w/no effect per report; would not want lactulose d/t loose/multiple BM concerns agreeable to suppository is no BM in 6 days Simethicone 80mg qid (7) Sleep pattern disturbance: Status: Acute Assessment and plan: to trial trazodone 100mg justin QHS may increase to 200mg (8) Housing instability, housed, with risk of homelessness: Status: Acute Assessment and plan: no safe discharge plan at this time Swing bed 1 now from SB2 d/t point 1 CM working on discharge plan recommend team meeting w/[facility], [place], CM and potentially PC to review his preferred plan on discharge (9) Palliative care encounter: Assessment and plan: Palliative consult on Saturday - HELPER SHEAR OPERATOR request and with dignity - PC considered completing COLST w/HELPER SHEAR OPERATOR, no LST (abx, IVF update) as appropriate on 2nd PC provider visit- but this has not beeing completed -PC is actively reviewing the best plan for him, w/MAID vs hospice eligibility; when eligible for each, best way to support him (10) Advanced care planning/counseling discussion: Status: Acute Assessment and plan: As per CM notes the following points were reviwed with patient: PC plan for next visit w/alt provider for ongoing review and confirmation of his preferences and support of his decisions regarding his QoL and goals potential quickest way to hasten likely not treating an infection when re- occurs: local infection will spread to sepsis and ultimately ; fluids and nutrition forms of life sustainment, likely would take a long time to hasten given his age, cues for hunger/thirst, and reserves reviewed sxs management w/bloating w/simethicone and sleep w/trazodone; Trazodone did not work , ambien reported as working WATER SERVICE DISPATCHER also failed will attempt to titrate trazodone up to 200mg gradually DNR DNI Now psych consult pending with request for HELPER SHEAR OPERATOR in the setting of symptomatic infection Discussed with Dr. Boss Subjective Subjective Patient reports: still having pain, pain is less, tolerating liquids well, tolerating a regular diet, no bowel movement (last 05/07) and other (chills ); denies blood in stool, nausea, vomiting, shortness of breath or fever Exam Narrative Exam Narrative: Alert and oriented X 4 ,flushed face, non-icteric sclera, neurologically stable, clear lungs with diminished bases ,S1, S2 , no murmur, abdomen is round slightly distended non-tympanic , soft and non-tender, bowel sounds are present equal strength to bilat upper ext, ongoing paralysis to LEs from T4 injury, chronic pressure injury X2 to sacrum acquired prior to admission with ongoing wound care Psych Mental Status: other (depressed ) Speech and Movement: speech and movement normal (normal for patient ) Mood: other (depressed ) Affect: sad Attitude: cooperative Objective Last Vital Signs Temp 35.8 C L 05/08/25 08:09 Pulse 102 H 05/08/25 08:09 Resp 16 05/08/25 08:09 BP 121/78 05/08/25 08:09 Pulse Ox 97 05/08/25 08:09 Laboratory Results - last 24 hr 05/07/25 18:20 WBC 8.88 RBC 3.55 L Hgb 7.9 L Hct 27.8 L MCV 78 L MCH 22.3 L MCHC 28.4 L RDW 17.4 H Plt Count 422 H MPV 11.2 H Immature Gran % 0.5 Neutrophils % 68.4 Lymphocytes % 21.4 Monocytes % 7.0 Eosinophils % 2.4 Basophils % 0.3 Nucleated RBC % 0.0 Absolute Neutrophils 6.08 Absolute Lymphocytes 1.90 Absolute Monocytes 0.62 Absolute Eosinophils 0.21 Absolute Basophils 0.03 Sodium 139 Potassium 4.4 Chloride 100 Carbon Dioxide 32.9 H Anion Gap 6.1 BUN 12 Creatinine 0.8 Est GFR (CKD-EPI 2020) 113.32 Glucose 129 H Calcium 9.2 Total Bilirubin 0.1 L AST 11 L ALT 17 Alkaline Phosphatase 72 Total Protein 6.9 Albumin 2.5 L Urine Color Yellow Urine Clarity Sl Cloudy Urine pH 6.5 Ur Specific [place] 1.020 Urine Protein Trace Urine Ketones Trace H Urine Blood Trace-intact H Urine Nitrite Positive H Urine Bilirubin Negative Urine Urobilinogen 0.2 Ur Leukocyte Esterase Moderate H Urine RBC 5-10 H Urine WBC 20-50 H Ur Epithelial Cells Negative Urine Crystals Negative Urine Bacteria Moderate Urine Casts Negative Urine Mucus Negative Ur Culture Indicated? Yes Urine Glucose Negative Time Spent with Patient Time Spent with Patient: >50 minutes Time was spent: preparing to see the patient(eg.review tests), obtaining and/or reviewing separately [facility], ordering medications,tests, procedures, referring, communicating with other health child care worker, indepentently interpreting results, counseling the patient, care coordination and other
[2025-05-08] MEDS: Pantoprazole 40 MG VIAL IVP (18:47)
[2025-05-08] MEDS: Ketorolac 15 MG/ML VIAL IVP (18:47)
[2025-05-08] MEDS: Normal Saline Flush 10 ML SYR (18:54)
[2025-05-08] MEDS: Melatonin 3 MG TAB 9 MG PO (19:58)
[2025-05-08] MEDS: Mirtazapine 15 MG TAB 45 MG PO (19:59)
[2025-05-08] MEDS: cefTRIAXone 1 GM/50 ML BAG IVPB (20:18)
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
[2025-05-08] MEDS: traZODone 100 MG TAB PO ×2 (20:52→21:19)
[2025-05-08] MEDS: Collagenase 30 GM TUBE TP (20:52)
[2025-05-08 22:15] VITALS: RESP 16; O2SAT 96
[2025-05-09] MEDS: LORazepam 1 MG TAB 2 MG PO ×3 (04:05→17:41)
[2025-05-09] MEDS: Acetaminophen 500 MG TAB 1000 MG PO ×2 (04:09→16:22)
[2025-05-09 06:47] LABS: Abs Immature Grans 0.04 10^3/uL (0.0-0.06); HCT 27.6 % (40.0-50.0); HGB 8.0 g/dL (13.5-17.5); Immature Grans % 0.5 %; MCH 22.4 pg (27.0-33.0); MCHC 29.0 % (32.0-36.0); MCV 77 fL (80-95); MPV 11.6 fL (8.0-11.0); Platelet Count 413 10^3/uL (130-400); RBC 3.57 10^6/uL (4.36-5.78); RDW 17.2 % (11.8-14.1); RDW-SD 49.0 fL; WBC 7.88 10^3/uL (4.4-10.8)
[2025-05-09 06:58] VITALS: BP 109/72; PULSE 103; RESP 16; TEMP 35.8; O2SAT 97
[2025-05-09 07:07] LABS: Anion Gap 9.1 mmol/L (3-11); BUN 11 mg/dL (7-18); CO2 27.9 mmol/L (21.0-32.0); Calcium 9.0 mg/dL (8.5-10.1); Chloride 103 mmol/L (98-107); Estimated GFR 123.60 (mL/min/1.73m2); Glucose 96 mg/dL (74-106); Potassium 4.2 mmol/L (3.5-5.1); Sodium 140 mmol/L (136-145)
[2025-05-09 09:22] VITALS: PULSE 103; TEMP 37.1
[2025-05-09] MEDS: Ferrous Sulfate 325 MG TAB PO (09:40)
[2025-05-09] MEDS: Apixaban 5 MG TAB PO ×2 (09:40→20:32)
[2025-05-09] MEDS: guaiFENesin 600 MG TABCR PO ×2 (09:40→20:31)
[2025-05-09] MEDS: Docusate Sodium 100 MG CAP PO ×3 (09:40→20:31)
[2025-05-09] MEDS: Simethicone 80 MG CHEW PO ×4 (09:41→22:18)
[2025-05-09] MEDS: buPROPion-XL 150 MG TABCR 225 MG PO (09:41)
[2025-05-09] MEDS: Baclofen 10 MG TAB 20 MG PO ×3 (09:41→20:32)
[2025-05-09] MEDS: ARIPiprazole 5 MG TAB 7.5 MG PO (09:41)
[2025-05-09] MEDS: Senna TAB 2 TAB PO (09:41)
[2025-05-09] MEDS: Ketoconazole 2% CREAM 15 GM TUBE TP (09:42)
[2025-05-09] MEDS: Triamcinolone 0.1% CR 80 GM TUBE TP ×2 (09:42→20:30)
[2025-05-09] MEDS: Buprenorphine/Naloxone 8 mg/2 mg FILM 1 EACH SL ×3 (09:46→20:32)
[2025-05-09] MEDS: Fosfomycin Tromethamine 3 GM PACKET PO (12:04)
[2025-05-09] MEDS: Collagenase 30 GM TUBE TP (20:30)
[2025-05-09] MEDS: Protein Nutritional Supplement 16 GM 1 OUNCE PACKET PO (20:30)
[2025-05-09] MEDS: Bisacodyl 10 MG SUPP PR (20:30)
[2025-05-09] MEDS: Mirtazapine 15 MG TAB 45 MG PO (20:31)
[2025-05-09] MEDS: Melatonin 3 MG TAB 9 MG PO (20:31)
[2025-05-09] MEDS: traZODone 100 MG TAB 200 MG PO (20:32)
[2025-05-10] MEDS: LORazepam 1 MG TAB 2 MG PO ×3 (01:00→17:33)
[2025-05-10] MEDS: Acetaminophen 500 MG TAB 1000 MG PO ×3 (01:01→16:11)
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
[2025-05-10 07:11] VITALS: BP 104/69; PULSE 114; RESP 16; TEMP 36.5; O2SAT 96
[2025-05-10] MEDS: Buprenorphine/Naloxone 8 mg/2 mg FILM 1 EACH SL ×3 (08:39→20:33)
[2025-05-10] MEDS: Protein Nutritional Supplement 16 GM 1 OUNCE PACKET PO (08:40)
[2025-05-10] MEDS: Docusate Sodium 100 MG CAP PO ×3 (08:41→20:33)
[2025-05-10] MEDS: ARIPiprazole 5 MG TAB 7.5 MG PO (08:41)
[2025-05-10] MEDS: Senna TAB 2 TAB PO (08:41)
[2025-05-10] MEDS: Baclofen 10 MG TAB 20 MG PO ×3 (08:41→20:31)
[2025-05-10] MEDS: Apixaban 5 MG TAB PO ×2 (08:41→20:32)
[2025-05-10] MEDS: guaiFENesin 600 MG TABCR PO ×2 (08:41→20:32)
[2025-05-10] MEDS: Ferrous Sulfate 325 MG TAB PO (08:41)
[2025-05-10] MEDS: buPROPion-XL 150 MG TABCR 225 MG PO (08:42)
[2025-05-10] MEDS: Simethicone 80 MG CHEW PO ×4 (08:42→22:42)
[2025-05-10] MEDS: Pantoprazole 40 MG TABCR PO (08:42)
[2025-05-10] MEDS: Triamcinolone 0.1% CR 80 GM TUBE TP ×2 (08:51→22:35)
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
[2025-05-10] MEDS: Naproxen 250 MG TAB PO (11:50)
[2025-05-10] MEDS: Melatonin 3 MG TAB 9 MG PO (20:31)
[2025-05-10] MEDS: Mirtazapine 15 MG TAB 45 MG PO (20:32)
[2025-05-10] MEDS: traZODone 100 MG TAB 200 MG PO (20:33)
[2025-05-10] MEDS: Collagenase 30 GM TUBE TP (22:36)
[2025-05-11] MEDS: LORazepam 1 MG TAB 2 MG PO ×4 (02:22→21:24)
[2025-05-11] MEDS: Acetaminophen 500 MG TAB 1000 MG PO ×3 (05:29→21:24)
[2025-05-11 07:09] VITALS: BP 122/82; PULSE 83; RESP 16; TEMP 36.8; O2SAT 94
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
[2025-05-11] MEDS: Buprenorphine/Naloxone 8 mg/2 mg FILM 1 EACH SL ×3 (08:24→20:33)
[2025-05-11] MEDS: buPROPion-XL 150 MG TABCR 225 MG PO (08:24)
[2025-05-11] MEDS: Apixaban 5 MG TAB PO ×2 (08:24→20:34)
[2025-05-11] MEDS: Baclofen 10 MG TAB 20 MG PO ×3 (08:24→20:35)
[2025-05-11] MEDS: ARIPiprazole 5 MG TAB 7.5 MG PO (08:24)
[2025-05-11] MEDS: Pantoprazole 40 MG TABCR PO (08:25)
[2025-05-11] MEDS: Simethicone 80 MG CHEW PO ×4 (08:25→21:24)
[2025-05-11] MEDS: Fosfomycin Tromethamine 3 GM PACKET PO (13:40)
--- NOTE | 2025-05-11 14:37 | CMPROGNOTE_ITS ---
Date of service: 05/11/25 Time of Service: 14:37 Care Management Progress Note Progress Note Text Progress Note Text: Clifton and CM were able to complete the docu-sign documents for [facility] today. ZANE checked in with Zoey at [facility] to confirm the documents were received. They were. Clifton is now confirmed scheduled for 05/25 at 1pm with a Zoom therapy session. Clifton should recieve an invite to the meeting about 1 hour prior to the meeting. If the invite is not received 15 minutes prior to appointment, [facility] should be called. Social Determinants of Health Screening Social Determinants of health last assessed in clinic: 05/11/25 Will the Patient Participate in the Screening?: Yes Do you worry about having a steady place to live?: yes What is your living situation today?: I do not have steady housing Problems where you live: no known problems In the past 12 months, have you had to go without electric, gas, oil or water in your home?: no 1. Within the past 12 months, we worried whether our food would run out before we got money to buy more.: Don't know/refused 2. Within the past 12 months, the food we bought just didn't last and we didn't have money to get more.: Don't know/refused Has lack of transportation kept you from medical appointments or from doing things needed for daily living?: yes Has anyone in your life made you feel unsafe or unsupported?: yes How often does anyone, including family and friends, physically hurt you?: Never How often does anyone, including family and friends, insult or talk down to you?: Sometimes How often does anyone, including family and friends, threaten you with harm?: Never How often does anyone, including family and friends, scream or curse at you?: Sometimes [facility] Safety total score: 8 How hard is it for you to pay for the very basics like food, housing, medical care, and heating? Would you say it is:: Somewhat hard Do you want help finding or keeping work or a job?: I do not need or want help If for any reason you need help with day-to-day activities such as bathing, preparing meals, shopping, managing finances, etc., do you get the help you need?: I don?t need any help How often do you feel lonely or isolated from those around you?: Often Do you speak a language other than Slovenian at home?: No Health Related Social Needs Health related social needs: housing instability, housed, with risk of homelessness (Z59.811), transportation insecurity (Z59.82), problems related to housing/economic circumstances (Z59.89) and feeling lonely/isolated (Z60.8) Health related social needs details: needs new placement
[2025-05-11 15:00] VITALS: O2SAT 95
--- NOTE | 2025-05-11 15:29 | DI.RAD_ITS ---
Exam(s) XR ABDOMEN FLAT UPRIGHT EXAM: 2D digital imaging was performed. CLINICAL HISTORY: abdominal discomfort , pneumoperitoneum. COMPARISON: CR,XR XR PORTABLE CHEST AP from 04/27/2025 CR XR ABDOMEN FLAT UPRIGHT from 04/27/2025 CR XR PORTABLE CHEST AP from 05/07/2025 TECHNIQUE: Portable supine and semi upright views of the abdomen were performed. FINDINGS: BOWEL GAS PATTERN: The stomach and small bowel are nondistended. There is air in the colon without abnormal distension. No free air. CALCIFICATIONS: No urinary tract calcifications. OSSEOUS STRUCTURES: Normal for age. Visualized portions of chest: Mild blunting at the left costophrenic angle. Linear densities are again noted at the left lung base, atelectasis versus infiltrate. Soft tissues: Air in the right groin region. Clinical correlation recommended as to recent procedures. IMPRESSION: 1. Nonobstructive bowel gas pattern. No visible free air. 2. Left basilar atelectasis versus infiltrate. 3. Air in the right groin region. DATA REPOSITORY: RADIATION DOSE DELIVERED:
[2025-05-11 19:55] VITALS: BP 125/74; PULSE 107; RESP 22; TEMP 36.4; O2SAT 97
[2025-05-11] MEDS: guaiFENesin 600 MG TABCR PO (20:34)
[2025-05-11] MEDS: Bisacodyl 10 MG SUPP PR (20:34)
[2025-05-11] MEDS: Docusate Sodium 100 MG CAP PO (20:34)
[2025-05-11] MEDS: traZODone 100 MG TAB 200 MG PO (20:34)
[2025-05-11] MEDS: Mirtazapine 15 MG TAB 45 MG PO (20:35)
[2025-05-11] MEDS: Melatonin 3 MG TAB 9 MG PO (20:35)
[2025-05-11] MEDS: Collagenase 30 GM TUBE TP (20:35)
--- NOTE | 2025-05-12 | DI.CT_ITS ---
Exam(s) CT ABDOMEN PELVIS WO EXAM: CT ABDOMEN PELVIS WO CLINICAL HISTORY: Air in right groin on XR. TECHNIQUE: Imaging Protocol: Axial computed tomography images with coronal and sagittal reformatted images were created and reviewed. Oral: / no COMPARISON: CT CT CHEST/ABD/PEL W from 04/26/2024 CR XR PORTABLE CHEST AP from 05/07/2025 CR XR ABDOMEN FLAT UPRIGHT from 05/11/2025 FINDINGS: Lung Bases: Atelectasis at the left lung base. Metallic density at the heart, likely a loop recorder device. Liver: Normal density. No suspicious mass. Gallbladder and biliary tract: No radiodense calculus or biliary dilation. Pancreas: Normal density. No abnormal calcifications or inflammatory process. Spleen: Normal. Kidneys: Normal size, contour and axis. No radiodense stones. No obstructive uropathy. No suspicious masses seen. Adrenal glands: No masses seen. Lymph nodes: Within normal limits. Vasculature: Abdominal aorta non-dilated. Soft tissues: The air questioned in the right groin on recent plain film actually corresponds to a posterior decubitus ulcer. There are large soft tissue defect extending down to the level of the ischium. There is some erosion bilaterally which could be acute or chronic. No drainable abscess or fluid collection. There is no abnormal air in the right groin. Soft tissue thickening around the lower sacrum. No drainable abscess or fluid collection. There appears to be resection of the coccyx. Bladder: Decompressed by Chester catheter. Bowel: No obstruction or bowel wall thickening. Peritoneal cavity: No ascites. No focal collection. No mesenteric inflammatory response. Reproductive organs: Unremarkable. Bones: Unremarkable for age. IMPRESSION: Soft tissue air questioned in right groin on recent plain film actually corresponds to a right decubitus ulcer. Left-sided decubitus ulcer also seen. Soft tissue thickening around the distal sacrum and resection of the coccyx. Bony erosions which could be chronic. Clinical correlation recommended. No evidence of abscess or drainable fluid collection.. RADIATION DOSE DELIVERED: Total DLP DATA REPOSITORY: All CT scans at this facility are submitted to the National Radiology Data Registry (NRDR) Dose Index Registry (DIR) with the [employer] (ACR). RADIATION OPTIMIZATION: All CT scans at this facility use at least one of these dose optimization techniques: automated exposure control; mA and/or kV adjustment per patient size (includes targeted exams where dose is matched to clinical indication); or iterative reconstruction.
[2025-05-12] MEDS: LORazepam 1 MG TAB 2 MG PO ×2 (04:29→19:49)
[2025-05-12 07:38] VITALS: BP 139/74; PULSE 99; RESP 17; TEMP 36.7; O2SAT 95
[2025-05-12] MEDS: ARIPiprazole 5 MG TAB 7.5 MG PO (07:44)
[2025-05-12] MEDS: Buprenorphine/Naloxone 8 mg/2 mg FILM 1 EACH SL ×3 (07:45→19:45)
[2025-05-12] MEDS: Ferrous Sulfate 325 MG TAB PO (07:46)
[2025-05-12] MEDS: Pantoprazole 40 MG TABCR PO (07:46)
[2025-05-12] MEDS: Baclofen 10 MG TAB 20 MG PO ×3 (07:46→19:49)
[2025-05-12] MEDS: Simethicone 80 MG CHEW PO ×2 (07:46→13:01)
[2025-05-12] MEDS: buPROPion-XL 150 MG TABCR PO (07:46)
[2025-05-12] MEDS: Docusate Sodium 100 MG CAP PO ×2 (07:47→19:50)
[2025-05-12] MEDS: Senna TAB 2 TAB PO (07:47)
[2025-05-12] MEDS: Acetaminophen 500 MG TAB 1000 MG PO (07:47)
[2025-05-12] MEDS: Apixaban 5 MG TAB PO ×2 (07:47→19:50)
[2025-05-12] MEDS: Polyethylene Glycol 3350 17 GM PACKET PO (07:49)
[2025-05-12] MEDS: HYDROmorphone 2 MG TAB PO ×3 (10:19→19:46)
--- NOTE | 2025-05-12 12:54 | PGE_ITS ---
Date of Service Date of service: 05/12/25 Time of Service: 12:55 Assessment and Plan Assessment and plan (1) Decubitus ulcer of ischium, stage 3: Status: Acute Assessment and plan: Air on XR is likely attributable to the large open right ischial ulcer. He is clinically stable without hemodynamic instability or signs of sepsis to suggest a gas gangrene or necrotizing soft tissue infection. Excisional debridement of the wounds was offered to help clean them out like we did on 04/30. I told him I felt he did well and tolerated the debridement well at the bedside and he ag esmer. He feels however that he would like to hold off on any extra procedures or treatments unless the problem in question is causing him discomfort. He does not presently have signs of abscess in the chronic wounds and he does not feel there is odor or excess drainage or discomfort. He says he will agree to and ask for debridement if he experiences any of those discomforts in his wounds. I feel t his is in line and consistent with what he has been asking for in regards to aggressiveness of care. Continue santyl and wound dressing changes in the meantime as previously ordered. Continue offloading and nutritional help as much as he tolerates and allows. (2) Right ischial pressure sore, stage 3: Status: Acute Assessment and plan: as above (3) Anxiety and depression: Status: Chronic Assessment and plan: Notes reviewed, and it sounds like he may transition to comfort measures tomorrow. I feel his mood is better and he is more alert and conversive since meeting with palliative care team. I feel he is mentally able to make this decision for himself and demonstrates mental capacity for that level of autonomy in his own health care decisions. When he has declines care from me, it has been consistent, polite and in line with his approach to and attitude about his illness/paraplegia etc. I feel his depression and anxiety are being addressed, and that he feels this way about his healthcare decisions out of his own fruition and will. He also understands he can change his mind and seek/ask for care at any time. Will remain available as needed, please call general surgery back if needed. (4) Paraplegia at T4 level: Status: Acute (5) Skin changes due to malnutrition: Status: Acute Subjective Subjective Interval history since last seen: Seeing Clifton for his decubitus ulcers again today, and discussing concerns about some possible subcutaneous gas on XR. XR obtained due to abd pain. He is upright and speaks clearly. He is more alert and conversive, and seems to be in a much better mood than our last visit. We discussed doing another debridement on his decubitus ulcers and he has indicated that he would like to wait until they are bothering him to debride them. He asks if he declines now, could he change his mind later and get them debrided and I told him yes that would be okay. There is a plan in place to transition him to comfort measures only per his wishes. He tells me his left thigh and abdominal wall are spasming a lot today, he has baclofen scheduled coming due soon. Exam Narrative Exam Narrative: awake, upright in bed, NAD eomi, Eyes wide open, nonicteric sclerae. Calm, speaks clearly, smiles and is polite and cooperative. abdomen is obese, nontender to palp. L thigh twitch observed. Clear and coherent speech Objective Last Vital Signs Temp 98.1 F 05/12/25 07:38 Pulse 99 H 05/12/25 07:38 Resp 17 05/12/25 07:38 BP 139/74 05/12/25 07:38 Pulse Ox 95 05/12/25 07:38 Time Spent with Patient Time Spent with Patient: <25 minutes Time was spent: preparing to see the patient(eg.review tests), indepentently interpreting results and counseling the patient
--- NOTE | 2025-05-12 15:50 | PDOC.CMPRO ---
Date of service: 05/12/25 Time of Service: 15:51 Care Management Progress Note Progress Note Text Progress Note Text: ZANE met with Clifton and his sister Heather this afternoon to discuss the Palliative Care meeting held on Saturday and the followup meeting scheduled for tomorrow with Dr. Bowens. Clifton discussed his desire not to continue to live in the condition he is in right now with all of the pain and limitations he has. He asked CM to explain the part of the conversation about voluntary cessation of eating and drinking (VCED) and what that experience might look like. CM explained how uncomfortable the process is, how long it takes and the fact that about 1/2 of the people who decide to take that path, are unsuccessful. During the course of conversation Clifton stated that if he knew he could get out of the hospital in the next couple of days, that he would not pursue VCED. Clearly Clifton is still conflicted about transitioning to comfort measures. Heather reassured him that she will support whatever decision he makes even though she might hope for a different outcome. ZANE again discussed AFC placement with Clifton and asked if he would consider going to a facility a little further away. There had been an agency who had potential placement for Clifton a couple of months ago but he was unwilling to be placed outside of the immediate area. He is now willing to go anywhere in [place] where an acceptable home can be found. ZANE called Sarah Saucedo, his [facility] case management associate, this morning requesting a follow up phone call to discuss the AFC placement issue. ZANE had to leave a message and is waiting for a call back. Discharge Anticipated Barriers to Discharge: Bed availability Social Determinants of Health Screening Social Determinants of health last assessed in clinic: 05/12/25 Will the Patient Participate in the Screening?: Yes Do you worry about having a steady place to live?: yes What is your living situation today?: I do not have steady housing Problems where you live: no known problems In the past 12 months, have you had to go without electric, gas, oil or water in your home?: no 1. Within the past 12 months, we worried whether our food would run out before we got money to buy more.: Never true 2. Within the past 12 months, the food we bought just didn't last and we didn't have money to get more.: Never true Has lack of transportation kept you from medical appointments or from doing things needed for daily living?: yes Has anyone in your life made you feel unsafe or unsupported?: yes How often does anyone, including family and friends, physically hurt you?: Never How often does anyone, including family and friends, insult or talk down to you?: Sometimes How often does anyone, including family and friends, threaten you with harm?: Never How often does anyone, including family and friends, scream or curse at you?: Sometimes HRSN Safety total score: 8 How hard is it for you to pay for the very basics like food, housing, medical care, and heating? Would you say it is:: Somewhat hard Do you want help finding or keeping work or a job?: I do not need or want help If for any reason you need help with day-to-day activities such as bathing, preparing meals, shopping, managing finances, etc., do you get the help you need?: I don?t need any help How often do you feel lonely or isolated from those around you?: Often Do you speak a language other than Khmer at home?: No Health Related Social Needs Health related social needs: housing instability, housed, with risk of homelessness (Z59.811), transportation insecurity (Z59.82), problems related to housing/economic circumstances (Z59.89) and feeling lonely/isolated (Z60.8) Health related social needs details: needs new placement
[2025-05-12 18:14] LABS: Abs Immature Grans 0.05 10^3/uL (0.0-0.06); HCT 31.0 % (40.0-50.0); HGB 8.9 g/dL (13.5-17.5); Immature Grans % 0.6 %; MCH 22.4 pg (27.0-33.0); MCHC 28.7 % (32.0-36.0); MCV 78 fL (80-95); MPV 11.3 fL (8.0-11.0); Platelet Count 422 10^3/uL (130-400); RBC 3.98 10^6/uL (4.36-5.78); RDW 18.2 % (11.8-14.1); RDW-SD 49.7 fL; WBC 8.87 10^3/uL (4.4-10.8)
[2025-05-12 18:29] LABS: Anion Gap 10.1 mmol/L (3-11); BUN 14 mg/dL (7-18); CO2 25.9 mmol/L (21.0-32.0); Calcium 9.3 mg/dL (8.5-10.1); Chloride 101 mmol/L (98-107); Estimated GFR 123.60 (mL/min/1.73m2); Glucose 139 mg/dL (74-106); Potassium 4.1 mmol/L (3.5-5.1); Sodium 137 mmol/L (136-145)
[2025-05-12] MEDS: Mirtazapine 15 MG TAB 45 MG PO (19:45)
[2025-05-12] MEDS: traZODone 100 MG TAB 200 MG PO (19:47)
[2025-05-12] MEDS: Bisacodyl 5 MG TABEC PO (19:47)
[2025-05-12] MEDS: Melatonin 3 MG TAB 9 MG PO (19:48)
[2025-05-12] MEDS: guaiFENesin 600 MG TABCR PO (19:50)
[2025-05-12] MEDS: Triamcinolone 0.1% CR 80 GM TUBE TP (19:52)
[2025-05-13] MEDS: LORazepam 1 MG TAB 2 MG PO ×2 (05:19→18:04)
[2025-05-13 07:37] VITALS: BP 110/66; RESP 16; TEMP 36.8; O2SAT 95
[2025-05-13] MEDS: Ferrous Sulfate 325 MG TAB PO (09:12)
[2025-05-13] MEDS: Pantoprazole 40 MG TABCR PO (09:12)
[2025-05-13] MEDS: guaiFENesin 600 MG TABCR PO ×2 (09:12→20:42)
[2025-05-13] MEDS: Docusate Sodium 100 MG CAP PO ×3 (09:12→20:42)
[2025-05-13] MEDS: Apixaban 5 MG TAB PO ×2 (09:13→20:42)
[2025-05-13] MEDS: Baclofen 10 MG TAB 20 MG PO ×3 (09:14→20:43)
[2025-05-13] MEDS: Simethicone 80 MG CHEW PO ×3 (09:16→18:05)
[2025-05-13] MEDS: ARIPiprazole 5 MG TAB 7.5 MG PO (09:16)
[2025-05-13] MEDS: Senna TAB 2 TAB PO (09:18)
[2025-05-13] MEDS: buPROPion-XL 150 MG TABCR PO (09:19)
[2025-05-13] MEDS: Buprenorphine/Naloxone 8 mg/2 mg FILM 1 EACH SL ×3 (09:19→20:43)
[2025-05-13] MEDS: Ketoconazole 2% CREAM 15 GM TUBE TP (09:20)
[2025-05-13] MEDS: Triamcinolone 0.1% CR 80 GM TUBE TP ×2 (09:21→20:45)
[2025-05-13] MEDS: HYDROmorphone 2 MG TAB PO ×2 (10:18→18:38)
--- NOTE | 2025-05-13 17:46 | PDOC.CMPRO ---
Date of service: 05/13/25 Time of Service: 17:47 Care Management Progress Note Progress Note Text Progress Note Text: A follow up Palliative Care meeting was held today with Dr. Bowens, Clifton, his sister Heather, Aunt Phuong and ZANE Mendoza. Dr. Bowens reviewed the discussion had on Saturday (see Palliative Care note from 05/10) and asked Clifton if he was still going to pursue the VCED option. ZANE noted that when meeting with Clifton and Heather yesterday Clifton stated that if he could leave [facility] today or tomorrow he would not make that choice. He talked about the chronic pain, loneliness and isolation that he has being in the hospital for so long. Dr. Bowens again talked about other patients who had sustained similar injuries and have managed to have a fulfilling and productive life. After a lengthy discussion, Clifton made the decision to continue to pursue treatment. Dr. Bowens suggested adding methadone 5 mg/day to his pain regimen and decreasing the Dilaudid to 2 prn doses per day. She also stated that he could benefit from some Iron infusions that would make him feel better in general but that would also help with the spasms. Clifton was agreeable but would have to have an IV inserted. He did not openly object to the idea. Efforts will be made to have someone highly skilled in starting IVs in people who have difficult access attempt the procedure tomorrow. See Dr. Bowens's note for additional details. Discharge Anticipated Barriers to Discharge: Bed availability Patient/Family Education Needs: Review discharge instructions, discuss Ask Me Three Transportation: Other (to be determined by disposition) Social Determinants of Health Screening Social Determinants of health last assessed in clinic: 05/19/25 Will the Patient Participate in the Screening?: Yes Do you worry about having a steady place to live?: yes What is your living situation today?: I do not have steady housing Problems where you live: no known problems In the past 12 months, have you had to go without electric, gas, oil or water in your home?: no 1. Within the past 12 months, we worried whether our food would run out before we got money to buy more.: Never true 2. Within the past 12 months, the food we bought just didn't last and we didn't have money to get more.: Never true Has lack of transportation kept you from medical appointments or from doing things needed for daily living?: yes Has anyone in your life made you feel unsafe or unsupported?: yes How often does anyone, including family and friends, physically hurt you?: Never How often does anyone, including family and friends, insult or talk down to you?: Sometimes How often does anyone, including family and friends, threaten you with harm?: Never How often does anyone, including family and friends, scream or curse at you?: Sometimes HRSN Safety total score: 8 How hard is it for you to pay for the very basics like food, housing, medical care, and heating? Would you say it is:: Somewhat hard Do you want help finding or keeping work or a job?: I do not need or want help If for any reason you need help with day-to-day activities such as bathing, preparing meals, shopping, managing finances, etc., do you get the help you need?: I don?t need any help How often do you feel lonely or isolated from those around you?: Often Do you speak a language other than Chinese at home?: No Health Related Social Needs Health related social needs: housing instability, housed, with risk of homelessness (Z59.811), transportation insecurity (Z59.82), problems related to housing/economic circumstances (Z59.89) and feeling lonely/isolated (Z60.8) Health related social needs details: needs new placement
[2025-05-13] MEDS: Melatonin 3 MG TAB 9 MG PO (20:42)
[2025-05-13] MEDS: Mirtazapine 15 MG TAB 45 MG PO (20:42)
[2025-05-13] MEDS: traZODone 100 MG TAB 200 MG PO (20:42)
[2025-05-14] MEDS: LORazepam 1 MG TAB 2 MG PO ×3 (05:34→21:23)
--- NOTE | 2025-05-14 06:32 | W.PALPGNOTE ---
Date of service: 05/13/25 Time of Service: 15:00 Assessment and Plan Assessment and plan (1) Anxiety and depression: Status: Chronic (2) Paraplegia at T4 level: Status: Acute (3) Chronic pain due to injury: Status: Acute Assessment and plan: 44 year old male, s/p T4 paraplegia and chronic pain. Hx of addiction now on suboxone. Recently started on dilaudid with decreased pain. Family meeting with Lulu Romerot Kelly Baca adult protective caseworker and Eleonora Vickers NP. After long discussion Amanda has decided he is willing to go to a [facility] someplace in [place], He wants to work on his nutritional deficiencies to see if it improves his pain and quality of life Recommendations: Check B12, Vitamin D, iron and ferritin. Aggressively replace iron - hopefully with IV infusions If deficient, aggressively supplement with Vitamin D2 50,000 units twice weekly Check B12 and supplement if under 500 Restart PT. Encourage getting out of bed. He needs to strengthen his upper back which will reduce his pain picture. Consider starting tirzepatide at 2.5mg SQ weekly for its brain effects on the dopamine system (to improve pain control and addiction disease) In the am start methadone 5mg PO Daily - the reasoning is that his pain is poorly controlled at this point AND we want to move attention from when can I get my next medication for pain to pain comes and goes but for the most part I am more comfortable. The addiction disease needs to be quieted. This will take some work to adjust meds. I recommend he still have access to dilaud 2m PO twice daily prn during this time. His methadone can be increased by 5mg every 3-4 days until his pain is better controlled, max 20mg daily. I am always available for guidance on this via webex or cell. He can have tylenol 500mg -2 tabs QID, PRN, but cautioned Amanda about rebound headaches which may be contributing to his overall pain picture.Also I want him to move away from thinking he needs to get a med everytime his pain rears its ugly head so remind him to move, hydrate, etc total time with Amanda and discussing with the hospitalist team: 128 minutes Subjective Subjective Interval history since last seen: I feel a little better with the dilaudid Exam Narrative Exam Narrative: Sitting in his electric wheelchair engaged with family meeting. Talking in complete sentences. Understands the discussion and its implications. Objective Last Vital Signs Temp 98.2 F 05/13/25 07:37 Pulse 99 H 05/12/25 07:38 Resp 16 05/13/25 07:37 BP 110/66 05/13/25 07:37 Pulse Ox 95 05/13/25 07:37 Objective Narrative Objective Narrative: We had a long discussion regarding possible avenues for treatment: VCED vs trial of improving life by PT, improving nutritional deficits, future living plans and better pain control. All people participated. Heather gave her support to Amanda's wishes and choices, although she is not in favor of VCED because she feels its a permanent solution to a possible temporary and manageable speed bump. His Aunnt Phuong talked about hoe he can help others with addiction problems and avoiding the pitfalls of drugs. She also stated Amanda makes the best cheesecake she ever tasted. Kelly, adult protective caseworker, talked about family care homes in [place] but out of the [facility]. I again emphasized he is not eligible for Act 39 or hospice. He always has the choice to refuse antibiotics, etc and food and drink.
[2025-05-14] MEDS: ARIPiprazole 5 MG TAB 7.5 MG PO (09:56)
[2025-05-14] MEDS: HYDROmorphone 2 MG TAB PO ×2 (09:57→19:37)
[2025-05-14] MEDS: buPROPion-XL 150 MG TABCR PO (09:57)
[2025-05-14] MEDS: Baclofen 10 MG TAB 20 MG PO ×3 (09:58→19:36)
[2025-05-14] MEDS: Senna TAB 2 TAB PO (09:59)
[2025-05-14] MEDS: Docusate Sodium 100 MG CAP PO ×3 (09:59→19:36)
[2025-05-14] MEDS: Ferrous Sulfate 325 MG TAB PO (10:00)
[2025-05-14] MEDS: guaiFENesin 600 MG TABCR PO ×2 (10:00→19:35)
[2025-05-14] MEDS: Apixaban 5 MG TAB PO ×2 (10:00→19:35)
[2025-05-14] MEDS: Pantoprazole 40 MG TABCR PO (10:00)
[2025-05-14] MEDS: Buprenorphine/Naloxone 8 mg/2 mg FILM 1 EACH SL ×3 (10:01→19:35)
[2025-05-14] MEDS: Simethicone 80 MG CHEW PO ×4 (10:02→19:36)
[2025-05-14] MEDS: Ketoconazole 2% CREAM 15 GM TUBE TP (10:04)
[2025-05-14] MEDS: Triamcinolone 0.1% CR 80 GM TUBE TP (10:05)
[2025-05-14] MEDS: Acetaminophen 500 MG TAB 1000 MG PO ×3 (10:58→19:37)
[2025-05-14] MEDS: Methadone 5 MG TAB PO (12:13)
[2025-05-14] MEDS: traZODone 100 MG TAB 200 MG PO (19:36)
[2025-05-14] MEDS: Mirtazapine 15 MG TAB 45 MG PO (19:36)
[2025-05-14] MEDS: Melatonin 3 MG TAB 9 MG PO (19:36)
[2025-05-15] MEDS: LORazepam 1 MG TAB 2 MG PO ×2 (02:36→18:01)
[2025-05-15] MEDS: Acetaminophen 500 MG TAB 1000 MG PO ×3 (06:05→23:05)
[2025-05-15 07:50] VITALS: BP 102/45; PULSE 86; RESP 17; TEMP 35.7; O2SAT 98
[2025-05-15] MEDS: guaiFENesin 600 MG TABCR PO ×2 (09:09→19:27)
[2025-05-15] MEDS: Pantoprazole 40 MG TABCR PO (09:09)
[2025-05-15] MEDS: ARIPiprazole 5 MG TAB 7.5 MG PO (09:10)
[2025-05-15] MEDS: HYDROmorphone 2 MG TAB PO ×2 (09:11→19:26)
[2025-05-15] MEDS: buPROPion-XL 150 MG TABCR PO (09:11)
[2025-05-15] MEDS: Baclofen 10 MG TAB 20 MG PO ×3 (09:12→19:27)
[2025-05-15] MEDS: Docusate Sodium 100 MG CAP PO ×2 (09:12→14:54)
[2025-05-15] MEDS: Ferrous Sulfate 325 MG TAB PO (09:13)
[2025-05-15] MEDS: Senna TAB 2 TAB PO (09:13)
[2025-05-15] MEDS: Apixaban 5 MG TAB PO ×2 (09:14→19:29)
[2025-05-15] MEDS: Simethicone 80 MG CHEW PO ×4 (09:14→23:05)
[2025-05-15] MEDS: Triamcinolone 0.1% CR 80 GM TUBE TP (09:15)
[2025-05-15] MEDS: Buprenorphine/Naloxone 8 mg/2 mg FILM 1 EACH SL ×3 (09:15→19:29)
[2025-05-15] MEDS: Ketoconazole 2% CREAM 15 GM TUBE TP (12:45)
[2025-05-15] MEDS: Collagenase 30 GM TUBE TP (19:10)
[2025-05-15] MEDS: traZODone 100 MG TAB 200 MG PO (19:26)
[2025-05-15] MEDS: Melatonin 3 MG TAB 9 MG PO (19:27)
[2025-05-15] MEDS: Mirtazapine 15 MG TAB PO (19:28)
[2025-05-15] MEDS: Mirtazapine 15 MG TAB 45 MG PO (19:28)
[2025-05-16] MEDS: LORazepam 1 MG TAB 2 MG PO ×4 (04:35→23:44)
[2025-05-16] MEDS: Acetaminophen 500 MG TAB 1000 MG PO ×3 (05:27→23:44)
[2025-05-16 05:50] LABS: EPI 027-NAP1-B1 PRESUMPTIVE NEGATIVE
[2025-05-16 07:27] VITALS: BP 127/75; PULSE 83; RESP 17; TEMP 36.6; O2SAT 97
[2025-05-16] MEDS: Simethicone 80 MG CHEW PO ×2 (08:00→13:22)
[2025-05-16] MEDS: ARIPiprazole 5 MG TAB 7.5 MG PO (08:00)
[2025-05-16] MEDS: Buprenorphine/Naloxone 8 mg/2 mg FILM 1 EACH SL ×3 (08:00→19:19)
[2025-05-16] MEDS: Ferrous Sulfate 325 MG TAB PO (08:01)
[2025-05-16] MEDS: Fidaxomicin 200 MG TAB PO ×2 (08:01→19:19)
[2025-05-16] MEDS: Methadone 5 MG TAB PO (08:01)
[2025-05-16] MEDS: HYDROmorphone 2 MG TAB PO ×2 (08:01→19:18)
[2025-05-16] MEDS: buPROPion-XL 150 MG TABCR PO (08:01)
[2025-05-16] MEDS: guaiFENesin 600 MG TABCR PO ×2 (08:01→19:16)
[2025-05-16] MEDS: Baclofen 10 MG TAB 20 MG PO ×3 (08:01→19:18)
[2025-05-16] MEDS: Ketoconazole 2% CREAM 15 GM TUBE TP (08:02)
[2025-05-16] MEDS: Apixaban 5 MG TAB PO ×2 (08:02→19:16)
[2025-05-16] MEDS: Pantoprazole 40 MG TABCR PO (08:02)
[2025-05-16] MEDS: Triamcinolone 0.1% CR 80 GM TUBE TP (08:03)
[2025-05-16] MEDS: traZODone 100 MG TAB 200 MG PO (19:17)
[2025-05-16] MEDS: Melatonin 3 MG TAB 9 MG PO (19:17)
[2025-05-16] MEDS: Mirtazapine 15 MG TAB 45 MG PO (19:17)
[2025-05-16] MEDS: Collagenase 30 GM TUBE TP (19:22)
[2025-05-17] MEDS: LORazepam 1 MG TAB 2 MG PO ×3 (05:33→20:06)
[2025-05-17] MEDS: Acetaminophen 500 MG TAB 1000 MG PO ×3 (05:33→23:21)
[2025-05-17] MEDS: Baclofen 10 MG TAB 20 MG PO ×3 (07:26→20:05)
[2025-05-17] MEDS: ARIPiprazole 5 MG TAB 7.5 MG PO (07:26)
[2025-05-17] MEDS: guaiFENesin 600 MG TABCR PO ×2 (07:27→20:05)
[2025-05-17] MEDS: Methadone 5 MG TAB PO (07:28)
[2025-05-17] MEDS: Ferrous Sulfate 325 MG TAB PO (07:28)
[2025-05-17] MEDS: Fidaxomicin 200 MG TAB PO ×2 (07:28→20:06)
[2025-05-17] MEDS: buPROPion-XL 150 MG TABCR PO (07:29)
[2025-05-17] MEDS: HYDROmorphone 2 MG TAB PO ×2 (07:29→20:05)
[2025-05-17] MEDS: Pantoprazole 40 MG TABCR PO (07:29)
[2025-05-17] MEDS: Apixaban 5 MG TAB PO ×2 (07:30→20:05)
[2025-05-17] MEDS: Buprenorphine/Naloxone 8 mg/2 mg FILM 1 EACH SL ×3 (07:33→20:06)
[2025-05-17] MEDS: Simethicone 80 MG CHEW PO ×4 (07:33→23:21)
[2025-05-17] MEDS: Triamcinolone 0.1% CR 80 GM TUBE TP (07:37)
[2025-05-17] MEDS: Ketoconazole 2% CREAM 15 GM TUBE TP (07:37)
--- NOTE | 2025-05-17 12:26 | NUR.NOTE ---
Nursing Note: Pt observed bleeding from left toe. On inspection, he has approx 1 cm skin tear on the outer aspect of the left great toe. Pt reports he accidently bumped his toe in to the door. He has been confined to his room on contact precautions d/t C Diff dx. Pressure applied to toe until bleeding stopped; Cleansed area, dressed with 4x4 gauze and kerlix. Pt eating lunch at this time.
[2025-05-17] MEDS: Lidocaine 5% Patch 2 PATCH TP (13:52)
[2025-05-17] MEDS: traZODone 100 MG TAB 200 MG PO (20:05)
[2025-05-17] MEDS: Mirtazapine 15 MG TAB 45 MG PO (20:05)
[2025-05-17] MEDS: Melatonin 3 MG TAB 9 MG PO (20:06)
[2025-05-17 20:25] VITALS: BP 129/69; PULSE 117; RESP 20; TEMP 36.7; O2SAT 97
[2025-05-18] MEDS: Acetaminophen 500 MG TAB 1000 MG PO ×3 (06:19→22:00)
[2025-05-18] MEDS: LORazepam 1 MG TAB 2 MG PO ×2 (06:20→11:07)
[2025-05-18 07:19] VITALS: BP 116/71; PULSE 91; RESP 16; TEMP 36.5; O2SAT 96
[2025-05-18] MEDS: ARIPiprazole 5 MG TAB 7.5 MG PO (08:03)
[2025-05-18] MEDS: Fidaxomicin 200 MG TAB PO ×2 (08:04→20:08)
[2025-05-18] MEDS: Baclofen 10 MG TAB 20 MG PO ×3 (08:04→20:09)
[2025-05-18] MEDS: Methadone 5 MG TAB PO ×2 (08:04→11:07)
[2025-05-18] MEDS: Apixaban 5 MG TAB PO ×2 (08:04→20:09)
[2025-05-18] MEDS: HYDROmorphone 2 MG TAB PO ×2 (08:04→18:51)
[2025-05-18] MEDS: buPROPion-XL 150 MG TABCR PO (08:04)
[2025-05-18] MEDS: Simethicone 80 MG CHEW PO ×4 (08:04→22:01)
[2025-05-18] MEDS: Buprenorphine/Naloxone 8 mg/2 mg FILM 1 EACH SL ×3 (08:05→20:09)
[2025-05-18] MEDS: Ferrous Sulfate 325 MG TAB PO (08:05)
[2025-05-18] MEDS: Pantoprazole 40 MG TABCR PO (08:05)
[2025-05-18] MEDS: guaiFENesin 600 MG TABCR PO ×2 (08:05→20:08)
[2025-05-18] MEDS: Ketoconazole 2% CREAM 15 GM TUBE TP (08:07)
[2025-05-18] MEDS: Triamcinolone 0.1% CR 80 GM TUBE TP ×2 (08:08→20:07)
[2025-05-18] MEDS: Ibuprofen 400 MG TAB PO (18:51)
[2025-05-18 19:50] VITALS: BP 113/69; PULSE 101; RESP 22; TEMP 36.5; O2SAT 95
[2025-05-18] MEDS: Collagenase 30 GM TUBE TP (20:07)
[2025-05-18] MEDS: Mirtazapine 15 MG TAB 45 MG PO (20:08)
[2025-05-18] MEDS: traZODone 100 MG TAB 200 MG PO (20:08)
[2025-05-18] MEDS: Melatonin 3 MG TAB 9 MG PO (20:08)
[2025-05-19] MEDS: HYDROmorphone 2 MG TAB PO ×3 (02:15→22:23)
[2025-05-19] MEDS: LORazepam 1 MG TAB 2 MG PO ×4 (02:16→22:23)
[2025-05-19] MEDS: Acetaminophen 500 MG TAB 1000 MG PO ×2 (06:46→13:15)
[2025-05-19] MEDS: Pantoprazole 40 MG TABCR PO (06:46)
[2025-05-19 07:15] VITALS: BP 116/70; PULSE 91; RESP 17; TEMP 36.6; O2SAT 96
[2025-05-19] MEDS: Baclofen 10 MG TAB 20 MG PO ×3 (08:01→22:23)
[2025-05-19] MEDS: Methadone 5 MG TAB 10 MG PO (08:02)
[2025-05-19] MEDS: buPROPion-XL 150 MG TABCR PO (09:07)
[2025-05-19] MEDS: ARIPiprazole 5 MG TAB 7.5 MG PO (09:07)
[2025-05-19] MEDS: Fidaxomicin 200 MG TAB PO ×2 (09:07→22:24)
[2025-05-19] MEDS: Apixaban 5 MG TAB PO ×2 (09:07→22:24)
[2025-05-19] MEDS: Ferrous Sulfate 325 MG TAB PO (09:07)
[2025-05-19] MEDS: Simethicone 80 MG CHEW PO ×4 (09:07→22:25)
[2025-05-19] MEDS: guaiFENesin 600 MG TABCR PO ×2 (09:07→22:24)
[2025-05-19] MEDS: Buprenorphine/Naloxone 8 mg/2 mg FILM 1 EACH SL ×3 (09:08→22:22)
[2025-05-19] MEDS: Bisacodyl 5 MG TABEC PO (09:11)
[2025-05-19] MEDS: Senna TAB 2 TAB PO (09:14)
--- NOTE | 2025-05-19 10:17 | PDOC.CMACT ---
Date of service: 05/19/25 Time of Service: 10:18 Care Management Activity Note Activity Note Text Activity Note Text: Clifton continues to sit up in his wheelchair and to go outside with staff when able. Unfortunately he has recently tested positive for C. difficile so is restricted to his room. He enjoys visits from his Aunt Phuong, sister Heather and friend Allison. When he is off isolation, will arrange for Clifton to have another visit with his dog. Clifton loves to play cribbage and watch TV. He also enjoys pet therapy and music therapy when available.
--- NOTE | 2025-05-19 10:22 | PCPN_ITS ---
Date of service: 05/19/25 Time of Service: 10:23 Assessment and Plan Assessment and plan (1) Paraplegia at T4 level: Status: Acute Assessment and plan: approximately for 1 year dependent on others for ADL care, wound care, IADLS, etc (2) Anxiety and depression: Status: Chronic Assessment and plan: [facility] screening today; team meeting decision to limit visitors until cleared at this time previous tele-psych recommendations: - Wellbutrin XL further increased from 225 to 350mg qd - mirtazapine 45mg qhs - Abilify 7.5mg qd - could consider switch to venlafaxine pending above changes (3) History of Clostridioides difficile infection: Assessment and plan: currently on isolation protocols not symptomatic at this time, last BM 05/17; from palliative perspective would advocate to lift isolation protocols and allow Clifton opportunity to get out of bed and use his WC, leave his room, etc follow CDC guidelines infection prevention working w/QUALITY IMPROVEMENT CONSULTANT for appropriate POC (4) Sleep pattern disturbance: Assessment and plan: ongoing may consider trial of Ambien given previous good effect to start therapy next week, ideally CBT would be/could be helpful for sleep recommend trial doxepin prior to Ambien per uptodate guidelines (5) Chronic pain due to injury: Status: Acute Assessment and plan: continue pain recommendations previously outlined by SRI NGUYEN - methadone 10mg, increase by 5mg every 3-5days, max daily dose 20mg qd - continue Suboxone 8/2mg TID, may consider taper off of this, pending care home goals and pain management - continue Dilaudid 2mg BID PRN - avoid NSAIDs given anticoagulation; trial naproxen BID x3 days currently - apap 1000mg TID PRN - baclofen TID (6) Psychogenic pain, site unspecified: Status: Acute (7) Chronic osteomyelitis of sacrum: Status: Acute (8) Right ischial pressure sore, stage 3: Status: Acute (9) Skin changes due to malnutrition: Status: Acute (10) Chronic anticoagulation: Status: Acute (11) Chronic indwelling Chester catheter: Status: Acute (12) Housing instability, housed, with risk of homelessness: Status: Acute Assessment and plan: Ne[facility] resending referrals to all rehabs and [facility] in [facility] - Clifton has recently changed preference to goal of getting out of hospital and would be agreeable to any facility in [facility] (13) Neurogenic bowel: Status: Acute (14) Constipation: Status: Acute Assessment and plan: continue bowel regimen, as tolerated last BM 05/17 (15) Acute UTI: Status: Acute Assessment and plan: he was treated for UTI w/IVabx on 05/07 we did not review this today, but will in future (16) Palliative care encounter: Assessment and plan: PC provided supportive environment today; reviewed protocols for C diff and SI statements, and plan moving forward w/both protocols; need for engaging in [facility] follow up - PC will continue to provide support during Clifton's hospitalization and beyond as able f/u on pain management, sleep updates and discharge planning, POC regarding repeat infections, etc (17) Advanced care planning/counseling discussion: Assessment and plan: reviewed sxs management recommendations and POC reviewed c diff and SI policies and obligations of hospital to ensure his safety and appropriate care reviewed discharge plans w/referrals from [facility] and CM provided supportive space for today's updates w/concerns for SI spent 20m w/ACP Subjective Subjective Interval history since last seen: Clifton remains hospitalized on swing bed pending safe discharge plan - last seen by PC on 05/10 and 05/14 w/Dr Bowens, see notes for reference - repeat psych consult on 05/08 w/medication recommendations, see note for reference Pain: reports worsening HUBER pain, posterior neck/spine up to back of head, BUE arms/hands cramping, increased pain/impact over last few days; is unsure if apap, methadone helpful for pain, Dilaudid dose did help a little when received this; does not recall other meds; did not feel a difference when methadone increased from 5mg to 10mg yesterday Sleep: continues to have difficulty w/sleep, now w/trazodone 200mg, mirtazapine 45mg and lorazepam at bedtime, still not sleeping well; reports h/o Ambien for years at home w/good effect, has been off of this for a few years now Wound: continues w/intermittent refusal in wound care/engagement; no concerns today BM: loose stools on 05/16 tested positive for C. Diff; last stool on 05/17; tested positive on 02/24 first time, 03/21 tested positive; he has been on isolation protocol since 05/16; infection prevention working w/[employer] IM[employer]OVEMENT CONSULTANT for isolation protocol changes d/t presumed colonization - he would love to be out of isolation and able to use his chair, leave room Social: Clifton sent some concerning texts indicating he would want a lethal dose of medications brought in so he could end his life; Clifton reports to PC provider that he sent this more to engage/riff w/this person, get a rise out of him; Discharge plan: no updates; CM has resent referrals to all SNFs in [facility], as he is now agreeable to discharge to any facility [facility] vs SNF; [facility] CM will be resending [facility] referrals as well; ACP: he is open minded to having some labs drawn today to see if nutritional/electrolyte abnormalities may be influencing his increased HUBER sxs and cramping, will accept labs and treatment for abnormalities w/goal of improving current sxs -he denies SI/HI today, he does not want to harm himself, instead continues w/goal to not prolong life Exam Narrative Exam Narrative: General: 46y/o male, lying in hospital bed HOB elevated; makes appropriate eye contact, engages readily and easily throughout visit; HEENT: normocephalic, atraumatic; hearing grossly WNL, MMM Resp: even and unlabored at rest; speaks full sentences w/o SOB; no resp distress; no audible wheeze or cough Psych: MS WNL, answers questions appropriately, affect WNL, mood cooperative/guarded; thought process normal; insight/judgment fair/limited Objective Last Vital Signs Temp 97.9 F 05/19/25 07:15 Pulse 91 H 05/19/25 07:15 Resp 17 05/19/25 07:15 BP 116/70 05/19/25 07:15 Pulse Ox 96 05/19/25 07:15
[2025-05-19 12:33] LABS: Abs Immature Grans 0.05 10^3/uL (0.0-0.06); HCT 33.7 % (40.0-50.0); HGB 9.5 g/dL (13.5-17.5); Immature Grans % 0.5 %; MCH 21.7 pg (27.0-33.0); MCHC 28.2 % (32.0-36.0); MCV 77 fL (80-95); MPV 11.4 fL (8.0-11.0); Platelet Count 377 10^3/uL (130-400); RBC 4.37 10^6/uL (4.36-5.78); RDW 17.8 % (11.8-14.1); RDW-SD 49.8 fL; WBC 9.27 10^3/uL (4.4-10.8)
[2025-05-19 13:07] LABS: Anion Gap 9.6 mmol/L (3-11); BUN 15 mg/dL (7-18); CO2 28.4 mmol/L (21.0-32.0); Calcium 9.7 mg/dL (8.5-10.1); Chloride 100 mmol/L (98-107); Folate 7.5 ng/mL (8.6-20.0); Glucose 84 mg/dL (74-106); Potassium 4.2 mmol/L (3.5-5.1); Sodium 138 mmol/L (136-145); Vitamin B12 329 pg/mL (193-986)
[2025-05-19 14:08] LABS: Iron 18 ug/dL (65-175); Total Iron Binding Capacity 422 ug/dL (250-450); Transferrin Sat 4 % (20-55)
[2025-05-19 14:31] LABS: Ferritin 31 ng/mL (26-388)
[2025-05-19] MEDS: Naproxen 250 MG TAB PO (14:53)
--- NOTE | 2025-05-19 16:17 | PDOC.CMSAFE ---
Date of service: 05/19/25 Time of Service: 16:18 Care Management Safety Plan Status Status: Interim Reason for Wait Reason for Wait: Assessment/Screening
--- NOTE | 2025-05-19 16:22 | PDOC.CMPRO ---
Date of service: 05/19/25 Time of Service: 16:22 Care Management Progress Note Progress Note Text Progress Note Text: During interdisciplinary rounds this morning, it was reported that Clifton had texted a relative asking him to bring in a lethal dose of a medication so that Clifton could end his life. He reportedly cited his paraplegia, loneliness, pain and inability to participate in everyday activities as reasons for wanting this. ZANE, Tanika Nielson from Palliative care and Eleonora Vickers, Clifton's provider met with him to discuss the situation. ZANE explained what had been reported and Clifton did not deny it. ZANE explained that we are concerned for his safety and are obligated to take steps to protect him. [facility] was contacted to screen Clifton for suicidality. During the brief encounter Clifton denied suicidal thoughts. He informed the reinforcing steel worker wire mesh that he was fatigued and requested that the screening be postponed to another day, and she agreed. Following her visit, a huddle was held with the [facility] screener ZANE Young Anne and 2 other care managers. It was generally felt that the risk of Clifton harming himself is very low. He is immobile unless he is up in his chair and, as he is on isolation for C. Difficile at the moment, he cannot leave his room. In the meantime however, visitors will be restricted to his sister Heather, Aunt Phuong, friend Allison and nephew Wiley. Social Determinants of Health Screening Social Determinants of health last assessed in clinic: 05/19/25 Will the Patient Participate in the Screening?: Yes Do you worry about having a steady place to live?: yes What is your living situation today?: I do not have steady housing Problems where you live: no known problems In the past 12 months, have you had to go without electric, gas, oil or water in your home?: no 1. Within the past 12 months, we worried whether our food would run out before we got money to buy more.: Never true 2. Within the past 12 months, the food we bought just didn't last and we didn't have money to get more.: Never true Has lack of transportation kept you from medical appointments or from doing things needed for daily living?: yes Has anyone in your life made you feel unsafe or unsupported?: yes How often does anyone, including family and friends, physically hurt you?: Never How often does anyone, including family and friends, insult or talk down to you?: Sometimes How often does anyone, including family and friends, threaten you with harm?: Never How often does anyone, including family and friends, scream or curse at you?: Sometimes HRSN Safety total score: 8 How hard is it for you to pay for the very basics like food, housing, medical care, and heating? Would you say it is:: Somewhat hard Do you want help finding or keeping work or a job?: I do not need or want help If for any reason you need help with day-to-day activities such as bathing, preparing meals, shopping, managing finances, etc., do you get the help you need?: I don?t need any help How often do you feel lonely or isolated from those around you?: Often Do you speak a language other than Welsh at home?: No Health Related Social Needs Health related social needs: housing instability, housed, with risk of homelessness (Z59.811), transportation insecurity (Z59.82), problems related to housing/economic circumstances (Z59.89) and feeling lonely/isolated (Z60.8) Health related social needs details: needs new placement
--- NOTE | 2025-05-19 17:42 | PDOC.MHCN ---
Date of service: 05/19/25 Time of Service: 15:30 Suicide Severity Rate CSSRS Have you wished you were or wished you could go to sleep and not wake up?: Yes Have you actually had any thoughts of killing yourself?: Yes Screening Score Total Score: 4 Screening: Positive Mental Health Emergency Note Release [facility] release signed:: Yes Reason for Visit Suicidal thoughts, solicitation to obtain means In the last 2 weeks has the pt presented for ES prior to today?: No Client Information Client is: New Well Housed: No,status: Homeless Unstable housing Non Suicidal Self Injury Current: No History: No Safety Risk/Harm to Self or Others Current Ideation to Harm Self or Others: Yes to self. Intent: no, has no intent. Plan: yes,has a plan. History of suicide attempt: No history of suicide attempt reported Risk: Does risk to harm exist?: yes. Access to means: No. Risk: Low Risk Duty to warn indicated: No Impression Client presented as friendly, yet generally uncooperative and resistant to the assessment, appearing guarded throughout the interaction. He pulled the tray table closer to his body and repositioned pillows in a protective manner, indicating discomfort. Client asked if this Clinician visit is related to reports of requesting a lethal dose of substances to end his life and Clinician answered affirmative. Despite having solicited life-ending drugs from a community member, the client denied having suicidal thoughts. He mentioned researching Act 39, concluding that he does not qualify for intentional life-ending assistance. Client asked if he was required to participate in the assessment during this visit and this Clinician stated he did not have to do so, but it's an important step. Client answered three subsequent questions from CSSRS, answering yes to a desire to go to sleep and not wake up. Client also denied homicidal thoughts, reiterating three times that he does not have suicidal thoughts despite reports and actions today. He characterized the substance solicitation as motivated by spite, stating he was trying to get at the person [get under his skin]. Client stated I don't have the bandwidth to do this right now. Clinician offered to return in the next couple of days. Client was advised of a scheduled therapy intake appointment on Saturday and expressed willingness to check back with client tomorrow or Saturday for a do over when he is feeling better. Client indicated he was experiencing quite a bit of pain while declining Clinician's offer to advocate for assistance from nursing staff. Clinician will continue to assess and monitor the client?s mental state and emotional well-being, particularly regarding his expressed thoughts and feelings surrounding life-ending actions and solicitation for substances. Clinician collaborated with [facility] Care Management team and Palliative Care bottling equipment sales representative to ensure the client receives necessary support, as well as advocate for the client's needs until he is more receptive to engaging in treatment. Planning for the upcoming therapy intake appointment is essential to facilitate further support. Plan/Disposition Recommended Disposition: Other. Plan: Client is currently not on suicide protocols at [facility] and the team agreed to limit visitors without further actions in the client's hospital room. This accommodation (not removing all personal belongings) is in the interest of the client's mental health and considers client does not have access to means of harm in his room. Client is scheduled for [facility] intake assessment on Saturday, May 25. An interim crisis assessment should be reattempted in the next day or two since the intake assessment is 7 days away. Person reported agreement to plan: Yes Reports/communication Outcome discussed with: Other
[2025-05-19 20:20] VITALS: BP 120/63; PULSE 103; RESP 20; TEMP 36.7; O2SAT 96
[2025-05-19] MEDS: Mirtazapine 15 MG TAB 45 MG PO (22:22)
[2025-05-19] MEDS: Melatonin 3 MG TAB 9 MG PO (22:23)
[2025-05-19] MEDS: traZODone 100 MG TAB 200 MG PO (22:24)
[2025-05-19] MEDS: Collagenase 30 GM TUBE TP (22:25)
[2025-05-19] MEDS: Normal Saline Flush 10 ML SYR IVP (22:26)
[2025-05-20 00:54] VITALS: O2SAT 96
[2025-05-20] MEDS: Naproxen 250 MG TAB PO (04:54)
[2025-05-20] MEDS: LORazepam 1 MG TAB 2 MG PO ×2 (05:03→14:02)
[2025-05-20] MEDS: Ferrous Sulfate 325 MG TAB PO (09:00)
[2025-05-20] MEDS: Fidaxomicin 200 MG TAB PO ×2 (09:00→21:01)
[2025-05-20] MEDS: Buprenorphine/Naloxone 8 mg/2 mg FILM 1 EACH SL ×3 (09:00→21:01)
[2025-05-20] MEDS: Baclofen 10 MG TAB 20 MG PO ×3 (09:00→21:04)
[2025-05-20] MEDS: buPROPion-XL 150 MG TABCR PO (09:00)
[2025-05-20] MEDS: Simethicone 80 MG CHEW PO ×4 (09:00→21:06)
[2025-05-20] MEDS: Methadone 5 MG TAB 10 MG PO (09:01)
[2025-05-20] MEDS: Pantoprazole 40 MG TABCR PO (09:01)
[2025-05-20] MEDS: ARIPiprazole 5 MG TAB 7.5 MG PO (09:01)
[2025-05-20] MEDS: guaiFENesin 600 MG TABCR PO ×2 (09:01→21:06)
[2025-05-20] MEDS: Apixaban 5 MG TAB PO ×2 (09:01→21:05)
[2025-05-20] MEDS: Acetaminophen 500 MG TAB 1000 MG PO ×3 (09:01→23:15)
[2025-05-20] MEDS: HYDROmorphone 2 MG TAB PO (10:26)
[2025-05-20] MEDS: Lidocaine 5% Patch 2 PATCH TP (14:25)
[2025-05-20] MEDS: Docusate Sodium 100 MG CAP PO (18:13)
[2025-05-20] MEDS: Mirtazapine 15 MG TAB 45 MG PO (21:04)
[2025-05-20] MEDS: traZODone 100 MG TAB 200 MG PO (21:05)
[2025-05-20] MEDS: Melatonin 3 MG TAB 9 MG PO (21:05)
[2025-05-21] MEDS: LORazepam 1 MG TAB 2 MG PO ×2 (04:26→16:35)
[2025-05-21] MEDS: Acetaminophen 500 MG TAB 1000 MG PO ×3 (04:41→18:08)
[2025-05-21] MEDS: Buprenorphine/Naloxone 8 mg/2 mg FILM 1 EACH SL ×3 (08:26→20:45)
[2025-05-21] MEDS: ARIPiprazole 5 MG TAB 7.5 MG PO (08:26)
[2025-05-21] MEDS: Baclofen 10 MG TAB 20 MG PO ×3 (08:26→20:45)
[2025-05-21] MEDS: Fidaxomicin 200 MG TAB PO ×2 (08:27→20:46)
[2025-05-21] MEDS: Apixaban 5 MG TAB PO ×2 (08:27→20:46)
[2025-05-21] MEDS: Ferrous Sulfate 325 MG TAB PO (08:27)
[2025-05-21] MEDS: buPROPion-XL 150 MG TABCR PO (08:27)
[2025-05-21] MEDS: Pantoprazole 40 MG TABCR PO (08:27)
[2025-05-21] MEDS: Methadone 5 MG TAB 10 MG PO (08:27)
[2025-05-21] MEDS: Simethicone 80 MG CHEW PO ×3 (08:28→18:08)
[2025-05-21 09:58] LABS: Transferrin 345 mg/dL (201-352)
[2025-05-21] MEDS: HYDROmorphone 2 MG TAB PO (11:33)
--- NOTE | 2025-05-21 13:26 | CMPROGNOTE_ITS ---
Date of service: 05/21/25 Time of Service: 13:26 Care Management Progress Note Progress Note Text Progress Note Text: Clifton remains on C. Difficile precautions although he is not having diarrhea. He really misses being able to go out in the hallway in his wheelchair for a change of scenery and to interact with people. ZANE has been in discussion with Jame from [facility] about the possibility of allowing Clifton to go into the hallway in his wheelchair. She discussed this with Dr. Boss and Dr. Casillas. While Clifton must remain on C. Difficile precautions requiring staff to gown and glove, they agreed to allow Clifton to come out of his room in his wheelchair, with the following stipulations: 1. Clifton must be free from diarrhea 2. He should have a clean brief and maeve put on just before leaving the room. 3. He must wash his hands thoroughly with soap and water before going into the hallway. 4. His wheelchair must be cleaned with bleach, including the wheels, before leaving the room. 5. He may not enter any patient rooms or restricted places such as kitchen, lounge or hallway bathrooms. Clifton was very pleased with the lifting of his room-bound restrictions and spent much of the day in the hallway chatting with staff and smiling. Social Determinants of Health Screening Social Determinants of health last assessed in clinic: 05/21/25 Will the Patient Participate in the Screening?: Yes Do you worry about having a steady place to live?: yes What is your living situation today?: I do not have steady housing Problems where you live: no known problems In the past 12 months, have you had to go without electric, gas, oil or water in your home?: no 1. Within the past 12 months, we worried whether our food would run out before we got money to buy more.: Never true 2. Within the past 12 months, the food we bought just didn't last and we didn't have money to get more.: Never true Has lack of transportation kept you from medical appointments or from doing things needed for daily living?: yes Has anyone in your life made you feel unsafe or unsupported?: yes How often does anyone, including family and friends, physically hurt you?: Never How often does anyone, including family and friends, insult or talk down to you?: Sometimes How often does anyone, including family and friends, threaten you with harm?: Never How often does anyone, including family and friends, scream or curse at you?: Sometimes HRSN Safety total score: 8 How hard is it for you to pay for the very basics like food, housing, medical care, and heating? Would you say it is:: Somewhat hard Do you want help finding or keeping work or a job?: I do not need or want help If for any reason you need help with day-to-day activities such as bathing, preparing meals, shopping, managing finances, etc., do you get the help you need?: I don?t need any help How often do you feel lonely or isolated from those around you?: Often Do you speak a language other than Lithuanian at home?: No Health Related Social Needs Health related social needs: housing instability, housed, with risk of homelessness (Z59.811), transportation insecurity (Z59.82), problems related to housing/economic circumstances (Z59.89) and feeling lonely/isolated (Z60.8) Health related social needs details: needs new placement
[2025-05-21] MEDS: Naproxen 250 MG TAB PO (14:36)
[2025-05-21] MEDS: Mirtazapine 15 MG TAB 45 MG PO (20:45)
[2025-05-21] MEDS: Melatonin 3 MG TAB 9 MG PO (20:45)
[2025-05-21] MEDS: traZODone 100 MG TAB 200 MG PO (20:46)
[2025-05-21] MEDS: guaiFENesin 600 MG TABCR PO (20:46)
[2025-05-21] MEDS: Protein Nutritional Supplement 16 GM 1 OUNCE PACKET PO (20:47)
[2025-05-22 05:32] VITALS: BP 107/56; PULSE 81; RESP 16; TEMP 36.3; O2SAT 95
[2025-05-22] MEDS: Acetaminophen 500 MG TAB 1000 MG PO ×3 (06:44→23:56)
[2025-05-22] MEDS: Pantoprazole 40 MG TABCR PO (06:44)
[2025-05-22] MEDS: Milk of Magnesia 30 ML CUP PO (06:45)
[2025-05-22] MEDS: LORazepam 1 MG TAB 2 MG PO ×2 (06:45→23:56)
[2025-05-22] MEDS: Methadone 5 MG TAB 10 MG PO (10:02)
[2025-05-22] MEDS: Fidaxomicin 200 MG TAB PO ×2 (10:03→21:38)
[2025-05-22] MEDS: Buprenorphine/Naloxone 8 mg/2 mg FILM 1 EACH SL ×3 (10:04→21:37)
[2025-05-22] MEDS: Simethicone 80 MG CHEW PO ×3 (10:04→21:37)
[2025-05-22] MEDS: ARIPiprazole 5 MG TAB 7.5 MG PO (10:04)
[2025-05-22] MEDS: buPROPion-XL 150 MG TABCR PO (10:04)
[2025-05-22] MEDS: Baclofen 10 MG TAB 20 MG PO ×3 (10:04→21:39)
[2025-05-22] MEDS: Apixaban 5 MG TAB PO ×2 (10:05→21:38)
[2025-05-22] MEDS: Ferrous Sulfate 325 MG TAB PO (10:06)
[2025-05-22 13:31] VITALS: BP 100/61; PULSE 93; RESP 16; TEMP 36.8; O2SAT 93
[2025-05-22] MEDS: Naproxen 250 MG TAB PO (18:10)
[2025-05-22] MEDS: HYDROmorphone 2 MG TAB PO (18:10)
[2025-05-22] MEDS: Melatonin 3 MG TAB 9 MG PO (21:38)
[2025-05-22] MEDS: Mirtazapine 15 MG TAB 45 MG PO (21:38)
[2025-05-22] MEDS: guaiFENesin 600 MG TABCR PO (21:38)
[2025-05-22] MEDS: traZODone 100 MG TAB 200 MG PO (21:38)
[2025-05-23] MEDS: Collagenase 30 GM TUBE TP (06:44)
[2025-05-23 07:07] VITALS: BP 111/71; PULSE 81; RESP 18; TEMP 36.2; O2SAT 94
[2025-05-23] MEDS: ARIPiprazole 5 MG TAB 7.5 MG PO (07:15)
[2025-05-23] MEDS: Buprenorphine/Naloxone 8 mg/2 mg FILM 1 EACH SL ×3 (07:15→20:40)
[2025-05-23] MEDS: Simethicone 80 MG CHEW PO ×4 (07:15→20:39)
[2025-05-23] MEDS: Methadone 5 MG TAB 10 MG PO (07:16)
[2025-05-23] MEDS: guaiFENesin 600 MG TABCR PO ×2 (07:16→20:39)
[2025-05-23] MEDS: Ferrous Sulfate 325 MG TAB PO (07:16)
[2025-05-23] MEDS: Acetaminophen 500 MG TAB 1000 MG PO ×3 (07:16→18:48)
[2025-05-23] MEDS: Fidaxomicin 200 MG TAB PO ×2 (07:16→20:39)
[2025-05-23] MEDS: Pantoprazole 40 MG TABCR PO (07:16)
[2025-05-23] MEDS: Apixaban 5 MG TAB PO ×2 (07:16→20:39)
[2025-05-23] MEDS: Baclofen 10 MG TAB 20 MG PO ×3 (07:16→20:39)
[2025-05-23] MEDS: Naproxen 250 MG TAB PO (07:16)
[2025-05-23] MEDS: buPROPion-XL 150 MG TABCR PO (07:16)
[2025-05-23] MEDS: HYDROmorphone 2 MG TAB PO (09:13)
[2025-05-23] MEDS: LORazepam 1 MG TAB 2 MG PO ×2 (09:13→13:16)
[2025-05-23] MEDS: Bisacodyl 5 MG TABEC PO (12:48)
[2025-05-23] MEDS: Milk of Magnesia 30 ML CUP PO (13:19)
[2025-05-23] MEDS: Bisacodyl 10 MG SUPP PR (14:32)
--- NOTE | 2025-05-23 17:46 | PGE_ITS ---
Date of Service Date of service: 05/23/25 Time of Service: 17:46 Assessment and Plan Assessment and plan (1) Paraplegia at T4 level: Status: Acute Assessment and plan: approximately for 1 year dependent on others for ADL care, wound care, IADLS, etc (2) Anxiety and depression: Status: Chronic Assessment and plan: [facility] limited visitors until cleared at this time previous tele-psych recommendations: Continue- - Wellbutrin XL further increased from 225 to 350mg qd - mirtazapine 45mg qhs - Abilify 7.5mg qd - could consider switch to venlafaxine pending above changes (3) History of Clostridioides difficile infection: Assessment and plan: Off isolation protocols not symptomatic at this time, last BM 05/17; Out of bed and use his WC, leave his room, etc (4) Sleep pattern disturbance: Assessment and plan: to start therapy next week, ideally CBT would be/could be helpful for sleep trial doxepin started prior to Ambien per uptodate guidelines (5) Chronic pain due to injury: Status: Acute Assessment and plan: continue pain recommendations previously outlined by SRI NGUYEN - methadone 10mg, increase by 5mg every 3-5days, max daily dose 20mg qd - continue Suboxone 8/2mg TID, may consider taper off of this, pending half-way goals and pain management - continue Dilaudid 2mg BID PRN - avoid NSAIDs given anticoagulation; trial naproxen BID x3 days currently - apap 1000mg TID PRN - baclofen TID (6) Psychogenic pain, site unspecified: Status: Acute Assessment and plan: See above (7) Chronic osteomyelitis of sacrum: Status: Acute Assessment and plan: Continue wound care (8) Right ischial pressure sore, stage 3: Status: Acute Assessment and plan: Continue wound care (9) Skin changes due to malnutrition: Status: Acute (10) Chronic anticoagulation: Status: Acute Assessment and plan: Continue (11) Chronic indwelling Chester catheter: Status: Acute Assessment and plan: Change prn and q month - Last changed 05/11/25 (12) Housing instability, housed, with risk of homelessness: Status: Acute Assessment and plan: Nereida resending referrals to all rehabs and [facility] in [facility] has recently changed preference to goal of getting out of hospital and would be agreeable to any facility in [facility] [place] (13) Neurogenic bowel: Status: Chronic (14) Constipation: Assessment and plan: continue bowel regimen, as tolerated last BM today - elfego ramon Discussed w Dr Boss Subjective Subjective Patient reports: no new complaints, feels better, tolerating liquids well, tolerating a regular diet, flatus and afebrile; denies diarrhea, nausea or shortness of breath Interval history since last seen: Shawn is awake, alert out and about in his motorized WC, smiling, engaged, w orking with mental health and palliative care Exam Narrative Exam Narrative: Gen: 46yo M, HOB ?, alert, engages appropriately. HEENT: Normocephalic, atraumatic; hearing WNL; MMM. Resp: Even, unlabored; speaks full sentences; no distress, wheeze, or cough. Psych/MS: Alert, answers appropriately; affect normal; mood cooperative/guarded; thought process intact; insight/judgment fair?limited. Objective Last Vital Signs Temp 36.2 C L 05/23/25 07:07 Pulse 81 05/23/25 07:07 Resp 18 05/23/25 07:07 BP 111/71 05/23/25 07:07 Pulse Ox 94 05/23/25 07:07 Time Spent with Patient Time Spent with Patient: 25-34 minutes Time was spent: referring, communicating with other health critical care nurse practitioner, counseling the patient and care coordination
[2025-05-23] MEDS: Mirtazapine 15 MG TAB 45 MG PO (20:39)
[2025-05-23] MEDS: Doxepin 25 MG CAP PO (20:39)
[2025-05-23] MEDS: Melatonin 3 MG TAB 9 MG PO (20:39)
[2025-05-24] MEDS: Zolpidem 5 MG TAB PO ×2 (00:05→03:12)
[2025-05-24] MEDS: Acetaminophen 500 MG TAB 1000 MG PO ×3 (00:05→17:56)
[2025-05-24] MEDS: Naproxen 250 MG TAB PO (00:05)
[2025-05-24] MEDS: LORazepam 1 MG TAB 2 MG PO (02:36)
[2025-05-24 08:12] VITALS: BP 124/73; PULSE 90; RESP 17; TEMP 36.1; O2SAT 98
[2025-05-24] MEDS: Buprenorphine/Naloxone 8 mg/2 mg FILM 1 EACH SL ×3 (08:23→20:47)
[2025-05-24] MEDS: guaiFENesin 600 MG TABCR PO ×2 (08:24→20:47)
[2025-05-24] MEDS: buPROPion-XL 150 MG TABCR PO (08:24)
[2025-05-24] MEDS: Apixaban 5 MG TAB PO ×2 (08:24→20:47)
[2025-05-24] MEDS: Baclofen 10 MG TAB 20 MG PO ×3 (08:24→20:48)
[2025-05-24] MEDS: Ferrous Sulfate 325 MG TAB PO (08:24)
[2025-05-24] MEDS: Pantoprazole 40 MG TABCR PO (08:24)
[2025-05-24] MEDS: Fidaxomicin 200 MG TAB PO ×2 (08:24→20:47)
[2025-05-24] MEDS: ARIPiprazole 5 MG TAB 7.5 MG PO (08:25)
[2025-05-24] MEDS: Methadone 5 MG TAB 10 MG PO (08:25)
[2025-05-24] MEDS: Triamcinolone 0.1% CR 80 GM TUBE TP (08:27)
[2025-05-24] MEDS: Simethicone 80 MG CHEW PO ×4 (09:35→20:48)
[2025-05-24] MEDS: Mirtazapine 15 MG TAB 45 MG PO (20:47)
[2025-05-24] MEDS: Zolpidem 6.25 MG TABCR 12.5 MG PO (20:47)
[2025-05-24] MEDS: Melatonin 3 MG TAB 9 MG PO (20:47)
[2025-05-24] MEDS: Collagenase 30 GM TUBE TP (20:57)
[2025-05-25] MEDS: Naproxen 250 MG TAB PO ×2 (01:25→12:56)
[2025-05-25] MEDS: LORazepam 1 MG TAB 2 MG PO (01:25)
[2025-05-25] MEDS: Patch Removal 1 EACH TP (01:40)
[2025-05-25] MEDS: Acetaminophen 500 MG TAB 1000 MG PO ×2 (03:16→18:10)
[2025-05-25] MEDS: HYDROmorphone 2 MG TAB PO (05:17)
[2025-05-25 08:20] VITALS: BP 103/58; PULSE 85; TEMP 36.4; O2SAT 98
[2025-05-25] MEDS: Cyanocobalamin 500 MCG TAB 1000 MCG PO (08:24)
[2025-05-25] MEDS: Methadone 5 MG TAB 10 MG PO (08:24)
[2025-05-25] MEDS: Pantoprazole 40 MG TABCR PO (08:24)
[2025-05-25] MEDS: buPROPion-XL 150 MG TABCR PO (08:24)
[2025-05-25] MEDS: Apixaban 5 MG TAB PO ×2 (08:24→20:18)
[2025-05-25] MEDS: Folic Acid 1 MG TAB PO (08:25)
[2025-05-25] MEDS: Fidaxomicin 200 MG TAB PO ×2 (08:25→20:18)
[2025-05-25] MEDS: guaiFENesin 600 MG TABCR PO ×2 (08:25→20:18)
[2025-05-25] MEDS: Ferrous Sulfate 325 MG TAB PO (08:25)
[2025-05-25] MEDS: ARIPiprazole 5 MG TAB 7.5 MG PO (08:25)
[2025-05-25] MEDS: Buprenorphine/Naloxone 8 mg/2 mg FILM 1 EACH SL ×2 (08:25→14:55)
[2025-05-25] MEDS: Baclofen 10 MG TAB 20 MG PO ×3 (08:25→20:18)
[2025-05-25] MEDS: Triamcinolone 0.1% CR 80 GM TUBE TP (08:26)
[2025-05-25] MEDS: Simethicone 80 MG CHEW PO ×3 (10:02→17:52)
--- NOTE | 2025-05-25 17:21 | CMACTNOTE_ITS ---
Date of service: 05/25/25 Time of Service: 17:21 Care Management Activity Note Activity Note Text Activity Note Text: Clifton had a zoom therapy session with [facility] today. He did not spend much time in the session, and stated that he got nothing out of it. He does not know if there will be a follow up appointment.
[2025-05-25] MEDS: Ketorolac 30 MG/ML VIAL IM (20:19)
[2025-05-26] MEDS: Zolpidem 6.25 MG TABCR 12.5 MG PO ×2 (00:05→20:52)
[2025-05-26] MEDS: Acetaminophen 250 mg/Aspirin 250 mg/Caffeine 65 mg TAB 2 EACH PO ×2 (00:06→09:52)
[2025-05-26] MEDS: Simethicone 80 MG CHEW PO ×5 (00:06→20:52)
[2025-05-26] MEDS: Mirtazapine 15 MG TAB 45 MG PO ×2 (00:07→20:53)
[2025-05-26] MEDS: Buprenorphine/Naloxone 8 mg/2 mg FILM 1 EACH SL ×4 (00:07→20:51)
[2025-05-26] MEDS: Melatonin 3 MG TAB 9 MG PO ×2 (00:08→20:51)
[2025-05-26] MEDS: Bisacodyl 10 MG SUPP PR (00:08)
[2025-05-26] MEDS: Collagenase 30 GM TUBE TP ×2 (00:11→20:54)
[2025-05-26] MEDS: Triamcinolone 0.1% CR 80 GM TUBE TP (00:12)
[2025-05-26 00:18] VITALS: BP 115/63; PULSE 72; RESP 17; TEMP 36.1; O2SAT 96
[2025-05-26] MEDS: Patch Removal 1 EACH TP (01:44)
[2025-05-26 08:11] VITALS: BP 104/61; PULSE 81; RESP 16; TEMP 35.9; O2SAT 95
--- NOTE | 2025-05-26 08:59 | PDOC.CMACT ---
Date of service: 05/26/25 Time of Service: 08:59 Care Management Activity Note Activity Note Text Activity Note Text: Clifton continues to get up every day into his electric wheelchair and propels himself around the unit. When he leaves the unit he is accompanied by staff. Clifton has a long time friend who has been hospitalized on the unit for a while and he visits her several times a day. He cannot go into her room because of the C.Difficile, but chats with her from the doorway. Clifton loves animals and enjoys pet visitation as well as music therap, when available. Clifton's sister Heather has been visiting regularly as well as his Aunt Phuong and at times, on nice days, the visits take place outside.
[2025-05-26] MEDS: Baclofen 10 MG TAB 20 MG PO ×3 (09:51→20:52)
[2025-05-26] MEDS: Folic Acid 1 MG TAB PO (09:51)
[2025-05-26] MEDS: Cyanocobalamin 500 MCG TAB 1000 MCG PO (09:51)
[2025-05-26] MEDS: Fidaxomicin 200 MG TAB PO (09:52)
[2025-05-26] MEDS: ARIPiprazole 5 MG TAB 7.5 MG PO (09:52)
[2025-05-26] MEDS: Ferrous Sulfate 325 MG TAB PO (09:52)
[2025-05-26] MEDS: Apixaban 5 MG TAB PO ×2 (09:53→20:51)
[2025-05-26] MEDS: guaiFENesin 600 MG TABCR PO ×2 (09:53→20:51)
[2025-05-26] MEDS: buPROPion-XL 150 MG TABCR PO (09:54)
[2025-05-26] MEDS: Methadone 5 MG TAB 10 MG PO (09:55)
[2025-05-26] MEDS: Pantoprazole 40 MG TABCR PO (09:58)
[2025-05-26] MEDS: HYDROmorphone 2 MG TAB PO (13:25)
[2025-05-26] MEDS: Acetaminophen 500 MG TAB 1000 MG PO (14:04)
[2025-05-26 16:05] LABS: 1,25-Dihydroxyvitamin D 33 pg/mL (18-64)
[2025-05-26] MEDS: Naproxen 250 MG TAB PO (17:42)
[2025-05-26 20:10] VITALS: BP 105/66; PULSE 83; RESP 18; TEMP 36.6; O2SAT 95
[2025-05-26] MEDS: traZODone 100 MG TAB PO (20:52)
[2025-05-27] MEDS: Senna TAB 2 TAB PO (03:18)
[2025-05-27] MEDS: Milk of Magnesia 30 ML CUP PO (03:18)
[2025-05-27] MEDS: Naproxen 250 MG TAB PO ×2 (03:18→13:14)
[2025-05-27] MEDS: Acetaminophen 500 MG TAB 1000 MG PO ×3 (03:18→16:15)
[2025-05-27] MEDS: ARIPiprazole 5 MG TAB 7.5 MG PO (09:59)
[2025-05-27] MEDS: Methadone 5 MG TAB 10 MG PO (10:00)
[2025-05-27] MEDS: Apixaban 5 MG TAB PO ×2 (10:01→19:39)
[2025-05-27] MEDS: buPROPion-XL 150 MG TABCR PO (10:01)
[2025-05-27] MEDS: Cyanocobalamin 500 MCG TAB 1000 MCG PO (10:01)
[2025-05-27] MEDS: Simethicone 80 MG CHEW PO ×3 (10:01→21:23)
[2025-05-27] MEDS: Ferrous Sulfate 325 MG TAB PO (10:01)
[2025-05-27] MEDS: Baclofen 10 MG TAB 20 MG PO ×3 (10:01→19:39)
[2025-05-27] MEDS: Pantoprazole 40 MG TABCR PO (10:01)
[2025-05-27] MEDS: guaiFENesin 600 MG TABCR PO ×2 (10:01→19:39)
[2025-05-27] MEDS: Folic Acid 1 MG TAB PO (10:01)
[2025-05-27] MEDS: Buprenorphine/Naloxone 8 mg/2 mg FILM 1 EACH SL ×3 (10:02→19:38)
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
[2025-05-27] MEDS: HYDROmorphone 2 MG TAB PO ×2 (15:29→19:38)
[2025-05-27] MEDS: Mirtazapine 15 MG TAB 45 MG PO (19:39)
[2025-05-27] MEDS: Melatonin 3 MG TAB 9 MG PO (19:39)
[2025-05-27] MEDS: Protein Nutritional Supplement 16 GM 1 OUNCE PACKET PO (19:40)
--- NOTE | 2025-05-27 20:19 | W.EVENT ---
Date of service: 05/26/25 Time of Service: 12:00 Event Note: Patient changed to ambien and trazodone at night. Left hand contracted; OT consulted. OT provided pt with exercises which he will perform on his own. OT provided CM with bracing recommendations for his hand. Nurses should do passive range of motion with him on a regular basis. Time Spent with Patient Time spent in critical care(minutes): 0 Time Spent Included: Other
[2025-05-27] MEDS: Zolpidem 6.25 MG TABCR 12.5 MG PO (21:23)
[2025-05-27] MEDS: traZODone 100 MG TAB PO (21:26)
[2025-05-27] MEDS: Collagenase 30 GM TUBE TP (21:29)
[2025-05-28] MEDS: Acetaminophen 500 MG TAB 1000 MG PO (01:05)
[2025-05-28 08:01] VITALS: BP 108/61; PULSE 72; RESP 17; TEMP 36.4; O2SAT 99
[2025-05-28] MEDS: Pantoprazole 40 MG TABCR PO (10:32)
[2025-05-28] MEDS: Baclofen 10 MG TAB 20 MG PO ×3 (10:32→20:22)
[2025-05-28] MEDS: buPROPion-XL 150 MG TABCR PO (10:32)
[2025-05-28] MEDS: Folic Acid 1 MG TAB PO (10:32)
[2025-05-28] MEDS: Buprenorphine/Naloxone 8 mg/2 mg FILM 1 EACH SL ×3 (10:33→20:22)
[2025-05-28] MEDS: Simethicone 80 MG CHEW PO ×3 (10:33→20:22)
[2025-05-28] MEDS: Apixaban 5 MG TAB PO ×2 (10:33→20:22)
[2025-05-28] MEDS: Methadone 5 MG TAB 10 MG PO (10:33)
[2025-05-28] MEDS: Cyanocobalamin 500 MCG TAB 1000 MCG PO (10:33)
[2025-05-28] MEDS: ARIPiprazole 5 MG TAB 7.5 MG PO (10:33)
[2025-05-28] MEDS: guaiFENesin 600 MG TABCR PO ×2 (10:33→20:23)
[2025-05-28] MEDS: Ferrous Sulfate 325 MG TAB PO (10:33)
[2025-05-28] MEDS: Naproxen 250 MG TAB PO (13:05)
[2025-05-28] MEDS: HYDROmorphone 2 MG TAB PO (14:27)
[2025-05-28 15:15] VITALS: BP 112/66; PULSE 70; RESP 19; TEMP 36.4; O2SAT 95
[2025-05-28] MEDS: Methocarbamol 500 MG TAB PO (18:34)
--- NOTE | 2025-05-28 20:19 | NUR.NOTE ---
Addendum entered by María Elena Dixon RN 05/28/25 20:23: safety importance reviewed with patient, no other devices found in room at time of safety checks. Charge Nurse notified and vaping device placed in lock box until further instructions are given Original Note: approximately 0932 this RN went to [facility] patient of change of shift and do bedside report with incoming Nurse roslyn, when this RN walked into the room patient was putting something in his pouch I asked patient what he had in it and he stated nothing this RN did a safety check in his pouch and stuffed animal and found a vaping device. This RN took vapin device from patient.
[2025-05-28] MEDS: Mirtazapine 15 MG TAB 45 MG PO (20:23)
[2025-05-28] MEDS: traZODone 100 MG TAB PO (20:23)
[2025-05-28] MEDS: Melatonin 3 MG TAB PO (20:23)
[2025-05-28] MEDS: Ramelteon 8 MG TAB PO (20:56)
[2025-05-29] MEDS: LORazepam 1 MG TAB 2 MG PO ×3 (00:20→22:05)
[2025-05-29] MEDS: Acetaminophen 500 MG TAB 1000 MG PO ×2 (00:20→12:35)
[2025-05-29] MEDS: Naproxen 250 MG TAB PO ×2 (00:22→18:19)
[2025-05-29] MEDS: Senna TAB 2 TAB PO (00:22)
[2025-05-29] MEDS: Milk of Magnesia 30 ML CUP PO (00:22)
[2025-05-29] MEDS: Nicotine 21 MG/24 HR PATCH TD (00:23)
[2025-05-29] MEDS: Acetaminophen 250 mg/Aspirin 250 mg/Caffeine 65 mg TAB 2 EACH PO (03:09)
[2025-05-29] MEDS: HYDROmorphone 2 MG TAB PO ×3 (03:09→22:05)
[2025-05-29] MEDS: Methadone 5 MG TAB 15 MG PO (10:11)
[2025-05-29] MEDS: Baclofen 10 MG TAB 20 MG PO ×3 (10:11→19:26)
[2025-05-29] MEDS: ARIPiprazole 5 MG TAB 7.5 MG PO (10:11)
[2025-05-29] MEDS: Buprenorphine/Naloxone 8 mg/2 mg FILM 1 EACH SL ×3 (10:11→19:25)
[2025-05-29] MEDS: Pantoprazole 40 MG TABCR PO (10:11)
[2025-05-29] MEDS: buPROPion-XL 150 MG TABCR PO (10:11)
[2025-05-29] MEDS: Simethicone 80 MG CHEW PO ×3 (10:11→19:26)
[2025-05-29] MEDS: guaiFENesin 600 MG TABCR PO ×2 (10:12→19:26)
[2025-05-29] MEDS: Apixaban 5 MG TAB PO ×2 (10:12→19:26)
[2025-05-29] MEDS: Folic Acid 1 MG TAB PO (10:12)
[2025-05-29] MEDS: Cyanocobalamin 500 MCG TAB 1000 MCG PO (10:13)
[2025-05-29] MEDS: Ferrous Sulfate 325 MG TAB PO (10:14)
[2025-05-29] MEDS: hydrOXYzine HCL 25 MG TAB PO (14:27)
[2025-05-29 22:00] VITALS: O2SAT 98
[2025-05-29 22:02] VITALS: BP 90/56; PULSE 89; RESP 18; TEMP 36.2; O2SAT 98
[2025-05-29] MEDS: Mirtazapine 15 MG TAB 45 MG PO (22:04)
[2025-05-29] MEDS: traZODone 100 MG TAB PO (22:05)
[2025-05-29] MEDS: Ramelteon 8 MG TAB PO (22:05)
[2025-05-29] MEDS: Melatonin 3 MG TAB PO (22:05)
[2025-05-30] MEDS: Patch Removal 1 EACH TP (00:05)
[2025-05-30] MEDS: LORazepam 1 MG TAB 2 MG PO ×2 (02:50→22:38)
[2025-05-30 07:01] VITALS: BP 105/65
[2025-05-30] MEDS: Methadone 5 MG TAB 15 MG PO (08:19)
[2025-05-30] MEDS: guaiFENesin 600 MG TABCR PO ×2 (08:20→22:39)
[2025-05-30] MEDS: Baclofen 10 MG TAB 20 MG PO ×3 (08:20→22:38)
[2025-05-30] MEDS: Apixaban 5 MG TAB PO ×2 (08:20→22:38)
[2025-05-30] MEDS: buPROPion-XL 150 MG TABCR PO (08:20)
[2025-05-30] MEDS: Pantoprazole 40 MG TABCR PO (08:20)
[2025-05-30] MEDS: Folic Acid 1 MG TAB PO (08:20)
[2025-05-30] MEDS: Ferrous Sulfate 325 MG TAB PO (08:20)
[2025-05-30] MEDS: Simethicone 80 MG CHEW PO (08:20)
[2025-05-30] MEDS: Cyanocobalamin 500 MCG TAB 1000 MCG PO (08:20)
[2025-05-30] MEDS: ARIPiprazole 5 MG TAB 7.5 MG PO (08:20)
[2025-05-30] MEDS: Buprenorphine/Naloxone 8 mg/2 mg FILM 1 EACH SL ×3 (08:21→22:37)
[2025-05-30] MEDS: Naproxen 250 MG TAB PO (12:08)
[2025-05-30] MEDS: Acetaminophen 500 MG TAB 1000 MG PO (12:08)
[2025-05-30] MEDS: Nicotine 21 MG/24 HR PATCH TD (12:42)
[2025-05-30] MEDS: Melatonin 3 MG TAB PO (22:38)
[2025-05-30] MEDS: traZODone 100 MG TAB PO (22:38)
[2025-05-30] MEDS: Ramelteon 8 MG TAB PO (22:38)
[2025-05-30] MEDS: Mirtazapine 15 MG TAB 45 MG PO (22:38)
[2025-05-31] MEDS: HYDROmorphone 2 MG TAB PO (02:07)
[2025-05-31] MEDS: LORazepam 1 MG TAB 2 MG PO ×2 (03:52→22:24)
[2025-05-31] MEDS: Pantoprazole 40 MG TABCR PO (08:07)
[2025-05-31] MEDS: Acetaminophen 500 MG TAB 1000 MG PO ×2 (08:08→17:16)
[2025-05-31] MEDS: Naproxen 250 MG TAB PO (08:08)
[2025-05-31] MEDS: Simethicone 80 MG CHEW PO ×2 (09:29→20:55)
[2025-05-31] MEDS: Apixaban 5 MG TAB PO ×2 (09:29→20:56)
[2025-05-31] MEDS: Baclofen 10 MG TAB 20 MG PO ×3 (09:29→20:55)
[2025-05-31] MEDS: Folic Acid 1 MG TAB PO (09:29)
[2025-05-31] MEDS: Ferrous Sulfate 325 MG TAB PO (09:29)
[2025-05-31] MEDS: buPROPion-XL 150 MG TABCR PO (09:29)
[2025-05-31] MEDS: guaiFENesin 600 MG TABCR PO ×2 (09:29→20:56)
[2025-05-31] MEDS: Methadone 5 MG TAB 15 MG PO (09:29)
[2025-05-31] MEDS: Cyanocobalamin 500 MCG TAB 1000 MCG PO (09:30)
[2025-05-31] MEDS: ARIPiprazole 5 MG TAB 7.5 MG PO (09:30)
[2025-05-31] MEDS: Buprenorphine/Naloxone 8 mg/2 mg FILM 1 EACH SL ×3 (09:30→20:55)
[2025-05-31] MEDS: Senna TAB 2 TAB PO (09:32)
[2025-05-31] MEDS: Acetaminophen 250 mg/Aspirin 250 mg/Caffeine 65 mg TAB 2 EACH PO (17:16)
[2025-05-31] MEDS: Nicotine 21 MG/24 HR PATCH TD (18:03)
[2025-05-31 19:45] VITALS: BP 99/61; PULSE 75; RESP 17; TEMP 36.3; O2SAT 96
[2025-05-31] MEDS: Docusate Sodium 100 MG CAP PO (20:56)
[2025-05-31] MEDS: Triamcinolone 0.1% CR 80 GM TUBE TP (21:03)
[2025-05-31] MEDS: Collagenase 30 GM TUBE TP (22:24)
[2025-05-31] MEDS: Mirtazapine 15 MG TAB 45 MG PO (22:25)
[2025-05-31] MEDS: Ramelteon 8 MG TAB PO (22:25)
[2025-05-31] MEDS: traZODone 100 MG TAB PO (22:26)
[2025-05-31] MEDS: Melatonin 3 MG TAB PO (22:26)
[2025-06-01] MEDS: LORazepam 1 MG TAB 2 MG PO (03:12)
[2025-06-01] MEDS: Acetaminophen 250 mg/Aspirin 250 mg/Caffeine 65 mg TAB 2 EACH PO (06:35)
[2025-06-01 08:08] VITALS: BP 94/52; PULSE 79; RESP 16; TEMP 36.5; O2SAT 94
[2025-06-01] MEDS: Methadone 5 MG TAB 15 MG PO (10:02)
[2025-06-01] MEDS: ARIPiprazole 5 MG TAB 7.5 MG PO (10:02)
[2025-06-01] MEDS: Senna TAB 2 TAB PO (10:02)
[2025-06-01] MEDS: Baclofen 10 MG TAB 20 MG PO ×3 (10:03→20:00)
[2025-06-01] MEDS: Cyanocobalamin 500 MCG TAB 1000 MCG PO (10:04)
[2025-06-01] MEDS: Docusate Sodium 100 MG CAP PO (10:04)
[2025-06-01] MEDS: Apixaban 5 MG TAB PO ×2 (10:04→20:00)
[2025-06-01] MEDS: guaiFENesin 600 MG TABCR PO ×2 (10:04→20:00)
[2025-06-01] MEDS: Simethicone 80 MG CHEW PO ×3 (10:04→22:58)
[2025-06-01] MEDS: buPROPion-XL 150 MG TABCR PO (10:05)
[2025-06-01] MEDS: Pantoprazole 40 MG TABCR PO (10:05)
[2025-06-01] MEDS: Folic Acid 1 MG TAB PO (10:05)
[2025-06-01] MEDS: Bisacodyl 5 MG TABEC PO (10:05)
[2025-06-01] MEDS: Ferrous Sulfate 325 MG TAB PO (10:05)
[2025-06-01] MEDS: Buprenorphine/Naloxone 8 mg/2 mg FILM 1 EACH SL ×3 (10:05→22:58)
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
[2025-06-01] MEDS: Acetaminophen 500 MG TAB 650 MG PO (20:00)
[2025-06-01 20:03] VITALS: BP 103/64; PULSE 94; RESP 17; TEMP 36.5; O2SAT 97
[2025-06-01] MEDS: Mirtazapine 15 MG TAB 45 MG PO (22:57)
[2025-06-01] MEDS: traZODone 100 MG TAB PO (22:58)
[2025-06-01] MEDS: Melatonin 3 MG TAB PO (22:58)
[2025-06-01] MEDS: Ramelteon 8 MG TAB PO (22:58)
[2025-06-01] MEDS: Triamcinolone 0.1% CR 80 GM TUBE TP (22:58)
[2025-06-01] MEDS: Collagenase 30 GM TUBE TP (22:58)
[2025-06-02] MEDS: LORazepam 1 MG TAB 2 MG PO (01:55)
[2025-06-02] MEDS: Nicotine 21 MG/24 HR PATCH TD (01:55)
[2025-06-02] MEDS: Cyanocobalamin 500 MCG TAB 1000 MCG PO (07:27)
[2025-06-02] MEDS: Senna TAB 2 TAB PO (07:27)
[2025-06-02] MEDS: Apixaban 5 MG TAB PO ×2 (07:27→21:18)
[2025-06-02] MEDS: Pantoprazole 40 MG TABCR PO (07:27)
[2025-06-02] MEDS: Docusate Sodium 100 MG CAP PO (07:27)
[2025-06-02] MEDS: Folic Acid 1 MG TAB PO (07:27)
[2025-06-02] MEDS: guaiFENesin 600 MG TABCR PO ×2 (07:27→21:19)
[2025-06-02] MEDS: Baclofen 10 MG TAB 20 MG PO ×3 (07:28→21:18)
[2025-06-02] MEDS: buPROPion-XL 150 MG TABCR PO (07:28)
[2025-06-02] MEDS: Acetaminophen 500 MG TAB 650 MG PO ×3 (07:28→21:17)
[2025-06-02] MEDS: ARIPiprazole 5 MG TAB 7.5 MG PO (07:29)
[2025-06-02] MEDS: Simethicone 80 MG CHEW PO ×2 (07:29→21:19)
[2025-06-02] MEDS: Methadone 5 MG TAB 15 MG PO (07:29)
[2025-06-02] MEDS: HYDROmorphone 2 MG TAB PO ×2 (07:30→14:48)
[2025-06-02] MEDS: Buprenorphine/Naloxone 8 mg/2 mg FILM 1 EACH SL ×3 (07:32→21:18)
--- NOTE | 2025-06-02 08:57 | PDOC.CMPRO ---
Date of service: 06/02/25 Time of Service: 08:57 Care Management Progress Note Progress Note Text Progress Note Text: Clifton was sitting up in bed when CM met with him. He was quiet and a bit sleepy but engaged well with CM. CM was able to report that there is a meeting scheduled next week with [place] chief of staff. The purpose is much like a meet and greet where staff from the agency engage with Clifton to learn a little more about him. They would like to know what interests he has, preferences, likes and dislikes and any future plans. The purpose would be to find a match in a suitable [facility] home setting. Clifton smiled and actually commented that finally, we have a little bit of good news. CM will invite his sister Heather to attend as well; the meeting is likely to be virtual via Zoom. Discharge Potential Discharge Needs: Other (hopefully [facility] placement) Anticipated Barriers to Discharge: Bed availability Patient/Family Education Needs: Review discharge instructions, discuss Ask Me Three Transportation: Other (to be determined by disposition) Plan: Clifton's discharge plan is not clear. Referrals have been sent to all SNFs in the [facility] as well as all of the AF home agencies. No bed offers have been received however [facility] has reached out to speak with Clifton. In addition, CM has been in contact with the Complex care Team at the [facility]. Social Determinants of Health Screening Social Determinants of health last assessed in clinic: 06/02/25 Will the Patient Participate in the Screening?: Yes Do you worry about having a steady place to live?: yes What is your living situation today?: I do not have steady housing Problems where you live: no known problems In the past 12 months, have you had to go without electric, gas, oil or water in your home?: no 1. Within the past 12 months, we worried whether our food would run out before we got money to buy more.: Never true 2. Within the past 12 months, the food we bought just didn't last and we didn't have money to get more.: Never true Has lack of transportation kept you from medical appointments or from doing things needed for daily living?: yes Has anyone in your life made you feel unsafe or unsupported?: yes How often does anyone, including family and friends, physically hurt you?: Never How often does anyone, including family and friends, insult or talk down to you?: Sometimes How often does anyone, including family and friends, threaten you with harm?: Never How often does anyone, including family and friends, scream or curse at you?: Sometimes HRSN Safety total score: 8 How hard is it for you to pay for the very basics like food, housing, medical care, and heating? Would you say it is:: Somewhat hard Do you want help finding or keeping work or a job?: I do not need or want help If for any reason you need help with day-to-day activities such as bathing, preparing meals, shopping, managing finances, etc., do you get the help you need?: I don?t need any help How often do you feel lonely or isolated from those around you?: Often Do you speak a language other than Palestinian at home?: No Health Related Social Needs Health related social needs: housing instability, housed, with risk of homelessness (Z59.811), transportation insecurity (Z59.82), problems related to housing/economic circumstances (Z59.89) and feeling lonely/isolated (Z60.8) Health related social needs details: needs new placement
[2025-06-02] MEDS: Lidocaine 5% Patch 2 PATCH TP (14:49)
[2025-06-02 20:41] VITALS: BP 104/66; PULSE 80; RESP 18; TEMP 36.5; O2SAT 94
[2025-06-02] MEDS: traZODone 100 MG TAB PO (21:17)
[2025-06-02] MEDS: Ramelteon 8 MG TAB PO (21:18)
[2025-06-02] MEDS: Mirtazapine 15 MG TAB 45 MG PO (21:18)
[2025-06-02] MEDS: Melatonin 3 MG TAB PO (21:18)
[2025-06-02] MEDS: Triamcinolone 0.1% CR 80 GM TUBE TP (21:19)
[2025-06-03] MEDS: Milk of Magnesia 30 ML CUP PO (01:27)
[2025-06-03] MEDS: HYDROmorphone 2 MG TAB PO ×2 (01:27→16:00)
[2025-06-03] MEDS: LORazepam 1 MG TAB 2 MG PO ×2 (01:27→22:47)
[2025-06-03] MEDS: Nicotine 21 MG/24 HR PATCH TD (01:27)
[2025-06-03] MEDS: Senna TAB 2 TAB PO ×2 (01:28→09:00)
[2025-06-03] MEDS: Docusate Sodium 100 MG CAP PO ×2 (01:28→09:02)
[2025-06-03] MEDS: Bisacodyl 5 MG TABEC PO ×2 (01:28→09:02)
[2025-06-03] MEDS: Patch Removal 1 EACH TP (02:54)
[2025-06-03 07:58] VITALS: BP 92/50; PULSE 95; RESP 17; TEMP 36.7; O2SAT 96
[2025-06-03] MEDS: Cyanocobalamin 500 MCG TAB 1000 MCG PO (09:00)
[2025-06-03] MEDS: buPROPion-XL 150 MG TABCR PO (09:01)
[2025-06-03] MEDS: Simethicone 80 MG CHEW PO ×4 (09:01→21:02)
[2025-06-03] MEDS: Methadone 5 MG TAB 15 MG PO (09:01)
[2025-06-03] MEDS: guaiFENesin 600 MG TABCR PO ×2 (09:02→21:02)
[2025-06-03] MEDS: Folic Acid 1 MG TAB PO (09:02)
[2025-06-03] MEDS: Pantoprazole 40 MG TABCR PO (09:02)
[2025-06-03] MEDS: Ferrous Sulfate 325 MG TAB PO (09:02)
[2025-06-03] MEDS: Apixaban 5 MG TAB PO ×2 (09:02→21:02)
[2025-06-03] MEDS: ARIPiprazole 5 MG TAB 7.5 MG PO (09:02)
[2025-06-03] MEDS: Baclofen 10 MG TAB 20 MG PO ×3 (09:02→21:02)
[2025-06-03] MEDS: Buprenorphine/Naloxone 8 mg/2 mg FILM 1 EACH SL ×3 (09:06→21:02)
[2025-06-03] MEDS: Acetaminophen 325 MG TAB 650 MG PO ×3 (09:35→21:03)
[2025-06-03] MEDS: Ketoconazole 2% CREAM 15 GM TUBE TP (12:17)
[2025-06-03] MEDS: Triamcinolone 0.1% CR 80 GM TUBE TP (12:17)
[2025-06-03 20:04] VITALS: BP 97/61; PULSE 84; RESP 16; TEMP 36.3; O2SAT 96
[2025-06-03] MEDS: Ramelteon 8 MG TAB PO (21:02)
[2025-06-03] MEDS: Mirtazapine 15 MG TAB 45 MG PO (21:02)
[2025-06-03] MEDS: traZODone 100 MG TAB PO (21:02)
[2025-06-03] MEDS: Melatonin 3 MG TAB PO (21:02)
[2025-06-04] MEDS: Folic Acid 1 MG TAB PO (09:25)
[2025-06-04] MEDS: Cyanocobalamin 500 MCG TAB 1000 MCG PO (09:25)
[2025-06-04] MEDS: Milk of Magnesia 30 ML CUP PO ×2 (09:25→22:38)
[2025-06-04] MEDS: Apixaban 5 MG TAB PO ×2 (09:25→22:39)
[2025-06-04] MEDS: ARIPiprazole 5 MG TAB 7.5 MG PO (09:25)
[2025-06-04] MEDS: buPROPion-XL 150 MG TABCR PO (09:25)
[2025-06-04] MEDS: Methadone 5 MG TAB 15 MG PO (09:26)
[2025-06-04] MEDS: Acetaminophen 325 MG TAB 650 MG PO ×3 (09:26→22:41)
[2025-06-04] MEDS: Ferrous Sulfate 325 MG TAB PO (09:26)
[2025-06-04] MEDS: Bisacodyl 5 MG TABEC PO (09:26)
[2025-06-04] MEDS: guaiFENesin 600 MG TABCR PO ×2 (09:26→22:41)
[2025-06-04] MEDS: Simethicone 80 MG CHEW PO ×4 (09:27→22:43)
[2025-06-04] MEDS: Baclofen 10 MG TAB 20 MG PO ×3 (09:27→22:41)
[2025-06-04] MEDS: Triamcinolone 0.1% CR 80 GM TUBE TP ×2 (09:28→22:44)
[2025-06-04] MEDS: Buprenorphine/Naloxone 8 mg/2 mg FILM 1 EACH SL ×3 (09:28→22:38)
[2025-06-04] MEDS: Ketoconazole 2% CREAM 15 GM TUBE TP (09:29)
[2025-06-04] MEDS: Nicotine 21 MG/24 HR PATCH TD (09:36)
[2025-06-04] MEDS: Bisacodyl 10 MG SUPP PR ×2 (12:24→23:36)
--- NOTE | 2025-06-04 16:23 | W.PM.PROGNOT ---
Date of Service Date of service: 06/04/25 Time of Service: 16:23 Subjective Subjective Patient reports: no new complaints Objective Last Vital Signs Temp 36.3 C L 06/03/25 20:04 Pulse 84 06/03/25 20:04 Resp 16 06/03/25 20:04 BP 97/61 L 06/03/25 20:04 Pulse Ox 96 06/03/25 20:04
[2025-06-04] MEDS: HYDROmorphone 2 MG TAB PO ×2 (16:30→22:42)
[2025-06-04 20:19] VITALS: BP 111/52; PULSE 82; RESP 16; TEMP 36.8; O2SAT 95
[2025-06-04] MEDS: Senna TAB 2 TAB PO (22:39)
[2025-06-04] MEDS: Melatonin 3 MG TAB PO (22:39)
[2025-06-04] MEDS: Docusate Sodium 100 MG CAP PO (22:40)
[2025-06-04] MEDS: Mirtazapine 15 MG TAB 45 MG PO (22:40)
[2025-06-04] MEDS: traZODone 100 MG TAB PO (22:40)
[2025-06-04] MEDS: LORazepam 1 MG TAB 2 MG PO (22:42)
[2025-06-04] MEDS: Ramelteon 8 MG TAB PO (22:43)
[2025-06-04] MEDS: Collagenase 30 GM TUBE TP (23:36)
[2025-06-05] MEDS: HYDROmorphone 2 MG TAB PO ×2 (03:50→12:45)
[2025-06-05] MEDS: LORazepam 1 MG TAB 2 MG PO ×2 (03:50→20:34)
[2025-06-05] MEDS: Apixaban 5 MG TAB PO ×2 (08:49→20:33)
[2025-06-05] MEDS: Folic Acid 1 MG TAB PO (08:49)
[2025-06-05] MEDS: guaiFENesin 600 MG TABCR PO ×2 (08:49→20:11)
[2025-06-05] MEDS: Baclofen 10 MG TAB 20 MG PO ×3 (08:50→18:25)
[2025-06-05] MEDS: Cyanocobalamin 500 MCG TAB 1000 MCG PO (08:50)
[2025-06-05] MEDS: ARIPiprazole 5 MG TAB 7.5 MG PO (08:51)
[2025-06-05] MEDS: Pantoprazole 40 MG TABCR PO (08:51)
[2025-06-05] MEDS: Ferrous Sulfate 325 MG TAB PO (08:51)
[2025-06-05] MEDS: Acetaminophen 325 MG TAB 650 MG PO ×3 (08:52→20:09)
[2025-06-05] MEDS: Methadone 5 MG TAB 15 MG PO (08:53)
[2025-06-05] MEDS: Simethicone 80 MG CHEW PO ×3 (08:53→17:42)
[2025-06-05] MEDS: Buprenorphine/Naloxone 8 mg/2 mg FILM 1 EACH SL ×3 (08:54→20:10)
[2025-06-05] MEDS: Triamcinolone 0.1% CR 80 GM TUBE TP ×2 (08:54→20:16)
[2025-06-05] MEDS: Ketoconazole 2% CREAM 15 GM TUBE TP (08:55)
[2025-06-05] MEDS: Bacitracin 1 PACKET TP ×3 (08:55→20:10)
[2025-06-05] MEDS: buPROPion-XL 150 MG TABCR PO (09:00)
[2025-06-05] MEDS: Nicotine 21 MG/24 HR PATCH TD (14:44)
[2025-06-05] MEDS: Ramelteon 8 MG TAB PO (20:09)
[2025-06-05] MEDS: Mirtazapine 15 MG TAB 45 MG PO (20:09)
[2025-06-05] MEDS: Melatonin 3 MG TAB PO (20:09)
[2025-06-05] MEDS: traZODone 100 MG TAB PO (20:33)
[2025-06-06] MEDS: LORazepam 1 MG TAB 2 MG PO ×2 (01:09→21:57)
[2025-06-06] MEDS: Simethicone 80 MG CHEW PO ×5 (01:10→20:41)
[2025-06-06] MEDS: HYDROmorphone 2 MG TAB PO ×2 (01:14→17:33)
[2025-06-06] MEDS: Senna TAB 2 TAB PO (04:38)
[2025-06-06] MEDS: Polyethylene Glycol 3350 17 GM PACKET PO (04:38)
[2025-06-06] MEDS: Acetaminophen 250 mg/Aspirin 250 mg/Caffeine 65 mg TAB 2 EACH PO (04:38)
[2025-06-06] MEDS: Docusate Sodium 100 MG CAP PO (04:38)
[2025-06-06 05:51] VITALS: BP 104/70; PULSE 89; RESP 16; TEMP 36.6; O2SAT 96
[2025-06-06] MEDS: Ferrous Sulfate 325 MG TAB PO (09:51)
[2025-06-06] MEDS: Apixaban 5 MG TAB PO ×2 (09:51→20:41)
[2025-06-06] MEDS: Pantoprazole 40 MG TABCR PO (09:51)
[2025-06-06] MEDS: Folic Acid 1 MG TAB PO (09:51)
[2025-06-06] MEDS: Acetaminophen 325 MG TAB 650 MG PO ×3 (09:51→20:42)
[2025-06-06] MEDS: Cyanocobalamin 500 MCG TAB 1000 MCG PO (09:51)
[2025-06-06] MEDS: Baclofen 10 MG TAB 20 MG PO ×3 (09:52→20:41)
[2025-06-06] MEDS: guaiFENesin 600 MG TABCR PO (09:52)
[2025-06-06] MEDS: Methadone 5 MG TAB 15 MG PO (09:52)
[2025-06-06] MEDS: buPROPion-XL 150 MG TABCR PO (09:52)
[2025-06-06] MEDS: ARIPiprazole 5 MG TAB 7.5 MG PO (09:53)
[2025-06-06] MEDS: Bacitracin 1 PACKET TP ×3 (09:53→20:41)
[2025-06-06] MEDS: Buprenorphine/Naloxone 8 mg/2 mg FILM 1 EACH SL ×3 (09:53→20:42)
[2025-06-06] MEDS: Triamcinolone 0.1% CR 80 GM TUBE TP ×2 (10:02→20:40)
[2025-06-06] MEDS: Ketoconazole 2% CREAM 15 GM TUBE TP (10:02)
[2025-06-06] MEDS: Nicotine 21 MG/24 HR PATCH TD (15:27)
[2025-06-06] MEDS: Collagenase 30 GM TUBE TP (20:40)
[2025-06-06] MEDS: Ramelteon 8 MG TAB PO (20:41)
[2025-06-06] MEDS: traZODone 100 MG TAB PO (20:41)
[2025-06-06] MEDS: Mirtazapine 15 MG TAB 45 MG PO (20:42)
[2025-06-06] MEDS: Melatonin 3 MG TAB PO (20:42)
[2025-06-07] MEDS: HYDROmorphone 2 MG TAB PO (03:12)
[2025-06-07] MEDS: LORazepam 1 MG TAB 2 MG PO (04:34)
[2025-06-07 09:07] VITALS: BP 101/53; PULSE 100; RESP 16; TEMP 36.3; O2SAT 96
[2025-06-07] MEDS: Cyanocobalamin 500 MCG TAB 1000 MCG PO (09:09)
[2025-06-07] MEDS: ARIPiprazole 5 MG TAB 7.5 MG PO (09:09)
[2025-06-07] MEDS: Simethicone 80 MG CHEW PO ×3 (09:10→19:34)
[2025-06-07] MEDS: Ferrous Sulfate 325 MG TAB PO (09:10)
[2025-06-07] MEDS: buPROPion-XL 150 MG TABCR PO (09:10)
[2025-06-07] MEDS: Apixaban 5 MG TAB PO ×2 (09:10→19:22)
[2025-06-07] MEDS: Baclofen 10 MG TAB 20 MG PO ×3 (09:10→19:21)
[2025-06-07] MEDS: guaiFENesin 600 MG TABCR PO (09:10)
[2025-06-07] MEDS: Pantoprazole 40 MG TABCR PO (09:11)
[2025-06-07] MEDS: Bacitracin 1 PACKET TP ×3 (09:11→20:25)
[2025-06-07] MEDS: Folic Acid 1 MG TAB PO (09:11)
[2025-06-07] MEDS: Acetaminophen 325 MG TAB 650 MG PO ×3 (09:11→19:21)
[2025-06-07] MEDS: Methadone 5 MG TAB 15 MG PO (09:12)
[2025-06-07] MEDS: Buprenorphine/Naloxone 8 mg/2 mg FILM 1 EACH SL ×3 (09:12→19:23)
[2025-06-07] MEDS: Ketoconazole 2% CREAM 15 GM TUBE TP (09:17)
[2025-06-07] MEDS: Triamcinolone 0.1% CR 80 GM TUBE TP ×2 (09:17→20:25)
--- NOTE | 2025-06-07 10:07 | W.NUTRFU ---
Date of service: 06/07/25 Time of Service: 10:07 Nutrition Note NOTE: weight updated - taken via bedscale yesterday at 131kg which is a gain of 30kg over the last month - suggests significant inaccuracy as last weight was taken via patient lift. Shawn still has somewhat of an erratic intake - may refuse meal now and then. Does best at breakfast - likes the omelets. Kitchen staff still offers [employer] breeze and other options with limited acceptance/intake. Would recommend accurate weight for better assessment of intake. Will continue to check in with Shawn as he waits for discharge/placement and answer any of his questions/support with a healthy diet. Time Spent in Nutritional Counseling and Treatment: 5 min
[2025-06-07] MEDS: Senna TAB 2 TAB PO (12:44)
[2025-06-07] MEDS: Bisacodyl 5 MG TABEC PO (12:44)
--- NOTE | 2025-06-07 14:43 | NUR.NOTE ---
Nursing Note: pt awake and alert x 3 pt needs total assist with cares all cares rendered pt able to feed self pt is a eliot lift for transfers pt turned and positioned Q2hrs pt needs encouragement to change position pt needs to be st cath q6hrs 12n 200cc of light ernie urine pts Bilateral dressing changed as per MD orders moderate amount of yellowish-greenish drainage pt complains of neck pain pt given all scheduled medications with good effect call beltran at side safety maintained
[2025-06-07] MEDS: Nicotine 21 MG/24 HR PATCH TD (15:02)
[2025-06-07] MEDS: Ramelteon 8 MG TAB PO (19:23)
[2025-06-07 19:24] VITALS: BP 113/76; PULSE 100; RESP 19; TEMP 36.4; O2SAT 97
[2025-06-07] MEDS: Buprenorphine/Naloxone 4 mg/1 mg FILM 1 EACH SL (19:27)
[2025-06-07] MEDS: Methadone 10 MG TAB PO (19:35)
[2025-06-07] MEDS: traZODone 100 MG TAB 150 MG PO (20:25)
[2025-06-07] MEDS: Mirtazapine 15 MG TAB PO (20:25)
[2025-06-07 21:00] VITALS: BP 123/60; PULSE 68; RESP 16; TEMP 36.5; O2SAT 96
[2025-06-08] MEDS: Methadone 10 MG TAB PO ×3 (01:54→17:42)
[2025-06-08] MEDS: Apixaban 5 MG TAB PO ×2 (09:02→21:15)
[2025-06-08] MEDS: Acetaminophen 325 MG TAB 650 MG PO ×3 (09:02→21:15)
[2025-06-08] MEDS: Pantoprazole 40 MG TABCR PO (09:02)
[2025-06-08] MEDS: ARIPiprazole 5 MG TAB 7.5 MG PO (09:02)
[2025-06-08] MEDS: Baclofen 10 MG TAB 20 MG PO ×3 (09:03→21:15)
[2025-06-08] MEDS: Bacitracin 1 PACKET TP ×3 (09:03→21:15)
[2025-06-08] MEDS: Cyanocobalamin 500 MCG TAB 1000 MCG PO (09:04)
[2025-06-08] MEDS: buPROPion-CR 150 MG TABCR 300 MG PO (09:04)
[2025-06-08] MEDS: guaiFENesin 600 MG TABCR PO (09:04)
[2025-06-08] MEDS: Ketoconazole 2% CREAM 15 GM TUBE TP (09:04)
[2025-06-08] MEDS: Ferrous Sulfate 325 MG TAB PO (09:04)
[2025-06-08] MEDS: Folic Acid 1 MG TAB PO (09:04)
[2025-06-08] MEDS: Simethicone 80 MG CHEW PO ×4 (09:05→21:15)
[2025-06-08] MEDS: Triamcinolone 0.1% CR 80 GM TUBE TP (09:05)
[2025-06-08 09:20] VITALS: BP 88/56; PULSE 86; RESP 17; TEMP 36.2; O2SAT 94
[2025-06-08] MEDS: Buprenorphine/Naloxone 4 mg/1 mg FILM 1 EACH SL ×3 (09:21→21:15)
[2025-06-08 09:27] VITALS: BP 97/52
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
[2025-06-08] MEDS: Nicotine 21 MG/24 HR PATCH TD (17:45)
[2025-06-08 21:13] VITALS: BP 118/69; PULSE 77; RESP 18; TEMP 36.4; O2SAT 98
[2025-06-08] MEDS: Ramelteon 8 MG TAB PO (21:15)
[2025-06-08] MEDS: Mirtazapine 15 MG TAB PO (21:15)
[2025-06-08] MEDS: LORazepam 1 MG TAB 2 MG PO (22:14)
[2025-06-08] MEDS: traZODone 100 MG TAB 150 MG PO (22:15)
[2025-06-09] MEDS: Methadone 10 MG TAB PO ×3 (01:55→18:43)
[2025-06-09] MEDS: Buprenorphine/Naloxone 4 mg/1 mg FILM 1 EACH SL ×3 (09:12→19:57)
[2025-06-09] MEDS: buPROPion-CR 150 MG TABCR 300 MG PO (09:13)
[2025-06-09] MEDS: Baclofen 10 MG TAB 20 MG PO ×3 (09:13→19:58)
[2025-06-09] MEDS: Simethicone 80 MG CHEW PO ×4 (09:13→21:35)
[2025-06-09] MEDS: Acetaminophen 325 MG TAB 650 MG PO ×3 (09:13→19:56)
[2025-06-09] MEDS: ARIPiprazole 5 MG TAB 7.5 MG PO (09:13)
[2025-06-09] MEDS: guaiFENesin 600 MG TABCR PO ×2 (09:13→19:58)
[2025-06-09] MEDS: Folic Acid 1 MG TAB PO (09:14)
[2025-06-09] MEDS: Pantoprazole 40 MG TABCR PO (09:14)
[2025-06-09] MEDS: Ferrous Sulfate 325 MG TAB PO (09:14)
[2025-06-09] MEDS: Cyanocobalamin 500 MCG TAB 1000 MCG PO (09:14)
[2025-06-09] MEDS: Apixaban 5 MG TAB PO ×2 (09:14→19:56)
[2025-06-09] MEDS: Bacitracin 1 PACKET TP ×3 (09:30→19:56)
--- NOTE | 2025-06-09 10:03 | CMACTNOTE_ITS ---
Date of service: 06/09/25 Time of Service: 10:03 Care Management Activity Note Activity Note Text Activity Note Text: Clifton continues to enjoy being up in his wheelchair driving around the unit. He visits with staff and occasionally other patients as several of his friends have been hospitalized while Clifton has been at [facility]. He watches TV and communicates with friends and family on his phone. Heather visits as often as she can and his friend Allison comes as well. Clifton loves animals and enjoys pet therapy when available. The colder weather has made visits outside a little less comfortable but Clifton still enjoys short periods in the fresh air.
[2025-06-09] MEDS: Ketoconazole 2% CREAM 15 GM TUBE TP (11:58)
[2025-06-09] MEDS: Triamcinolone 0.1% CR 80 GM TUBE TP ×2 (11:58→19:59)
[2025-06-09] MEDS: Bisacodyl 10 MG SUPP PR (14:16)
--- NOTE | 2025-06-09 14:34 | PTTR_ITS ---
PT Notes Visit Reasons: Encephalopathy, CANDACE Physical Therapy Inpatient Treatment Note Date: 06/09/2025 Referring Doctor: Jean Carlos Forrest MD PT Orders: PT CONSULT: Eval/Treat Precautions: Fall. Enteric contact precautions in place. At risk for further skin breakdown, ensure that transfers minimize shear to stage III ischial ulcers. Nursing staff may use mechanical lift for all transfers. Subjective: Apologized on inadvertently being late this afternoon as nursing needed to do pericare on patient close to agreed upon requested appointment by patient. Patient requested [facility] to deliver message to therapy. Agreeable to working with PT on strengthening and transfer training 5x/week. Looking forward to doing strengthening exercises Mondays, Wednesdays, and Fridays. Verbalized pain in the L shoulder at 3-4/10 during this afternoon's session. Objective: General Observation: Patient arrived to therapy room using his motorized wheelchair, apologetic about being late. Mental Status: A and O x 4 Pain: As above Vital Signs: Closely monitored by nursing staff THERA ACT: Introduced exercise regimen to patient in three different stations --station 1 ([place]) where cones and weighted ball will be used to work on stretching, active range of motion, and prepping for station 2 (bands of strength) where bilateral UE/core strengthening exercises will be done using either blue or bill bands before going to station 3--(NuStep Nuway) where patient will position his wheelchair in varying directions so he could get different resistance levels while pulling/pushing on the NuStep handle. Balance: Static Sitting: Good Dynamic Sitting: Fair Static Standing: Unable to perform, T4 paraplegia Dynamic Standing: Unable to perform, T4 paraplegia Assessment: Good participation and office manager receptionist of proposed exercise strengthening regimen today. Patient's report of L shoulder pain limited number of repetition on the L UE, pain related to muscle soreness which patient have had for several days now. Session tomorrow will be initiation of transfer training. No report of any new pain received for the rest of the session. Plan of Care/Treatment Plan: 1-2x/day, 7 days/week x 1 week. Plan of care has been reviewed with the ASSEMBLER GOLF WOOD HEAD providing the service under Physical Therapy direction. Initiate Physical Therapy intervention for pain management as needed, strengthening, bed mobility, transfers, gait, stairs, balance training, and use of assistive device. --Individualized plan of care for Shawn: Patient is to come Mondays through Fridays at 2 Pm to the therapy room using his motorized wjheelchair for his PT appointments Mondays, Wednesdays and Fridays will be strength training; Tuesdays and will be transfer training --Goals for PT will be reviewed regularly every week with patient to ensure that plans are well-aligned with patient's goals and PT's functional goals. DISCHARGE RECOMMENDATIONS: SNF vs supevised setting/[facility] for strengthening, functional mobility training, and balance training in sitting. TREATMENT CODE/TIME: 31630 x 31 minutes for 2 units (14:34-15:05).
[2025-06-09 19:54] VITALS: BP 123/58; PULSE 96; RESP 16; TEMP 36.6; O2SAT 93
[2025-06-09] MEDS: Mirtazapine 15 MG TAB PO (19:56)
[2025-06-09] MEDS: traZODone 100 MG TAB 150 MG PO (19:57)
[2025-06-09] MEDS: Protein Nutritional Supplement 16 GM 1 OUNCE PACKET PO (19:57)
[2025-06-09] MEDS: Ramelteon 8 MG TAB PO (19:58)
[2025-06-09] MEDS: Docusate Sodium 100 MG CAP PO (19:58)
[2025-06-09] MEDS: Collagenase 30 GM TUBE TP (19:59)
[2025-06-10] MEDS: Methadone 10 MG TAB PO ×3 (01:11→18:43)
[2025-06-10] MEDS: LORazepam 1 MG TAB 2 MG PO (01:18)
[2025-06-10] MEDS: Zolpidem 10 MG TAB PO ×2 (01:18→21:55)
[2025-06-10] MEDS: Patch Removal 2 EACH TP (02:00)
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
[2025-06-10 09:42] VITALS: BP 95/47; PULSE 79; RESP 16; TEMP 36.6; O2SAT 99
[2025-06-10] MEDS: Bacitracin 1 PACKET TP ×3 (09:45→21:55)
[2025-06-10] MEDS: Acetaminophen 325 MG TAB 650 MG PO ×3 (09:45→21:54)
[2025-06-10] MEDS: Baclofen 10 MG TAB 20 MG PO ×3 (09:45→21:54)
[2025-06-10] MEDS: Simethicone 80 MG CHEW PO ×4 (09:45→21:56)
[2025-06-10] MEDS: buPROPion-CR 150 MG TABCR 300 MG PO (09:45)
[2025-06-10] MEDS: Docusate Sodium 100 MG CAP PO ×3 (09:46→21:56)
[2025-06-10] MEDS: Pantoprazole 40 MG TABCR PO (09:46)
[2025-06-10] MEDS: ARIPiprazole 5 MG TAB 7.5 MG PO (09:46)
[2025-06-10] MEDS: Senna TAB 2 TAB PO (09:47)
[2025-06-10] MEDS: Cyanocobalamin 500 MCG TAB 1000 MCG PO (09:47)
[2025-06-10] MEDS: Folic Acid 1 MG TAB PO (09:48)
[2025-06-10] MEDS: Apixaban 5 MG TAB PO ×2 (09:48→21:56)
[2025-06-10] MEDS: Ferrous Sulfate 325 MG TAB PO (09:48)
[2025-06-10] MEDS: Buprenorphine/Naloxone 4 mg/1 mg FILM 1 EACH SL ×3 (09:48→21:54)
--- NOTE | 2025-06-10 09:51 | PDOC.CMPRO ---
Date of service: 06/10/25 Time of Service: 09:51 Care Management Progress Note Discharge Potential Discharge Needs: PCP F/U Appt Anticipated Barriers to Discharge: Bed availability (waiting for [facility] placement) and SDOH Patient/Family Education Needs: Review discharge instructions, discuss Ask Me Three Transportation: RCT Plan: [facility]'s discharge plan is not clear. Referrals have been sent to all SNFs in the [facility] as well as all of the [facility] home agencies. No bed offers have been received however [facility] has reached out to speak with [facility]. In addition, CM has been in contact with the Complex care Team at the [facility]. Social Determinants of Health Screening Social Determinants of health last assessed in clinic: 06/02/25 Will the Patient Participate in the Screening?: Yes Do you worry about having a steady place to live?: yes What is your living situation today?: I do not have steady housing Problems where you live: no known problems In the past 12 months, have you had to go without electric, gas, oil or water in your home?: no Has lack of transportation kept you from medical appointments or from doing things needed for daily living?: yes Has anyone in your life made you feel unsafe or unsupported?: yes How often does anyone, including family and friends, physically hurt you?: Never How often does anyone, including family and friends, insult or talk down to you?: Sometimes How often does anyone, including family and friends, threaten you with harm?: Never How often does anyone, including family and friends, scream or curse at you?: Sometimes HRSN Safety total score: 8 How hard is it for you to pay for the very basics like food, housing, medical care, and heating? Would you say it is:: Somewhat hard Do you want help finding or keeping work or a job?: I do not need or want help If for any reason you need help with day-to-day activities such as bathing, preparing meals, shopping, managing finances, etc., do you get the help you need?: I don?t need any help How often do you feel lonely or isolated from those around you?: Often Do you speak a language other than Turkish at home?: No Health Related Social Needs Health related social needs: housing instability, housed, with risk of homelessness (Z59.811), transportation insecurity (Z59.82), problems related to housing/economic circumstances (Z59.89) and feeling lonely/isolated (Z60.8) Health related social needs details: needs new placement
[2025-06-10] MEDS: Ketoconazole 2% CREAM 15 GM TUBE TP (13:20)
[2025-06-10] MEDS: Triamcinolone 0.1% CR 80 GM TUBE TP ×2 (13:20→21:57)
--- NOTE | 2025-06-10 14:07 | PT.INTREAT ---
PT Notes Visit Reasons: Encephalopathy, CANDACE Physical Therapy Inpatient Treatment Note Date: 06/10/2025 Referring Doctor: Jean Carlos Forrest MD PT Orders: PT CONSULT: Eval/Treat Precautions: Fall. Enteric contact precautions in place. At risk for further skin breakdown, ensure that transfers minimize shear to stage III ischial ulcers. Nursing staff may use mechanical lift for all transfers. Subjective: On time for this session and was willing to work with today's first transfer training. Confident about doing wheelchair to edge of plinth lateral transfer. Objective: General Observation: Arrived on time uding his motorized wheelchair Mental Status: A and O x 4 Pain: None reported Vital Signs: Closely monitored by nursing staff THERA ACT: Prepped and facilitated safe and correct technique with lateral transfer as follows: Elevated treatment plinth height to a level about 2 inches below patient's wheelchair seat. Instructed patient to position wheelchair parallel and in contact with edge of plinth. Folded R wheelchair armrest back. Placed a pillow over folded armrest to cushion patient in case he touches area during transfer. Supported and positioned B hips in neutral rotation using blue theraband around patient's diatl thigh. Instructed patient to push off L armrest and edge of plinth simultaneously to slowly scoot laterally ont powdered tx plinth edge. Minimal assist of RUBY RAILS DEVELOPER from the back and contact guard assist of PT in front to support B LE as needed. Patient was asked to rest after each lateral scoot. Performed sequence in reverse going back to wheelchair with plith height increased 2 inches above w/c seat. Balance: Static Sitting: Good Dynamic Sitting: Fair Static Standing: Unable to perform, T4 paraplegia Dynamic Standing: Unable to perform, T4 paraplegia Assessment: Patient demonstrated good control of B UE and trunk requiring only minimal assist of RUBY RAILS DEVELOPER Eben from the back and contact guard assist of PT from front to support B LE. B UE triceps and latissimus dorsi activation satisfactory. Patient did demosntrate L LE muscle spasm that resolved quickly in less than a minute midway through w/c>edge of plinth transfer. Plan of Care/Treatment Plan: 1-2x/day, 7 days/week x 1 week. Plan of care has been reviewed with the RUBY RAILS DEVELOPER providing the service under Physical Therapy direction. Initiate Physical Therapy intervention for pain management as needed, strengthening, bed mobility, transfers, gait, stairs, balance training, and use of assistive device. --Individualized plan of care for Shawn: Patient is to come Mondays through Fridays at 2 Pm to the therapy room using his motorized wjheelchair for his PT appointments Mondays, Wednesdays and Fridays will be strength training; Tuesdays and will be transfer training --Goals for PT will be reviewed regularly every week with patient to ensure that plans are well-aligned with patient's goals and PT's functional goals. DISCHARGE RECOMMENDATIONS: SNF vs supevised setting/LONG TERM/[facility] for strengthening, functional mobility training, and balance training in sitting. TREATMENT CODE/TIME: 93732 x 23 minutes for 2 units (14:07-14:30).
[2025-06-10] MEDS: traZODone 100 MG TAB 150 MG PO (21:55)
[2025-06-10] MEDS: Ramelteon 8 MG TAB PO (21:56)
[2025-06-10] MEDS: Mirtazapine 15 MG TAB PO (21:56)
[2025-06-10] MEDS: Bisacodyl 5 MG TABEC PO (21:56)
[2025-06-10] MEDS: Nicotine 21 MG/24 HR PATCH TD (21:57)
[2025-06-11 03:33] VITALS: BP 109/66; PULSE 103; RESP 20; TEMP 38.4; O2SAT 96
[2025-06-11] MEDS: Methadone 10 MG TAB PO ×3 (03:49→17:48)
[2025-06-11] MEDS: Bisacodyl 10 MG SUPP PR (03:49)
[2025-06-11] MEDS: Acetaminophen 250 mg/Aspirin 250 mg/Caffeine 65 mg TAB 2 EACH PO (03:49)
--- NOTE | 2025-06-11 04:12 | W.EVENT ---
Date of service: 06/11/25 Time of Service: 04:12 Event Note: NS report fever. Will order cxr/ua with reflex/blood cx x2 esr/crp/procal Time Spent with Patient Time spent in critical care(minutes): zero Time Spent Included: Coordination of care, Chart review and Other
[2025-06-11 04:52] LABS: Abs Immature Grans 0.03 10^3/uL (0.0-0.06); HCT 31.0 % (40.0-50.0); HGB 8.7 g/dL (13.5-17.5); Immature Grans % 0.3 %; MCH 21.2 pg (27.0-33.0); MCHC 28.1 % (32.0-36.0); MCV 75 fL (80-95); MPV 11.7 fL (8.0-11.0); Platelet Count 276 10^3/uL (130-400); RBC 4.11 10^6/uL (4.36-5.78); RDW 16.6 % (11.8-14.1); RDW-SD 45.5 fL; WBC 9.63 10^3/uL (4.4-10.8)
[2025-06-11 04:53] LABS: ESR 106 mm/hr (0-15)
--- NOTE | 2025-06-11 05:06 | DI.RAD_ITS ---
Exam(s) XR PORTABLE CHEST AP EXAM: XR PORTABLE CHEST AP CLINICAL HISTORY: fever TECHNIQUE: 2D digital imaging was performed. COMPARISON: CR XR CHEST 2V PA LATERAL from 09/18/2024 CR,XR XR CHEST 1V IN DI DEPT from 03/21/2025 CR XR ABDOMEN FLAT UPRIGHT from 05/11/[address] ABDOMEN PELVIS WO from 05/12/2025 FINDINGS: LUNGS: Clear elevation of the left diaphragm, similar to previous. Adjacent atelectasis. The right lung is clear. Tiny left pleural effusion appears unchanged. HEART: Normal size. Loop recorder device noted. AORTA: Normal diameter. BONES: Unremarkable for age. Soft tissues: Stable elevation of the left diaphragm. IMPRESSION: Stable appearance tiny left pleural effusion adjacent atelectasis. The preliminary [facility] report was reviewed. DATA REPOSITORY: RADIATION DOSE DELIVERED:
[2025-06-11 05:18] VITALS: TEMP 36.9
[2025-06-11 05:21] LABS: Procalcitonin < 0.10 ng/mL
[2025-06-11 05:35] LABS: C-Reactive Protein 16.16 mg/dL (<=0.50)
[2025-06-11 05:44] LABS: ALT 10 U/L (10-49); AST 11 U/L (<34); Albumin 4.3 g/dL (3.4-5.0); Alkaline Phosphatase 65 U/L (46-116); Anion Gap 10.1 mmol/L (3-11); BUN 17 mg/dL (9-23); Bilirubin, Total 0.20 mg/dL (0.2-1.2); CO2 27.9 mmol/L (20.0-31.0); Calcium 9.1 mg/dL (8.3-10.6); Chloride 101 mmol/L (98-107); Glucose 108 mg/dL (74-106); Potassium 3.8 mmol/L (3.5-5.1); Sodium 139 mmol/L (136-145); Total Protein 7.7 g/dL (5.7-8.2)
--- NOTE | 2025-06-11 05:51 | DI.[facility]_ITS ---
PROCEDURE INFORMATION: Exam: XR Chest Exam date and time: 06/11/2025 4:55 AM Age: 44 years old Clinical indication: Fever TECHNIQUE: Imaging protocol: Radiologic exam of the chest. Views: 1 view. COMPARISON: CR XR PORTABLE CHEST AP 05/07/2025 6:08 PM FINDINGS: Tubes, catheters and devices: Micra wireless pacemaker device is noted over the heart. Lungs: Linear atelectasis and/or fibrosis is seen involving the left lung base. Pleural spaces: There is blunting of the left costophrenic angle. Heart/Mediastinum: Unremarkable. No cardiomegaly. Diaphragm: There is mild elevation of the left hemidiaphragm, a finding also present on the previous study. Bones/joints: Unremarkable. IMPRESSION: 1. Linear atelectasis and/or fibrosis at the left base. 2. Small left pleural effusion versus pleural thickening. Dictated and Authenticated by: Lee Mccord MD. Orderin Lon Evangelista MD
[2025-06-11] MEDS: guaiFENesin 600 MG TABCR PO (08:52)
[2025-06-11] MEDS: Apixaban 5 MG TAB PO (08:52)
[2025-06-11] MEDS: Folic Acid 1 MG TAB PO (08:52)
[2025-06-11] MEDS: Pantoprazole 40 MG TABCR PO (08:53)
[2025-06-11] MEDS: Docusate Sodium 100 MG CAP PO ×2 (08:53→13:35)
[2025-06-11] MEDS: Ferrous Sulfate 325 MG TAB PO (08:53)
[2025-06-11] MEDS: ARIPiprazole 5 MG TAB 7.5 MG PO (08:54)
[2025-06-11] MEDS: Simethicone 80 MG CHEW PO ×3 (08:54→17:48)
[2025-06-11] MEDS: Baclofen 10 MG TAB 20 MG PO ×2 (08:54→13:34)
[2025-06-11] MEDS: buPROPion-CR 150 MG TABCR 300 MG PO (08:54)
[2025-06-11] MEDS: Acetaminophen 325 MG TAB 650 MG PO ×2 (08:54→17:51)
[2025-06-11] MEDS: Bacitracin 1 PACKET TP ×2 (08:55→14:14)
[2025-06-11] MEDS: Buprenorphine/Naloxone 4 mg/1 mg FILM 1 EACH SL ×2 (08:55→13:35)
[2025-06-11] MEDS: Senna TAB 2 TAB PO (08:56)
[2025-06-11] MEDS: Cyanocobalamin 500 MCG TAB 1000 MCG PO (09:18)
[2025-06-11 09:40] LABS: Glucose Negative (Negative)
[2025-06-11 09:47] LABS: RBC Negative HPF (0-2); WBC 20-50 HPF (0-5)
[2025-06-11 09:48] LABS: C & S Indicated? Yes
--- NOTE | 2025-06-11 11:32 | PT.INNT ---
PT Notes Visit Reasons: Encephalopathy, CANDACE Created exercises for today's strengthening session with patient at 2 PM as follows: Access Code: [email or web address] URL: [email or web address] Date: 06/11/2025 Prepared by: Isabella Gray Exercises - Seated Overhead Elbow Extension - 1 x daily - 7 x weekly - 1 sets - 10 reps - 5 hold - Seated Triceps Extension with Dumbbells - 1 x daily - 7 x weekly - 1 sets - 10 reps - 5 hold - Elbow Extension with Anchored Resistance - 1 x daily - 7 x weekly - 1 sets - 10 reps - 5 hold - Shoulder extension with resistance - Neutral - 1 x daily - 7 x weekly - 1 sets - 10 reps - 5 hold - Seated Single Arm Elbow Extension Push-up on Table - 1 x daily - 7 x weekly - 1 sets - 10 reps - 5 hold - Seated Table Push-Up - 1 x daily - 7 x weekly - 1 sets - 10 reps - 5 hold - Wheelchair Pressure Relief - 1 x daily - 7 x weekly - 1 sets - 10 reps - 5 hold
[2025-06-11] MEDS: Ketoconazole 2% CREAM 15 GM TUBE TP (13:37)
[2025-06-11] MEDS: Triamcinolone 0.1% CR 80 GM TUBE TP (13:38)
--- NOTE | 2025-06-11 14:11 | PTTR_ITS ---
Date of service: 06/11/25 PT Notes Visit Reasons: Encephalopathy, CANDACE Physical Therapy Inpatient Treatment Note Date: 06/11/2025 Referring Doctor: Jean Carlos Forrest MD PT Orders: PT CONSULT: Eval/Treat Precautions: Fall. Enteric contact precautions in place. At risk for further skin breakdown, ensure that transfers minimize shear to stage III ischial ulcers. Nursing staff may use mechanical lift for all transfers. Subjective: Pt felt alright. Pt reported feeling a little pain in his left shoulder with AROM of flexion and abduction. Pt reported he had a CxR and urine test. Objective: General Observation: Patient arrived to therapy room on time. Pt looked a l ittle pale, but wanted to participate in therapy for today. Mental Status: A and Ox 4 Pain: As above Vital Signs: Closely monitored by nursing staff THERA ACT: both UE Seated overhead elbow extension: 1X10 no weight (slight discomfort in LUE Seated triceps extension with dumbbells: 1X10 w/3lb dumbbell.? 1X10 with 5lb dumbbells Elbow extension with anchored resistance: 1X10 w/blue TheraBand Shoulder extension with resistance: 1X10 w/blue TheraBand Seated single arm elbow extension push up on table: Seated table push up: Wheelchair pressure relief: 3reps between every exercise. Lat pull down (shoulder flex -extension): 1X10 w/blue TheraBand Internal Rotation of shoulder: 1X10 w/blue TheraBand External rotation of shoulder: 1X10 w/red TheraBand Seated Rows with scapular retraction: 1X10 w/blue TheraBand Pt needed demonstration, verbal, and Facilitation/tactile cueing for proper form and motor recruitment for all exercises. Assessment: Pt participated in all exercises. Pt was able to follow DPTS instructions, and with verbal and tactile cueing pt was able to facilitate proper motor recruitment. Pt did report some slight pain with overhead activities, resisted E R of left shoulder. during rows with scapular retraction he noted to have difficulty initiating retraction requiring DPTS to provide tactile facilitation to perform retraction with proper form.Pt responded well to introduction of latissimus Dorsi activation /strengthening. DPTS provided pt with optimal rest and monitored discomfort throughout session. Pt reported REP?s to DPTS to allow proper increase or decrease with weights/resistance. Patient's postural limitations ie rounded shoulders scapular protraction limit his ability to perform tasks without trunk support. Plan of Care/Treatment Plan: 1-2x/day, 7 days/week x 1 week. Plan of care has been reviewed with the CABINET PROFESSIONAL providing the service under Physical Therapy direction. Initiate Physical Therapy intervention for pain management as needed, strengthening, bed mobility, transfers, gait, stairs, balance training, and use of assistive device. --Individualized plan of care for Shawn: Patient is to come Mondays through Fridays at 2 Pm to the therapy room using his motorized wheelchair for his PT appointments Mondays, Wednesdays and Fridays will be strength training; Tuesdays and will be transfer training --Goals for PT will be reviewed regularly every week with patient to ensure that plans are well-aligned with patient's goals and PT's functional goals. DISCHARGE RECOMMENDATIONS: SNF vs supervised setting/ASSISTED/AFC for strengthening, functional mobility training, and balance training in sitting. TREATMENT CODE/TIME: 01306/(2:00-2:51) Written by: Josef Werner DPTS Supervised by: Cathy Jack PT
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
== END 2025-06-11 18:25 | disposition short-term general hospital (02) | DRG 580 ==
PROVIDERS: Hospitalist; Nurse Practitioner Acute Care; Nurse Practitioner Family; Admitting Provider Family Medicine; PCP Family Medicine; Responsible Provider Nurse Practitioner Acute Care; Visit Provider Family Medicine
DX: L89.313 Pressure ulcer of right buttock, stage 3 (principal); A04.72 Enterocolitis due to Clostridium difficile, not specified as recurrent; K59.2 Neurogenic bowel, not elsewhere classified; G82.20 Paraplegia, unspecified; Z59.811 Housing instability, housed, with risk of homelessness; M86.68 Other chronic osteomyelitis, other site; E46 Unspecified protein-calorie malnutrition; Z68.41 Body mass index [BMI] 40.0-44.9, adult; F11.20 Opioid dependence, uncomplicated; N39.0 Urinary tract infection, site not specified; R78.81 Bacteremia; F32.2 Major depressive disorder, single episode, severe without psychotic features; L89.323 Pressure ulcer of left buttock, stage 3; Z79.01 Long term (current) use of anticoagulants; F41.9 Anxiety disorder, unspecified; L21.8 Other seborrheic dermatitis; R60.0 Localized edema; K59.00 Constipation, unspecified; E87.6 Hypokalemia; G47.20 Circadian rhythm sleep disorder, unspecified type; G89.21 Chronic pain due to trauma; N31.9 Neuromuscular dysfunction of bladder, unspecified; N48.5 Ulcer of penis; S24.11 Complete lesion of thoracic spinal cord; Y24.9XXD Unspecified firearm discharge, undetermined intent, subsequent encounter; Z86.711 Personal history of pulmonary embolism; S91.311D Laceration without foreign body, right foot, subsequent encounter; X58.XXXD Exposure to other specified factors, subsequent encounter; Z66 Do not resuscitate; M24.542 Contracture, left hand; R25.2 Cramp and spasm; R51.9 Headache, unspecified
CPT/HCPCS: 11043; 00123; 36415; 80048; 80053; 84145; 85652; 86141; 87040; 87077; 97110; 97162; 97165; 97530; 99316; 71045; 73630; 74019; 74176; 81003; 81015; 82607; 82652; 82728; 82746; 83540; 83550; 83735; 84466; 85025; 86140; 87070; 87075; 87086; 87186; 87205; 94667; 94668; 99306; 99308; 99310; J0696; J1885; J2212; J2470; J3490; J9999

== ENCOUNTER 2025-06-11 18:22 | Inpatient (IN) | payer MEDICAID, SELFPAY ==
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
[2025-06-11 19:52] VITALS: BP 116/70; PULSE 95; RESP 14; TEMP 37.9; O2SAT 94
[2025-06-11] MEDS: LORazepam 1 MG TAB 2 MG PO (20:16)
[2025-06-11] MEDS: Apixaban 5 MG TAB PO (20:50)
[2025-06-11] MEDS: traZODone 100 MG TAB 150 MG PO (20:50)
[2025-06-11] MEDS: Buprenorphine/Naloxone 4 mg/1 mg FILM 1 EACH SL (20:50)
[2025-06-11] MEDS: Bacitracin 1 PACKET TP (20:51)
[2025-06-11] MEDS: guaiFENesin 600 MG TABCR PO (20:51)
[2025-06-11] MEDS: Ramelteon 8 MG TAB PO (20:51)
[2025-06-11] MEDS: Baclofen 10 MG TAB 20 MG PO (20:51)
[2025-06-11] MEDS: Mirtazapine 15 MG TAB PO (20:51)
[2025-06-11] MEDS: Docusate Sodium 100 MG CAP PO (20:52)
[2025-06-11] MEDS: Normal Saline Flush 10 ML SYR IVP (20:52)
[2025-06-11] MEDS: Simethicone 80 MG CHEW PO (22:06)
[2025-06-11] MEDS: cefTRIAXone 2 GM/50 ML BAG IVPB (22:06)
[2025-06-11 23:20] VITALS: BP 92/61; PULSE 127; RESP 18; TEMP 37.9; O2SAT 93
[2025-06-11] MEDS: Acetaminophen 250 mg/Aspirin 250 mg/Caffeine 65 mg TAB 2 EACH PO (23:24)
[2025-06-11] MEDS: VANCOMYCIN/WATER (PEG) 1.5 GM/300 ML BAG IV (23:54)
[2025-06-11] MEDS: Lactated Ringers 1,000 ML 175 ML IV (23:57)
[2025-06-12] VITALS (11 sets, daily range): BP systolic 93–136; BP diastolic 53–66; PULSE 66–118; RESP 12–17; TEMP 36.1–38.8; O2SAT 92–96
--- NOTE | 2025-06-12 | DI.CT_ITS ---
Exam(s) CT ABDOMEN PELVIS WO EXAM: CT ABDOMEN PELVIS WO CLINICAL HISTORY: chronic ischial infected wounds- GPC bacteremia. TECHNIQUE: Imaging Protocol: Axial computed tomography images with coronal and sagittal reformatted images were created and reviewed. Oral: / no COMPARISON: CT CT ABDOMEN PELVIS WO from 05/12/2025 CR,XR XR PORTABLE CHEST AP from 06/11/2025 FINDINGS: Lung Bases: Stable appearance of left lower lobe atelectasis versus consolidation. Mild right basilar atelectasis. Left ventricular monitoring device. Liver: Normal density. No suspicious mass. Gallbladder and biliary tract: No radiodense calculus or biliary dilation. Pancreas: Mildly atrophic. No abnormal calcifications or inflammatory process. Spleen: Normal. Kidneys: Normal size, contour and axis. No radiodense stones. No obstructive uropathy. No suspicious masses seen. Adrenal glands: No masses seen. Lymph nodes: Within normal limits. Vasculature: Abdominal aorta non-dilated. Soft tissues: Decubitus ulcers are again noted overlying the ischial tuberosities which contain packing within the wounds. Adjacent soft tissue thickening. No drainable abscess. Soft tissue thickening also present inferior to the level of the coccyx which has been resected.. Bladder: Over distended. No wall thickening. No mass or calculi. Bowel: No obstruction or bowel wall thickening. Increased quantity of stool distending the colon consistent with constipation. No evidence of appendicitis. Peritoneal cavity: No ascites. No focal collection. No mesenteric inflammatory response. Reproductive organs: Unremarkable. Bones: Bony erosions at the ischial tuberosities, not significantly changed from prior. Prior resection of the coccyx. Bony sclerosis at the inferior aspect of the S5 segment, unchanged. IMPRESSION: No acute abnormality in the abdomen or pelvis. Bilateral ischial decubitus ulcers with wound packing. No drainable abscess. Stable appearance of resection of the coccyx and sclerosis at the inferior S5 segment. Large quantity of stool consistent with constipation. Over distended bladder. Stable appearance of atelectasis versus consolidation in the left lower lobe. The preliminary [facility] report was reviewed. RADIATION DOSE DELIVERED: Total DLP DATA REPOSITORY: All CT scans at this facility are submitted to the National Radiology Data Registry (NRDR) Dose Index Registry (DIR) with the [employer] (A[employer]). RADIATION OPTIMIZATION: All CT scans at this facility use at least one of these dose optimization techniques: automated exposure control; mA and/or kV adjustment per patient size (includes targeted exams where dose is matched to clinical indication); or iterative reconstruction.
[2025-06-12] MEDS: MORPHine 2 MG/ML SYR 1 MG IVP (01:18)
[2025-06-12] MEDS: Methadone 10 MG TAB PO ×3 (01:24→17:42)
[2025-06-12 02:13] LABS: COVID-19 PCR Negative (Negative); RSV PCR Negative (Negative)
[2025-06-12] MEDS: VANCOMYCIN/WATER (PEG) 1.5 GM/300 ML BAG IV ×2 (02:21→10:58)
[2025-06-12] MEDS: Zolpidem 10 MG TAB PO (03:29)
[2025-06-12] MEDS: Nicotine 21 MG/24 HR PATCH TD (03:29)
[2025-06-12] MEDS: LORazepam 1 MG TAB 2 MG PO ×2 (03:29→20:19)
[2025-06-12] MEDS: Lactated Ringers 1,000 ML 175 ML IV (06:50)
[2025-06-12] MEDS: Acetaminophen 250 mg/Aspirin 250 mg/Caffeine 65 mg TAB 2 EACH PO (07:25)
[2025-06-12] MEDS: buPROPion-CR 150 MG TABCR 300 MG PO (07:52)
[2025-06-12] MEDS: Senna TAB 2 TAB PO (07:52)
[2025-06-12] MEDS: Cyanocobalamin 500 MCG TAB 1000 MCG PO (07:52)
[2025-06-12] MEDS: Bacitracin 1 PACKET TP ×3 (07:52→20:18)
[2025-06-12] MEDS: Buprenorphine/Naloxone 4 mg/1 mg FILM 1 EACH SL ×3 (07:53→20:18)
[2025-06-12] MEDS: guaiFENesin 600 MG TABCR PO ×2 (07:53→20:19)
[2025-06-12] MEDS: Folic Acid 1 MG TAB PO (07:53)
[2025-06-12] MEDS: ARIPiprazole 5 MG TAB 7.5 MG PO (07:53)
[2025-06-12] MEDS: Pantoprazole 40 MG TABCR PO (07:53)
[2025-06-12] MEDS: Apixaban 5 MG TAB PO ×2 (07:53→20:18)
[2025-06-12] MEDS: Ferrous Sulfate 325 MG TAB PO (07:53)
[2025-06-12] MEDS: Docusate Sodium 100 MG CAP PO ×3 (07:54→20:18)
[2025-06-12] MEDS: Baclofen 10 MG TAB 20 MG PO ×3 (07:54→20:19)
[2025-06-12] MEDS: Simethicone 80 MG CHEW PO ×4 (07:54→20:18)
[2025-06-12] MEDS: Ketoconazole 2% CREAM 15 GM TUBE TP (07:55)
[2025-06-12] MEDS: Normal Saline Flush 10 ML SYR IVP ×3 (07:56→20:26)
[2025-06-12 07:57] LABS: Vancomycin, Random 25.3 ug/mL
[2025-06-12 08:17] LABS: Abs Immature Grans 0.04 10^3/uL (0.0-0.06); HCT 29.4 % (40.0-50.0); HGB 8.3 g/dL (13.5-17.5); Immature Grans % 0.4 %; MCH 21.5 pg (27.0-33.0); MCHC 28.2 % (32.0-36.0); MCV 76 fL (80-95); MPV 12.0 fL (8.0-11.0); RBC 3.86 10^6/uL (4.36-5.78); RDW 16.5 % (11.8-14.1); RDW-SD 45.9 fL; WBC 8.96 10^3/uL (4.4-10.8)
[2025-06-12 08:30] LABS: C-Reactive Protein 11.92 mg/dL (<=0.50); Magnesium 1.8 mg/dL (1.6-2.6)
[2025-06-12 08:31] LABS: Anion Gap 4 mmol/L (3-11); BUN 14 mg/dL (9-23); CO2 29.0 mmol/L (20.0-31.0); Calcium 8.8 mg/dL (8.3-10.6); Chloride 102 mmol/L (98-107); Glucose 93 mg/dL (74-106); Potassium 3.6 mmol/L (3.5-5.1); Sodium 135 mmol/L (136-145)
[2025-06-12 08:38] LABS: Hypochromasia 2+; Platelet Count 243 10^3/uL (130-400)
--- NOTE | 2025-06-12 08:56 | PT.INNT ---
PT Notes Visit Reasons: GPC bacteremia New PT orders received today for Shawn as he transitions to SB1 from SB2. He has an established PT POC for treatments 3x/week at established times with primary PT. Will plan to reassess at scheduled time on Saturday and continue per established POC.
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
--- NOTE | 2025-06-12 10:55 | PHA.REVIEW2 ---
Pharmacy Admission Review Admission Clinical Review Admission Pharmacy Review: Sepsis (Acute) Gram-positive cocci bacteremia (Acute) Insomnia (Acute) Chronic anticoagulation (Acute) Abdominal spasms (Acute) Decubitus ulcer of ischium, stage 3 (Acute) Housing instability, housed, with risk of homelessness (Acute) Chronic osteomyelitis of sacrum (Acute) Paraplegia at T4 level (Acute) No Known Allergies Allergy (Unverified 11/19/24 13:44) Resuscitation Status DNR/DNI Height 5 ft 9 in Weight 135 kg Pharmacy Admission Review Renal Dosing Renal Dosing: BUN 14 mg/dL (9-23) 06/12/25 07:30 Creatinine 0.69 mg/dL (0.73-1.18) L 06/12/25 07:30 Medications needing adjustments: Reviewed (CrCl 190 ml/min) List of meds needing interventions: Current medications are okay Anticoagulation Anticoagulation: Hgb 8.3 g/dL (13.5-17.5) L 06/12/25 07:30 Hct 29.4 % (40.0-50.0) L 06/12/25 07:30 Plt Count 243 10^3/uL (130-400) 06/12/25 07:30 Creatinine 0.69 mg/dL (0.73-1.18) L 06/12/25 07:30 DVT Prophylaxis: Reviewed Medications: Apixaban (5mg BID) Opiate Usage Evaluate Pain Scale/Pains Meds: Reviewed (methadone 10mg q8h scheduled) Scheduled Bowel Reg ordered if on Opiates?: Yes Relevant Labs Relevant Labs: Sodium 135 mmol/L (136-145) L 06/12/25 07:30 Potassium 3.6 mmol/L (3.5-5.1) 06/12/25 07:30 Chloride 102 mmol/L (98-107) 06/12/25 07:30 Magnesium 1.8 mg/dL (1.6-2.6) 06/12/25 07:30 C-Reactive Protein 11.92 mg/dL (<=0.50) H 06/12/25 07:30 Electrolytes, C-Reactive P, ESR: Reviewed Cardiac Review Cardiac Review: Blood Pressure : Heart Rate 97/59 : 112 0756 Blood Pressure : Heart Rate 106/58 : 111 0432 Blood Pressure : Heart Rate 136/55 : 118 0019 BP, HR, EF%: Reviewed QTc Review QTc: Reviewed (438 from 03/21/25 - most recent EKG on file) IV to PO Switch IV Medications: Reviewed (ceftriaxone and vancomycin) Home Meds Home Med List reviewed: Reviewed Relevent Home Meds Not ordered & why?: vitamin D2, melatonin (PRN), nitroglycerin ointment (PRN), potassium, Lyrica, psyllium and torsemide Swing bed patient since 04/08/25 - transitioned back to MS status due to bacteremia/UTI Current Meds Current Medication Order Review: Intervened Comments: Changed timing of lidocaine patch / lidocaine patch removal order to be on even hour per pharmacy protocol Pharmacy Antibiotic Review Relevant Labs: Relevant Labs 06/12/25 07:30 C-Reactive Protein 11.92 H WBC 8.96 10^3/uL (4.4-10.8) 06/12/25 07:30 Temperature 36.7 C Temperature 37.9 C Temperature 38.0 C Temperature 38.8 C Temperature 37.9 C Pharmacy Antibiotic Activity: C/S review and Reviewed, no change Comments: Patient is on vancomycin and ceftriaxone, day 1, for bacteremia/UTI. Vancomycin dose currently 1500mg q8h with predicted AUC of 559. Will order another level if any significant changes in renal function or prolonged therapy required. Patient is also on oral vancomycin for C. diff prophylaxis (125mg daily). Blood culture growing gram positive cocci and urine culture growing gram negative ander. Repeat blood cultures pending.
[2025-06-12] MEDS: Vancomycin 125 MG CAP PO (10:58)
[2025-06-12] MEDS: Triamcinolone 0.1% CR 80 GM TUBE TP ×2 (11:08→20:27)
[2025-06-12] MEDS: Lactated Ringers 1,000 ML 250 ML IV (13:22)
[2025-06-12] MEDS: Acetaminophen 325 MG TAB 650 MG PO (14:54)
--- NOTE | 2025-06-12 16:46 | DI.VRAD_ITS ---
PROCEDURE INFORMATION: Exam: CT Abdomen And Pelvis Without Contrast Exam date and time: There is a moderate amount of free pelvic fluid present. Age: 44 years old Clinical indication: Other: Chronic ischial infected wounds- gpc bacteremia Other procedure information: 3: 57 PM TECHNIQUE: Imaging protocol: Computed tomography of the abdomen and pelvis without contrast. COMPARISON: CT ABDOMEN PELVIS WO 12/05/2025 14:16 FINDINGS: Tubes, catheters and devices: Metallic device projected within the right ventricle consistent with a monitoring device. Lungs: Consolidation left lower lobe of the lung consistent with pneumonia and atelectasis with air bronchograms. Atelectatic changes and scarring present at the right middle lobe of the lung. There is heterogeneous attenuation of the pulmonary parenchyma, consistent with air trapping from underlying small airways disease. Pleural spaces: There is no evidence of pneumothorax. There are no pleural effusions present. Heart: Mild thickening of the pericardium. The cardiac structures are normal. Liver: There are no focal liver lesions present. There is no evidence of intrahepatic or extrahepatic biliary ductal dilation. Gallbladder and biliary ducts: The gallbladder is normal. There is no cholelitiasis, wall thickening or pericholecystic fluid to suggest cholecystitis. Pancreas: There is mild pancreatic atrophy and fatty replacement. Spleen: The spleen is enlarged. The spleen otherwise appears normal.The kidneys are normal no evidence of nephrolithiasis or hydronephrosis. Adrenal glands: The adrenal glands are normal without evidence of mass or enlargement. Kidneys and ureters: The ureters are normal caliber and follow a normal caliber and course. Stomach and bowel: There is moderate to severe increased colonic fecal content. The colon is moderately distended. These findings suggest a moderate to severe degree of constipation. Clinical correlation recommended. There is no evidence of intestinal obstruction. Appendix: There is no evidence of appendicitis. Intraperitoneal space: There is no free intraperitoneal air. There is no evidence of free intraperitoneal or pelvic fluid. Vasculature: No abdominal aortic aneurysm. Lymph nodes: There is no evidence of lymphadenopathy. Urinary bladder: Unremarkable as visualized. Reproductive: The prostate gland and seminal vesicles are normal. Bones/joints: There are mild degenerative changes of the sacroiliac joints. There may be mild bony erosions at the ischial tuberosities bilaterally which may suggest osteomyelitis. MRI would be more sensitive modality for this finding. Soft tissues: There are deep soft tissue ulcerations adjacent to the left and right ischial tuberosities, there appears to be packing within the wounds. There is thickening of the soft tissues. No definitive evidence of free fluid although there does appear to be phlegmonous changes bilaterally. IMPRESSION: 1. Consolidation left lower lobe of the lung consistent with pneumonia and atelectasis with air bronchograms. 2. There are deep soft tissue ulcerations adjacent to the left and right ischial tuberosities, there appears to be packing within the wounds. There is thickening of the soft tissues. No definitive evidence of free fluid although there does appear to be phlegmonous changes bilaterally. 3. There may be mild bony erosions at the ischial tuberosities bilaterally which may suggest osteomyelitis. MRI would be more sensitive modality for this finding. 4. There is heterogeneous attenuation of the pulmonary parenchyma, consistent with air trapping from underlying small airways disease. 5. There is moderate to severe increased colonic fecal content. The colon is moderately distended. These findings suggest a moderate to severe degree of constipation. Clinical correlation recommended. Dictated and Authenticated by: Bridger Navarro MD. Orderin Alee Crews MD
[2025-06-12] MEDS: Bisacodyl 5 MG TABEC PO (17:42)
[2025-06-12] MEDS: Ketorolac 15 MG/ML VIAL IVP (17:43)
[2025-06-12] MEDS: Ramelteon 8 MG TAB PO (20:19)
[2025-06-12] MEDS: traZODone 100 MG TAB 150 MG PO (20:20)
[2025-06-12] MEDS: Mirtazapine 15 MG TAB PO (20:26)
[2025-06-12] MEDS: Collagenase 30 GM TUBE TP (20:27)
[2025-06-12] MEDS: cefTRIAXone 2 GM/50 ML BAG IVPB (22:23)
[2025-06-13] MEDS: Methadone 10 MG TAB PO ×3 (02:18→17:29)
[2025-06-13] MEDS: Patch Removal 2 EACH TP (02:18)
[2025-06-13 02:19] VITALS: BP 110/70; PULSE 103; RESP 18; TEMP 38.7
[2025-06-13] MEDS: Acetaminophen 325 MG TAB 650 MG PO ×2 (02:25→12:51)
[2025-06-13 03:26] VITALS: TEMP 37.5
[2025-06-13] MEDS: Normal Saline Flush 10 ML SYR IVP ×2 (05:52→21:44)
[2025-06-13 06:35] LABS: Abs Immature Grans 0.04 10^3/uL (0.0-0.06); HCT 27.6 % (40.0-50.0); Immature Grans % 0.9 %; MCH 21.3 pg (27.0-33.0); MCHC 28.3 % (32.0-36.0); MCV 75 fL (80-95); Platelet Count 233 10^3/uL (130-400); RBC 3.67 10^6/uL (4.36-5.78); RDW 16.5 % (11.8-14.1); RDW-SD 45.1 fL; WBC 4.64 10^3/uL (4.4-10.8)
[2025-06-13 06:52] LABS: HGB 7.8 g/dL (13.5-17.5); Hypochromasia 2+
[2025-06-13 06:58] LABS: ALT 9 U/L (10-49); AST 12 U/L (<34); Albumin 3.7 g/dL (3.4-5.0); Alkaline Phosphatase 56 U/L (46-116); Anion Gap 9.4 mmol/L (3-11); BUN 9 mg/dL (9-23); Bilirubin, Total < 0.20 mg/dL (0.2-1.2); CO2 27.6 mmol/L (20.0-31.0); Calcium 8.8 mg/dL (8.3-10.6); Chloride 104 mmol/L (98-107); Glucose 89 mg/dL (74-106); Potassium 3.7 mmol/L (3.5-5.1); Sodium 141 mmol/L (136-145); Total Protein 6.5 g/dL (5.7-8.2)
[2025-06-13 07:27] VITALS: BP 138/73; PULSE 64; RESP 17; TEMP 36; O2SAT 93
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
[2025-06-13] MEDS: Simethicone 80 MG CHEW PO ×4 (09:50→21:42)
[2025-06-13] MEDS: ARIPiprazole 5 MG TAB 7.5 MG PO (09:50)
[2025-06-13] MEDS: buPROPion-CR 150 MG TABCR 300 MG PO (09:50)
[2025-06-13] MEDS: Docusate Sodium 100 MG CAP PO ×3 (09:51→21:43)
[2025-06-13] MEDS: guaiFENesin 600 MG TABCR PO ×2 (09:51→21:43)
[2025-06-13] MEDS: Senna TAB 2 TAB PO (09:51)
[2025-06-13] MEDS: Pantoprazole 40 MG TABCR PO (09:51)
[2025-06-13] MEDS: Folic Acid 1 MG TAB PO (09:51)
[2025-06-13] MEDS: Baclofen 10 MG TAB 20 MG PO ×3 (09:51→21:42)
[2025-06-13] MEDS: Ferrous Sulfate 325 MG TAB PO (09:51)
[2025-06-13] MEDS: Cyanocobalamin 500 MCG TAB 1000 MCG PO (09:52)
[2025-06-13] MEDS: Buprenorphine/Naloxone 4 mg/1 mg FILM 1 EACH SL ×3 (09:52→21:42)
[2025-06-13] MEDS: Bacitracin 1 PACKET TP ×3 (09:52→23:32)
[2025-06-13] MEDS: Vancomycin 125 MG CAP PO (09:52)
[2025-06-13] MEDS: Ketoconazole 2% CREAM 15 GM TUBE TP (09:53)
[2025-06-13] MEDS: Triamcinolone 0.1% CR 80 GM TUBE TP (09:54)
[2025-06-13 11:22] VITALS: BP 151/85; PULSE 65; RESP 17; TEMP 36.8; O2SAT 97
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
--- NOTE | 2025-06-13 15:12 | NUR.NOTE ---
Nursing Note: Pt trans from bed to w/c via eloit lift. Pt refused prevalon boots, compliance with boots encouraged, but pt ultimately refused to have them put on.
[2025-06-13 15:59] VITALS: BP 103/72; PULSE 82; RESP 17; TEMP 36.3; O2SAT 96
--- NOTE | 2025-06-13 16:02 | NUR.NOTE ---
Nursing Note: pt awake alert pale pt denies pain or SOB pts appetite fair to poor pt needs total asssist for cares Dr. Rae into see the pt assessed his pressure wounds took photos area cleaned DSG changed as per order pt assisted out of the bed with eliot lift into Electric WC call beltran at side safety maintained
[2025-06-13 21:32] VITALS: BP 106/74; PULSE 99; RESP 18; TEMP 36.5; O2SAT 95
[2025-06-13] MEDS: Ramelteon 8 MG TAB PO (21:42)
[2025-06-13] MEDS: Apixaban 5 MG TAB PO (21:43)
[2025-06-13] MEDS: traZODone 100 MG TAB 150 MG PO (21:43)
[2025-06-13] MEDS: Mirtazapine 15 MG TAB PO (21:43)
[2025-06-13] MEDS: cefTRIAXone 2 GM/50 ML BAG IVPB (21:44)
[2025-06-13] MEDS: Nicotine 21 MG/24 HR PATCH TD (21:56)
[2025-06-14] MEDS: Methadone 10 MG TAB PO ×3 (02:47→18:10)
[2025-06-14 02:53] VITALS: BP 97/63; PULSE 91; RESP 18; TEMP 37
[2025-06-14] MEDS: Zolpidem 10 MG TAB PO ×2 (03:16→23:11)
[2025-06-14] MEDS: LORazepam 1 MG TAB 2 MG PO ×2 (03:16→23:11)
[2025-06-14] MEDS: Normal Saline Flush 10 ML SYR IVP ×5 (06:16→23:09)
[2025-06-14 07:07] LABS: C-Reactive Protein 9.52 mg/dL (<=0.50)
[2025-06-14 07:37] VITALS: BP 100/57; PULSE 92; RESP 16; TEMP 36.7; O2SAT 95
[2025-06-14] MEDS: Simethicone 80 MG CHEW PO ×4 (07:44→20:53)
[2025-06-14] MEDS: Pantoprazole 40 MG TABCR PO (07:44)
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
[2025-06-14 10:06] VITALS: BP 109/60; PULSE 83; RESP 16; TEMP 36.6; O2SAT 94
[2025-06-14] MEDS: Docusate Sodium 100 MG CAP PO ×3 (10:17→20:54)
[2025-06-14] MEDS: Ferrous Sulfate 325 MG TAB PO (10:17)
[2025-06-14] MEDS: Apixaban 5 MG TAB PO ×2 (10:17→20:54)
[2025-06-14] MEDS: Bacitracin 1 PACKET TP ×3 (10:17→23:10)
[2025-06-14] MEDS: Baclofen 10 MG TAB 20 MG PO ×3 (10:17→20:54)
[2025-06-14] MEDS: Folic Acid 1 MG TAB PO (10:18)
[2025-06-14] MEDS: buPROPion-CR 150 MG TABCR 300 MG PO (10:18)
[2025-06-14] MEDS: guaiFENesin 600 MG TABCR PO ×2 (10:18→20:54)
[2025-06-14] MEDS: ARIPiprazole 5 MG TAB 7.5 MG PO (10:18)
[2025-06-14] MEDS: Vancomycin 125 MG CAP PO (10:18)
[2025-06-14] MEDS: Bisacodyl 5 MG TABEC PO (10:18)
[2025-06-14] MEDS: Senna TAB 2 TAB PO (10:18)
[2025-06-14] MEDS: Polyethylene Glycol 3350 17 GM PACKET PO (10:18)
[2025-06-14] MEDS: Cyanocobalamin 500 MCG TAB 1000 MCG PO (10:18)
[2025-06-14] MEDS: Buprenorphine/Naloxone 4 mg/1 mg FILM 1 EACH SL ×3 (10:19→20:54)
[2025-06-14] MEDS: Triamcinolone 0.1% CR 80 GM TUBE TP (10:19)
[2025-06-14] MEDS: Ketoconazole 2% CREAM 15 GM TUBE TP (10:20)
--- NOTE | 2025-06-14 12:14 | CMPROGNOTE_ITS ---
Date of service: 06/14/25 Time of Service: 12:14 Care Management Progress Note Progress Note Text Progress Note Text: Clifton was lying in bed when CM met with him. He appeared flushed and sleepy. Clifton was transferred back to inpatient status on Saturday when he developed a fever and later was found to be bacteremic (Group C strep). He reported that he is not feeling well today but was vague about his symptoms. He continues to have discomfort but not out of the ordinary. He is afebrile and his vital signs are stable. When Clifton developed the fever, he was started on antibiotics. There had been some discussion with Clifton in the past about whether or not he would want antibiotics should he become septic again. A Palliative consult was conducted today to have that discussion as it is not clearly documented that he was asked about taking antibiotics and was in agreement. Tanika from Palliative met with Clifton and amended his COLST form to include a requirement for providers to have a discussion about tube feedings and/or antibiotics before ordering either. Discharge Potential Discharge Needs: PCP F/U Appt Anticipated Barriers to Discharge: Bed availability Patient/Family Education Needs: Review discharge instructions, discuss [facility] Transportation: Other (to be be determined by disposition) Plan: Anticipate will be transferred to an adult family care ([facility]FC) home when one becomes available. He will follow up with his community providers and plan of care. Transportation will be determined by disposition but likely [facility] wheelchair van.CM will follow and continue to [facility] for discharge needs. Social Determinants of Health Screening Will the Patient Participate in the Screening?: Unable to obtain
[2025-06-14] MEDS: PIPERACILLIN/TAZO 4.5 GM in Normal Saline 100 ML IVPB ×3 (12:19→23:09)
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
[2025-06-14 15:16] VITALS: BP 121/80; PULSE 75; RESP 16; TEMP 36.8; O2SAT 96
[2025-06-14 19:04] VITALS: BP 113/63; PULSE 86; RESP 18; TEMP 36.3; O2SAT 97
[2025-06-14] MEDS: Mirtazapine 15 MG TAB PO (20:54)
[2025-06-14 22:45] VITALS: BP 126/93; PULSE 78; RESP 18; TEMP 36.4; O2SAT 97
[2025-06-14] MEDS: Ramelteon 8 MG TAB PO (23:10)
[2025-06-14] MEDS: Nicotine 21 MG/24 HR PATCH TD (23:10)
[2025-06-14] MEDS: traZODone 100 MG TAB 150 MG PO (23:11)
[2025-06-14] MEDS: Acetaminophen 325 MG TAB 650 MG PO (23:11)
[2025-06-15] MEDS: Methadone 10 MG TAB PO ×3 (02:13→18:21)
[2025-06-15 03:18] VITALS: BP 95/69; PULSE 87; RESP 17; TEMP 36.2; O2SAT 94
[2025-06-15] MEDS: PIPERACILLIN/TAZO 4.5 GM in Normal Saline 100 ML IVPB ×3 (05:20→22:14)
[2025-06-15] MEDS: Normal Saline Flush 10 ML SYR IVP ×6 (05:21→22:16)
--- NOTE | 2025-06-15 07:03 | W.PM.PROGNOT ---
Date of Service Date of service: 06/14/25 Time of Service: 09:45 Assessment and Plan Assessment and plan (1) Sepsis: Status: Resolved Assessment and plan: gram pos bacteremia, wounds are certainly a suspect for source. He has consistently declined wound care by the surgeons including wound debridements. Wounds examined by my partner yesterday and noted to not have overtly necrotic material in them. They are wet and they would benefit from more frequent dressing changes if he would allow. Offloading is also essential but I understand he does not allow it as often as recommended because of discomfort of being moved. This is a very challenging situation, but I feel his consistency in declining elements of care that are more aggressive or physically engaging must be noted. Wound vac would be possible but wound vac plan requires significant cooperation from the patient and commitment to treatment plan. I dont think he is a good candidate for wound vac because of this, despite the wounds being amenable to vac. Patients wishes reviewed at his bedside, he is consistent, and I will continue to respect his wishes. Consider osteomyelitis as the source for bacteremia. Agree w antibiotics. Signing off. Please consult again if he becomes agreeable to surgical intervention. Otherwise wound care as ordered. (2) Chronic osteomyelitis of sacrum: Status: Acute (3) Gram-positive cocci bacteremia: Status: Acute (4) Right ischial pressure sore, stage 3: Status: Acute Subjective Subjective Interval history since last seen: no complaints or concerns. Discussed his wounds and sepsis. He remains consistent in not wanting aggressive or interventional care including wound debridements. Exam Narrative Exam Narrative: awake, upright in bed, NAD eomi, Eyes wide open, nonicteric sclerae. Calm, speaks clearly, smiles and is polite and cooperative. abdomen is obese Clear and coherent speech Objective Last Vital Signs Laboratory Results - last 24 hr 06/14/25 06:20 C-Reactive Protein 9.52 H VTE Prohylaxis Risk Level: Moderate/High Risk Contraindications: None Prophylaxis: Patient anticoagulated Time Spent with Patient Time Spent with Patient: <25 minutes Time was spent: preparing to see the patient(eg.review tests) and counseling the patient
[2025-06-15 07:33] VITALS: BP 107/66; PULSE 77; RESP 16; TEMP 36.4; O2SAT 97
[2025-06-15] MEDS: Acetaminophen 325 MG TAB 650 MG PO (08:09)
[2025-06-15 08:25] LABS: Abs Immature Grans 0.03 10^3/uL (0.0-0.06); HCT 27.7 % (40.0-50.0); HGB 7.9 g/dL (13.5-17.5); Immature Grans % 0.6 %; MCH 21.4 pg (27.0-33.0); MCHC 28.5 % (32.0-36.0); MCV 75 fL (80-95); MPV 11.2 fL (8.0-11.0); Platelet Count 266 10^3/uL (130-400); RBC 3.69 10^6/uL (4.36-5.78); RDW 16.5 % (11.8-14.1); RDW-SD 45.0 fL; WBC 4.64 10^3/uL (4.4-10.8)
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
[2025-06-15 08:43] LABS: Anion Gap 4.6 mmol/L (3-11); BUN 8 mg/dL (9-23); CO2 29.4 mmol/L (20.0-31.0); Calcium 8.6 mg/dL (8.3-10.6); Chloride 106 mmol/L (98-107); Glucose 106 mg/dL (74-106); Potassium 3.2 mmol/L (3.5-5.1); Sodium 140 mmol/L (136-145)
[2025-06-15] MEDS: Vancomycin 125 MG CAP PO (09:04)
[2025-06-15] MEDS: ARIPiprazole 5 MG TAB 7.5 MG PO (09:04)
[2025-06-15] MEDS: Simethicone 80 MG CHEW PO ×4 (09:04→22:10)
[2025-06-15] MEDS: buPROPion-CR 150 MG TABCR 300 MG PO (09:04)
[2025-06-15] MEDS: Bacitracin 1 PACKET TP ×3 (09:04→22:11)
[2025-06-15] MEDS: Docusate Sodium 100 MG CAP PO ×3 (09:04→22:12)
[2025-06-15] MEDS: Senna TAB 2 TAB PO (09:04)
[2025-06-15] MEDS: Baclofen 10 MG TAB 20 MG PO ×3 (09:05→22:10)
[2025-06-15] MEDS: Pantoprazole 40 MG TABCR PO (09:05)
[2025-06-15] MEDS: Cyanocobalamin 500 MCG TAB 1000 MCG PO (09:05)
[2025-06-15] MEDS: Ferrous Sulfate 325 MG TAB PO (09:05)
[2025-06-15] MEDS: Apixaban 5 MG TAB PO ×2 (09:05→22:12)
[2025-06-15] MEDS: Folic Acid 1 MG TAB PO (09:05)
[2025-06-15] MEDS: Buprenorphine/Naloxone 4 mg/1 mg FILM 1 EACH SL ×3 (09:05→22:10)
[2025-06-15] MEDS: guaiFENesin 600 MG TABCR PO ×2 (09:05→22:12)
[2025-06-15 09:31] LABS: Anisocytosis 1+; Hypochromasia 2+; Microcytosis 2+
[2025-06-15 09:32] LABS: Polychromasia Present
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
[2025-06-15] MEDS: Methocarbamol 500 MG TAB PO (13:47)
--- NOTE | 2025-06-15 14:00 | PT.INTREAT ---
PT Notes Visit Reasons: GPC Bacteremia Physical Therapy Inpatient Treatment Note Date: 06/16/2025 Precautions: Fall. Enteric contact precautions in place. At risk for further skin breakdown, ensure that transfers minimize shear to stage III ischial ulcers. Total assistance for transfers for nursing. Subjective: I do not feel well today, not sure how much I can do. Wood weak and tired but with encouragement from PT, was agreeable to trying out today's activity slowly. Reported 2 waves of spasm during session that resolved with rest. Objective: General Observation: Patient arrived to therapy room at usual schedule of 2 PM. Face rash diminishing. Mental Status: A and O x 4 Pain: Waves of pain reported during each episode of spasm in L leg Vital Signs: Closely monitored by nursing staff Bed Mobility/Transfers: Nursing staff has been using mechanical lift for all transfers. DPTS Sony assisted from behind and PT ensuring safety in front. Facilitated safe performance of R lateral transfer from wheelchair to edge of plinth: Elevated treatment plinth height to a level about 2 inches below patient's wheelchair seat. Instructed patient to position wheelchair parallel and in contact with edge of plinth. Folded R wheelchair armrest back. Placed a pillow over folded armrest to cushion patient in case he touches area during transfer. Supported and positioned B hips in neutral rotation using blue theraband around patient's distal thigh. Instructed patient to push off L armrest and edge of plinth simultaneously to slowly scoot laterally onto powdered tx plinth edge. Minimal assist of COLLECTION SYSTEMS TECHNICIAN from the back and contact guard assist of PT in front to support B LE as needed. Patient was asked to rest after each lateral scoot. Performed sequence in reverse going back to wheelchair with plinth height increased 2 inches above w/c seat. DPTS Sony provided minimal assist from the rear and PT from and contact guard assist by PT from the front. Adequate rests given after each scoot to offset fatigue and leg spasms. Gait: Deferred. T4 paraplegia. Stairs: Deferred. T4 paraplegia. Balance: Static Sitting: Fair Dynamic Sitting: Fair Static Standing: Unable to perform, T4 paraplegis Dynamic Standing: Unable to perform, T4 paraplegis Assessment: Trunk and pelvic elevator activation improving with extent and duration of trunk elevation increased resulting to a more efficient scooting and increased time for pressure relief during today's lateral transfer. Did report fatigue and post activity spasm in the L LE that resolved after about 2-3 minutes. Adequate rests given after each scoot to offset fatigue and leg spasms. Plan of Care/Treatment Plan: 1-2x/day, 5 days/week x 2 weeks. Plan of care has been reviewed with the COLLECTION SYSTEMS TECHNICIAN providing the service under Physical Therapy direction. Initiate Physical Therapy intervention for pain management as needed, strengthening, bed mobility, transfers, gait, stairs, balance training, and use of assistive device. --Individualized plan of care for Shawn: Patient is to come Mondays through Fridays at 2 Pm to the therapy room using his motorized wheelchair for his PT appointments. Mondays, Wednesdays and Fridays will be strength training; Tuesdays and will be transfer training. Goals for PT will be reviewed weekly with patient to ensure that plans are well-aligned with patient's goals and PT's functional goals. DISCHARGE RECOMMENDATIONS: SNF vs supevised setting/CUSTODIAL/AFC for strengthening, functional mobility training, and balance training in sitting. TREATMENT CODE/TIME: 87553 x 25 minutes for 2 units (14:00-14:25).
[2025-06-15] MEDS: Ketoconazole 2% CREAM 15 GM TUBE TP (15:03)
[2025-06-15] MEDS: Milk of Magnesia 30 ML CUP PO (15:07)
[2025-06-15 15:25] VITALS: BP 109/71; PULSE 81; RESP 16; TEMP 36.8; O2SAT 97
[2025-06-15] MEDS: FERRIC CARBOXYMALTOSE 750 MG in Normal Saline 250 ML 1000 MG IVPB (16:43)
[2025-06-15] MEDS: Bisacodyl 5 MG TABEC PO (18:21)
[2025-06-15 19:28] VITALS: BP 121/69; PULSE 76; RESP 18; TEMP 36.6; O2SAT 97
[2025-06-15] MEDS: Ramelteon 8 MG TAB PO (22:09)
[2025-06-15] MEDS: Zolpidem 10 MG TAB PO (22:10)
[2025-06-15] MEDS: Mirtazapine 15 MG TAB PO (22:11)
[2025-06-15] MEDS: traZODone 100 MG TAB 150 MG PO (22:11)
[2025-06-15] MEDS: Collagenase 30 GM TUBE TP (22:12)
[2025-06-15] MEDS: Triamcinolone 0.1% CR 80 GM TUBE TP (22:14)
[2025-06-15 23:32] VITALS: BP 105/74; PULSE 86; RESP 18; TEMP 35.5; O2SAT 95
--- NOTE | 2025-06-16 | DI.CT_ITS ---
Exam(s) CT ABDOMEN PELVIS WO EXAM: CT ABDOMEN PELVIS WO CLINICAL HISTORY: Perforation VS fistula. TECHNIQUE: Imaging Protocol: Axial computed tomography images with coronal and sagittal reformatted images were created and reviewed. Oral: no Rectal: 50 cc of Omnipaque was instilled via a rectal tube. COMPARISON: CT CT ABDOMEN PELVIS WO from 06/12/2025 FINDINGS: Lung Bases: No change in atelectasis versus consolidation at the left lower lobe. Stable posterior atelectasis at the right lower lobe. Liver: Normal density. No suspicious mass. Gallbladder and biliary tract: No radiodense calculus or biliary dilation. Pancreas: Mildly atrophic. No abnormal calcifications or inflammatory process. Spleen: Normal. Kidneys: Normal size, contour and axis. No radiodense stones. No obstructive uropathy. No suspicious masses seen. Adrenal glands: No masses seen. Lymph nodes: Within normal limits. Vasculature: Abdominal aorta non-dilated. Soft tissues: No gross interval change in appearance bilateral decubitus ulcers overlying the ischial regions. It appears the packing has been removed. The administered rectal contrast has seeped out of the rectum onto the table and extends into the left-sided decubitus ulcer. No drainable abscess. Bladder: Over distended. No wall thickening. No mass or calculi. Bowel: No obstruction or bowel wall thickening. A rectal tube has been placed and contrast administered which opacifies the sigmoid. Remainder of the colon appears somewhat fluid-filled. There is no evidence of perforation or fistula. Peritoneal cavity: No ascites. No focal collection. No mesenteric inflammatory response. Reproductive organs: Unremarkable. Bones: Erosions of both posterior ischia and resection of the coccyx again noted. IMPRESSION: A portion of administered rectal contrast was not well retained by the patient and it is located between the gluteal fold as well as extending beneath the patient into the left-sided decubitus ulcer. No visible change in decubitus ulcers all of the packing material has been removed. No evidence of perforation or fistula. No evidence of abscess. The previous exam showed a large amount of solid stool. The current exam shows a more fluid appearing stool. RADIATION DOSE DELIVERED: Total DLP DATA REPOSITORY: All CT scans at this facility are submitted to the National Radiology Data Registry (NRDR) Dose Index Registry (DIR) with the [employer] (ACR). RADIATION OPTIMIZATION: All CT scans at this facility use at least one of these dose optimization techniques: automated exposure control; mA and/or kV adjustment per patient size (includes targeted exams where dose is matched to clinical indication); or iterative reconstruction.
[2025-06-16] MEDS: Potassium Chloride 20 MEQ TABCR 40 MEQ PO (01:39)
[2025-06-16] MEDS: Methadone 10 MG TAB PO ×3 (01:39→18:25)
[2025-06-16] MEDS: Acetaminophen 250 mg/Aspirin 250 mg/Caffeine 65 mg TAB 2 EACH PO ×2 (01:39→17:11)
[2025-06-16] MEDS: LORazepam 1 MG TAB 2 MG PO ×2 (01:39→22:58)
[2025-06-16] MEDS: Bisacodyl 10 MG SUPP PR (01:52)
[2025-06-16] MEDS: PIPERACILLIN/TAZO 4.5 GM in Normal Saline 100 ML IVPB ×4 (04:28→23:54)
[2025-06-16 06:45] LABS: Abs Immature Grans 0.04 10^3/uL (0.0-0.06); HCT 27.3 % (40.0-50.0); HGB 7.7 g/dL (13.5-17.5); Immature Grans % 0.9 %; MCH 21.1 pg (27.0-33.0); MCHC 28.2 % (32.0-36.0); MCV 75 fL (80-95); MPV 11.0 fL (8.0-11.0); Platelet Count 296 10^3/uL (130-400); RBC 3.65 10^6/uL (4.36-5.78); RDW 16.5 % (11.8-14.1); RDW-SD 45.1 fL; WBC 4.37 10^3/uL (4.4-10.8)
[2025-06-16 07:02] LABS: Anion Gap 4.3 mmol/L (3-11); BUN 6 mg/dL (9-23); CO2 29.7 mmol/L (20.0-31.0); Calcium 8.8 mg/dL (8.3-10.6); Chloride 107 mmol/L (98-107); Glucose 94 mg/dL (74-106); Hypochromasia 1+; Magnesium 2.1 mg/dL (1.6-2.6); Microcytosis 2+; Potassium 3.5 mmol/L (3.5-5.1); Sodium 141 mmol/L (136-145)
[2025-06-16 08:10] VITALS: BP 113/62; PULSE 80; RESP 16; TEMP 36; O2SAT 95
[2025-06-16] MEDS: Polyethylene Glycol 3350 17 GM PACKET PO (09:36)
[2025-06-16] MEDS: guaiFENesin 600 MG TABCR PO ×2 (09:37→20:40)
[2025-06-16] MEDS: Apixaban 5 MG TAB PO ×2 (09:37→20:40)
[2025-06-16] MEDS: Simethicone 80 MG CHEW PO ×4 (09:37→22:59)
[2025-06-16] MEDS: buPROPion-CR 150 MG TABCR 300 MG PO (09:37)
[2025-06-16] MEDS: Docusate Sodium 100 MG CAP PO ×3 (09:37→20:40)
[2025-06-16] MEDS: Vancomycin 125 MG CAP PO (09:37)
[2025-06-16] MEDS: Bacitracin 1 PACKET TP ×2 (09:37→22:58)
[2025-06-16] MEDS: Ferrous Sulfate 325 MG TAB PO (09:37)
[2025-06-16] MEDS: Pantoprazole 40 MG TABCR PO (09:37)
[2025-06-16] MEDS: Senna TAB 2 TAB PO (09:38)
[2025-06-16] MEDS: Baclofen 10 MG TAB 20 MG PO ×3 (09:38→20:40)
[2025-06-16] MEDS: ARIPiprazole 5 MG TAB 7.5 MG PO (09:38)
[2025-06-16] MEDS: Cyanocobalamin 500 MCG TAB 1000 MCG PO (09:38)
[2025-06-16] MEDS: Buprenorphine/Naloxone 4 mg/1 mg FILM 1 EACH SL ×3 (09:38→20:40)
[2025-06-16] MEDS: Folic Acid 1 MG TAB PO (09:38)
[2025-06-16] MEDS: Normal Saline Flush 10 ML SYR IVP ×3 (09:39→20:41)
[2025-06-16] MEDS: Triamcinolone 0.1% CR 80 GM TUBE TP ×2 (09:40→20:30)
[2025-06-16 11:04] VITALS: BP 103/65; PULSE 71; RESP 16; TEMP 36.4; O2SAT 97
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
[2025-06-16] MEDS: Methocarbamol 500 MG TAB PO (11:27)
--- NOTE | 2025-06-16 11:37 | PDOC.CMPRO ---
Date of service: 06/16/25 Time of Service: 11:37 Care Management Progress Note Progress Note Text Progress Note Text: Clifton was sitting up in the bed when CM met with him early this morning - not even yet 9am. He was fidgeting in the bed in what looked like discomfort. Clifton declined any repositioning or help from CM, as his RN had just come in to help with his morning care. Clifton has been feeling down, with the upcoming holidays and being stuck here at [facility], and it shows in his demeanor. Clifton had an echocardiogram today, but the results are not back yet. He also had a visit with palliative care. It is reported that he is unsure about having a suprapubic urinary catheter placed. Discharge Potential Discharge Needs: PCP F/U Appt Anticipated Barriers to Discharge: Bed availability Patient/Family Education Needs: Review discharge instructions, discuss Ask Me Three Plan: Anticipate Clifton will be transferred to an adult family care ([facility]FC) home when one becomes available. He will follow up with his community providers and plan of care. Transportation will be determined by disposition but likely [facility] wheelchair van.CM will follow and continue to assess for discharge needs. Social Determinants of Health Screening Will the Patient Participate in the Screening?: Unable to obtain
--- NOTE | 2025-06-16 11:53 | W.PALPGNOTE ---
Date of service: 06/16/25 Time of Service: 11:53 Assessment and Plan Assessment and plan (1) Sepsis: Status: Resolved Assessment and plan: now resolved repeat blood culutre w/no growth (2) Gram-positive cocci bacteremia: Status: Acute Assessment and plan: continue piperacillin tazobactam (3) Anemia: Status: Chronic (4) Insomnia: Status: Acute Assessment and plan: improved last night continue QHS meds, including PRN Ambien (5) Chronic pain due to injury: Status: Acute Assessment and plan: continue methadone 10mg TID, w/up titration based on pain response recommend hydromorphone 2mg for wound/hygiene care, patricia today w/recurrent bowel episodes recommend trial of methocarbomol 500mg-750mg uptritrated to BID-QID based on response (6) Abdominal spasms: Status: Acute Assessment and plan: as above (7) Housing instability, housed, with risk of homelessness: Status: Acute Assessment and plan: f/b and community partners, working on finding him a safe home to discharge to (8) Paraplegia at T4 level: Status: Acute (9) Anxiety and depression: Status: Chronic (10) Neurogenic bowel: Status: Chronic Assessment and plan: pain management as above (11) Sacral decubitus ulcer: Status: Acute Assessment and plan: f/b wound care, continue to follow their recommendations - not candidate for wound vac - frequent wound care; w/increased bowel sxs this is more frequent and from a palliative perspective should be considered to be a sig form of suffering for Clifton and pain management w/either hydromorphone or methocarbomol considered each time as able - concern for new fistula, hospitalist to review w/Clifton today; recommend document any discussions regarding preferences/decisions in ACP (12) Penile ulcer: (13) Neurogenic bladder: Assessment and plan: CIC currently q6h urology recommends suprapubic catheter placement reviewed w/patient, provided pros/cons list for him to consider recommendation to make decision while still on antibiotics to reduce his overall suffering/need for further antibiotics (14) Constipation: Assessment and plan: moving bowels today, resolved (15) Palliative care encounter: Assessment and plan: PC able to provide blue gatorade or any other special request for food/drink Clifton may have to provide comfort and give him control; Please just call and ask! [id number] PC to continue to review decision making in future visits - if sacral ulcer has formed fistula w/concerns for skin organ failure and infection, w/o interventions could be considered hospice diagnosis? would need to review w/hospice and palliative MD collegues (16) Advanced care planning/counseling discussion: Assessment and plan: reviewed pain management, recommendations as above reviewed suprapubic catheter vs CIC, pros/cons, provided information sheet for him to review spent 15m w/ACP Subjective Subjective Interval history since last seen: Clifton remains hospitalized w/GPC positive infection presumably from sacral wounds; per staff: increased bloating discomfort and complaint, making urine appropriately tolerating CIC w/appropriate output; last abdomen scan showed large stool impact, last BM last night, this afternoon has had multiple episodes large stool w/now loose stools - wound care recommending repositioning q2h; Clifton hesitant/denies at times and accepts others; not candidate for wound vac; new concern this afternoon for wound fistula - spasms ongoing, trial methocarbomol w/good effect Urology recommend same day transfer and return for placement of suprapubic catheter d/t neurogenic bladder; Clifton remains undecided if he would want this Sleep: better last night, more than usual. He is happy with this Pain/spasms: feels methadone working better for pain compared to Suboxone split, would want to continue methadone and consider uptitration for better pain; did have better response w/methocarbomol, would want to either try this in conjuction with Baclofen or try methocarbomol at higher/more frequent dose; spasms in thorax are causing distress, worse w/repositioning, etc Bloating: post bowel movements bloating is improving ACP: not thrilled for a down and back transfer for placement, unsure of what suprapubic catheter is - prefering to only drink go lytely w/blue gatorade, not avail at [facility] Exam Narrative Exam Narrative: General: 44y/o male, lying in hospital bed HOB elevated; makes appropriate eye contact, engages readily and easily throughout visit; participating in toileting hygiene at start of visit, grimace/groan w/this and spasm post care HEENT: normocephalic, atraumatic; hearing grossly WNL, MMM Resp: even and unlabored at rest; speaks full sentences w/o SOB; no resp distress; no audible wheeze or cough Psych: MS WNL, answers questions appropriately, affect WNL, mood cooperative/guarded; thought process normal; insight/judgment fair/limited Objective Last Vital Signs Temp 97.5 F L 06/16/25 11:04 Pulse 71 06/16/25 11:04 Resp 16 06/16/25 11:04 BP 103/65 06/16/25 11:04 Pulse Ox 97 06/16/25 11:04 Laboratory Results - last 24 hr 06/16/25 06:30 WBC 4.37 L RBC 3.65 L Hgb 7.7 L Hct 27.3 L MCV 75 L MCH 21.1 L MCHC 28.2 L RDW 16.5 H Plt Count 296 MPV 11.0 Immature Gran % 0.9 Neutrophils % 42.2 Lymphocytes % 40.7 Monocytes % 11.7 Eosinophils % 4.3 Basophils % 0.2 Nucleated RBC % 0.0 Absolute Neutrophils 1.84 Absolute Lymphocytes 1.78 Absolute Monocytes 0.51 Absolute Eosinophils 0.19 Absolute Basophils 0.01 RBC Morphology See Below Hypochromasia 1+ Microcytosis 2+ Sodium 141 Potassium 3.5 Chloride 107 Carbon Dioxide 29.7 Anion Gap 4.3 BUN 6 L Creatinine 0.61 L Est GFR (CKD-EPI 2020) 144.35 Glucose 94 Calcium 8.8 Magnesium 2.1
--- NOTE | 2025-06-16 14:39 | PTTR_ITS ---
PT Notes Visit Reasons: GPC Bacteremia Physical Therapy Inpatient Treatment Note Date: 06/16/2025 Precautions: Fall. Enteric contact precautions in place. At risk for further skin breakdown, ensure that transfers minimize shear to stage III ischial ulcers. Total assistance for transfers for nursing. Subjective: Apologetic about coming in late because nursing staff needed to do pericare after a bowel movement. Motivated to participate in today's session. Reported 2-3 spasms in the L leg throughout session that subsided with rest. Objective: General Observation: Face rash diminishing. Arrived via motorized wheelchair. Mental Status: A and O x 4 Pain: Waves of pain reported during each episode of spasm in L leg Vital Signs: Closely monitored by nursing staff THERA EX: Guided patient with safe and correct performance of exercises as follows. Emphasized on slow eccentric phase for triceps and latissimus dorsi during all exercises. Access Code: [email or web address] URL: [email or web address] Date: 06/11/2025 Prepared by: Isabella Gray Exercises - Seated Overhead Elbow Extension - 1 x daily - 7 x weekly - 1 sets - 10 reps - 5 hold - Seated Triceps Extension with Dumbbells - 1 x daily - 7 x weekly - 1 sets - 10 reps - 5 hold - Elbow Extension with Anchored Resistance - 1 x daily - 7 x weekly - 1 sets - 10 reps - 5 hold - Shoulder extension with resistance - Neutral - 1 x daily - 7 x weekly - 1 sets - 10 reps - 5 hold - Seated Single Arm Elbow Extension Push-up on Table - 1 x daily - 7 x weekly - 1 sets - 10 reps - 5 hold - Seated Table Push-Up - 1 x daily - 7 x weekly - 1 sets - 10 reps - 5 hold - Wheelchair Pressure Relief - 1 x daily - 7 x weekly - 1 sets - 10 reps - 5 hold Gait: Deferred. T4 paraplegia. Stairs: Deferred. T4 paraplegia. Balance: Static Sitting: Fair Dynamic Sitting: Fair Static Standing: Unable to perform, T4 paraplegis Dynamic Standing: Unable to perform, T4 paraplegis Assessment: -Efficiency and ability to recruit B UE and trunk muscles increasing with increased hold time doen for each and with emphasis placed on slowed eccentric contraction of B UE elbow extensors, scapular depressors and pelvic elevators. -Ensured adeqaute rest and hydration during this session. -Episodes of muscle spasm to L leg occurered 3 times and subsided with rest. Plan of Care/Treatment Plan: 1-2x/day, 5 days/week x 2 weeks. Plan of care has been reviewed with the ADMINISTRATIVE PROJECT COORDINATOR providing the service under Physical Therapy direction. Initiate Physical Therapy intervention for pain management as needed, strengthening, bed mobility, transfers, gait, stairs, balance training, and use of assistive device. --Individualized plan of care for Shawn: Patient is to come Mondays through Fridays at 2 Pm to the therapy room using his motorized wheelchair for his PT appointments. Mondays, Wednesdays and Fridays will be strength training; Tuesdays and will be transfer training. Goals for PT will be reviewed weekly with patient to ensure that plans are well-aligned with patient's goals and PT's functional goals. DISCHARGE RECOMMENDATIONS: SNF vs supevised setting/RAUL/AFC for strengthening, functional mobility training, and balance training in sitting. TREATMENT CODE/TIME: 10718 x 32 minutes for 2 units (14:59-15:11).
[2025-06-16 15:17] VITALS: BP 114/82; PULSE 81; RESP 16; TEMP 36.5; O2SAT 93
[2025-06-16] MEDS: HYDROmorphone 2 MG TAB PO (16:01)
[2025-06-16] MEDS: Omnipaque 350 MG/ML 50 ML BTL IJ (16:55)
[2025-06-16 19:40] VITALS: BP 121/94; PULSE 81; RESP 18; TEMP 36.1; O2SAT 94
[2025-06-16] MEDS: Acetaminophen 325 MG TAB 650 MG PO (21:33)
[2025-06-16] MEDS: Ramelteon 8 MG TAB PO (23:00)
[2025-06-16] MEDS: Zolpidem 10 MG TAB PO (23:00)
[2025-06-16] MEDS: traZODone 100 MG TAB 150 MG PO (23:00)
[2025-06-16] MEDS: Collagenase 30 GM TUBE TP (23:01)
[2025-06-16] MEDS: Mirtazapine 15 MG TAB PO (23:01)
[2025-06-16 23:30] VITALS: BP 125/74; PULSE 96; RESP 18; TEMP 36.1; O2SAT 95
[2025-06-17] VITALS (7 sets, daily range): BP systolic 95–138; BP diastolic 60–82; PULSE 63–91; RESP 16–17; TEMP 36.2–36.7; O2SAT 94–98
[2025-06-17] MEDS: Methadone 10 MG TAB PO ×3 (01:44→17:57)
[2025-06-17] MEDS: Acetaminophen 250 mg/Aspirin 250 mg/Caffeine 65 mg TAB 2 EACH PO ×2 (03:38→13:05)
[2025-06-17] MEDS: Nicotine 21 MG/24 HR PATCH TD (05:56)
[2025-06-17] MEDS: PIPERACILLIN/TAZO 4.5 GM in Normal Saline 100 ML IVPB ×4 (05:56→23:54)
[2025-06-17] MEDS: Triamcinolone 0.1% CR 80 GM TUBE TP (08:07)
[2025-06-17] MEDS: Normal Saline Flush 10 ML SYR IVP ×2 (08:08→20:35)
[2025-06-17] MEDS: Polyethylene Glycol 3350 17 GM PACKET PO (08:08)
[2025-06-17] MEDS: guaiFENesin 600 MG TABCR PO (08:09)
[2025-06-17] MEDS: Baclofen 10 MG TAB 20 MG PO ×3 (08:09→20:36)
[2025-06-17] MEDS: Docusate Sodium 100 MG CAP PO ×3 (08:09→20:36)
[2025-06-17] MEDS: Bacitracin 1 PACKET TP ×2 (08:09→20:35)
[2025-06-17] MEDS: Ferrous Sulfate 325 MG TAB PO (08:09)
[2025-06-17] MEDS: Apixaban 5 MG TAB PO ×2 (08:09→20:35)
[2025-06-17] MEDS: Folic Acid 1 MG TAB PO (08:09)
[2025-06-17] MEDS: Senna TAB 2 TAB PO (08:09)
[2025-06-17] MEDS: buPROPion-CR 150 MG TABCR 300 MG PO (08:09)
[2025-06-17] MEDS: Vancomycin 125 MG CAP PO (08:09)
[2025-06-17] MEDS: Cyanocobalamin 500 MCG TAB 1000 MCG PO (08:09)
[2025-06-17] MEDS: Pantoprazole 40 MG TABCR PO (08:09)
[2025-06-17] MEDS: ARIPiprazole 5 MG TAB 7.5 MG PO (08:10)
[2025-06-17] MEDS: Buprenorphine/Naloxone 4 mg/1 mg FILM 1 EACH SL ×3 (08:10→20:36)
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
[2025-06-17] MEDS: Simethicone 80 MG CHEW PO ×4 (09:46→20:36)
[2025-06-17 10:13] LABS: Abs Immature Grans 0.07 10^3/uL (0.0-0.06); HCT 30.0 % (40.0-50.0); HGB 9.5 g/dL (13.5-17.5); Immature Grans % 1.0 %; MCH 24.1 pg (27.0-33.0); MCHC 31.7 % (32.0-36.0); MCV 76 fL (80-95); MPV 11.1 fL (8.0-11.0); Platelet Count 345 10^3/uL (130-400); RBC 3.94 10^6/uL (4.36-5.78); RDW 16.6 % (11.8-14.1); RDW-SD 45.0 fL; WBC 6.92 10^3/uL (4.4-10.8)
[2025-06-17 10:43] LABS: Anion Gap 7.3 mmol/L (3-11); BUN < 5 mg/dL (9-23); CO2 30.7 mmol/L (20.0-31.0); Calcium 9.1 mg/dL (8.3-10.6); Chloride 105 mmol/L (98-107); Glucose 86 mg/dL (74-106); Potassium 3.4 mmol/L (3.5-5.1); Sodium 143 mmol/L (136-145)
[2025-06-17 13:55] LABS: Lab Add On Test DONE
[2025-06-17] MEDS: POTASSIUM CHLORIDE 20 MEQ, POTASSIUM CHLORIDE 10 MEQ 30 MEQ PO (14:01)
[2025-06-17] MEDS: Methocarbamol 500 MG TAB PO (14:02)
[2025-06-17 14:15] LABS: Iron 67 ug/dL (65-175); Total Iron Binding Capacity 297 ug/dL (250-425); Transferrin Sat 23 % (20-55)
[2025-06-17 14:16] LABS: Ferritin 305 ng/mL (11-307)
[2025-06-17] MEDS: Acetaminophen 325 MG TAB 650 MG PO (19:04)
[2025-06-17] MEDS: traZODone 100 MG TAB 150 MG PO (20:35)
[2025-06-17] MEDS: Ramelteon 8 MG TAB PO (20:35)
[2025-06-17] MEDS: Mirtazapine 15 MG TAB PO (20:36)
[2025-06-17] MEDS: Zolpidem 10 MG TAB PO (20:36)
[2025-06-17] MEDS: Collagenase 30 GM TUBE TP (23:54)
[2025-06-18] MEDS: LORazepam 1 MG TAB 2 MG PO ×2 (00:41→21:01)
[2025-06-18] MEDS: Methadone 10 MG TAB PO ×3 (00:52→18:02)
[2025-06-18] MEDS: Nicotine 21 MG/24 HR PATCH TD (02:34)
[2025-06-18 03:15] VITALS: BP 132/88; PULSE 98; RESP 18; TEMP 36.3; O2SAT 96
[2025-06-18] MEDS: Acetaminophen 325 MG TAB 650 MG PO ×4 (03:19→21:02)
[2025-06-18] MEDS: Methocarbamol 500 MG TAB PO ×3 (03:21→19:01)
[2025-06-18] MEDS: Acetaminophen 250 mg/Aspirin 250 mg/Caffeine 65 mg TAB 2 EACH PO ×2 (05:45→19:20)
[2025-06-18] MEDS: PIPERACILLIN/TAZO 4.5 GM in Normal Saline 100 ML IVPB ×3 (06:08→18:03)
[2025-06-18] MEDS: Pantoprazole 40 MG TABCR PO (06:09)
[2025-06-18] MEDS: Patch Removal 2 EACH TP (06:11)
[2025-06-18 06:52] LABS: Abs Immature Grans 0.11 10^3/uL (0.0-0.06); HCT 29.0 % (40.0-50.0); HGB 8.0 g/dL (13.5-17.5); Immature Grans % 1.4 %; MCH 20.9 pg (27.0-33.0); MCHC 27.6 % (32.0-36.0); MCV 76 fL (80-95); MPV 11.6 fL (8.0-11.0); Platelet Count 338 10^3/uL (130-400); RBC 3.82 10^6/uL (4.36-5.78); RDW 16.8 % (11.8-14.1); RDW-SD 45.4 fL; WBC 7.78 10^3/uL (4.4-10.8)
[2025-06-18 07:16] LABS: Anion Gap 7.3 mmol/L (3-11); BUN 5 mg/dL (9-23); CO2 29.7 mmol/L (20.0-31.0); Calcium 9.1 mg/dL (8.3-10.6); Chloride 105 mmol/L (98-107); Glucose 100 mg/dL (74-106); Potassium 3.2 mmol/L (3.5-5.1); Sodium 142 mmol/L (136-145)
[2025-06-18 07:23] LABS: Anisocytosis 2+
[2025-06-18 07:24] LABS: Hypochromasia 2+; Microcytosis 1+; Polychromasia Present
[2025-06-18] MEDS: ARIPiprazole 5 MG TAB 7.5 MG PO (08:13)
[2025-06-18] MEDS: Apixaban 5 MG TAB PO ×2 (08:14→19:18)
[2025-06-18] MEDS: Senna TAB 2 TAB PO (08:14)
[2025-06-18] MEDS: Cyanocobalamin 500 MCG TAB 1000 MCG PO (08:14)
[2025-06-18] MEDS: buPROPion-CR 150 MG TABCR 300 MG PO (08:14)
[2025-06-18] MEDS: Baclofen 10 MG TAB 20 MG PO ×3 (08:14→19:18)
[2025-06-18] MEDS: Simethicone 80 MG CHEW PO ×4 (08:15→21:02)
[2025-06-18] MEDS: Folic Acid 1 MG TAB PO (08:15)
[2025-06-18] MEDS: Bacitracin 1 PACKET TP (08:15)
[2025-06-18] MEDS: Vancomycin 125 MG CAP PO (08:15)
[2025-06-18] MEDS: Ferrous Sulfate 325 MG TAB PO (08:15)
[2025-06-18] MEDS: Normal Saline Flush 10 ML SYR IVP ×2 (08:16→19:21)
[2025-06-18] MEDS: Buprenorphine/Naloxone 4 mg/1 mg FILM 1 EACH SL ×3 (08:19→19:18)
--- NOTE | 2025-06-18 08:46 | CMPROGNOTE_ITS ---
Date of service: 06/18/25 Time of Service: 08:46 Care Management Progress Note Progress Note Text Progress Note Text: Clifton was sitting up in his wheelchair when CM met with him. he appeared depressed and did not maintain good eye contact which he usually. When asked, he stated his sister Heather stopped by to see him yesterday but only stayed for a couple of minutes. Clifton reported that he continues to have difficulty sleeping and that he has been having worse muscle spasms. CM discussed with the provider who changed his Ambien to extended release. She also noted that Clifton has a new prn medication for spasms that he can get as needed. (Methacarbamol). He was u naware that it was available and stated he would ask for it when needed. Discharge Potential Discharge Needs: PCP F/U Appt Anticipated Barriers to Discharge: None Identified Patient/Family Education Needs: Review discharge instructions, discuss Ask Me Three Transportation: Private vehicle Plan: Anticipate Clifton will be transferred to an adult family care (AFC) home when one becomes available. He will follow up with his community providers and plan of care. Transportation will be determined by disposition but likely [facility] wheelchair van.CM will follow and continue to assess for discharge needs. Social Determinants of Health Screening Will the Patient Participate in the Screening?: Unable to obtain
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
[2025-06-18] MEDS: Potassium Chloride 20 MEQ TABCR 40 MEQ PO ×2 (10:47→19:21)
[2025-06-18 11:01] LABS: Lab Add On Test DONE
[2025-06-18 11:06] VITALS: BP 121/78; PULSE 79; RESP 14; TEMP 36.1; O2SAT 96
[2025-06-18 11:12] LABS: Magnesium 2.0 mg/dL (1.6-2.6)
--- NOTE | 2025-06-18 13:55 | PTTR_ITS ---
PT Notes Visit Reasons: GPC Bacteremia Physical Therapy Inpatient Treatment Note Date: 06/18/2025 Precautions: Fall. Enteric contact precautions in place. At risk for further skin breakdown, ensure that transfers minimize shear to stage III ischial ulcers. Total assistance for transfers for nursing. Subjective: Came in 7 minutes earlier than appointment today. Hopeful he could do more knowing that his bowel movement has been more frequent the past few days. Objective: General Observation: Face rash almost resolved. Arrived via motorized wheelchair. Mental Status: A and O x 4 Pain: One episode of spasm in L leg during session Vital Signs: Closely monitored by nursing staff THERA EX: Guided patient with safe and correct performance of exercises as follows. Emphasized on slow eccentric phase for triceps and latissimus dorsi during all exercises. Access Code: [email or web address] URL: [email or web address] Date: 06/11/2025 Prepared by: Isabella Gray Exercises - Seated Overhead Elbow Extension - 1 x daily - 7 x weekly - 1 sets - 10 reps - 5 hold - Seated Triceps Extension with Dumbbells - 1 x daily - 7 x weekly - 1 sets - 10 reps - 5 hold - Elbow Extension with Anchored Resistance - 1 x daily - 7 x weekly - 1 sets - 10 reps - 5 hold - Shoulder extension with resistance - Neutral - 1 x daily - 7 x weekly - 1 sets - 10 reps - 5 hold - Seated miner pick from L<>R of DB placed on chairs on each side of patient -DB wt 4lb x 2 and 3 lb x 3 for 2 sets - Seated Table Push-Up - 1 x daily - 7 x weekly - 1 sets - 10 reps - 5 hold - Wheelchair Pressure Relief - 1 x daily - 7 x weekly - 1 sets - 10 reps - 5 hold NOT DONE TODAY INCIDENT: Patient was being set up to do seated table push up and was requested to carefully drive motorized wheelchair under treatment plinth which patient was able to able do. However, patient inadvertently hit the drive button of control with R hand before he could turn off wheelchair which caused wheelchair to abruptly move forward which may have caused his hanging R toenail to hit the bed frame under. PT noted a drop of blood on the floor and immediately informed Nurse Dacia about it who placed a dressing over R great toe and cleansed wound right away. Gait: Deferred. T4 paraplegia. Stairs: Deferred. T4 paraplegia. Balance: Static Sitting: Fair Dynamic Sitting: Fair Static Standing: Unable to perform, T4 paraplegis Dynamic Standing: Unable to perform, T4 paraplegis Assessment: -Patient is T4 paraplegia and is insensate in B legs and feet. He hit long, thickened, overgrown toenail on the R against bed frame accidentally while being set up for seated table push up today. Nurse Dacia was right away informed. -Efficiency and ability to recruit B UE and trunk muscles increasing with increased hold time done for each and with emphasis placed on slowed eccentric contraction of B UE elbow extensors, scapular depressors and pelvic elevators. -Ensured adequate rest and hydration during this session. -Episodes of muscle spasm to L leg occurred 3 times and subsided with rest. Plan of Care/Treatment Plan: 1-2x/day, 5 days/week x 2 weeks. Plan of care has been reviewed with the AGRICULTURAL INSPECTOR providing the service under Physical Therapy direction. Initiate Physical Therapy intervention for pain management as needed, strengthening, bed mobility, transfers, gait, stairs, balance training, and use of assistive device. --Individualized plan of care for Shawn: Patient is to come Mondays through Fridays at 2 Pm to the therapy room using his motorized wheelchair for his PT appointments. Mondays, Wednesdays and Fridays will be strength training; Tuesdays and will be transfer training. Goals for PT will be reviewed weekly with patient to ensure that plans are well-aligned with patient's goals and PT's functional goals. DISCHARGE RECOMMENDATIONS: SNF vs supevised setting/[facility] for strengthening, functional mobility trainin g, and balance training in sitting. TREATMENT CODE/TIME: 29621 x 50 minutes for 3 units (13:55-14:35).
[2025-06-18] MEDS: Docusate Sodium 100 MG CAP PO ×2 (14:27→19:19)
--- NOTE | 2025-06-18 14:35 | NUR.NOTE ---
Nursing Note: Clifton was working with Physical therapy and accidentally ran into the bedframe which caught his great toe nail, Heidy from PT noticed his sock had blood seeping through, so I assessed the toe. Stopped the bleeding with applied pressure and dressed the toe with a mepilex. notified KARIE Crews and requested a podiatry order.
[2025-06-18 18:52] VITALS: BP 113/64; PULSE 95; RESP 16; TEMP 36.8; O2SAT 96
[2025-06-18] MEDS: Zolpidem 6.25 MG TABCR 12.5 MG PO (19:19)
[2025-06-18] MEDS: traZODone 100 MG TAB 150 MG PO (19:20)
[2025-06-18] MEDS: Bisacodyl 5 MG TABEC PO (19:20)
[2025-06-18] MEDS: Mirtazapine 15 MG TAB PO (19:20)
[2025-06-18] MEDS: Ramelteon 8 MG TAB PO (19:21)
[2025-06-18] MEDS: Triamcinolone 0.1% CR 80 GM TUBE TP (19:22)
[2025-06-19] MEDS: PIPERACILLIN/TAZO 4.5 GM in Normal Saline 100 ML IVPB ×4 (00:34→17:43)
[2025-06-19] MEDS: Methocarbamol 500 MG TAB PO (01:00)
[2025-06-19] MEDS: Methadone 10 MG TAB PO ×3 (01:51→17:43)
[2025-06-19 01:57] VITALS: BP 132/110; PULSE 61; RESP 12; TEMP 36.4; O2SAT 99
[2025-06-19] MEDS: Nicotine 21 MG/24 HR PATCH TD (02:29)
[2025-06-19] MEDS: Normal Saline Flush 10 ML SYR IVP ×4 (06:30→22:19)
[2025-06-19 07:32] VITALS: BP 135/119; PULSE 94; RESP 17; TEMP 36.6; O2SAT 96
[2025-06-19] MEDS: Buprenorphine/Naloxone 4 mg/1 mg FILM 1 EACH SL ×3 (08:31→22:19)
[2025-06-19] MEDS: Pantoprazole 40 MG TABCR PO (08:31)
[2025-06-19] MEDS: Baclofen 10 MG TAB 20 MG PO ×3 (08:32→22:17)
[2025-06-19] MEDS: buPROPion-CR 150 MG TABCR 300 MG PO (08:32)
[2025-06-19] MEDS: Docusate Sodium 100 MG CAP PO ×2 (08:32→22:17)
[2025-06-19] MEDS: Apixaban 5 MG TAB PO ×2 (08:32→22:15)
[2025-06-19] MEDS: Cyanocobalamin 500 MCG TAB 1000 MCG PO (08:32)
[2025-06-19] MEDS: Senna TAB 2 TAB PO (08:32)
[2025-06-19] MEDS: Vancomycin 125 MG CAP PO (08:32)
[2025-06-19] MEDS: Ferrous Sulfate 325 MG TAB PO (08:32)
[2025-06-19] MEDS: Folic Acid 1 MG TAB PO (08:32)
[2025-06-19] MEDS: Simethicone 80 MG CHEW PO ×4 (08:32→22:17)
[2025-06-19] MEDS: Potassium Chloride 20 MEQ TABCR 40 MEQ PO ×2 (08:34→22:16)
[2025-06-19] MEDS: ARIPiprazole 5 MG TAB 7.5 MG PO (08:34)
[2025-06-19] MEDS: Acetaminophen 250 mg/Aspirin 250 mg/Caffeine 65 mg TAB 2 EACH PO (08:34)
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
[2025-06-19] MEDS: Acetaminophen 325 MG TAB 650 MG PO (14:36)
[2025-06-19] MEDS: traZODone 100 MG TAB 150 MG PO (22:16)
[2025-06-19] MEDS: Ramelteon 8 MG TAB PO (22:16)
[2025-06-19] MEDS: Mirtazapine 15 MG TAB PO (22:17)
[2025-06-19] MEDS: Zolpidem 6.25 MG TABCR 12.5 MG PO (22:18)
[2025-06-19] MEDS: Collagenase 30 GM TUBE TP (22:19)
[2025-06-19 23:27] LABS: Abs Immature Grans 0.08 10^3/uL (0.0-0.06); HCT 31.1 % (40.0-50.0); HGB 8.5 g/dL (13.5-17.5); Immature Grans % 1.0 %; MCH 21.3 pg (27.0-33.0); MCHC 27.3 % (32.0-36.0); MCV 78 fL (80-95); MPV 11.4 fL (8.0-11.0); Platelet Count 397 10^3/uL (130-400); RBC 3.99 10^6/uL (4.36-5.78); RDW 18.7 % (11.8-14.1); RDW-SD 48.0 fL; WBC 7.73 10^3/uL (4.4-10.8)
[2025-06-19 23:41] LABS: Hypochromasia 1+
[2025-06-19 23:42] LABS: Anisocytosis 1+
[2025-06-19 23:45] LABS: Magnesium 1.9 mg/dL (1.6-2.6)
[2025-06-19 23:46] LABS: Anion Gap 6.6 mmol/L (3-11); BUN 6 mg/dL (9-23); CO2 27.4 mmol/L (20.0-31.0); Calcium 8.8 mg/dL (8.3-10.6); Chloride 109 mmol/L (98-107); Glucose 124 mg/dL (74-106); Potassium 4.1 mmol/L (3.5-5.1); Sodium 143 mmol/L (136-145)
[2025-06-20] MEDS: Milk of Magnesia 30 ML CUP PO (00:31)
[2025-06-20] MEDS: Nicotine 21 MG/24 HR PATCH TD (00:31)
[2025-06-20] MEDS: PIPERACILLIN/TAZO 4.5 GM in Normal Saline 100 ML IVPB ×5 (00:31→23:27)
[2025-06-20] MEDS: Acetaminophen 325 MG TAB 650 MG PO ×3 (00:32→23:16)
[2025-06-20] MEDS: LORazepam 1 MG TAB 2 MG PO ×4 (00:32→22:45)
[2025-06-20] MEDS: Bisacodyl 5 MG TABEC PO (00:32)
[2025-06-20] MEDS: Normal Saline Flush 10 ML SYR IVP ×3 (00:33→20:54)
[2025-06-20] MEDS: Methadone 10 MG TAB PO ×3 (03:10→17:37)
[2025-06-20 08:11] VITALS: BP 117/67; PULSE 117; RESP 17; TEMP 36.5; O2SAT 97
[2025-06-20] MEDS: Acetaminophen 250 mg/Aspirin 250 mg/Caffeine 65 mg TAB 2 EACH PO ×2 (08:23→19:00)
[2025-06-20] MEDS: Buprenorphine/Naloxone 4 mg/1 mg FILM 1 EACH SL ×3 (08:24→20:56)
[2025-06-20] MEDS: Senna TAB 2 TAB PO (08:24)
[2025-06-20] MEDS: Pantoprazole 40 MG TABCR PO (08:24)
[2025-06-20] MEDS: Vancomycin 125 MG CAP PO (08:25)
[2025-06-20] MEDS: Cyanocobalamin 500 MCG TAB 1000 MCG PO (08:25)
[2025-06-20] MEDS: Apixaban 5 MG TAB PO ×2 (08:25→20:59)
[2025-06-20] MEDS: Simethicone 80 MG CHEW PO ×4 (08:25→20:57)
[2025-06-20] MEDS: Folic Acid 1 MG TAB PO (08:25)
[2025-06-20] MEDS: ARIPiprazole 5 MG TAB 7.5 MG PO (08:25)
[2025-06-20] MEDS: Ferrous Sulfate 325 MG TAB PO (08:25)
[2025-06-20] MEDS: Baclofen 10 MG TAB 20 MG PO ×3 (08:25→20:57)
[2025-06-20] MEDS: Potassium Chloride 20 MEQ TABCR 40 MEQ PO ×2 (08:25→20:54)
[2025-06-20] MEDS: buPROPion-CR 150 MG TABCR 300 MG PO (08:25)
[2025-06-20] MEDS: Methocarbamol 500 MG TAB PO ×2 (09:37→20:58)
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
[2025-06-20 17:35] VITALS: BP 106/70; PULSE 129; RESP 18; TEMP 36.2; O2SAT 97
[2025-06-20 19:48] VITALS: BP 132/62; PULSE 89; RESP 16; TEMP 36.3; O2SAT 97
[2025-06-20] MEDS: Ramelteon 8 MG TAB PO (20:56)
[2025-06-20] MEDS: Zolpidem 6.25 MG TABCR 12.5 MG PO (20:56)
[2025-06-20] MEDS: Mirtazapine 15 MG TAB PO (20:57)
[2025-06-20] MEDS: traZODone 100 MG TAB 150 MG PO (20:58)
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
[2025-06-21] MEDS: Methadone 10 MG TAB PO ×3 (01:34→18:39)
[2025-06-21] MEDS: Methocarbamol 500 MG TAB PO (02:18)
--- NOTE | 2025-06-21 02:44 | PT.INPN ---
PT Notes Visit Reasons: GPC Bacteremia Physical Therapy Inpatient Treatment Note Date: 06/21/2025 Dates of Service: 06/14/2025-06/21/2025 Precautions: Fall. Enteric contact precautions in place. At risk for further skin breakdown, ensure that transfers minimize shear to stage III ischial ulcers. Total assistance for transfers for nursing. Subjective: Continues to be willing to work with PT despite being tired. Objective: General Observation: Patient on motorized wheelchair here for his PT appointment. Rash on face that started next week now resolved. Same faded rashes seen on R upper back area. Mental Status: A and O x 4 Pain: None reported Vital Signs: Closely monitored by nursing staff ROM: Right Upper Extremity: Shoulder Flexion WFL. Shoulder abduction WFL. Elbow flexion WFL. Wrist flexion WFL. Functional opening and closing of hand WFL. Left Upper Extremity: Shoulder Flexion WFL. Shoulder abduction WFL. Elbow flexion WFL. Wrist flexion WFL. Functional opening and closing of hand WF Right Lower Extremity: T4 paraplegia. PROM up to 50% of available ROM with firm end feel at end of range Left Lower Extremity: T4 paraplegia. PROM up to 50% of available ROM with firm end feel at end of range Strength: Right Upper Extremity: Shoulder flexors 4/5. Shoulder abductors 4/5. Elbow flexors 4/5. Elbow extensors -/5. Pneumatic System Conveyor Operator strong. Left Upper Extremity: Shoulder flexors 4/5. Shoulder abductors 4/5. Elbow flexors 4/5. Elbow extensors -/5. Pneumatic System Conveyor Operator strong. Right Lower Extremity: Paraplegia with passive range of motion decreased to about 50% available motion in R LE joints Left Lower Extremity: Paraplegia with passive range of motion decreased to about 50% available motion in R LE joints Bed Mobility/Transfers: -- Patient has been able to perform one lateral transfer onto edge of plint on 06/10/2025 with minimal assist of 2 using technique below: Prepped and facilitated safe and correct technique with lateral transfer as follows: Elevated treatment plinth height to a level about 2 inches below patient's wheelchair seat. Instructed patient to position wheelchair parallel and in contact with edge of plinth. Folded R wheelchair armrest back. Placed a pillow over folded armrest to cushion patient in case he touches area during transfer. Supported and positioned B hips in neutral rotation using blue theraband around patient's distal thigh. Instructed patient to push off L armrest and edge of plinth simultaneously to slowly scoot laterally onto powdered tx plinth edge. Minimal assist of DIAL LATHE OPERATOR from the back and contact guard assist of PT in front to support B LE as needed. Patient was asked to rest after each lateral scoot. Performed sequence in reverse going back to wheelchair with plith height increased 2 inches above w/c seat. --Total assistance with all transfers using mechanical lift for nursing. Gait: Deferred. T4 paraplegia. Stairs: Deferred. T4 paraplegia. Balance: Static Sitting: Fair Dynamic Sitting: Fair Static Standing: Unable to perform, T4 paraplegis Dynamic Standing: Unable to perform, T4 paraplegis Special Tests: Mobility Limitations Standardized Measure [facility] AM-PAC 6 clicks Basic Mobility Inpatient Short Form: Raw Score: 10 CMS Score: 77% deficit Informed Consent/Education: Patient continues to be agreeable to plan of care below under swing bed level I of care for strengthening and transfer training 5x/week for 4 weeks. THERA EX: Guided patient with safe and correct performance of exercises as follows: Access Code: [email or web address] URL: [email or web address] Date: 06/11/2025 Prepared by: Isabella Gray Exercises - Seated Overhead Elbow Extension - 1 x daily - 7 x weekly - 1 sets - 10 reps - 5 hold - Seated Triceps Extension with Dumbbells - 1 x daily - 7 x weekly - 1 sets - 10 reps - 5 hold - Elbow Extension with Anchored Resistance - 1 x daily - 7 x weekly - 1 sets - 10 reps - 5 hold - Shoulder extension with resistance - Neutral - 1 x daily - 7 x weekly - 1 sets - 10 reps - 5 hold - Seated Single Arm Elbow Extension Push-up on Table - 1 x daily - 7 x weekly - 1 sets - 10 reps - 5 hold - Seated Table Push-Up - 1 x daily - 7 x weekly - 1 sets - 10 reps - 5 hold - Wheelchair Pressure Relief - 1 x daily - 7 x weekly - 1 sets - 10 reps - 5 hold Assessment: Patient now requires minimal assist of 1 and stand by assist of another in performing lateral transfer from motorized wheelchair to the edge of plinth. One caregiver stays in back of paient to support the trunk as needed and to pull on white igor to minimize shear on ischaila ulcers. Prepping transfer surface, ensuring that it is powdered adds to reduction of friction of scooting sideways. Second caregiver stays in front of patient to guard B LE as needed. Patient also has been diligently participating in strengthening exercise progression using blue TB and 3 lb DB while seated on motorized wheelchair. Patient will require positioners to minimize B hip ER beginning contracture to ensure a smoother lateral transfer each time. Patient presents with clinical signs and symptoms consistent with current/admitting diagnoses that have resulted to mobility limitations, gait instability, generalized weakness, and overall ADL decline as demonstrated by the following impairment level findings: 1. T4 parplegia since 08/24/2024 2. Altered mental status, impaired safety awareness 3. Anxiety and depression 4. Flaccid B LE 5. Weak trunk and B UE 6. Stage III ischial ulcer 7. B hip ER contractures Impairments are contributing to the following functional limitations: 1. Decline in bed mobility skills 2. Decline in transfer skills 3. Difficulty with ambulation without assistive device and physical assistance 4. Increased completion time for mobility ADL performance 5. Increased risk for falls 6. Difficulty with managing steps alone safely Patient is assessed as a 20227 medium complexity based on the following: History: 44-year-old male with past medical history as indicated above Examination: Demonstrable impairment in strength, balance, and mobility level with underlying impairments and functional limitations as exhibited above as well as deficit score of 100% utilizing the [facility] Mobility Inpatient Short Form Presentation: Evolving Decision Makin medium complexity Goals: Goals X 2 week 1. Achieve B UE and trunk muscle strength of 4/5 in order to progress transfer ability MET, PROGRESS TO 5/5 muscle strength as of 06/21/2025 2. Demonstrate moderate assistance with bed<>wheelchair forward-backward transfer to increase transfer ability and reduce fall risk NOT MET, CONTINUE 3. Demonstrate moderate assistance with bed<>wheelchair lateral transfer to increase transfer ability and reduce fall risk NOT MET, CONTINUE 4. Demonstrate moderate assistance with bed<>wheelchair slide board transfers increase transfer ability and reduce fall risk NOT MET, CONTINUE 5. Demonstrate modified independent with pressure relief using overhead trapeze and B arm rests to allow for continued healing of stage III sacral ulcers MET, DISCHARGE 6. Patient will minimize B hip ER contracture by gentle passive stretching of tight hip IR muscles NEW as of 06/22/2025 Plan of Care/Treatment Plan: 1-2x/day, 5 days/week x 2 weeks. Plan of care has been reviewed with the DIAL LATHE OPERATOR providing the service under Physical Therapy direction. Initiate Physical Therapy intervention for pain management as needed, strengthening, bed mobility, transfers, gait, stairs, balance training, and use of assistive device. --Individualized plan of care for Shawn: Patient is to come Mondays through Fridays at 2 Pm to the therapy room using his motorized wheelchair for his PT appointments. Mondays, Wednesdays and Fridays will be strength training; Tuesdays and will be transfer training. Goals for PT will be reviewed weekly with patient to ensure that plans are well-aligned with patient's goals and PT's functional goals. DISCHARGE RECOMMENDATIONS: SNF vs supevised setting/SENIOR LIVING/AFC for strengthening, functional mobility training, and balance training in sitting. TREATMENT CODE/TIME: 22520 x 28 minutes for 2 units (14:44-15:12). Thank you for the opportunity to participate in the care of this patient. Isabella Gray PT, DPT, CLT [facility] [place], [place]
[2025-06-21] MEDS: Acetaminophen 250 mg/Aspirin 250 mg/Caffeine 65 mg TAB 2 EACH PO ×2 (03:26→14:20)
[2025-06-21] MEDS: PIPERACILLIN/TAZO 4.5 GM in Normal Saline 100 ML IVPB ×4 (05:44→23:48)
--- NOTE | 2025-06-21 08:29 | PDOC.CMPRO ---
Date of service: 06/21/25 Time of Service: 08:29 Care Management Progress Note Progress Note Text Progress Note Text: Clifton has been up in his chair most of the day, riding around the hallway. He's been pleasant with CM. He is still struggling with some back pain, and he has a wound on his toe that was assessed by his provider today. Podiatry consult was placed. Discharge Potential Discharge Needs: PCP F/U Appt Anticipated Barriers to Discharge: Bed availability Patient/Family Education Needs: Review discharge instructions, discuss Ask Me Three Transportation: RCT RCT Transportation: Wheel chair van Plan: Anticipate Clifton will be transferred to an adult family care (AFC) home when one becomes available. He will follow up with his community providers and plan of care. Transportation will be determined by disposition but likely RCT wheelchair van.CM will follow and continue to assess for discharge needs. Social Determinants of Health Screening Will the Patient Participate in the Screening?: Unable to obtain
[2025-06-21 09:08] VITALS: BP 130/78; PULSE 123; RESP 21; TEMP 36.3; O2SAT 98
[2025-06-21] MEDS: Apixaban 5 MG TAB PO ×2 (09:46→21:01)
[2025-06-21] MEDS: Baclofen 10 MG TAB 20 MG PO ×3 (09:46→20:59)
[2025-06-21] MEDS: Folic Acid 1 MG TAB PO (09:46)
[2025-06-21] MEDS: Vancomycin 125 MG CAP PO (09:46)
[2025-06-21] MEDS: ARIPiprazole 5 MG TAB 7.5 MG PO (09:47)
[2025-06-21] MEDS: Docusate Sodium 100 MG CAP PO ×2 (09:47→21:01)
[2025-06-21] MEDS: Ferrous Sulfate 325 MG TAB PO (09:47)
[2025-06-21] MEDS: Pantoprazole 40 MG TABCR PO (09:47)
[2025-06-21] MEDS: Potassium Chloride 20 MEQ TABCR 40 MEQ PO ×2 (09:47→20:59)
[2025-06-21] MEDS: buPROPion-CR 150 MG TABCR 300 MG PO (09:47)
[2025-06-21] MEDS: Senna TAB 2 TAB PO (09:48)
[2025-06-21] MEDS: Cyanocobalamin 500 MCG TAB 1000 MCG PO (09:48)
[2025-06-21] MEDS: Buprenorphine/Naloxone 4 mg/1 mg FILM 1 EACH SL ×3 (09:48→20:58)
[2025-06-21] MEDS: Simethicone 80 MG CHEW PO ×4 (09:48→21:01)
[2025-06-21] MEDS: Normal Saline Flush 10 ML SYR IVP ×3 (09:51→19:38)
--- NOTE | 2025-06-21 14:44 | PTTR_ITS ---
PT Notes Visit Reasons: GPC Bacteremia
--- NOTE | 2025-06-21 14:44 | PT.INTREAT ---
PT Notes Visit Reasons: GPC Bacteremia
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
[2025-06-21] MEDS: Acetaminophen 325 MG TAB 650 MG PO (19:38)
[2025-06-21 20:47] VITALS: BP 114/80; PULSE 82; RESP 18; TEMP 36.1; O2SAT 98
[2025-06-21] MEDS: Zolpidem 6.25 MG TABCR 12.5 MG PO (20:58)
[2025-06-21] MEDS: Mirtazapine 15 MG TAB PO (20:59)
[2025-06-21] MEDS: Amitriptyline 10 MG TAB PO (20:59)
[2025-06-21] MEDS: traZODone 100 MG TAB 150 MG PO (21:00)
[2025-06-21] MEDS: Ramelteon 8 MG TAB PO (21:01)
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
[2025-06-21] MEDS: Collagenase 30 GM TUBE TP (21:38)
[2025-06-21] MEDS: LORazepam 1 MG TAB 2 MG PO (21:39)
[2025-06-22] MEDS: Methadone 10 MG TAB PO ×3 (02:06→18:22)
[2025-06-22] MEDS: Methocarbamol 500 MG TAB PO ×2 (02:26→21:32)
[2025-06-22] MEDS: LORazepam 1 MG TAB 2 MG PO ×2 (02:26→21:20)
[2025-06-22] MEDS: Acetaminophen 325 MG TAB 650 MG PO ×3 (03:15→20:31)
[2025-06-22] MEDS: PIPERACILLIN/TAZO 4.5 GM in Normal Saline 100 ML IVPB ×3 (06:21→18:22)
[2025-06-22] MEDS: Acetaminophen 250 mg/Aspirin 250 mg/Caffeine 65 mg TAB 2 EACH PO ×2 (06:25→18:22)
[2025-06-22 07:58] VITALS: BP 117/86; PULSE 90; RESP 17; TEMP 36.1; O2SAT 99
[2025-06-22] MEDS: Normal Saline Flush 10 ML SYR IVP ×4 (08:02→21:23)
[2025-06-22] MEDS: Senna TAB 2 TAB PO (08:02)
[2025-06-22] MEDS: Folic Acid 1 MG TAB PO (08:03)
[2025-06-22] MEDS: Apixaban 5 MG TAB PO ×2 (08:03→21:22)
[2025-06-22] MEDS: Docusate Sodium 100 MG CAP PO ×2 (08:03→21:22)
[2025-06-22] MEDS: Vancomycin 125 MG CAP PO (08:03)
[2025-06-22] MEDS: Ferrous Sulfate 325 MG TAB PO (08:03)
[2025-06-22] MEDS: Cyanocobalamin 500 MCG TAB 1000 MCG PO (08:03)
[2025-06-22] MEDS: Potassium Chloride 20 MEQ TABCR 40 MEQ PO ×2 (08:03→21:19)
[2025-06-22] MEDS: Pantoprazole 40 MG TABCR PO (08:03)
[2025-06-22] MEDS: Buprenorphine/Naloxone 4 mg/1 mg FILM 1 EACH SL ×3 (08:03→21:19)
[2025-06-22] MEDS: Baclofen 10 MG TAB 20 MG PO ×3 (08:04→21:21)
[2025-06-22] MEDS: ARIPiprazole 5 MG TAB 7.5 MG PO (08:04)
[2025-06-22] MEDS: buPROPion-CR 150 MG TABCR 300 MG PO (08:04)
--- NOTE | 2025-06-22 09:33 | PDOC.CMPRO ---
Date of service: 06/22/25 Time of Service: 09:33 Care Management Progress Note Progress Note Text Progress Note Text: Clifton was sitting up in his wheelchair when CM met with him. He is still not sleeping at night and admitted he is depressed about not having a home to go to.CM was notified that [facility] [place] the ability to care for him at this time and shared that information with Clifton. CM will contact [facility] at [facility] againfor assistance. Discharge Anticipated Barriers to Discharge: Bed availability and SDOH Patient/Family Education Needs: Review discharge instructions, discuss Ask Me Three Transportation: Other (to be determined by disposition) Plan: Anticipate Clifton will be transferred to an adult family care (AFC) home when one becomes available. He will follow up with his community providers and plan of care. Transportation will be determined by disposition but likely [facility] wheelchair van.CM will follow and continue to assess for discharge needs. Social Determinants of Health Screening Will the Patient Participate in the Screening?: Unable to obtain
[2025-06-22] MEDS: Simethicone 80 MG CHEW PO ×3 (10:21→18:22)
[2025-06-22] MEDS: Nicotine 21 MG/24 HR PATCH TD (12:20)
[2025-06-22] MEDS: Bisacodyl 5 MG TABEC PO (12:20)
[2025-06-22] MEDS: Milk of Magnesia 30 ML CUP PO (12:21)
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
--- NOTE | 2025-06-22 13:30 | PTTR_ITS ---
PT Notes Visit Reasons: GPC Bacteremia Physical Therapy Inpatient Treatment Note Date: 06/22/2025 Precautions: Fall. Enteric contact precautions in place. At risk for further skin breakdown, ensure that transfers minimize shear to stage III ischial ulcers. Total assistance for transfers for nursing. Subjective: Tired again today but willing to try out transfers. Complained of feeling he was going to get sick after finishing up the transfer today but relieved that he did not. Agreeable to having his ROHO cushion reinflated and reassessed for appropriate pressure by PT. Objective: General Observation: Arrived via motorized wheelchair. Face rash resolved. Rash on R upper back almost resolved. Mental Status: A and O x 4 Pain: Waves of pain reported during each episode of spasm in L leg Vital Signs: Closely monitored by nursing staff THERA ACT: -- Patient has been able to perform one lateral transfer onto edge of plinth with occasional minimal assist and contact guard assist of another using technique below: Prepped and facilitated safe and correct technique with lateral transfer as follows: Elevated treatment plinth height to a level about 2 inches below patient's wheelchair seat. Instructed patient to position wheelchair parallel and in contact with edge of plinth. Folded R wheelchair armrest back. Placed a pillow over folded armrest to cushion patient in case he touches area during transfer. Supported and positioned B hips in neutral rotation using blue theraband around patient's distal thigh. Instructed patient to push off L armrest and edge of plinth simultaneously to slowly scoot laterally onto powdered tx plinth edge. Minimal assist of BARREL LATHE OPERATOR INSIDE from the back and contact guard assist of PT in front to support B LE as needed. Patient was asked to rest after each lateral scoot. Performed sequence in reverse going back to wheelchair with plith height increased 2 inches above w/c seat. --Total assistance with all transfers using mechanical lift for nursing. --Ensured that ROHO cushion had enough air to maximize pressure relief and prevent worsening of stage II sacral ulcer Balance: Static Sitting: Fair Dynamic Sitting: Fair Static Standing: Unable to perform, T4 paraplegis Dynamic Standing: Unable to perform, T4 paraplegis Assessment: Increasing efficiency and independence demonstrated today with lateral transfer from motorized wheelchair to edge of plinth. Nurse Santo assisted patient from behind who needed to pull on sheepshopatplacesin anf eliot pad only twice as the patient was scooting sideways and backwards. Minimal verbal cueing was given for safety and ensuring that B LE are positioned right throughout transfer. Plan of Care/Treatment Plan: 1-2x/day, 5 days/week x 2 weeks. Plan of care has been reviewed with the BARREL LATHE OPERATOR INSIDE providing the service under Physical Therapy direction. Initiate Physical Therapy intervention for pain management as needed, strengthening, bed mobility, transfers, gait, stairs, balance training, and use of assistive device. --Individualized plan of care for Shawn: Patient is to come Mondays through Fridays at 2 Pm to the therapy room using his motorized wheelchair for his PT appointments. Mondays, Wednesdays and Fridays will be strength training; Tuesdays and will be transfer training. Goals for PT will be reviewed weekly with patient to ensure that plans are well-aligned with patient's goals and PT's functional goals. DISCHARGE RECOMMENDATIONS: SNF vs supevised setting/INTERMEDIATE/AFC for strengthening, functional mobility training, and balance training in sitting. TREATMENT CODE/TIME: 99006 x 38 minutes for 3 units (13:28-14:06).
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
[2025-06-22 18:00] LABS: Abs Immature Grans 0.06 10^3/uL (0.0-0.06); HCT 35.9 % (40.0-50.0); HGB 10.1 g/dL (13.5-17.5); Immature Grans % 0.9 %; MCH 22.0 pg (27.0-33.0); MCHC 28.1 % (32.0-36.0); MCV 78 fL (80-95); MPV 11.0 fL (8.0-11.0); Platelet Count 416 10^3/uL (130-400); RBC 4.60 10^6/uL (4.36-5.78); RDW 20.7 % (11.8-14.1); RDW-SD 54.0 fL; WBC 6.38 10^3/uL (4.4-10.8)
[2025-06-22 18:14] LABS: Anisocytosis 2+; Microcytosis 1+; Poikilocytes 1+
[2025-06-22 18:21] LABS: Magnesium 2.6 mg/dL (1.6-2.6)
[2025-06-22 18:23] LABS: Anion Gap 7 mmol/L (3-11); BUN 9 mg/dL (9-23); CO2 27.0 mmol/L (20.0-31.0); Calcium 9.2 mg/dL (8.3-10.6); Chloride 108 mmol/L (98-107); Glucose 93 mg/dL (74-106); Potassium 4.9 mmol/L (3.5-5.1); Sodium 142 mmol/L (136-145)
[2025-06-22 18:32] LABS: C-Reactive Protein 1.40 mg/dL (<=0.50)
[2025-06-22 18:37] VITALS: BP 100/62; PULSE 108; RESP 14; TEMP 36.7; O2SAT 98
[2025-06-22 20:10] VITALS: BP 123/94; PULSE 85; RESP 18; TEMP 36.2; O2SAT 96
[2025-06-22] MEDS: Amitriptyline 10 MG TAB PO (21:21)
[2025-06-22] MEDS: Zolpidem 6.25 MG TABCR 12.5 MG PO (21:21)
[2025-06-22] MEDS: Ramelteon 8 MG TAB PO (21:21)
[2025-06-22] MEDS: Mirtazapine 15 MG TAB PO (21:22)
[2025-06-22] MEDS: traZODone 100 MG TAB 150 MG PO (21:23)
[2025-06-23] MEDS: PIPERACILLIN/TAZO 4.5 GM in Normal Saline 100 ML IVPB ×5 (00:47→23:58)
[2025-06-23] MEDS: Methadone 10 MG TAB PO ×4 (03:22→23:58)
[2025-06-23] MEDS: Acetaminophen 250 mg/Aspirin 250 mg/Caffeine 65 mg TAB 2 EACH PO ×3 (03:49→21:50)
[2025-06-23 07:43] VITALS: BP 109/68; PULSE 75; RESP 18; TEMP 36.2; O2SAT 96
--- NOTE | 2025-06-23 08:51 | CMPROGNOTE_ITS ---
Date of service: 06/23/25 Time of Service: 08:52 Care Management Progress Note Progress Note Text Progress Note Text: Clifton was sitting up in his wheelchair when CM met with him. He appeared pale and was not very talkative. ZANE explained to Clifton that his bilingual case manager Peg from [facility] responded to the call made by CM earlier today. She had received a request for another agency to send additional clinical information. CM was able to email her the requested information and will attempt to reach her by phone again tomorrow. CM also sent an email and left a voicemail for Mahi, the resident services coordinator for [facility], to try to get additional information about why they were unable to meet Clifton's needs and to identify any barriers in the process. On a positive note, Clifton continues to work with PT and is regaining the ability to transfer from bed to chair. If he can manage the transfers with only 1 assist, a eliot lift will no longer be required and it will eliminate one of the impediments to placememt. Discharge Potential Discharge Needs: Other (AFC home) Anticipated Barriers to Discharge: Bed availability Patient/Family Education Needs: Review discharge instructions, discuss Ask Me Three Transportation: RCT Plan: Anticipate Clifton will be transferred to an adult family care (AFC) home when one becomes available. He will follow up with his community providers and plan of care. Transportation will be determined by disposition but likely RCT wheelchair van.CM will follow and continue to assess for discharge needs. Social Determinants of Health Screening Will the Patient Participate in the Screening?: Unable to obtain
[2025-06-23] MEDS: Baclofen 10 MG TAB 20 MG PO ×3 (09:32→20:34)
[2025-06-23] MEDS: Pantoprazole 40 MG TABCR PO (09:32)
[2025-06-23] MEDS: Docusate Sodium 100 MG CAP PO ×3 (09:32→20:34)
[2025-06-23] MEDS: Ferrous Sulfate 325 MG TAB PO (09:32)
[2025-06-23] MEDS: Folic Acid 1 MG TAB PO (09:32)
[2025-06-23] MEDS: Apixaban 5 MG TAB PO ×2 (09:32→20:34)
[2025-06-23] MEDS: Senna TAB 2 TAB PO (09:33)
[2025-06-23] MEDS: ARIPiprazole 5 MG TAB 7.5 MG PO (09:33)
[2025-06-23] MEDS: Vancomycin 125 MG CAP PO (09:33)
[2025-06-23] MEDS: Cyanocobalamin 500 MCG TAB 1000 MCG PO (09:33)
[2025-06-23] MEDS: buPROPion-CR 150 MG TABCR 300 MG PO (09:33)
[2025-06-23] MEDS: Simethicone 80 MG CHEW PO ×3 (09:33→20:34)
[2025-06-23] MEDS: Buprenorphine/Naloxone 4 mg/1 mg FILM 1 EACH SL ×3 (09:34→20:33)
[2025-06-23] MEDS: Normal Saline Flush 10 ML SYR IVP ×3 (09:34→20:35)
[2025-06-23] MEDS: Triamcinolone 0.1% CR 80 GM TUBE TP ×2 (12:11→20:33)
--- NOTE | 2025-06-23 14:08 | PT.INTREAT ---
PT Notes Visit Reasons: GPC Bacteremia Physical Therapy Inpatient Treatment Note Date: 06/24/2025 Precautions: Fall. Enteric contact precautions in place. At risk for further skin breakdown, ensure that transfers minimize shear to stage III ischial ulcers. Total assistance for transfers for nursing. Subjective: Fatigued but willing to work with PT. Came in early for appointment today. Objective: General Observation: Face rash almost resolved. Arrived via motorized wheelchair. Mental Status: A and O x 4 Pain: One episode of spasm in L leg during session Vital Signs: Closely monitored by nursing staff THERA EX: Guided patient with safe and correct performance of exercises as follows. Emphasized on slow eccentric phase for triceps and latissimus dorsi during all exercises. Access Code: [email or web address] URL: [email or web address] Date: 06/11/2025 Prepared by: Isabella Gray Exercises - Seated Overhead Elbow Extension - 1 x daily - 7 x weekly - 1 sets - 10 reps - 5 hold - Seated Triceps Extension with Dumbbells - 1 x daily - 7 x weekly - 1 sets - 10 reps - 5 hold - Elbow Extension with Anchored Resistance - 1 x daily - 7 x weekly - 1 sets - 10 reps - 5 hold - Shoulder extension with resistance - Neutral - 1 x daily - 7 x weekly - 1 sets - 10 reps - 5 hold - Seated pick up driver from L<>R of DB placed on chairs on each side of patient -DB wt 4lb x 2 and 3 lb x 3 for 2 sets - Seated Table Push-Up - 1 x daily - 7 x weekly - 1 sets - 10 reps - 5 hold - Wheelchair Pressure Relief - 1 x daily - 7 x weekly - 1 sets - 10 reps - 5 hold NOT DONE TODAY Gait: Deferred. T4 paraplegia. Stairs: Deferred. T4 paraplegia. Balance: Static Sitting: Fair Dynamic Sitting: Fair Static Standing: Unable to perform, T4 paraplegis Dynamic Standing: Unable to perform, T4 paraplegis Assessment: -Patient is T4 paraplegia and is insensate in B legs and feet. He hit long, thickened, overgrown toenail on the R against bed frame accidentally while being set up for seated table push up today. Nurse Dacia was right away informed. -Efficiency and ability to recruit B UE and trunk muscles increasing with increased hold time done for each and with emphasis placed on slowed eccentric contraction of B UE elbow extensors, scapular depressors and pelvic elevators. -Ensured adequate rest and hydration during this session. -Episodes of muscle spasm to L leg occurred 3 times and subsided with rest. Plan of Care/Treatment Plan: 1-2x/day, 5 days/week x 2 weeks. Plan of care has been reviewed with the FORENSIC ACCOUNTANT providing the service under Physical Therapy direction. Initiate Physical Therapy intervention for pain management as needed, strengthening, bed mobility, transfers, gait, stairs, balance training, and use of assistive device. --Individualized plan of care for Shawn: Patient is to come Mondays through Fridays at 2 Pm to the therapy room using his motorized wheelchair for his PT appointments. Mondays, Wednesdays and Fridays will be strength training; Tuesdays and will be transfer training. Goals for PT will be reviewed weekly with patient to ensure that plans are well-aligned with patient's goals and PT's functional goals. DISCHARGE RECOMMENDATIONS: SNF vs supevised setting/RAUL/AFC for strengthening, functional mobility training, and balance training in sitting. TREATMENT CODE/TIME: 39500 x 23 minutes for 2 units (14:08-14:31).
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
[2025-06-23] MEDS: IRON SUCROSE COMPLEX 300 MG in Normal Saline 250 ML 167 MG IVPB (16:00)
[2025-06-23] MEDS: Methocarbamol 500 MG TAB PO (18:10)
[2025-06-23 19:25] VITALS: BP 122/99; PULSE 71; RESP 18; TEMP 36.2; O2SAT 97
[2025-06-23] MEDS: Collagenase 30 GM TUBE TP (20:33)
[2025-06-23] MEDS: Amitriptyline 10 MG TAB PO (20:34)
[2025-06-23] MEDS: Ramelteon 8 MG TAB PO (20:34)
[2025-06-23] MEDS: Zolpidem 6.25 MG TABCR 12.5 MG PO (20:34)
[2025-06-23] MEDS: Mirtazapine 15 MG TAB PO (20:34)
[2025-06-23] MEDS: LORazepam 1 MG TAB 2 MG PO (23:59)
[2025-06-24] MEDS: PIPERACILLIN/TAZO 4.5 GM in Normal Saline 100 ML IVPB (05:49)
--- NOTE | 2025-06-24 08:52 | PDOC.CMPRO ---
Date of service: 06/24/25 Time of Service: 08:53 Care Management Progress Note Progress Note Text Progress Note Text: Clifton will transition back to [facility] today to complete his course of IV antibiotics and to continue to work with PT. His payer source will be Medicaid. Discharge Anticipated Barriers to Discharge: Bed availability Patient/Family Education Needs: Review discharge instructions, discuss [facility] Me [facility] Transportation: Other (to be determined by disposition) Plan: Anticipate Clifton will be transferred to an adult family care (AFC) home when one becomes available. He will follow up with his community providers and plan of care. Transportation will be determined by disposition but likely [facility] wheelchair van.CM will follow and continue to assess for discharge needs. Social Determinants of Health Screening Will the Patient Participate in the Screening?: Unable to obtain
[2025-06-24] MEDS: Baclofen 10 MG TAB 20 MG PO ×2 (08:59→13:00)
[2025-06-24] MEDS: ARIPiprazole 5 MG TAB 7.5 MG PO (08:59)
[2025-06-24] MEDS: Simethicone 80 MG CHEW PO ×3 (08:59→16:46)
[2025-06-24] MEDS: buPROPion-CR 150 MG TABCR 300 MG PO (08:59)
[2025-06-24] MEDS: Vancomycin 125 MG CAP PO (09:00)
[2025-06-24] MEDS: Folic Acid 1 MG TAB PO (09:00)
[2025-06-24] MEDS: Pantoprazole 40 MG TABCR PO (09:00)
[2025-06-24] MEDS: Cyanocobalamin 500 MCG TAB 1000 MCG PO (09:00)
[2025-06-24] MEDS: Potassium Chloride 20 MEQ TABCR PO (09:01)
[2025-06-24] MEDS: Apixaban 5 MG TAB PO (09:01)
[2025-06-24] MEDS: Methadone 10 MG TAB PO ×2 (09:01→15:16)
[2025-06-24] MEDS: Ferrous Sulfate 325 MG TAB PO (09:02)
[2025-06-24] MEDS: Buprenorphine/Naloxone 4 mg/1 mg FILM 1 EACH SL ×2 (09:02→13:01)
[2025-06-24] MEDS: Docusate Sodium 100 MG CAP PO ×2 (09:02→13:00)
[2025-06-24] MEDS: Triamcinolone 0.1% CR 80 GM TUBE TP (09:03)
[2025-06-24] MEDS: Normal Saline Flush 10 ML SYR IVP (09:03)
[2025-06-24] MEDS: Methocarbamol 500 MG TAB PO (09:04)
[2025-06-24] MEDS: Acetaminophen 325 MG TAB 650 MG PO (09:04)
[2025-06-24 09:14] VITALS: BP 100/60; PULSE 104; RESP 16; TEMP 36; O2SAT 98
[2025-06-24] MEDS: cefTRIAXone 2 GM/50 ML BAG IVPB (12:54)
[2025-06-24] MEDS: Ketoconazole 2% CREAM 15 GM TUBE TP (12:55)
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
--- NOTE | 2025-06-24 14:01 | PTTR_ITS ---
PT Notes Visit Reasons: GPC Bacteremia Physical Therapy Inpatient Treatment Note Date: 06/24/2025 Precautions: Fall. Enteric contact precautions in place. At risk for further skin breakdown, ensure that transfers minimize shear to stage III ischial ulcers. Total assistance for transfers for nursing. Subjective: Agreeable to session today. Fatigued. Nurse Gupta was willing to help in today's session. Stated that he did not eat his lunch today. Evaded concern by PT and Nurse Gupta about adequate nutritional intake while on a strengthening regimen with PT. Objective: General Observation: Face rash almost resolved. Arrived via motorized wheelchair. Mental Status: A and O x 4 Pain: One episode of spasm in L leg during session Vital Signs: Closely monitored by nursing staff Balance: Static Sitting: Fair Dynamic Sitting: Fair THERA ACT: -- Patient has been able to perform one lateral transfer onto edge of plinth with occasional minimal assist of Nurse Gupta and contact guard assist of PT using technique below: Prepped and facilitated safe and correct technique with lateral transfer as follows: Elevated treatment plinth height to a level about 2 inches below patient's wheelchair seat. Instructed patient to position wheelchair parallel and in contact with edge of plinth. Folded R wheelchair armrest back. Placed a pillow over folded armrest to cushion patient in case he touches area during transfer. Supported and positioned B hips in neutral rotation using blue theraband around patient's distal thigh. Instructed patient to push off L armrest and edge of plinth simultaneously to slowly scoot laterally onto powdered tx plinth edge. Minimal assist of BOBTAILER from the back and contact guard assist of PT in front to support B LE as needed. Patient was asked to rest after each lateral scoot. Performed sitting push ups while at edge of plinth using push up disks x 5 3 sh for 2 sets. Performed sequence in reverse using push up disks penitentiary through to motorized wheelchair with plinth height increased 2 inches above w/c seat. Assessment: Patient became more fatigued penitentiary through from motorized wheelchair to edge of plinth needing minimal assist by Robert Gupta for safety. Patient's trunk stability has improved which has resulted to increased ability to prevent forward/backward displacement of his COG during transfer. Use of slide board has been deferred as the wooden/unupholstered surface can increase shear on stage III sacral ulcer and said board will require more trunk stability from patient. Lateral transfer technique has been tolerated thus far with contact guard to minimal assist of 2. Barriers to achieving goals include nutritional status of patient, high BMI, and chronic non-healing stage III sacral ulcer. Plan of Care/Treatment Plan: 1-2x/day, 5 days/week x 2 weeks. Plan of care has been reviewed with the BOBTAILER providing the service under Physical Therapy direction. Initiate Physical Therapy intervention for pain management as needed, strengthening, bed mobility, transfers, gait, stairs, balance training, and use of assistive device. --Individualized plan of care for Shawn: Patient is to come Mondays through Fridays at 2 Pm to the therapy room using his motorized wheelchair for his PT appointments. Mondays, Wednesdays and Fridays will be strength training; Tuesdays and will be transfer training. Goals for PT will be reviewed weekly with patient to ensure that plans are well-aligned with patient's goals and PT's functional goals. DISCHARGE RECOMMENDATIONS: SNF vs supevised setting/[facility] for strengthening, functional mobility training, and balance training in sitting. TREATMENT CODE/TIME: 23063 x 30 minutes for 2 units (14:01-14:31).
[2025-06-24] MEDS: Gabapentin 100 MG CAP PO (15:16)
== END 2025-06-24 16:59 | disposition swing bed (61) | DRG 871 ==
PROVIDERS: Hospitalist; Nurse Practitioner Family; Admitting Provider Family Medicine; PCP Family Medicine; Responsible Provider Nurse Practitioner Acute Care; Visit Provider Family Medicine
DX: A40.8 Other streptococcal sepsis (principal); L89.313 Pressure ulcer of right buttock, stage 3; L89.323 Pressure ulcer of left buttock, stage 3; G82.20 Paraplegia, unspecified; A04.72 Enterocolitis due to Clostridium difficile, not specified as recurrent; M86.68 Other chronic osteomyelitis, other site; Z59.811 Housing instability, housed, with risk of homelessness; E46 Unspecified protein-calorie malnutrition; K59.2 Neurogenic bowel, not elsewhere classified; F11.20 Opioid dependence, uncomplicated; N39.0 Urinary tract infection, site not specified; G47.00 Insomnia, unspecified; F41.8 Other specified anxiety disorders; K59.00 Constipation, unspecified; G47.20 Circadian rhythm sleep disorder, unspecified type; Z79.01 Long term (current) use of anticoagulants; Z68.34 Body mass index [BMI] 34.0-34.9, adult; N31.9 Neuromuscular dysfunction of bladder, unspecified; N48.5 Ulcer of penis; S90.211A Contusion of right great toe with damage to nail, initial encounter; S90.812A Abrasion, left foot, initial encounter; R60.0 Localized edema; Z95.0 Presence of cardiac pacemaker; F45.41 Pain disorder exclusively related to psychological factors; Z86.711 Personal history of pulmonary embolism; Z66 Do not resuscitate; B96.1 Klebsiella pneumoniae [K. pneumoniae] as the cause of diseases classified elsewhere; D50.9 Iron deficiency anemia, unspecified; R25.2 Cramp and spasm; W22.09XA Striking against other stationary object, initial encounter
CPT/HCPCS: 36410; 93288; 11730; 00123; 36415; 80048; 80053; 87040; 87637; 97110; 97162; 97530; 73660; 74176; 80202; 82728; 83540; 83550; 83605; 83735; 85025; 86140; 93306; 94667; 94668; 99223; 99231; 99232; 99233; 99239; J0696; J1439; J1756; J1885; J2270; J2543; J3373; J3490; Q9967